=== PATIENT | female | born 1995 | race Caucasian/White ===

== ENCOUNTER 2020-06-09 15:33 | Inpatient (IN) | payer MEDICAID ==
[2020-06-09] MEDS ORDERED: Sodium Chloride 0.9% 1,000 ML IV ONE (17:13)
[2020-06-09] MEDS: Sodium Chloride 0.9% 10 ML Syringe FLUSH PRN ×2 (17:59→19:32)
--- NOTE | 2020-06-09 18:25 | EDM.PDOC ---
<Santy Floyd - Last Filed: 06/09/20 19:12> ED HPI GENERAL MEDICAL PROBLEM - General Chief Complaint: Respiratory Problem Stated Complaint: MEDICAL Time Seen by Provider: 06/09/20 17:11 Source of Information: Reports: Patient - History of Present Illness INITIAL COMMENTS - FREE TEXT/NARRATIVE: Joey is a 25-year-old male presenting to the ED for evaluation of a multitude of complaints including headache, runny nose, sore throat, cough, chest pain, pallor, and widely swinging blood glucose since Saturday (4 days ago. Patient was seen in the clinic on Saturday and tested for strep which was negative. She was started on doxycycline at that time for a probable sinus infection. She does have a history of type 1 diabetes. She reports has been a number of years since she has had an episode of DKA. She does wear a Dex com and showed me her last 24 hours on the monitor with wide swings of her glucose despite taking adequate insulin. Despite her symptoms, she denies any nausea, vomiting, or diarrhea. She has been using throat lozenges for her cough. She denies any significant shortness of breath. Generalized Pain Score (Numeric/FACES): 8 - Related Data Allergies Allergy/AdvReac Type Severity Reaction Status Date / Time ciprofloxacin Allergy Hives Verified 06/09/20 17:41 Latex, Natural Rubber Allergy Itching Verified 06/09/20 17:48 morphine Allergy Hives Verified 06/09/20 17:41 Home Meds: Home Meds Albuterol Sulfate [Proair Hfa] 2 puff INH ASDIRECTED 06/09/20 [History] Doxycycline [Vibramycin] 100 mg PO BID 06/09/20 [History] Ergocalciferol (Vitamin D2) [Vitamin D2] 1 tab PO DAILY 06/09/20 [History] Fluconazole 150 mg PO ASDIRECTED 06/09/20 [History] Gabapentin [Neurontin] 300 mg PO TID 06/09/20 [History] Insulin Aspart [NovoLOG] 0 unit SUBCUT ASDIRECTED 06/09/20 [History] Insulin Glargine,Hum.Rec.Anlog [Lantus Solostar] 24 units SUBCUT DAILY 06/09/20 [History] Multivitamin [Multivitamins] 1 cap PO DAILY 06/09/20 [History] SUMAtriptan [Imitrex] 25 mg PO ASDIRECTED 06/09/20 [History] Sertraline [Zoloft] 100 mg PO DAILY 06/09/20 [History] ondansetron HCL [Zofran] 4 mg PO Q8H PRN 06/09/20 [History] traZODone HCl [Trazodone HCl] 50 - 100 mg PO BEDTIME PRN 06/09/20 [History] Past Medical History HEENT History: Reports: Other (See Below) Other HEENT History: retinopathy Cardiovascular History: Reports: Heart Murmur Respiratory History: Reports: Asthma Gastrointestinal History: Reports: Other (See Below) Other Gastrointestinal History: 2 benign masses on the liver. 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 Musculoskeletal History: Reports: Fracture Neurological History: Reports: Neuropathy, Diabetic Psychiatric History: Reports: Anxiety, Depression, Panic Attack Endocrine/Metabolic History: Reports: Diabetes, Type I Oncologic (Cancer) History: Reports: Other (See Below) Other Oncologic History: carcinomic tumor of appendix at 8 years old. - Past Surgical History HEENT Surgical History: Reports: Adenoidectomy, Tonsillectomy GI Surgical History: Reports: Appendectomy, Colonoscopy Social & Family History - Tobacco Use Tobacco Use Status *Q: Never Tobacco User - Caffeine Use Caffeine Use: Reports: None - Recreational Drug Use Recreational Drug Use: No ED ROS GENERAL - Review of Systems Review Of Systems: See Below Constitutional: Reports: Malaise, Fatigue HEENT: Reports: Rhinitis, Sinus Problem, Throat Pain Respiratory: Reports: Cough. Denies: Sputum Cardiovascular: Reports: Chest Pain Endocrine: Reports: No Symptoms GI/Abdominal: Reports: No Symptoms : Reports: No Symptoms Musculoskeletal: Reports: No Symptoms Skin: Reports: Pallor Neurological: Reports: Headache Psychiatric: Reports: No Symptoms Hematologic/Lymphatic: Reports: No Symptoms Immunologic: Reports: No Symptoms ED EXAM, GENERAL - Physical Exam Exam: See Below Exam Limited By: No Limitations General Appearance: Alert, Anxious, Mild Distress Eye Exam: Bilateral Eye: EOMI, PERRL Nose: Nasal Swelling, Clear Rhinorrhea Throat/Mouth: Normal Inspection, Normal Lips, Normal Oropharynx, Normal Voice, No Airway Compromise Head: Atraumatic, Normocephalic Neck: Normal Inspection, Supple, Non-Tender, Full Range of Motion. No: Lymphadenopathy (R), Lymphadenopathy (L) Respiratory/Chest: No Respiratory Distress, Lungs Clear, Normal Breath Sounds, No Accessory Muscle Use, Chest Non-Tender Cardiovascular: Normal Peripheral Pulses, Regular Rate, Rhythm, No Edema, No Gallop, No JVD, No Murmur, No Rub Peripheral Pulses: 2+: Radial (L), Radial (R), Posterior Tibial (L), Posterior Tibial (R) GI/Abdominal: Normal Bowel Sounds, Soft, Non-Tender, No Organomegaly, No Distention, No Abnormal Bruit, No Mass, Pelvis Stable Back Exam: Normal Inspection, Full Range of Motion, NT Extremities: Normal Inspection, Normal Range of Motion, Non-Tender, Normal Capillary Refill, No Pedal Edema Neurological: Alert, Oriented, CN II-XII Intact, Normal Cognition, Normal Gait, No Motor/Sensory Deficits Psychiatric: Normal Affect, Normal Mood Skin Exam: Warm, Dry, Intact, Normal Color, No Rash Lymphatic: No Adenopathy Course - Re-Assessments/Exams Free Text/Narrative Re-Assessment/Exam: 06/09/20 18:23 labs are completed and reviewed. Patient is Covid 19 -. Her electrolytes are within normal range. Her venous blood gas shows a pH of 7.41 with normal venous PCO2, PO2, and bicarb. Her CBC is unremarkable. Her serum ketones are negative. Her blood glucose is only 167. Anion gap is normal. She does have mild elevation of her creatinine 1.4 which is likely due to some dehydration. She was given a liter of IV normal saline. 06/09/20 18:26 Departure - Departure Time of Disposition: 18:48 Disposition: Admitted As Inpatient 64 Clinical Impression: Pneumonia Qualifiers: Pneumonia type: due to unspecified organism Laterality: left Lung location: lower lobe of lung Qualified Code(s): J18.9 - Pneumonia, unspecified organism - Discharge Information Referrals: PCP,None [Primary Care Provider] - Forms: ED Department Discharge <CliftonrAdryan - Last Filed: 06/09/20 21:34> Course - Vital Signs Last Recorded V/S: Last Vital Signs Temp 97.6 F 06/09/20 18:13 Pulse 103 H 06/09/20 20:00 Resp 16 06/09/20 21:06 BP 143/99 H 06/09/20 21:06 Pulse Ox 92 L 06/09/20 21:06 - Orders/Labs/Meds Orders: Active Orders 24 hr Category Date Time Status RT Post Treatment Assessment [RC] Click to Edit Care 06/09/20 21:28 Active CULTURE BLOOD [BC] Urgent Lab 06/09/20 20:15 Received CULTURE BLOOD [BC] Urgent Lab 06/09/20 20:20 Received Iopamidol [Isovue-370 (76%)] Med 06/09/20 19:15 Active 100 ml IV . DIRECTED Lactated Ringers [Ringers, Lactated] 1,000 ml Med 06/09/20 20:17 Active IV BOLUS Sodium Chloride 0.9% [Normal Saline] 100 ml Med 06/09/20 19:15 Active IV ASDIRECTED Sodium Chloride 0.9% [Saline Flush] Med 06/09/20 17:13 Active 10 ml FLUSH ASDIRECTED PRN Blood Culture x2 Reflex Set [OM.PC] Urgent Oth 06/09/20 20:09 Ordered Saline Lock Insert [OM.PC] Routine Oth 06/09/20 17:13 Ordered Medication Orders Sodium Chloride (Normal Saline) 100 mls @ 3 mls/sec IV ASDIRECTED BRIDGER Last Admin: 06/09/20 19:32 Dose: 3 mls/sec Documented by: URBANO Lactated Ringer's (Ringers, Lactated) 1,000 mls @ 250 mls/hr IV BOLUS ONE Stop: 06/10/20 00:16 Last Admin: 06/09/20 20:24 Dose: 250 mls/hr Documented by: SOFIE Iopamidol (Isovue-370 (76%)) 100 ml IV . DIRECTED BRIDGER Last Admin: 06/09/20 19:32 Dose: 100 ml Documented by: URBANO Sodium Chloride (Saline Flush) 10 ml FLUSH ASDIRECTED PRN PRN Reason: Keep Vein Open Last Admin: 06/09/20 19:32 Dose: 10 ml Documented by: Admin: 06/09/20 17:59 Dose: 10 ml Documented by: JUDY Labs: Laboratory Tests 06/09/20 06/09/20 06/09/20 Range/Units 17:36 17:36 17:36 WBC 9.5 (4.5-11.0) K/uL RBC 3.86 (3.30-5.50) M/uL Hgb 11.1 L (12.0-15.0) g/dL Hct 34.5 L (36.0-48.0) % MCV 89 (80-98) fL MCH 29 (27-31) pg MCHC 32 (32-36) % Plt Count 458 H (150-400) K/uL Neut % (Auto) 65 (36-66) % Lymph % (Auto) 24 (24-44) % Sebastian % (Auto) 8 H (2-6) % Eos % (Auto) 2 (2-4) % Baso % (Auto) 1 (0-1) % ABG Hemoglobin 11.8 L (12.0-16.0) g/dL ABG Oxyhemoglobin 73.7 % ABG Carboxyhemoglobin 2.1 H (0.0-1.6) % ABG Methemoglobin 1.0 % VBG pH 7.410 (7.350-7.450) VBG pCO2 38.1 mm/Hg VBG pO2 38.7 mm/Hg VBG HCO3 23.7 mmol/L VBG Total CO2 21.6 mmol/L VBG O2 Saturation 76.1 VBG O2 Content 12.2 %vol VBG Base Excess -0.2 mm/L O2 Delivery Device Room air Sodium 140 (140-148) mmol/L Potassium 4.5 (3.6-5.2) mmol/L Chloride 105 (100-108) mmol/L Carbon Dioxide 25 (21-32) mmol/L Anion Gap 10.2 (5.0-14.0) mmol/L BUN 27 H (7-18) mg/dL Creatinine 1.4 H (0.6-1.0) mg/dL Est Cr Clr Drug Dosing TNP Estimated GFR (MDRD) 45 L (>60) Glucose 167 H (74-106) mg/dL Lactic Acid (0.4-2.0) mmol/L Calcium 9.1 (8.5-10.1) mg/dL Total Bilirubin 0.2 (0.2-1.0) mg/dL AST 21 (15-37) U/L ALT 27 (12-78) U/L Alkaline Phosphatase 90 (46-116) U/L C-Reactive Protein 0.72 H (0.0-0.3) mg/dL Total Protein 6.4 (6.4-8.2) g/dL Albumin 2.8 L (3.4-5.0) g/dL Globulin 3.6 H (2.3-3.5) g/dL Albumin/Globulin Ratio 0.8 L (1.2-2.2) Urine Color (YELLOW) Urine Appearance (CLEAR) Urine pH (5.0-8.0) Ur Specific Kiln (1.008-1.030) Urine Protein (NEGATIVE) mg/dL Urine Glucose (UA) (NEGATIVE) mg/dL Urine Ketones (NEGATIVE) mg/dL Urine Occult Blood (NEGATIVE) Urine Nitrite (NEGATIVE) Urine Bilirubin (NEGATIVE) Urine Urobilinogen (0.2-1.0) EU/dL Ur Leukocyte Esterase (NEGATIVE) Urine RBC (0-5) Urine WBC (0-5) Ur Epithelial Cells Urine Bacteria Ketones (NEGATIVE) SARS-CoV-2 RNA (DOMINIQUE) (NEGATIVE) 06/09/20 06/09/20 06/09/20 Range/Units 17:36 17:36 17:36 WBC (4.5-11.0) K/uL RBC (3.30-5.50) M/uL Hgb (12.0-15.0) g/dL Hct (36.0-48.0) % MCV (80-98) fL MCH (27-31) pg MCHC (32-36) % Plt Count (150-400) K/uL Neut % (Auto) (36-66) % Lymph % (Auto) (24-44) % Sebastian % (Auto) (2-6) % Eos % (Auto) (2-4) % Baso % (Auto) (0-1) % ABG Hemoglobin (12.0-16.0) g/dL ABG Oxyhemoglobin % ABG Carboxyhemoglobin (0.0-1.6) % ABG Methemoglobin % VBG pH (7.350-7.450) VBG pCO2 mm/Hg VBG pO2 mm/Hg VBG HCO3 mmol/L VBG Total CO2 mmol/L VBG O2 Saturation VBG O2 Content %vol VBG Base Excess mm/L O2 Delivery Device Sodium (140-148) mmol/L Potassium (3.6-5.2) mmol/L Chloride (100-108) mmol/L Carbon Dioxide (21-32) mmol/L Anion Gap (5.0-14.0) mmol/L BUN (7-18) mg/dL Creatinine (0.6-1.0) mg/dL Est Cr Clr Drug Dosing Estimated GFR (MDRD) (>60) Glucose (74-106) mg/dL Lactic Acid 1.5 (0.4-2.0) mmol/L Calcium (8.5-10.1) mg/dL Total Bilirubin (0.2-1.0) mg/dL AST (15-37) U/L ALT (12-78) U/L Alkaline Phosphatase (46-116) U/L C-Reactive Protein (0.0-0.3) mg/dL Total Protein (6.4-8.2) g/dL Albumin (3.4-5.0) g/dL Globulin (2.3-3.5) g/dL Albumin/Globulin Ratio (1.2-2.2) Urine Color (YELLOW) Urine Appearance (CLEAR) Urine pH (5.0-8.0) Ur Specific Kiln (1.008-1.030) Urine Protein (NEGATIVE) mg/dL Urine Glucose (UA) (NEGATIVE) mg/dL Urine Ketones (NEGATIVE) mg/dL Urine Occult Blood (NEGATIVE) Urine Nitrite (NEGATIVE) Urine Bilirubin (NEGATIVE) Urine Urobilinogen (0.2-1.0) EU/dL Ur Leukocyte Esterase (NEGATIVE) Urine RBC (0-5) Urine WBC (0-5) Ur Epithelial Cells Urine Bacteria Ketones Negative (NEGATIVE) SARS-CoV-2 RNA (DOMINIQUE) Negative (NEGATIVE) 06/09/20 Range/Units 18:10 WBC (4.5-11.0) K/uL RBC (3.30-5.50) M/uL Hgb (12.0-15.0) g/dL Hct (36.0-48.0) % MCV (80-98) fL MCH (27-31) pg MCHC (32-36) % Plt Count (150-400) K/uL Neut % (Auto) (36-66) % Lymph % (Auto) (24-44) % Sebastian % (Auto) (2-6) % Eos % (Auto) (2-4) % Baso % (Auto) (0-1) % ABG Hemoglobin (12.0-16.0) g/dL ABG Oxyhemoglobin % ABG Carboxyhemoglobin (0.0-1.6) % ABG Methemoglobin % VBG pH (7.350-7.450) VBG pCO2 mm/Hg VBG pO2 mm/Hg VBG HCO3 mmol/L VBG Total CO2 mmol/L VBG O2 Saturation VBG O2 Content %vol VBG Base Excess mm/L O2 Delivery Device Sodium (140-148) mmol/L Potassium (3.6-5.2) mmol/L Chloride (100-108) mmol/L Carbon Dioxide (21-32) mmol/L Anion Gap (5.0-14.0) mmol/L BUN (7-18) mg/dL Creatinine (0.6-1.0) mg/dL Est Cr Clr Drug Dosing Estimated GFR (MDRD) (>60) Glucose (74-106) mg/dL Lactic Acid (0.4-2.0) mmol/L Calcium (8.5-10.1) mg/dL Total Bilirubin (0.2-1.0) mg/dL AST (15-37) U/L ALT (12-78) U/L Alkaline Phosphatase (46-116) U/L C-Reactive Protein (0.0-0.3) mg/dL Total Protein (6.4-8.2) g/dL Albumin (3.4-5.0) g/dL Globulin (2.3-3.5) g/dL Albumin/Globulin Ratio (1.2-2.2) Urine Color Yellow (YELLOW) Urine Appearance Clear (CLEAR) Urine pH 5.5 (5.0-8.0) Ur Specific Kiln 1.025 (1.008-1.030) Urine Protein >=300 H (NEGATIVE) mg/dL Urine Glucose (UA) >=1000 H (NEGATIVE) mg/dL Urine Ketones Negative (NEGATIVE) mg/dL Urine Occult Blood Small H (NEGATIVE) Urine Nitrite Negative (NEGATIVE) Urine Bilirubin Negative (NEGATIVE) Urine Urobilinogen 0.2 (0.2-1.0) EU/dL Ur Leukocyte Esterase Negative (NEGATIVE) Urine RBC 20-30 H (0-5) Urine WBC Not seen (0-5) Ur Epithelial Cells Not seen Urine Bacteria Not seen Ketones (NEGATIVE) SARS-CoV-2 RNA (DOMINIQUE) (NEGATIVE) Meds: Medications Generic Name Dose Route Start Last Admin Trade Name Freq PRN Reason Stop Dose Admin Sodium Chloride 100 mls @ 3 mls/sec 06/09/20 19:15 06/09/20 19:32 Normal Saline IV 3 mls/sec ASDIRECTED BRIDGER Administration Lactated Ringer's 1,000 mls @ 250 mls/hr 06/09/20 20:17 06/09/20 20:24 Ringers, Lactated IV 06/10/20 00:16 250 mls/hr BOLUS ONE Administration Iopamidol 100 ml 06/09/20 19:15 06/09/20 19:32 Isovue-370 (76%) IV 100 ml . DIRECTED BRIDGER Administration Sodium Chloride 10 ml 06/09/20 17:13 06/09/20 19:32 Saline Flush FLUSH 10 ml ASDIRECTED PRN Administration Keep Vein Open Discontinued Medications Generic Name Dose Route Start Last Admin Trade Name Elisabet PRN Reason Stop Dose Admin Albuterol/Ipratropium 1 gm 06/09/20 21:28 Combivent Respimat INH 06/09/20 21:29 NOW STA Fentanyl 50 mcg 06/09/20 20:02 06/09/20 20:22 Sublimaze IVPUSH 06/09/20 20:03 50 mcg ONETIME ONE Administration Sodium Chloride 1,000 mls @ 999 mls/hr 06/09/20 17:13 06/09/20 17:59 Normal Saline IV 06/09/20 18:13 999 mls/hr .BOLUS ONE Administration Ceftriaxone Sodium 1 gm/ 50 mls @ 100 mls/hr 06/09/20 20:09 06/09/20 20:24 Sodium Chloride IV 06/09/20 20:38 100 mls/hr ONETIME ONE Administration Ketorolac Tromethamine 30 mg 06/09/20 18:47 06/09/20 18:56 Toradol IVPUSH 06/09/20 18:48 30 mg ONETIME ONE Administration Ondansetron HCl 4 mg 06/09/20 18:49 06/09/20 18:56 Zofran IVPUSH 06/09/20 18:50 4 mg ONETIME ONE Administration Departure - Departure Time of Disposition: 21:34 Sepsis Event Note (ED) - Focused Exam Vital Signs: Vital Signs Temp Pulse Resp BP Pulse Ox 06/09/20 21:06 16 143/99 H 92 L 06/09/20 20:00 103 H 151/89 H 94 L 06/09/20 19:16 88 L 06/09/20 19:01 111 H 171/105 H 93 L 06/09/20 18:57 110 H 172/110 H 87 L 06/09/20 18:31 112 H 160/102 H 93 L 06/09/20 18:13 97.6 F 105 H 16 165/95 H 97 06/09/20 18:01 108 H 167/86 H 95 06/09/20 17:00 97.6 F 105 H 16 165/95 H 97 - My Orders Last 24 Hours: My Active Orders 06/09/20 20:09 Blood Culture x2 Reflex Set [OM.PC] Urgent 06/09/20 20:15 CULTURE BLOOD [BC] Urgent 06/09/20 20:17 Lactated Ringers [Ringers, Lactated] 1,000 ml IV BOLUS 06/09/20 20:20 CULTURE BLOOD [BC] Urgent 06/09/20 21:28 RT Post Treatment Assessment [RC] Click to Edit - Assessment/Plan Last 24 Hours: My Active Orders 06/09/20 20:09 Blood Culture x2 Reflex Set [OM.PC] Urgent 06/09/20 20:15 CULTURE BLOOD [BC] Urgent 06/09/20 20:17 Lactated Ringers [Ringers, Lactated] 1,000 ml IV BOLUS 06/09/20 20:20 CULTURE BLOOD [BC] Urgent 06/09/20 21:28 RT Post Treatment Assessment [RC] Click to Edit Plan: Assessment Acuity = acute Site and laterality = left lower lobe pneumonia complicated patient with known history of asthma Etiology = probable bacterial cause Manifestations = hypoxia Location of injury = Home Lab values = CBC unremarkable venous pH 7.4 creatinine 1.4 consistent with acute renal failure stage G3 B lactic acid normal 1.5 CRP 0.72 albumin low 2.8 consistent hypoalbuminemia urinalysis reveals greater than 1000 glucose consistent with glucosuria 20-30 RBCs consistent with a hematuria ketones are negative Covid is negative CT scan describes the pneumonia listed above, she has been started on antibiotics of Rocephin blood cultures pending she is received 1 L of fluids Plan Call discussed case with hospitalist on-call at [phone] kindly agreed to come and evaluate the patient emergency department for admission This note was dictated using [employer] voice recognition software please call with any questions on syntax or grammar.
[2020-06-09] MEDS ORDERED: Ketorolac 30 MG/ML SDV IVPUSH ONE (18:47)
[2020-06-09] MEDS ORDERED: Ondansetron 4 MG/2 ML SDV IVPUSH ONE ×2 (18:49→23:40)
[2020-06-09] MEDS ORDERED: Sodium Chloride 0.9% 100 ML IV SCH (19:15)
[2020-06-09] MEDS ORDERED: Iopamidol 755 Mg/ML 100 ML Bottle IV SCH (19:15)
--- NOTE | 2020-06-09 19:59 | CRLCT ---
INDICATION: Shortness of breath, hypoxia, chest pain TECHNIQUE: CT chest pulmonary PE protocol acquired with IV contrast. COMPARISON: None FINDINGS: Cardiovascular structures: Normal vascular enhancement of the pulmonary arteries, no sign of pulmonary embolism. Heart size is normal. No sign of aneurysm in the thoracic aorta. Mediastinum and cassidy: No mass or adenopathy. Lungs: Patchy consolidation in the left lower lobe. Diffuse bronchial wall thickening. Pleura and pericardium: Trace bilateral pleural effusions. Chest wall and axilla: No mass or adenopathy. Upper abdomen: Unremarkable. Bones: No significant findings. IMPRESSION: No pulmonary embolism. Left lower lobe pneumonia. Bronchitis. Please note that all CT scans at this facility use dose modulation, iterative reconstruction, and/or weight-based dosing when appropriate to reduce radiation dose to as low as reasonably achievable. Dictated by Sherrill Lopez MD @ Jun 09 2020 7:52PM Signed by Dr. Sherrill Lopez @ Jun 09 2020 7:58PM
[2020-06-09] MEDS ORDERED: fentaNYL 100 MCG/2 ML SDV IVPUSH ONE (20:02)
[2020-06-09] MEDS ORDERED: cefTRIAXone 1 GM in Sodium Chloride 0.9% 50 ML IV ONE (20:09)
[2020-06-09] MEDS ORDERED: Lactated Ringers 1,000 ML IV ONE (20:17)
[2020-06-09] MEDS ORDERED: Albuterol/Ipratropium 4 GM Inhalation Spray INH STA (21:28)
[2020-06-09] MEDS ORDERED: Iopamidol 612 MG/ML 100 ML Bottle IV SCH (21:45)
[2020-06-09] MEDS ORDERED: Sodium Chloride 0.9% 80 ML IV SCH (21:45)
--- NOTE | 2020-06-09 22:35 | CRLCT ---
INDICATION: Left lower quadrant abdominal pain TECHNIQUE: Axial images were obtained from the diaphragm to the pubic symphysis. Reformats were obtained in the coronal and sagittal plane. IV Contrast: 100 cc Isovue-300 Oral Contrast: None COMPARISON: None. FINDINGS: Lower chest: Interlobular septal thickening with some consolidation in the bilateral lower lobes. Trace bilateral pleural effusions. Liver: Normal in contour with hypodense nodule in the right lobe measuring 10 millimeters with some enhancement as well as segmental ductal dilatation within the lateral segment of left lobe liver. Gallbladder and bile ducts: Common duct unremarkable. Gallbladder unremarkable with a Phrygian cap. Spleen: Unremarkable. Normal in size without mass. Pancreas: Unremarkable. No mass or inflammation. Adrenal glands: Unremarkable. No nodules. Kidneys: No hydronephrosis with heterogeneous enhancement of the kidneys bilaterally. Vasculature: Unremarkable. GI tract: The stomach is unremarkable. No dilated loops of large or small intestine. Pelvis: Contrast within the bladder. Uterus anteverted. Dominant follicle right ovary. Bones: Unremarkable for age. IMPRESSION: 1. Trace bilateral pleural effusions with consolidation of bilateral lower lobes, greater on the left, question pneumonia. 2. Heterogeneous enhancement of the kidneys bilaterally. Differential diagnosis would include a process such as pyelonephritis or persistent enhancement from an intrinsic renal process such as renal tubular acidosis. 3. Indeterminate hepatic lesion and segmental ductal dilatation, suggest follow-up outpatient liver MRI for further characterization. Please note that all CT scans at this facility use dose modulation, iterative reconstruction, and/or weight-based dosing when appropriate to reduce radiation dose to as low as reasonably achievable. Dictated by Nacho Wheeler MD @ Jun 09 2020 10:20PM Signed by Dr. Nacho Wheeler @ Jun 09 2020 10:33PM
[2020-06-09] MEDS: Albuterol 0.083% 2.5 MG/3 ML Neb Soln NEB PRN (22:48)
--- NOTE | 2020-06-09 23:29 | PCM.HP.2 ---
H&P History of Present Illness - General Date of Service: 06/09/20 Admit Problem/Dx: Admission Diagnosis/Problem Admission Diagnosis/Problem Pneumonia Source of Information: Patient, Provider, RN Notes Reviewed History Limitations: Reports: No Limitations - History of Present Illness Initial Comments - Free Text/Narative: Ms. Goss is a 25-year-old woman who was admitted through the emergency department with cough and shortness of breath secondary to left lung pneumonia and asthma exacerbation. She has not felt well over the past 4 days. She has not been aware of obvious fever but has had some chills with progressive weakness and increase in her blood sugars. On evaluation in the emergency department CT scan of the chest shows evidence of a left lung infiltrate. White blood cell count is within normal range and COVID-19 testing is negative. She is also experienced left lower quadrant abdominal pain over the past several hours, CT scan of the abdomen shows evidence of constipation but no other significant abnormalities to explain current symptoms. She is found to be hypoxic and is requiring supplemental oxygen, she has a known history of underlying asthma. Generalized Pain Score (Numeric/FACES): 8 - Related Data Allergies/Adverse Reactions: Allergies Allergy/AdvReac Type Severity Reaction Status Date / Time ciprofloxacin Allergy Hives Verified 06/09/20 17:41 Latex, Natural Rubber Allergy Itching Verified 06/09/20 17:48 morphine Allergy Hives Verified 06/09/20 17:41 Home Medications: Home Meds Albuterol Sulfate [Proair Hfa] 2 puff INH ASDIRECTED 06/09/20 [History] Doxycycline [Vibramycin] 100 mg PO BID 06/09/20 [History] Ergocalciferol (Vitamin D2) [Vitamin D2] 1 tab PO DAILY 06/09/20 [History] Fluconazole 150 mg PO ASDIRECTED 06/09/20 [History] Gabapentin [Neurontin] 300 mg PO TID 06/09/20 [History] Insulin Aspart [NovoLOG] 0 unit SUBCUT ASDIRECTED 06/09/20 [History] Insulin Glargine,Hum.Rec.Anlog [Lantus Solostar] 24 units SUBCUT DAILY 06/09/20 [History] Multivitamin [Multivitamins] 1 cap PO DAILY 06/09/20 [History] SUMAtriptan [Imitrex] 25 mg PO ASDIRECTED 10/29/20 [History] Sertraline [Zoloft] 100 mg PO DAILY 06/09/20 [History] ondansetron HCL [Zofran] 4 mg PO Q8H PRN 06/09/20 [History] traZODone HCl [Trazodone HCl] 50 - 100 mg PO BEDTIME PRN 06/09/20 [History] Past Medical History HEENT History: Reports: Other (See Below) Other HEENT History: retinopathy Cardiovascular History: Reports: Heart Murmur Respiratory History: Reports: Asthma Gastrointestinal History: Reports: Other (See Below) Other Gastrointestinal History: 2 benign masses on the liver. 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 Musculoskeletal History: Reports: Fracture Neurological History: Reports: Neuropathy, Diabetic Psychiatric History: Reports: Anxiety, Depression, Panic Attack Endocrine/Metabolic History: Reports: Diabetes, Type I Oncologic (Cancer) History: Reports: Other (See Below) Other Oncologic History: carcinomic tumor of appendix at 8 years old. - Past Surgical History HEENT Surgical History: Reports: Adenoidectomy, Tonsillectomy GI Surgical History: Reports: Appendectomy, Colonoscopy Social & Family History - Tobacco Use Tobacco Use Status *Q: Never Tobacco User - Caffeine Use Caffeine Use: Reports: None - Recreational Drug Use Recreational Drug Use: No H&P Review of Systems - Review of Systems: Review Of Systems: See Below General: Reports: Chills, Malaise, Weakness, Fatigue, Decreased Appetite. Denies: Fever HEENT: Reports: No Symptoms Pulmonary: Reports: Shortness of Breath, Wheezing, Cough. Denies: Pleuritic Chest Pain, Sputum, Hemoptysis Cardiovascular: Reports: Dyspnea on Exertion. Denies: Chest Pain, Palpitations, Orthopnea, PND, Edema, Lightheadedness Gastrointestinal: Reports: Abdominal Pain, Constipation, Decreased Appetite. Denies: Difficulty Swallowing, Distension, Nausea, Vomiting Genitourinary: Reports: No Symptoms Musculoskeletal: Reports: No Symptoms Skin: Reports: No Symptoms Psychiatric: Reports: No Symptoms Neurological: Reports: No Symptoms Hematologic/Lymphatic: Reports: No Symptoms Immunologic: Reports: No Symptoms Exam - Exam Exam: See Below - Vital Signs Vital Signs: Last Vital Signs Temp 96.6 F L 06/09/20 22:00 Pulse 102 H 06/09/20 22:00 Resp 22 H 06/09/20 22:00 BP 162/101 H 06/09/20 22:00 Pulse Ox 88 L 06/09/20 22:00 Weight: 160 lb - Exam Quality Assessment: Supplemental Oxygen, DVT Prophylaxis General: Alert, Oriented, Cooperative, Moderate Distress HEENT: Conjunctiva Clear, Hearing Intact, Mucosa Moist & [place], Normal Nasal Septum, Posterior Pharynx Clear, Pupils Equal Neck: Supple, Trachea Midline, +2 Carotid Pulse wo Bruit Lungs: Normal Respiratory Effort, Wheezing. No: Rales, Rhonchi Cardiovascular: Regular Rate, Regular Rhythm, Normal S1, Normal S2. No: Systolic Murmur, Diastolic Murmur GI/Abdominal Exam: Soft, No Organomegaly, Tender. No: Distended, Guarding, Rigid, Rebound Back Exam: Normal Inspection, Full Range of Motion Extremities: Non-Tender, No Pedal Edema Skin: Warm, Dry, Intact Neurological: Cranial Nerves Intact, Strength Equal Bilateral, Normal Speech, Normal Tone, Sensation Intact. No: Focal Deficit Neuro Extensive - Mental Status: Alert, Oriented x3, Normal Mood/Affect, Normal Cognition, Memory Intact - Patient Data Lab Results Last 24 hrs: Laboratory Results - last 24 hr 06/09/20 06/09/20 06/09/20 Range/Units 17:36 17:36 17:36 WBC 9.5 (4.5-11.0) K/uL RBC 3.86 (3.30-5.50) M/uL Hgb 11.1 L (12.0-15.0) g/dL Hct 34.5 L (36.0-48.0) % MCV 89 (80-98) fL MCH 29 (27-31) pg MCHC 32 (32-36) % Plt Count 458 H (150-400) K/uL Neut % (Auto) 65 (36-66) % Lymph % (Auto) 24 (24-44) % [place] % (Auto) 8 H (2-6) % Eos % (Auto) 2 (2-4) % Baso % (Auto) 1 (0-1) % ABG Hemoglobin 11.8 L (12.0-16.0) g/dL ABG Oxyhemoglobin 73.7 % ABG Carboxyhemoglobin 2.1 H (0.0-1.6) % ABG Methemoglobin 1.0 % VBG pH 7.410 (7.350-7.450) VBG pCO2 38.1 mm/Hg VBG pO2 38.7 mm/Hg VBG HCO3 23.7 mmol/L VBG Total CO2 21.6 mmol/L VBG O2 Saturation 76.1 VBG O2 Content 12.2 %vol VBG Base Excess -0.2 mm/L O2 Delivery Device Room air Sodium 140 (140-148) mmol/L Potassium 4.5 (3.6-5.2) mmol/L Chloride 105 (100-108) mmol/L Carbon Dioxide 25 (21-32) mmol/L Anion Gap 10.2 (5.0-14.0) mmol/L BUN 27 H (7-18) mg/dL Creatinine 1.4 H (0.6-1.0) mg/dL Est Cr Clr Drug Dosing TNP Estimated GFR (MDRD) 45 L (>60) Glucose 167 H (74-106) mg/dL Lactic Acid (0.4-2.0) mmol/L Calcium 9.1 (8.5-10.1) mg/dL Total Bilirubin 0.2 (0.2-1.0) mg/dL AST 21 (15-37) U/L ALT 27 (12-78) U/L Alkaline Phosphatase 90 (46-116) U/L C-Reactive Protein 0.72 H (0.0-0.3) mg/dL Total Protein 6.4 (6.4-8.2) g/dL Albumin 2.8 L (3.4-5.0) g/dL Globulin 3.6 H (2.3-3.5) g/dL Albumin/Globulin Ratio 0.8 L (1.2-2.2) Urine Color (YELLOW) Urine Appearance (CLEAR) Urine pH (5.0-8.0) Ur Specific [place] (1.008-1.030) Urine Protein (NEGATIVE) mg/dL Urine Glucose (UA) (NEGATIVE) mg/dL Urine Ketones (NEGATIVE) mg/dL Urine Occult Blood (NEGATIVE) Urine Nitrite (NEGATIVE) Urine Bilirubin (NEGATIVE) Urine Urobilinogen (0.2-1.0) EU/dL Ur Leukocyte Esterase (NEGATIVE) Urine RBC (0-5) Urine WBC (0-5) Ur Epithelial Cells Urine Bacteria Ketones (NEGATIVE) SARS-CoV-2 RNA (DOMINIQUE) (NEGATIVE) 06/09/20 06/09/20 06/09/20 Range/Units 17:36 17:36 17:36 WBC (4.5-11.0) K/uL RBC (3.30-5.50) M/uL Hgb (12.0-15.0) g/dL Hct (36.0-48.0) % MCV (80-98) fL MCH (27-31) pg MCHC (32-36) % Plt Count (150-400) K/uL Neut % (Auto) (36-66) % Lymph % (Auto) (24-44) % [place] % (Auto) (2-6) % Eos % (Auto) (2-4) % Baso % (Auto) (0-1) % ABG Hemoglobin (12.0-16.0) g/dL ABG Oxyhemoglobin % ABG Carboxyhemoglobin (0.0-1.6) % ABG Methemoglobin % VBG pH (7.350-7.450) VBG pCO2 mm/Hg VBG pO2 mm/Hg VBG HCO3 mmol/L VBG Total CO2 mmol/L VBG O2 Saturation VBG O2 Content %vol VBG Base Excess mm/L O2 Delivery Device Sodium (140-148) mmol/L Potassium (3.6-5.2) mmol/L Chloride (100-108) mmol/L Carbon Dioxide (21-32) mmol/L Anion Gap (5.0-14.0) mmol/L BUN (7-18) mg/dL Creatinine (0.6-1.0) mg/dL Est Cr Clr Drug Dosing Estimated GFR (MDRD) (>60) Glucose (74-106) mg/dL Lactic Acid 1.5 (0.4-2.0) mmol/L Calcium (8.5-10.1) mg/dL Total Bilirubin (0.2-1.0) mg/dL AST (15-37) U/L ALT (12-78) U/L Alkaline Phosphatase (46-116) U/L C-Reactive Protein (0.0-0.3) mg/dL Total Protein (6.4-8.2) g/dL Albumin (3.4-5.0) g/dL Globulin (2.3-3.5) g/dL Albumin/Globulin Ratio (1.2-2.2) Urine Color (YELLOW) Urine Appearance (CLEAR) Urine pH (5.0-8.0) Ur Specific [place] (1.008-1.030) Urine Protein (NEGATIVE) mg/dL Urine Glucose (UA) (NEGATIVE) mg/dL Urine Ketones (NEGATIVE) mg/dL Urine Occult Blood (NEGATIVE) Urine Nitrite (NEGATIVE) Urine Bilirubin (NEGATIVE) Urine Urobilinogen (0.2-1.0) EU/dL Ur Leukocyte Esterase (NEGATIVE) Urine RBC (0-5) Urine WBC (0-5) Ur Epithelial Cells Urine Bacteria Ketones Negative (NEGATIVE) SARS-CoV-2 RNA (DOMINIQUE) Negative (NEGATIVE) 06/09/20 Range/Units 18:10 WBC (4.5-11.0) K/uL RBC (3.30-5.50) M/uL Hgb (12.0-15.0) g/dL Hct (36.0-48.0) % MCV (80-98) fL MCH (27-31) pg MCHC (32-36) % Plt Count (150-400) K/uL Neut % (Auto) (36-66) % Lymph % (Auto) (24-44) % [place] % (Auto) (2-6) % Eos % (Auto) (2-4) % Baso % (Auto) (0-1) % ABG Hemoglobin (12.0-16.0) g/dL ABG Oxyhemoglobin % ABG Carboxyhemoglobin (0.0-1.6) % ABG Methemoglobin % VBG pH (7.350-7.450) VBG pCO2 mm/Hg VBG pO2 mm/Hg VBG HCO3 mmol/L VBG Total CO2 mmol/L VBG O2 Saturation VBG O2 Content %vol VBG Base Excess mm/L O2 Delivery Device Sodium (140-148) mmol/L Potassium (3.6-5.2) mmol/L Chloride (100-108) mmol/L Carbon Dioxide (21-32) mmol/L Anion Gap (5.0-14.0) mmol/L BUN (7-18) mg/dL Creatinine (0.6-1.0) mg/dL Est Cr Clr Drug Dosing Estimated GFR (MDRD) (>60) Glucose (74-106) mg/dL Lactic Acid (0.4-2.0) mmol/L Calcium (8.5-10.1) mg/dL Total Bilirubin (0.2-1.0) mg/dL AST (15-37) U/L ALT (12-78) U/L Alkaline Phosphatase (46-116) U/L C-Reactive Protein (0.0-0.3) mg/dL Total Protein (6.4-8.2) g/dL Albumin (3.4-5.0) g/dL Globulin (2.3-3.5) g/dL Albumin/Globulin Ratio (1.2-2.2) Urine Color Yellow (YELLOW) Urine Appearance Clear (CLEAR) Urine pH 5.5 (5.0-8.0) Ur Specific [place] 1.025 (1.008-1.030) Urine Protein >=300 H (NEGATIVE) mg/dL Urine Glucose (UA) >=1000 H (NEGATIVE) mg/dL Urine Ketones Negative (NEGATIVE) mg/dL Urine Occult Blood Small H (NEGATIVE) Urine Nitrite Negative (NEGATIVE) Urine Bilirubin Negative (NEGATIVE) Urine Urobilinogen 0.2 (0.2-1.0) EU/dL Ur Leukocyte Esterase Negative (NEGATIVE) Urine RBC 20-30 H (0-5) Urine WBC Not seen (0-5) Ur Epithelial Cells Not seen Urine Bacteria Not seen Ketones (NEGATIVE) SARS-CoV-2 RNA (DOMINIQUE) (NEGATIVE) Result Diagrams: 06/09/20 17:36 06/09/20 17:36 Sepsis Event Note - Evaluation Sepsis Screening Result: No Definite Risk - Focused Exam Vital Signs: Vital Signs Temp Pulse Resp BP Pulse Ox 06/09/20 22:00 96.6 F L 102 H 22 H 162/101 H 88 L 06/09/20 21:30 102 H 23 H 189/116 H 89 L 06/09/20 21:06 16 143/99 H 92 L 06/09/20 20:00 103 H 151/89 H 94 L 06/09/20 19:16 88 L 06/09/20 19:01 111 H 171/105 H 93 L 06/09/20 18:57 110 H 172/110 H 87 L 06/09/20 18:31 112 H 160/102 H 93 L 06/09/20 18:13 97.6 F 105 H 16 165/95 H 97 06/09/20 18:01 108 H 167/86 H 95 06/09/20 17:00 97.6 F 105 H 16 165/95 H 97 *Q Meaningful Use (ADM) - VTE Risk Assess *Q Each Risk Factor Represents 1 Point: Obesity ( BMI > 25 kg/m2), Serious lung disease including pneumonia, Abnormal Pulmonary Function (COPD) Total Score 1 Point Risk Factors: 3 Each Risk Factor Represents 2 Points: None Total Score 2 Point Risk Factors: 0 Each Risk Factor Represents 3 Points: None Total Score 3 Point Risk Factors: 0 Each Risk Factor Represents 5 Points: None Total Score 5 Point Risk Factors: 0 Venous Thromboembolism Risk Factor Score *Q: 3 Problem List Initiated/Reviewed/Updated: Yes Orders Last 24hrs: Active Orders 24 hr Category Date Time Status Patient Status Manage Transfer [TRANSFER] Routine ADT 06/09/20 23:06 Active RT Aerosol Therapy [RC] ASDIRECTED Care 06/09/20 21:38 Active RT Post Treatment Assessment [RC] Click to Edit Care 06/09/20 21:28 Active CULTURE BLOOD [BC] Urgent Lab 06/09/20 20:15 Received CULTURE BLOOD [BC] Urgent Lab 06/09/20 20:20 Received INFLUENZA A+B AG SCREEN [RM] Stat Lab 06/09/20 22:45 Ordered PROCALCITONIN [CHEM] Stat Lab 06/09/20 22:25 Ordered Albuterol [Proventil Neb Soln] Med 06/09/20 21:38 Active 2.5 mg NEB Q2H PRN Iopamidol [Isovue-300 (61%)] Med 06/09/20 21:45 Active 100 ml IV . DIRECTED Iopamidol [Isovue-370 (76%)] Med 06/09/20 19:15 Active 100 ml IV . DIRECTED Lactated Ringers [Ringers, Lactated] 1,000 ml Med 06/09/20 20:17 Active IV BOLUS Sodium Chloride 0.9% [Normal Saline] 100 ml Med 06/09/20 19:15 Active IV ASDIRECTED Sodium Chloride 0.9% [Normal Saline] 80 ml Med 06/09/20 21:45 Active IV ASDIRECTED Sodium Chloride 0.9% [Saline Flush] Med 06/09/20 17:13 Active 10 ml FLUSH ASDIRECTED PRN Blood Culture x2 Reflex Set [OM.PC] Urgent Oth 06/09/20 20:09 Ordered Isolation [COMM] Routine Oth 06/09/20 22:24 Ordered Saline Lock Insert [OM.PC] Routine Oth 06/09/20 17:13 Ordered Resuscitation Status Routine Resus Stat 06/09/20 23:10 Ordered Medication Orders Albuterol (Proventil Neb Soln) 2.5 mg NEB Q2H PRN PRN Reason: Dyspnea Last Admin: 06/09/20 22:48 Dose: 2.5 mg Documented by: SMITA Sodium Chloride (Normal Saline) 100 mls @ 3 mls/sec IV ASDIRECTED [facility], [facility] Last Admin: 06/09/20 19:32 Dose: 3 mls/sec Documented by: URBANO Lactated Ringer's (Ringers, Lactated) 1,000 mls @ 250 mls/hr IV BOLUS ONE Stop: 06/10/20 00:16 Last Admin: 06/09/20 20:24 Dose: 250 mls/hr Documented by: SOFIE Sodium Chloride (Normal Saline) 80 mls @ 3 mls/sec IV ASDIRECTED [facility], [facility] Last Admin: 06/09/20 21:57 Dose: 3 mls/sec Documented by: DAVIDAALY Iopamidol (Isovue-370 (76%)) 100 ml IV . DIRECTED [facility] Last Admin: 06/09/20 19:32 Dose: 100 ml Documented by: MYKLALY Iopamidol (Isovue-300 (61%)) 100 ml IV . DIRECTED [facility], [facility] Last Admin: 06/09/20 21:57 Dose: 100 ml Documented by: DAVIDAALY Sodium Chloride (Saline Flush) 10 ml FLUSH ASDIRECTED PRN PRN Reason: Keep Vein Open Last Admin: 06/09/20 19:32 Dose: 10 ml Documented by: Admin: 06/09/20 17:59 Dose: 10 ml Documented by: JUDY Assessment/Plan Comment:: ASSESSMENT AND PLAN LEFT LUNG PNEUMONIA-symptoms of chills, weakness, shortness of breath. Cough developing over the last 24 hours. Left lung infiltrate identified on CT scan, normal white blood cell count. -Procalcitonin and influenza AMB pending -Ceftriaxone and azithromycin pending culture results -Blood cultures pending ASTHMA EXACERBATION-likely secondary to current pneumonia -Nebulized albuterol and DuoNebs -Solu-Medrol 40 mg IV every 8 hours -Pulmicort nebs twice daily HYPOXIA-secondary to asthma exacerbation -Supplemental oxygen as needed -Continuous pulse oximetry -Consider noninvasive positive pressure ventilation if hypoxia worsens TYPE 1 DIABETES MELLITUS -Continue usual dose of long-acting insulin -4 times daily glucometers -Moderate dose sliding scale Humalog MAINTENANCE ISSUES -DVT prophylaxis; scuds -GI prophylaxis; not indicated -Austin catheter; not indicated -Nutrition; consistent carb diet -Nicotine dependence; not required CODE STATUS-FULL CODE ADMISSION STATUS-patient will be admitted to inpatient status, expect at least a 2 night hospital stay for evaluation and management of problems as outlined above. At the time of this admission I do not reasonably expected evaluation and management of this problem will require more than a 96 hour hospital stay. DISPOSITION-anticipate discharge to home after the hospital stay. PRIMARY CARE PROVIDER- - Mortality Measure Prognosis:: Good
[2020-06-09] MEDS ORDERED: Polyethylene Glycol 3350 Powder 17 GM Packet PO ONE (23:45)
[2020-06-09] MEDS ORDERED: Ondansetron 4 MG/2 ML SDV IV PRN (23:45)
[2020-06-09] MEDS ORDERED: Glucagon,Human Recombinant 1 MG Vial IM PRN (23:45)
[2020-06-09] MEDS ORDERED: 50% Dextrose in Water 50 ML Syringe IV PRN (23:45)
[2020-06-09] MEDS ORDERED: Sodium Chloride 0.9% 10 ML Syringe FLUSH PRN (23:45)
[2020-06-09] MEDS ORDERED: Azithromycin 500 MG in Sodium Chloride 0.9% 250 ML IV SCH (23:45)
[2020-06-09] MEDS ORDERED: Glucose Gel 15 GM in 37.5 GM Tube PO PRN (23:45)
[2020-06-09] MEDS ORDERED: 50% Dextrose in Water 50 ML Syringe IVPUSH PRN (23:45)
[2020-06-09] MEDS ORDERED: methylPREDNISolone Sodium Succinate 40 MG/1 ML SDV IVPUSH SCH (23:45)
[2020-06-09] MEDS ORDERED: cefTRIAXone 1 GM in Sodium Chloride 0.9% 50 ML IV SCH (23:45)
[2020-06-09] MEDS ORDERED: traZODone 50 MG Tab PO PRN (23:45)
[2020-06-10] MEDS: Sodium Chloride 0.9% 1,000 ML IV SCH ×2 (00:12→08:03)
[2020-06-10] MEDS: Budesonide 0.5 MG/2 ML Neb Susp NEB SCH ×3 (00:20→20:43)
[2020-06-10] MEDS ORDERED: SUMAtriptan 50 MG Tab PO ONE ×2 (00:37→01:54)
[2020-06-10] MEDS: LORazepam 2 MG/ML SDV IVPUSH PRN ×9 (00:50→22:45)
[2020-06-10] MEDS: Docusate Sodium 100 MG Cap PO SCH ×3 (01:01→20:38)
[2020-06-10] MEDS: Insulin Lispro 100 Unit/ML 3 ML KwikPen SUBCUT SCH ×5 (01:25→20:57)
[2020-06-10] MEDS ORDERED: Albuterol/Ipratropium 3.0-0.5 MG/3 ML Neb Soln NEB SCH (06:00)
[2020-06-10] MEDS ORDERED: Insulin Lispro 100 Unit/ML 3 ML KwikPen SUBCUT SCH (07:00)
[2020-06-10] MEDS ORDERED: methylPREDNISolone Sodium Succinate 40 MG/1 ML SDV IVPUSH SCH (08:00)
[2020-06-10] MEDS ORDERED: Sertraline 50 MG Tab PO SCH (09:00)
[2020-06-10] MEDS ORDERED: Non-Formulary Medication 1 Each (Sertraline [Zoloft] 100 MG) PO SCH (09:00)
[2020-06-10] MEDS ORDERED: Insulin Glargine,Human Rec. Analog 100 Units/ML 3 ML Pen SUBCUT SCH (09:00)
[2020-06-10] MEDS ORDERED: FLU VACC QS2020-21(6MOS UP)/PF 60 MCG/0.5 ML SYRINGE IM ONE (10:00)
[2020-06-10] MEDS: Albuterol/Ipratropium 3.0-0.5 MG/3 ML Neb Soln NEB SCH ×3 (10:45→20:43)
[2020-06-10] MEDS: Gabapentin 300 MG Cap PO SCH ×3 (11:32→20:38)
[2020-06-10] MEDS ORDERED: Benzocaine/Cetylpyridinium/Menthol Lozenge MUCMEM PRN (13:06)
--- NOTE | 2020-06-10 14:04 | PCM.PN ---
- General Info Date of Service: 06/10/20 Subjective Update: Ms. Goss has felt improved since admission with less shortness of breath. Also noted has been improvement in oxygenation. She remains fairly weak with poor appetite, denies nausea or vomiting. Cough seems to be somewhat more productive. Functional Status: Reports: Urinating - Review of Systems General: Reports: Weakness, Fatigue. Denies: Fever, Chills Pulmonary: Reports: Shortness of Breath, Cough, Sputum, Wheezing. Denies: Pleuritic Chest Pain, Hemoptysis Cardiovascular: Reports: Dyspnea on Exertion. Denies: Chest Pain, Palpitations, Orthopnea, PND, Edema, Lightheadedness Gastrointestinal: Reports: No Symptoms - Patient Data Vitals - Most Recent: Last Vital Signs Temp 97 F 06/10/20 12:00 Pulse 123 H 06/10/20 10:47 Resp 16 06/10/20 12:00 BP 131/59 L 06/10/20 12:00 Pulse Ox 95 06/10/20 12:00 Weight - Most Recent: 166 lb 14.239 oz I&O - Last 24 Hours: Intake & Output 06/09/20 06/10/20 06/10/20 22:59 06:59 14:59 Output Total 700 700 Balance -700 -700 Lab Results Last 24 Hours: Laboratory Results - last 24 hr 06/09/20 06/09/20 06/09/20 Range/Units 17:36 17:36 17:36 WBC 9.5 (4.5-11.0) K/uL RBC 3.86 (3.30-5.50) M/uL Hgb 11.1 L (12.0-15.0) g/dL Hct 34.5 L (36.0-48.0) % MCV 89 (80-98) fL MCH 29 (27-31) pg MCHC 32 (32-36) % Plt Count 458 H (150-400) K/uL Neut % (Auto) 65 (36-66) % Lymph % (Auto) 24 (24-44) % [place] % (Auto) 8 H (2-6) % Eos % (Auto) 2 (2-4) % Baso % (Auto) 1 (0-1) % ABG Hemoglobin 11.8 L (12.0-16.0) g/dL ABG Oxyhemoglobin 73.7 % ABG Carboxyhemoglobin 2.1 H (0.0-1.6) % ABG Methemoglobin 1.0 % VBG pH 7.410 (7.350-7.450) VBG pCO2 38.1 mm/Hg VBG pO2 38.7 mm/Hg VBG HCO3 23.7 mmol/L VBG Total CO2 21.6 mmol/L VBG O2 Saturation 76.1 VBG O2 Content 12.2 %vol VBG Base Excess -0.2 mm/L O2 Delivery Device Room air Sodium 140 (140-148) mmol/L Potassium 4.5 (3.6-5.2) mmol/L Chloride 105 (100-108) mmol/L Carbon Dioxide 25 (21-32) mmol/L Anion Gap 10.2 (5.0-14.0) mmol/L BUN 27 H (7-18) mg/dL Creatinine 1.4 H (0.6-1.0) mg/dL Est Cr Clr Drug Dosing TNP Estimated GFR (MDRD) 45 L (>60) Glucose 167 H (74-106) mg/dL Lactic Acid (0.4-2.0) mmol/L Calcium 9.1 (8.5-10.1) mg/dL Magnesium (1.8-2.4) mg/dL Total Bilirubin 0.2 (0.2-1.0) mg/dL AST 21 (15-37) U/L ALT 27 (12-78) U/L Alkaline Phosphatase 90 (46-116) U/L C-Reactive Protein 0.72 H (0.0-0.3) mg/dL Total Protein 6.4 (6.4-8.2) g/dL Albumin 2.8 L (3.4-5.0) g/dL Globulin 3.6 H (2.3-3.5) g/dL Albumin/Globulin Ratio 0.8 L (1.2-2.2) Procalcitonin ng/mL Urine Color (YELLOW) Urine Appearance (CLEAR) Urine pH (5.0-8.0) Ur Specific [place] (1.008-1.030) Urine Protein (NEGATIVE) mg/dL Urine Glucose (UA) (NEGATIVE) mg/dL Urine Ketones (NEGATIVE) mg/dL Urine Occult Blood (NEGATIVE) Urine Nitrite (NEGATIVE) Urine Bilirubin (NEGATIVE) Urine Urobilinogen (0.2-1.0) EU/dL Ur Leukocyte Esterase (NEGATIVE) Urine RBC (0-5) Urine WBC (0-5) Ur Epithelial Cells Urine Bacteria Ketones (NEGATIVE) SARS-CoV-2 RNA (DOMINIQUE) (NEGATIVE) 06/09/20 06/09/20 06/09/20 Range/Units 17:36 17:36 17:36 WBC (4.5-11.0) K/uL RBC (3.30-5.50) M/uL Hgb (12.0-15.0) g/dL Hct (36.0-48.0) % MCV (80-98) fL MCH (27-31) pg MCHC (32-36) % Plt Count (150-400) K/uL Neut % (Auto) (36-66) % Lymph % (Auto) (24-44) % [place] % (Auto) (2-6) % Eos % (Auto) (2-4) % Baso % (Auto) (0-1) % ABG Hemoglobin (12.0-16.0) g/dL ABG Oxyhemoglobin % ABG Carboxyhemoglobin (0.0-1.6) % ABG Methemoglobin % VBG pH (7.350-7.450) VBG pCO2 mm/Hg VBG pO2 mm/Hg VBG HCO3 mmol/L VBG Total CO2 mmol/L VBG O2 Saturation VBG O2 Content %vol VBG Base Excess mm/L O2 Delivery Device Sodium (140-148) mmol/L Potassium (3.6-5.2) mmol/L Chloride (100-108) mmol/L Carbon Dioxide (21-32) mmol/L Anion Gap (5.0-14.0) mmol/L BUN (7-18) mg/dL Creatinine (0.6-1.0) mg/dL Est Cr Clr Drug Dosing Estimated GFR (MDRD) (>60) Glucose (74-106) mg/dL Lactic Acid 1.5 (0.4-2.0) mmol/L Calcium (8.5-10.1) mg/dL Magnesium (1.8-2.4) mg/dL Total Bilirubin (0.2-1.0) mg/dL AST (15-37) U/L ALT (12-78) U/L Alkaline Phosphatase (46-116) U/L C-Reactive Protein (0.0-0.3) mg/dL Total Protein (6.4-8.2) g/dL Albumin (3.4-5.0) g/dL Globulin (2.3-3.5) g/dL Albumin/Globulin Ratio (1.2-2.2) Procalcitonin ng/mL Urine Color (YELLOW) Urine Appearance (CLEAR) Urine pH (5.0-8.0) Ur Specific [place] (1.008-1.030) Urine Protein (NEGATIVE) mg/dL Urine Glucose (UA) (NEGATIVE) mg/dL Urine Ketones (NEGATIVE) mg/dL Urine Occult Blood (NEGATIVE) Urine Nitrite (NEGATIVE) Urine Bilirubin (NEGATIVE) Urine Urobilinogen (0.2-1.0) EU/dL Ur Leukocyte Esterase (NEGATIVE) Urine RBC (0-5) Urine WBC (0-5) Ur Epithelial Cells Urine Bacteria Ketones Negative (NEGATIVE) SARS-CoV-2 RNA (DOMINIQUE) Negative (NEGATIVE) 06/09/20 06/09/20 06/10/20 Range/Units 18:10 22:25 04:25 WBC 10.6 (4.5-11.0) K/uL RBC 3.68 (3.30-5.50) M/uL Hgb 10.9 L (12.0-15.0) g/dL Hct 33.0 L (36.0-48.0) % MCV 90 (80-98) fL MCH 30 (27-31) pg MCHC 33 (32-36) % Plt Count 404 H (150-400) K/uL Neut % (Auto) 92 H (36-66) % Lymph % (Auto) 7 L (24-44) % [place] % (Auto) 1 L (2-6) % Eos % (Auto) 0 L (2-4) % Baso % (Auto) 0 (0-1) % ABG Hemoglobin (12.0-16.0) g/dL ABG Oxyhemoglobin % ABG Carboxyhemoglobin (0.0-1.6) % ABG Methemoglobin % VBG pH (7.350-7.450) VBG pCO2 mm/Hg VBG pO2 mm/Hg VBG HCO3 mmol/L VBG Total CO2 mmol/L VBG O2 Saturation VBG O2 Content %vol VBG Base Excess mm/L O2 Delivery Device Sodium (140-148) mmol/L Potassium (3.6-5.2) mmol/L Chloride (100-108) mmol/L Carbon Dioxide (21-32) mmol/L Anion Gap (5.0-14.0) mmol/L BUN (7-18) mg/dL Creatinine (0.6-1.0) mg/dL Est Cr Clr Drug Dosing Estimated GFR (MDRD) (>60) Glucose (74-106) mg/dL Lactic Acid (0.4-2.0) mmol/L Calcium (8.5-10.1) mg/dL Magnesium (1.8-2.4) mg/dL Total Bilirubin (0.2-1.0) mg/dL AST (15-37) U/L ALT (12-78) U/L Alkaline Phosphatase (46-116) U/L C-Reactive Protein (0.0-0.3) mg/dL Total Protein (6.4-8.2) g/dL Albumin (3.4-5.0) g/dL Globulin (2.3-3.5) g/dL Albumin/Globulin Ratio (1.2-2.2) Procalcitonin < 0.05 ng/mL Urine Color Yellow (YELLOW) Urine Appearance Clear (CLEAR) Urine pH 5.5 (5.0-8.0) Ur Specific [place] 1.025 (1.008-1.030) Urine Protein >=300 H (NEGATIVE) mg/dL Urine Glucose (UA) >=1000 H (NEGATIVE) mg/dL Urine Ketones Negative (NEGATIVE) mg/dL Urine Occult Blood Small H (NEGATIVE) Urine Nitrite Negative (NEGATIVE) Urine Bilirubin Negative (NEGATIVE) Urine Urobilinogen 0.2 (0.2-1.0) EU/dL Ur Leukocyte Esterase Negative (NEGATIVE) Urine RBC 20-30 H (0-5) Urine WBC Not seen (0-5) Ur Epithelial Cells Not seen Urine Bacteria Not seen Ketones (NEGATIVE) SARS-CoV-2 RNA (DOMINIQUE) (NEGATIVE) 06/10/20 06/10/20 Range/Units 04:25 10:45 WBC (4.5-11.0) K/uL RBC (3.30-5.50) M/uL Hgb (12.0-15.0) g/dL Hct (36.0-48.0) % MCV (80-98) fL MCH (27-31) pg MCHC (32-36) % Plt Count (150-400) K/uL Neut % (Auto) (36-66) % Lymph % (Auto) (24-44) % [place] % (Auto) (2-6) % Eos % (Auto) (2-4) % Baso % (Auto) (0-1) % ABG Hemoglobin (12.0-16.0) g/dL ABG Oxyhemoglobin % ABG Carboxyhemoglobin (0.0-1.6) % ABG Methemoglobin % VBG pH (7.350-7.450) VBG pCO2 mm/Hg VBG pO2 mm/Hg VBG HCO3 mmol/L VBG Total CO2 mmol/L VBG O2 Saturation VBG O2 Content %vol VBG Base Excess mm/L O2 Delivery Device Sodium 139 L (140-148) mmol/L Potassium 4.6 (3.6-5.2) mmol/L Chloride 106 (100-108) mmol/L Carbon Dioxide 22 (21-32) mmol/L Anion Gap 15.6 H (5.0-14.0) mmol/L BUN 26 H (7-18) mg/dL Creatinine 1.3 H (0.6-1.0) mg/dL Est Cr Clr Drug Dosing 46.69 Estimated GFR (MDRD) 49 L (>60) Glucose 170 H (74-106) mg/dL Lactic Acid (0.4-2.0) mmol/L Calcium 8.6 (8.5-10.1) mg/dL Magnesium 1.8 (1.8-2.4) mg/dL Total Bilirubin (0.2-1.0) mg/dL AST (15-37) U/L ALT (12-78) U/L Alkaline Phosphatase (46-116) U/L C-Reactive Protein (0.0-0.3) mg/dL Total Protein (6.4-8.2) g/dL Albumin (3.4-5.0) g/dL Globulin (2.3-3.5) g/dL Albumin/Globulin Ratio (1.2-2.2) Procalcitonin ng/mL Urine Color (YELLOW) Urine Appearance (CLEAR) Urine pH (5.0-8.0) Ur Specific [place] (1.008-1.030) Urine Protein (NEGATIVE) mg/dL Urine Glucose (UA) (NEGATIVE) mg/dL Urine Ketones (NEGATIVE) mg/dL Urine Occult Blood (NEGATIVE) Urine Nitrite (NEGATIVE) Urine Bilirubin (NEGATIVE) Urine Urobilinogen (0.2-1.0) EU/dL Ur Leukocyte Esterase (NEGATIVE) Urine RBC (0-5) Urine WBC (0-5) Ur Epithelial Cells Urine Bacteria Ketones (NEGATIVE) SARS-CoV-2 RNA (DOMINIQUE) Negative (NEGATIVE) Levi Results Last 24 Hours: Microbiology 06/09/20 22:45 Influenza Type A Antigen Screen - Final Nasopharyngeal Swab NEGATIVE INFLUENZA A VIRUS AG REFERENCE RANGE: NEGATIVE Influenza Type B Antigen Screen - Final NEGATIVE INFLUENZA B VIRUS AG REFERENCE RANGE: NEGATIVE Med Orders - Current: Current Medications Acetaminophen (Tylenol) 650 mg PO Q4H PRN PRN Reason: Pain (Mild 1-3)/fever Albuterol (Proventil Neb Soln) 2.5 mg NEB Q2H PRN PRN Reason: Dyspnea Last Admin: 06/09/20 22:48 Dose: 2.5 mg Documented by: Albuterol/Ipratropium (Duoneb 3.0-0.5 Mg/3 Ml) 3 ml NEB QIDRT [facility] Last Admin: 06/10/20 10:45 Dose: 3 ml Documented by: Benzocaine/Menthol (Cepacol Sore Throat) 1 lozenge MUCMEM ASDIRECTED PRN PRN Reason: Sore Throat Budesonide (Pulmicort) 0.5 mg NEB BIDRT [facility] Last Admin: 06/10/20 07:47 Dose: 0.5 mg Documented by: Dextrose (Glutose 15) 15 gm PO ONETIME PRN PRN Reason: Hypoglycemia Dextrose/Water (Dextrose 50% In Water) 50 ml IVPUSH ASDIRECTED PRN PRN Reason: Hypoglycemia Docusate Sodium (Colace) 100 mg PO BID [facility] Last Admin: 06/10/20 11:40 Dose: 100 mg Documented by: Gabapentin (Neurontin) 300 mg PO TID [facility] Last Admin: 06/10/20 13:39 Dose: 300 mg Documented by: Glucagon (Glucagen) 1 mg IM ASDIRECTED PRN PRN Reason: Hypoglycemia Ceftriaxone Sodium 1 gm/ (Sodium Chloride) 50 mls @ 100 mls/hr IV Q24H [facility] Azithromycin 500 mg/ Sodium (Chloride) 250 mls @ 250 mls/hr IV Q24H [facility] Insulin Glargine (Lantus Solostar) 24 units SUBCUT DAILY [facility] Last Admin: 06/10/20 08:05 Dose: 24 units Documented by: Insulin Human Lispro (Humalog) 0 unit SUBCUT QIDACANDBED [facility]; Protocol Last Admin: 06/10/20 11:38 Dose: 8 units Documented by: Lorazepam (Ativan) 0.5 mg IVPUSH Q2H PRN PRN Reason: Nausea Last Admin: 06/10/20 12:28 Dose: 0.5 mg Documented by: Ondansetron HCl (Zofran) 4 mg IV Q4H PRN PRN Reason: Nausea/Vomiting Last Admin: 06/10/20 08:09 Dose: 4 mg Documented by: Prednisone (Prednisone) 40 mg PO WITHBREAKFAST [facility] Sertraline HCl (Zoloft) 100 mg PO DAILY [facility] Last Admin: 06/10/20 13:39 Dose: 100 mg Documented by: Sodium Chloride (Saline Flush) 10 ml FLUSH ASDIRECTED PRN PRN Reason: Keep Vein Open Trazodone HCl (Trazodone) 50 mg PO BEDTIME PRN PRN Reason: Sleep Discontinued Medications Albuterol/Ipratropium (Combivent Respimat) 1 gm INH NOW STA Stop: 06/09/20 21:29 Last Admin: 06/09/20 22:15 Dose: 1 gm Documented by: Albuterol/Ipratropium (Duoneb 3.0-0.5 Mg/3 Ml) 3 ml NEB QID [facility] Last Admin: 06/10/20 05:03 Dose: 3 ml Documented by: Fentanyl (Sublimaze) 50 mcg IVPUSH ONETIME ONE Stop: 06/09/20 20:03 Last Admin: 06/09/20 20:22 Dose: 50 mcg Documented by: Sodium Chloride (Normal Saline) 1,000 mls @ 999 mls/hr IV .BOLUS ONE Stop: 06/09/20 18:13 Last Admin: 06/09/20 17:59 Dose: 999 mls/hr Documented by: Sodium Chloride (Normal Saline) 100 mls @ 3 mls/sec IV ASDIRECTED [facility] Last Admin: 06/09/20 19:32 Dose: 3 mls/sec Documented by: Ceftriaxone Sodium 1 gm/ (Sodium Chloride) 50 mls @ 100 mls/hr IV ONETIME ONE Stop: 06/09/20 20:38 Last Admin: 06/09/20 20:24 Dose: 100 mls/hr Documented by: Lactated Ringer's (Ringers, Lactated) 1,000 mls @ 250 mls/hr IV BOLUS ONE Stop: 06/10/20 00:16 Last Admin: 06/09/20 20:24 Dose: 250 mls/hr Documented by: Sodium Chloride (Normal Saline) 80 mls @ 3 mls/sec IV ASDIRECTED [facility] Last Admin: 06/09/20 21:57 Dose: 3 mls/sec Documented by: Ceftriaxone Sodium 1 gm/ (Sodium Chloride) 50 mls @ 100 mls/hr IV Q24H [facility] Last Admin: 06/10/20 00:11 Dose: Not Given Documented by: Azithromycin 500 mg/ Sodium (Chloride) 250 mls @ 250 mls/hr IV Q24H [facility] Last Admin: 06/10/20 00:24 Dose: 250 mls/hr Documented by: Sodium Chloride (Normal Saline) 1,000 mls @ 125 mls/hr IV ASDIRECTED [facility] Last Admin: 06/10/20 08:03 Dose: 125 mls/hr Documented by: Influenza Virus Vaccine (Pharmacy To Dose - Influenza Vaccine) 1 each IM ONETIME ONE Stop: 06/10/20 01:23 Influenza Virus Vaccine (Fluzone Quad [id number] Syringe) 60 mcg IM .ONCE ONE Stop: 06/10/20 10:01 Last Admin: 06/10/20 09:21 Dose: Not Given Documented by: Insulin Human Lispro (Humalog) 0 unit SUBCUT QIDACANDBED [facility]; Protocol Iopamidol (Isovue-370 (76%)) 100 ml IV . DIRECTED [facility] Last Admin: 06/09/20 19:32 Dose: 100 ml Documented by: Iopamidol (Isovue-300 (61%)) 100 ml IV . DIRECTED [facility] Last Admin: 06/09/20 21:57 Dose: 100 ml Documented by: Ketorolac Tromethamine (Toradol) 30 mg IVPUSH ONETIME ONE Stop: 06/09/20 18:48 Last Admin: 06/09/20 18:56 Dose: 30 mg Documented by: Methylprednisolone Sodium Succinate (Solu-Medrol) 40 mg IVPUSH Q8H [facility] Last Admin: 06/10/20 00:20 Dose: 40 mg Documented by: Methylprednisolone Sodium Succinate (Solu-Medrol) 40 mg IVPUSH Q8H [facility] Last Admin: 06/10/20 08:01 Dose: 40 mg Documented by: Ondansetron HCl (Zofran) 4 mg IVPUSH ONETIME ONE Stop: 06/09/20 18:50 Last Admin: 06/09/20 18:56 Dose: 4 mg Documented by: Ondansetron HCl (Zofran) 4 mg IVPUSH ONETIME ONE Stop: 06/09/20 23:41 Last Admin: 06/09/20 23:53 Dose: 4 mg Documented by: Polyethylene Glycol (Miralax) 17 gm PO ONETIME ONE Stop: 06/09/20 23:46 Last Admin: 06/10/20 01:01 Dose: 17 gm Documented by: Sodium Chloride (Saline Flush) 10 ml FLUSH ASDIRECTED PRN PRN Reason: Keep Vein Open Last Admin: 06/09/20 19:32 Dose: 10 ml Documented by: Sumatriptan Succinate (Imitrex) 25 mg PO ONETIME ONE Stop: 06/10/20 00:38 Last Admin: 06/10/20 01:01 Dose: 25 mg Documented by: Sumatriptan Succinate (Imitrex) 25 mg PO ONETIME ONE Stop: 06/10/20 01:55 Last Admin: 06/10/20 02:18 Dose: 25 mg Documented by: - Exam General: Alert, Oriented, Cooperative, Moderate Distress Lungs: Decreased Breath Sounds, Rhonchi, Wheezing. No: Crackles, Rales Cardiovascular: Regular Rate, Regular Rhythm, No Murmurs GI/Abdominal Exam: Soft, Non-Tender, No Organomegaly, No Distention Extremities: Non-Tender, No Pedal Edema Sepsis Event Note - Evaluation Sepsis Screening Result: No Definite Risk - Focused Exam Vital Signs: Vital Signs Temp Pulse Resp BP Pulse Ox Pulse Ox 06/10/20 12:00 97 F 16 131/59 L 95 06/10/20 10:47 123 H 91 L 06/10/20 10:00 18 160/101 H 93 L 06/10/20 08:00 96.6 F L 20 147/81 H 97 06/10/20 07:48 113 H 94 L 06/10/20 06:00 115 H 17 142/91 H 94 L 06/10/20 05:08 95.9 F L 06/10/20 04:29 108 H 21 H 147/98 H 96 06/10/20 03:00 109 H 16 154/91 H 94 L - Problem List Review Problem List Initiated/Reviewed/Updated: Yes - My Orders Last 24 Hours: My Active Orders 06/09/20 21:38 Albuterol [Proventil Neb Soln] 2.5 mg NEB Q2H PRN 06/09/20 23:10 Resuscitation Status Routine 06/09/20 23:45 Acetaminophen [TylenoL] 650 mg PO Q4H PRN Budesonide [Pulmicort] 0.5 mg NEB BIDRT Dextrose 50% in Water 50 ml IVPUSH ASDIRECTED PRN Dextrose [Glutose 15] 15 gm PO ONETIME PRN Docusate Sodium [Colace] 100 mg PO BID Glucagon,Human Recombinant [GlucaGen] 1 mg IM ASDIRECTED PRN Ondansetron [Zofran] 4 mg IV Q4H PRN Sodium Chloride 0.9% [Saline Flush] 10 ml FLUSH ASDIRECTED PRN traZODone 50 mg PO BEDTIME PRN 06/09/20 23:45 Patient Status [ADT] Routine Ambulate [RC] QID Blood Glucose Check, Bedside [RC] WITHMEALSANDBED Cardiac Monitoring [RC] Q6H Communication Order [RC] STAT Diabetes Education [RC] Click to Edit Height and Weight [RC] DAILY Intake and Output [RC] QSHIFT Notify Provider Vital Signs [RC] ASDIRECTED Notify Provider [RC] PRN Oxygen Therapy [RC] PRN RT Aerosol Therapy [RC] ASDIRECTED Up to Chair [RC] QID Vital Signs [RC] Q2H Peripheral IV Insertion Adult [OM.PC] Routine Sequential Compression Device [OM.PC] Per Unit Routine 06/10/20 00:36 LORazepam [Ativan] 0.5 mg IVPUSH Q2H PRN 06/10/20 01:16 Insulin Lispro [HumaLOG] See Protocol SUBCUT QIDACANDBED 06/10/20 01:23 Influenza Vaccine Charge [RC] .DISCHARGE 06/10/20 09:00 Gabapentin [Neurontin] 300 mg PO TID Insulin Glarg,Human.Rec.Analog [LantUS Solostar] 24 units SUBCUT DAILY Sertraline [Zoloft] 100 mg PO DAILY 06/10/20 10:45 CORONAVIRUS COVID-19, DOMINIQUE Routine INPATIENT Routine 06/10/20 11:00 Albuterol/Ipratropium [DuoNeb 3.0-0.5 MG/3 ML] 3 ml NEB QIDRT 06/10/20 13:06 Benzocaine/Cetylpyrd/Menthol [Cepacol Sore Throat] 1 lozenge MUCMEM ASDIRECTED PRN 06/10/20 14:00 Convert IV to Saline Lock [OM.PC] Routine 06/10/20 20:30 cefTRIAXone [Rocephin] 1 gm Sodium Chloride 0.9% [Normal Saline] 50 ml IV Q24H 06/10/20 21:00 Azithromycin [Zithromax] 500 mg Sodium Chloride 0.9% [Normal Saline] 250 ml IV Q24H 06/11/20 05:00 BASIC METABOLIC PANEL,BMP [CHEM] Timed 06/11/20 08:00 predniSONE 40 mg PO WITHBREAKFAST - Plan Plan:: ASSESSMENT AND PLAN LEFT LUNG PNEUMONIA-symptoms of chills, weakness, shortness of breath. Cough developing over the last 24 hours. Left lung infiltrate identified on CT scan, normal white blood cell count. -Ceftriaxone and azithromycin pending culture results -Blood cultures pending ASTHMA EXACERBATION-likely secondary to current pneumonia -Nebulized albuterol and DuoNebs -Prednisone 40 mg daily -Pulmicort nebs twice daily HYPOXIA-secondary to asthma exacerbation. This of breath has improved mildly to moderately since admission -Supplemental oxygen as needed -Continuous pulse oximetry -Consider noninvasive positive pressure ventilation if hypoxia worsens TYPE 1 DIABETES MELLITUS-levels have remained under fairly good control with current management -Continue usual dose of long-acting insulin -4 times daily glucometers -Moderate dose sliding scale Humalog MAINTENANCE ISSUES -DVT prophylaxis; scuds -GI prophylaxis; not indicated -Austin catheter; not indicated -Nutrition; consistent carb diet -Nicotine dependence; not required CODE STATUS-FULL CODE ADMISSION STATUS-patient will be admitted to inpatient status, expect at least a 2 night hospital stay for evaluation and management of problems as outlined above. At the time of this admission I do not reasonably expected evaluation and management of this problem will require more than a 96 hour hospital stay. DISPOSITION-anticipate discharge to home after the hospital stay. PRIMARY CARE PROVIDER-
[2020-06-10] MEDS ORDERED: Polyethylene Glycol 3350 Powder 17 GM Packet PO ONE (17:53)
[2020-06-10] MEDS: Acetaminophen 325 MG Tab PO PRN ×2 (18:13→21:50)
[2020-06-10] MEDS: Albuterol 0.083% 2.5 MG/3 ML Neb Soln NEB PRN ×2 (19:18→22:10)
[2020-06-10] MEDS ORDERED: cefTRIAXone 1 GM in Sodium Chloride 0.9% 50 ML IV SCH (20:30)
[2020-06-10] MEDS: Codeine/guaiFENesin 100mg-10 MG/5 ML Syrup 10 ML Cup PO PRN (20:43)
[2020-06-10] MEDS ORDERED: Insulin Lispro 100 Unit/ML 3 ML KwikPen SUBCUT ONE (20:52)
[2020-06-10] MEDS ORDERED: Azithromycin 500 MG in Sodium Chloride 0.9% 250 ML IV SCH (21:00)
[2020-06-10] MEDS ORDERED: Morphine 2 MG/ML SYRINGE IVPUSH PRN (21:10)
[2020-06-10] MEDS: fentaNYL 100 MCG/2 ML SDV IVPUSH PRN ×2 (21:47→23:29)
[2020-06-11] MEDS: Albuterol 0.083% 2.5 MG/3 ML Neb Soln NEB PRN ×3 (00:22→04:30)
[2020-06-11] MEDS: LORazepam 2 MG/ML SDV IVPUSH PRN ×3 (00:33→04:36)
[2020-06-11] MEDS: Codeine/guaiFENesin 100mg-10 MG/5 ML Syrup 10 ML Cup PO PRN ×2 (00:33→04:36)
[2020-06-11] MEDS: Acetaminophen 325 MG Tab PO PRN (01:37)
[2020-06-11] MEDS: fentaNYL 100 MCG/2 ML SDV IVPUSH PRN ×3 (01:38→06:03)
[2020-06-11] MEDS ORDERED: methylPREDNISolone Sodium Succinate 40 MG/1 ML SDV IVPUSH ONE (05:24)
[2020-06-11] MEDS ORDERED: methylPREDNISolone Sodium Succinate 40 MG/1 ML SDV ONE (05:29)
--- NOTE | 2020-06-11 05:53 | CRLCR ---
INDICATION: Hypoxia TECHNIQUE: Chest radiograph 1 view COMPARISON: None FINDINGS: Mediastinum: The mediastinum is normal in appearance. The heart silhouette is normal in size and morphology. Lung: Severe patchy bilateral airspace infiltrates are present. No sign of pleural effusion seen. No pneumothorax is identified. Bone and Soft tissue: Unremarkable for age. IMPRESSION: 1. Severe patchy bilateral airspace infiltrates are present. This may be due to pneumonia, pulmonary edema, or severe COVID-19 infection. Dictated by Xiang Cardoza MD @ 06/11/2020 5:51:45 AM Dictated by: Xiang Cardoza MD @ 06/11/2020 05:51:47 (Electronically Signed)
[2020-06-11] MEDS ORDERED: propofoL 100 ML ONE (06:04)
[2020-06-11] MEDS ORDERED: Piperacillin/Tazobactam 3.375 GM in Sodium Chloride 0.9% 50 ML IV SCH (06:15)
[2020-06-11] MEDS ORDERED: Sodium Chloride 0.9% 1,000 ML IV SCH (06:15)
[2020-06-11] MEDS ORDERED: Heparin Sodium 5,000 Units/ML Vial ONE (06:25)
[2020-06-11] MEDS ORDERED: propofoL 100 ML IV SCH (06:28)
[2020-06-11] MEDS ORDERED: methylPREDNISolone Sodium Succinate 40 MG/1 ML SDV IVPUSH SCH ×2 (06:30→11:00)
[2020-06-11] MEDS ORDERED: Piperacillin/Tazobactam/Dext 2.25 GM in Premix Bag 1 BAG IV SCH (06:45)
[2020-06-11] MEDS ORDERED: Vancomycin 2 GM in Sodium Chloride 0.9% 500 ML IV ONE ×2 (07:00→09:00)
[2020-06-11] MEDS ORDERED: Vancomycin 1 GM SDV IV SCH (07:00)
[2020-06-11] MEDS: Albuterol/Ipratropium 3.0-0.5 MG/3 ML Neb Soln NEB SCH (07:10)
[2020-06-11] MEDS: Budesonide 0.5 MG/2 ML Neb Susp NEB SCH (07:10)
[2020-06-11] MEDS ORDERED: Succinylcholine 200 MG/10 ML MDV ONE (07:22)
[2020-06-11] MEDS ORDERED: Propofol 200 MG/20 ML SDV ONE (07:22)
[2020-06-11] MEDS ORDERED: Heparin Sodium 5,000 UNITS in Sodium Chloride 0.9% 500 ML IV SCH (07:45)
[2020-06-11] MEDS: Insulin Lispro 100 Unit/ML 3 ML KwikPen SUBCUT SCH (07:50)
--- NOTE | 2020-06-11 07:55 | PCM.DCSUM1 ---
Discharge Summary - Hospital Course Brief History: Ms. Goss is a 25-year-old woman who was admitted through the emergency department with shortness of breath and hypoxia secondary to left lung infiltrate and underlying asthma exacerbation. - Discharge Data Discharge Date: 06/11/20 Discharge Disposition: DC/Tfer to Acute Hospital 02 Condition: Serious - Referral to [facility] Primary Care Physician: PCP None - Discharge Diagnosis/Problem(s) (1) Asthma SNOMED Code(s): 526212955 ICD Code: J45.909 - UNSPECIFIED ASTHMA, UNCOMPLICATED Status: Acute Current Visit: Yes (2) Acute respiratory failure with hypoxia SNOMED Code(s): 01348543, 348586880 ICD Code: J96.01 - ACUTE RESPIRATORY FAILURE WITH HYPOXIA Status: Acute Current Visit: Yes (3) Pneumonia SNOMED Code(s): 771136577 ICD Code: J18.9 - PNEUMONIA, UNSPECIFIED ORGANISM Status: Acute Current Visit: Yes Qualifiers: Pneumonia type: due to unspecified organism Laterality: left Lung location: lower lobe of lung Qualified Code(s): J18.9 - Pneumonia, unspecified organism (4) Type 1 diabetes mellitus SNOMED Code(s): 30097034 ICD Code: E10.9 - TYPE 1 DIABETES MELLITUS WITHOUT COMPLICATIONS Status: Chronic Current Visit: No - Patient Summary/Data Hospital Course: Ms. Goss is a 25-year-old woman who was admitted through the emergency department with cough and shortness of breath secondary to left lung pneumonia and asthma exacerbation. She has not felt well over the past 4 days. She has not been aware of obvious fever but has had some chills with progressive weakness and increase in her blood sugars. On evaluation in the emergency department CT scan of the chest shows evidence of a left lung infiltrate, scan was negative for pulmonary embolism. White blood cell count is within normal range and COVID-19 testing is negative. She is also experienced left lower quadrant abdominal pain over the past several hours, CT scan of the abdomen shows evidence of constipation but no other significant abnormalities to explain current symptoms. She is found to be hypoxic and is requiring supplemental oxygen, she has a known history of underlying asthma. Blood cultures were obtained in the emergency department, there was no evidence of hemodynamic instability or sepsis. On admission she was treated with IV antibiotic therapy for presumed pneumonia with ceftriaxone and azithromycin, she had been treated with doxycycline from an outpatient visit earlier in the week. She was given IV Solu-Medrol and nebulizer therapy. By the following morning she was feeling significantly improved and had normal oxygen saturations on room air. Plan was to monitor for an additional day with potential discharged home the following day. Last night she began to experience some symptoms of shortness of breath again and was treated with nebulizer therapy. Early this morning began to have more severe respiratory compromise with hypoxia and tachypnea. Blood gases were obtained that showed significant hypoxia. Chest x-ray was repeated and showed diffuse patchy bilateral infiltrates. Decision was made to proceed with intubation and mechanical ventilation. She was intubated by anesthesia service and an arterial line has been placed. Antibiotics were changed to vancomycin and Zosyn. Another set of blood cultures were obtained and respiratory culture as well. White blood cell count remains within normal range. CRP was mildly to moderately elevated with a normal ferritin. Troponin level was within normal range, but BNP was elevated at 4400. Because of her severe respiratory compromise she will be transferred via air ambulance to in [facility], [place] for further subspecialty evaluation and management. - Patient Instructions Diet: NPO Other/Special Instructions: Patient will be transferred to [facility] in [facility], [place] for further subspecialty evaluation and management - Discharge Plan *PRESCRIPTION DRUG MONITORING PROGRAM REVIEWED*: Not Applicable *COPY OF PRESCRIPTION DRUG MONITORING REPORT IN PATIENT HANY: Not Applicable Home Medications: Home Meds Albuterol Sulfate [Proair Hfa] 2 puff INH ASDIRECTED 06/09/20 [History] Ergocalciferol (Vitamin D2) [Vitamin D2] 1 tab PO DAILY 06/09/20 [History] Gabapentin [Neurontin] 300 mg PO TID 06/09/20 [History] Insulin Aspart [NovoLOG] 0 unit SUBCUT ASDIRECTED 06/09/20 [History] Insulin Glargine,Hum.Rec.Anlog [Lantus Solostar] 24 units SUBCUT DAILY 06/09/20 [History] Multivitamin [Multivitamins] 1 cap PO DAILY 06/09/20 [History] SUMAtriptan [Imitrex] 25 mg PO ASDIRECTED 06/09/20 [History] Sertraline [Zoloft] 100 mg PO DAILY 06/09/20 [History] ondansetron HCL [Zofran] 4 mg PO Q8H PRN 06/09/20 [History] traZODone HCl [Trazodone HCl] 50 - 100 mg PO BEDTIME PRN 06/09/20 [History] Piperacillin/Tazobactam/Dext [Zosyn in Dextrose Iso-Osmotic 3.375 GM] 3.375 gm IV Q6H bag 06/11/20 [Rx] Vancomycin 1.25 gm IV Q24H sdv 06/11/20 [Rx] methylPREDNISolone Sod Succ [Solu-MEDROL] 40 mg IVPUSH Q6H sdv 06/11/20 [Rx] - Discharge Summary/Plan Comment DC Time >30 min.: No - Patient Data Vitals - Most Recent: Last Vital Signs Temp 99.1 F 06/11/20 07:44 Pulse 120 H 06/11/20 07:44 Resp 28 H 06/11/20 07:44 BP 146/80 H 06/11/20 07:44 Pulse Ox 89 L 06/11/20 07:44 Weight - Most Recent: 166 lb 14.239 oz I&O - Last 24 hours: Intake & Output 06/10/20 06/11/20 06/11/20 22:59 06:59 14:59 Intake Total 3300 Output Total 700 Balance 2600 Lab Results - Last 24 hrs: Laboratory Results - last 24 hr 06/10/20 06/11/20 06/11/20 Range/Units 10:45 04:20 04:20 WBC 9.9 (4.5-11.0) K/uL RBC 3.20 L (3.30-5.50) M/uL Hgb 9.2 L (12.0-15.0) g/dL Hct 29.1 L (36.0-48.0) % MCV 91 (80-98) fL MCH 29 (27-31) pg MCHC 32 (32-36) % Plt Count 350 (150-400) K/uL Neut % (Auto) 83 H (36-66) % Lymph % (Auto) 11 L (24-44) % Pepin % (Auto) 6 (2-6) % Eos % (Auto) 0 L (2-4) % Baso % (Auto) 0 (0-1) % Puncture Site ABG pH (7.350-7.450) ABG pCO2 (35.0-42.0) mmHg ABG pO2 (75.0-100.0) mmHg ABG HCO3 (22.0-26.0) mmol/L ABG Total CO2 (21.0-25.0) mmol/L ABG O2 Saturation (95.0-98.0) % ABG O2 Content (15.0-23.0) %vol ABG Base Excess mm/L ABG Hemoglobin (12.0-16.0) g/dL ABG Oxyhemoglobin % ABG Carboxyhemoglobin (0.0-1.6) % ABG Methemoglobin % Rodrigo Test O2 Delivery Device Oxygen Flow Rate L Sodium (140-148) mmol/L Potassium (3.6-5.2) mmol/L Chloride (100-108) mmol/L Carbon Dioxide (21-32) mmol/L Anion Gap (5.0-14.0) mmol/L BUN (7-18) mg/dL Creatinine (0.6-1.0) mg/dL Est Cr Clr Drug Dosing mL/min Estimated GFR (MDRD) (>60) Glucose (74-106) mg/dL Lactic Acid (0.4-2.0) mmol/L Calcium (8.5-10.1) mg/dL Magnesium (1.8-2.4) mg/dL Ferritin 89 (8-388) ng/ml Troponin I (0.000-0.056) ng/mL C-Reactive Protein (0.0-0.3) mg/dL NT-Pro-B Natriuret Pep 4485 H (5-125) pg/mL SARS-CoV-2 RNA (DOMINIQUE) Negative (NEGATIVE) 06/11/20 06/11/20 06/11/20 Range/Units 04:20 04:20 04:20 WBC (4.5-11.0) K/uL RBC (3.30-5.50) M/uL Hgb (12.0-15.0) g/dL Hct (36.0-48.0) % MCV (80-98) fL MCH (27-31) pg MCHC (32-36) % Plt Count (150-400) K/uL Neut % (Auto) (36-66) % Lymph % (Auto) (24-44) % Pepin % (Auto) (2-6) % Eos % (Auto) (2-4) % Baso % (Auto) (0-1) % Puncture Site ABG pH (7.350-7.450) ABG pCO2 (35.0-42.0) mmHg ABG pO2 (75.0-100.0) mmHg ABG HCO3 (22.0-26.0) mmol/L ABG Total CO2 (21.0-25.0) mmol/L ABG O2 Saturation (95.0-98.0) % ABG O2 Content (15.0-23.0) %vol ABG Base Excess mm/L ABG Hemoglobin (12.0-16.0) g/dL ABG Oxyhemoglobin % ABG Carboxyhemoglobin (0.0-1.6) % ABG Methemoglobin % Rodrigo Test O2 Delivery Device Oxygen Flow Rate L Sodium (140-148) mmol/L Potassium (3.6-5.2) mmol/L Chloride (100-108) mmol/L Carbon Dioxide (21-32) mmol/L Anion Gap (5.0-14.0) mmol/L BUN (7-18) mg/dL Creatinine (0.6-1.0) mg/dL Est Cr Clr Drug Dosing mL/min Estimated GFR (MDRD) (>60) Glucose (74-106) mg/dL Lactic Acid 1.4 (0.4-2.0) mmol/L Calcium (8.5-10.1) mg/dL Magnesium 1.6 L (1.8-2.4) mg/dL Ferritin (8-388) ng/ml Troponin I 0.050 (0.000-0.056) ng/mL C-Reactive Protein 3.46 H (0.0-0.3) mg/dL NT-Pro-B Natriuret Pep (5-125) pg/mL SARS-CoV-2 RNA (DOMINIQUE) (NEGATIVE) 06/11/20 06/11/20 06/11/20 Range/Units 04:30 05:12 06:58 WBC (4.5-11.0) K/uL RBC (3.30-5.50) M/uL Hgb (12.0-15.0) g/dL Hct (36.0-48.0) % MCV (80-98) fL MCH (27-31) pg MCHC (32-36) % Plt Count (150-400) K/uL Neut % (Auto) (36-66) % Lymph % (Auto) (24-44) % Pepin % (Auto) (2-6) % Eos % (Auto) (2-4) % Baso % (Auto) (0-1) % Puncture Site R brachial A-line ABG pH 7.354 7.393 (7.350-7.450) ABG pCO2 33.2 L 29.6 L (35.0-42.0) mmHg ABG pO2 51.5 L 68.5 L (75.0-100.0) mmHg ABG HCO3 18.0 L 17.6 L (22.0-26.0) mmol/L ABG Total CO2 17.1 L 16.6 L (21.0-25.0) mmol/L ABG O2 Saturation 85.5 L 94.4 L (95.0-98.0) % ABG O2 Content 10.8 L 11.9 L (15.0-23.0) %vol ABG Base Excess -6.3 -6.0 mm/L ABG Hemoglobin 9.2 L 9.2 L (12.0-16.0) g/dL ABG Oxyhemoglobin 83.2 91.1 % ABG Carboxyhemoglobin 1.4 2.3 H (0.0-1.6) % ABG Methemoglobin 1.3 1.2 % Rodrigo Test A-line O2 Delivery Device Simple mask Nasal cannula Oxygen Flow Rate 10.0 L Sodium 135 L (140-148) mmol/L Potassium 4.2 (3.6-5.2) mmol/L Chloride 102 (100-108) mmol/L Carbon Dioxide 20 L (21-32) mmol/L Anion Gap 17.2 H (5.0-14.0) mmol/L BUN 40 H D (7-18) mg/dL Creatinine 2.3 H D (0.6-1.0) mg/dL Est Cr Clr Drug Dosing 31.96 mL/min Estimated GFR (MDRD) 25 L (>60) Glucose 324 H (74-106) mg/dL Lactic Acid (0.4-2.0) mmol/L Calcium 7.8 L (8.5-10.1) mg/dL Magnesium (1.8-2.4) mg/dL Ferritin (8-388) ng/ml Troponin I (0.000-0.056) ng/mL C-Reactive Protein (0.0-0.3) mg/dL NT-Pro-B Natriuret Pep (5-125) pg/mL SARS-CoV-2 RNA (DOMINIQUE) (NEGATIVE) JENNIFER Results - Last 24 hrs: Microbiology 06/11/20 07:20 Gram Stain - Final Endotrachial Tube 06/09/20 20:20 Aerobic Blood Culture - Preliminary Blood - Arm, Left NO GROWTH AFTER 1 DAY Anaerobic Blood Culture - Preliminary NO GROWTH AFTER 1 DAY 06/09/20 20:15 Aerobic Blood Culture - Preliminary Blood - Arm, Right NO GROWTH AFTER 1 DAY Anaerobic Blood Culture - Preliminary NO GROWTH AFTER 1 DAY Med Orders - Current: Current Medications Acetaminophen (Tylenol) 650 mg PO Q4H PRN PRN Reason: Pain (Mild 1-3)/fever Last Admin: 06/11/20 01:37 Dose: 650 mg Documented by: Albuterol (Proventil Neb Soln) 2.5 mg NEB Q2H PRN PRN Reason: Dyspnea Last Admin: 06/11/20 04:30 Dose: 2.5 mg Documented by: Albuterol/Ipratropium (Duoneb 3.0-0.5 Mg/3 Ml) 3 ml NEB QIDRT [facility] Last Admin: 06/11/20 07:10 Dose: 3 ml Documented by: Benzocaine/Menthol (Cepacol Sore Throat) 1 lozenge MUCMEM ASDIRECTED PRN PRN Reason: Sore Throat Last Admin: 06/10/20 14:54 Dose: 1 ramone Documented by: Budesonide (Pulmicort) 0.5 mg NEB BIDRT [facility] Last Admin: 06/11/20 07:10 Dose: 0.5 mg Documented by: Dextrose (Glutose 15) 15 gm PO ONETIME PRN PRN Reason: Hypoglycemia Dextrose/Water (Dextrose 50% In Water) 50 ml IVPUSH ASDIRECTED PRN PRN Reason: Hypoglycemia Docusate Sodium (Colace) 100 mg PO BID [facility] Last Admin: 06/10/20 20:38 Dose: 100 mg Documented by: Fentanyl (Sublimaze) 25 mcg IVPUSH Q2H PRN PRN Reason: Pain Last Admin: 06/11/20 06:03 Dose: 25 mcg Documented by: Gabapentin (Neurontin) 300 mg PO TID [facility] Last Admin: 06/10/20 20:38 Dose: 300 mg Documented by: Glucagon (Glucagen) 1 mg IM ASDIRECTED PRN PRN Reason: Hypoglycemia Guaifenesin/Codeine Phosphate (Robitussin Ac) 10 ml PO Q4H PRN PRN Reason: Cough Last Admin: 06/11/20 04:36 Dose: 10 ml Documented by: Sodium Chloride (Normal Saline) 1,000 mls @ 125 mls/hr IV ASDIRECTED [facility] Piperacillin/Tazobactam/ (Dextrose 3.375 gm/ Premix) 50 mls @ 100 mls/hr IV Q6H [facility] Last Admin: 06/11/20 07:41 Dose: 100 mls/hr Documented by: Vancomycin HCl 2 gm/ Sodium (Chloride) 500 mls @ 250 mls/hr IV ONETIME ONE Stop: 06/11/20 10:59 Vancomycin HCl 1.25 gm/ Sodium (Chloride) 250 mls @ 167 mls/hr IV Q24H [facility] Propofol (Diprivan 100 Ml) 100 mls @ 22.71 mls/hr IV TITRATE [facility]; Protocol Heparin Sodium (Porcine) 5,000 (units/ Sodium Chloride) 501 mls @ 1 mls/hr IV ASDIRECTED [facility] Insulin Glargine (Lantus Solostar) 24 units SUBCUT DAILY [facility] Last Admin: 06/10/20 08:05 Dose: 24 units Documented by: Insulin Human Lispro (Humalog) 0 unit SUBCUT QIDACANDBED [facility]; Protocol Last Admin: 06/10/20 20:57 Dose: Not Given Documented by: Lorazepam (Ativan) 0.5 mg IVPUSH Q2H PRN PRN Reason: Nausea Last Admin: 06/11/20 04:36 Dose: 0.5 mg Documented by: Methylprednisolone Sodium Succinate (Solu-Medrol) 40 mg IVPUSH Q6H [facility] Ondansetron HCl (Zofran) 4 mg IV Q4H PRN PRN Reason: Nausea/Vomiting Last Admin: 06/10/20 08:09 Dose: 4 mg Documented by: Prednisone (Prednisone) 40 mg PO WITHBREAKFAST [facility] Sertraline HCl (Zoloft) 100 mg PO DAILY [facility] Last Admin: 06/10/20 13:39 Dose: 100 mg Documented by: Sodium Chloride (Saline Flush) 10 ml FLUSH ASDIRECTED PRN PRN Reason: Keep Vein Open Trazodone HCl (Trazodone) 50 mg PO BEDTIME PRN PRN Reason: Sleep Last Admin: 06/10/20 21:50 Dose: 50 mg Documented by: Discontinued Medications Albuterol/Ipratropium (Combivent Respimat) 1 gm INH NOW STA Stop: 06/09/20 21:29 Last Admin: 06/09/20 22:15 Dose: 1 gm Documented by: Albuterol/Ipratropium (Duoneb 3.0-0.5 Mg/3 Ml) 3 ml NEB QID [facility] Last Admin: 06/10/20 05:03 Dose: 3 ml Documented by: Fentanyl (Sublimaze) 50 mcg IVPUSH ONETIME ONE Stop: 06/09/20 20:03 Last Admin: 06/09/20 20:22 Dose: 50 mcg Documented by: Sodium Chloride (Normal Saline) 1,000 mls @ 999 mls/hr IV .BOLUS ONE Stop: 06/09/20 18:13 Last Admin: 06/09/20 17:59 Dose: 999 mls/hr Documented by: Sodium Chloride (Normal Saline) 100 mls @ 3 mls/sec IV ASDIRECTED [facility] Last Admin: 06/09/20 19:32 Dose: 3 mls/sec Documented by: Ceftriaxone Sodium 1 gm/ (Sodium Chloride) 50 mls @ 100 mls/hr IV ONETIME ONE Stop: 06/09/20 20:38 Last Admin: 06/09/20 20:24 Dose: 100 mls/hr Documented by: Lactated Ringer's (Ringers, Lactated) 1,000 mls @ 250 mls/hr IV BOLUS ONE Stop: 06/10/20 00:16 Last Admin: 06/09/20 20:24 Dose: 250 mls/hr Documented by: Sodium Chloride (Normal Saline) 80 mls @ 3 mls/sec IV ASDIRECTED [facility] Last Admin: 06/09/20 21:57 Dose: 3 mls/sec Documented by: Ceftriaxone Sodium 1 gm/ (Sodium Chloride) 50 mls @ 100 mls/hr IV Q24H [facility] Last Admin: 06/10/20 00:11 Dose: Not Given Documented by: Azithromycin 500 mg/ Sodium (Chloride) 250 mls @ 250 mls/hr IV Q24H [facility] Last Admin: 06/10/20 00:24 Dose: 250 mls/hr Documented by: Sodium Chloride (Normal Saline) 1,000 mls @ 125 mls/hr IV ASDIRECTED [facility] Last Admin: 06/10/20 08:03 Dose: 125 mls/hr Documented by: Ceftriaxone Sodium 1 gm/ (Sodium Chloride) 50 mls @ 100 mls/hr IV Q24H [facility] Last Admin: 06/10/20 20:35 Dose: 100 mls/hr Documented by: Azithromycin 500 mg/ Sodium (Chloride) 250 mls @ 250 mls/hr IV Q24H [facility] Last Admin: 06/10/20 21:51 Dose: 250 mls/hr Documented by: Propofol (Diprivan 100 Ml) Confirm Administered Dose 100 mls @ as directed .ROUTE .STK-MED ONE Stop: 06/11/20 06:05 Last Admin: 06/11/20 07:29 Dose: 20 mls/hr Documented by: Influenza Virus Vaccine (Pharmacy To Dose - Influenza Vaccine) 1 each IM ONETIME ONE Stop: 06/10/20 01:23 Influenza Virus Vaccine (Fluzone Quad 5721-0008 Syringe) 60 mcg IM .ONCE ONE Stop: 06/10/20 10:01 Last Admin: 06/10/20 09:21 Dose: Not Given Documented by: Insulin Human Lispro (Humalog) 0 unit SUBCUT QIDACANDBED [facility]; Protocol Insulin Human Lispro (Humalog) 12 unit SUBCUT ONETIME ONE Stop: 06/10/20 20:53 Last Admin: 06/10/20 20:58 Dose: 12 unit Documented by: Iopamidol (Isovue-370 (76%)) 100 ml IV . DIRECTED [facility] Last Admin: 06/09/20 19:32 Dose: 100 ml Documented by: Iopamidol (Isovue-300 (61%)) 100 ml IV . DIRECTED [facility] Last Admin: 06/09/20 21:57 Dose: 100 ml Documented by: Ketorolac Tromethamine (Toradol) 30 mg IVPUSH ONETIME ONE Stop: 06/09/20 18:48 Last Admin: 06/09/20 18:56 Dose: 30 mg Documented by: Methylprednisolone Sodium Succinate (Solu-Medrol) 40 mg IVPUSH Q8H [facility] Last Admin: 06/10/20 00:20 Dose: 40 mg Documented by: Methylprednisolone Sodium Succinate (Solu-Medrol) 40 mg IVPUSH Q8H [facility] Last Admin: 06/10/20 08:01 Dose: 40 mg Documented by: Methylprednisolone Sodium Succinate (Solu-Medrol) 40 mg IVPUSH ONETIME ONE Stop: 06/11/20 05:25 Last Admin: 06/11/20 05:38 Dose: 40 mg Documented by: Methylprednisolone Sodium Succinate (Solu-Medrol) Confirm Administered Dose 40 mg .ROUTE .STK-MED ONE Stop: 06/11/20 05:30 Last Admin: 06/11/20 05:38 Dose: Not Given Documented by: Morphine Sulfate (Morphine) 2 mg IVPUSH Q2H PRN PRN Reason: Pain Ondansetron HCl (Zofran) 4 mg IVPUSH ONETIME ONE Stop: 06/09/20 18:50 Last Admin: 06/09/20 18:56 Dose: 4 mg Documented by: Ondansetron HCl (Zofran) 4 mg IVPUSH ONETIME ONE Stop: 06/09/20 23:41 Last Admin: 06/09/20 23:53 Dose: 4 mg Documented by: Polyethylene Glycol (Miralax) 17 gm PO ONETIME ONE Stop: 06/09/20 23:46 Last Admin: 06/10/20 01:01 Dose: 17 gm Documented by: Polyethylene Glycol (Miralax) 17 gm PO ONETIME ONE Stop: 06/10/20 17:54 Last Admin: 06/10/20 18:10 Dose: 17 gm Documented by: Propofol (Diprivan 20 Ml) Confirm Administered Dose 200 mg .ROUTE .STK-MED ONE Stop: 06/11/20 07:23 Sodium Chloride (Saline Flush) 10 ml FLUSH ASDIRECTED PRN PRN Reason: Keep Vein Open Last Admin: 06/09/20 19:32 Dose: 10 ml Documented by: Succinylcholine Chloride (Quelicin) Confirm Administered Dose 200 mg .ROUTE .STK-MED ONE Stop: 06/11/20 07:23 Sumatriptan Succinate (Imitrex) 25 mg PO ONETIME ONE Stop: 06/10/20 00:38 Last Admin: 06/10/20 01:01 Dose: 25 mg Documented by: Sumatriptan Succinate (Imitrex) 25 mg PO ONETIME ONE Stop: 06/10/20 01:55 Last Admin: 06/10/20 02:18 Dose: 25 mg Documented by: - Exam Quality Assessment: Reports: Supplemental Oxygen (Ventilator), DVT Prophylaxis General: Reports: Sedated, Lethargic Lungs: Reports: Rales, Rhonchi. Denies: Crackles, Rub, Wheezing Cardiovascular: Reports: Regular Rhythm, No Murmurs, Tachycardia GI/Abdominal Exam: Soft, Non-Tender, No Organomegaly, No Distention Extremities: Non-Tender, No Pedal Edema
[2020-06-11] MEDS ORDERED: predniSONE 20 MG Tab PO SCH (08:00)
[2020-06-11] MEDS ORDERED: Piperacillin/Tazobactam/Dext 3.375 GM in Premix Bag 1 BAG IV SCH (08:00)
--- NOTE | 2020-06-11 08:24 | ANES ---
DATE OF SERVICE: 06/11/2020 PROCEDURE: Intubation and arterial line placement I was called by the ICU for a young lady, who was in respiratory distress, respiratory failure, needing intubation. I was at the bedside at approximately 6:20 this morning. Oxygenation level was mid upper 80s on 15 L non-rebreather mask. The patient did definitely have some signs of respiratory distress and discomfort. Potassium level was noted to be 4.2 because she does have some kidney failure, but was alert and orientated prior to the intubation. Supplies were gathered. Ambu bag was at the bedside. Respiratory therapy was at the bedside. Suction was at the ready. I did lay the patient semi-flat, in the supine position, head of bed slightly elevated. Did bag-valve mask the patient on 15 L to try to drive her sat up. The best that we could get was then to the low 90s. I then proceeded to give the patient 100 mg of propofol and 100 mg of succinylcholine. I then used a MAC 3 blade for intubation. Grade 1 view of the vocal cords was noted. A 7.5 endotracheal tube was then placed and secured at approximately 24 cm at the lip. Bilateral breath sounds were noted, end-tidal CO2 changes were noted, and the oxygenation level did drop down into the 50s because she was fairly difficult mask. But after intubation, her sats immediately simran up and to approximately 93% to 94% on 15 L. Respiratory Therapy put her on the ventilator at that time. A chest x-ray was done. Dr. Jordan read it. Everything appeared to be good. I then turned my attention to art line. Her left radial pulse was very palpable. Chlorhexidine was used to clean her left wrist. A 22-gauge arrow catheter was then inserted, and after a couple of minutes was able to get positive blood back. Catheter was easily slid into the artery and was hooked up to the monitoring system. Appropriate waveform was noted on the monitor and was able to easily draw back on the catheter. I then secured the catheter with a 2-0 Prolene and finished securing the arterial line at that time. I did start a 2nd IV per the RNs request in her right AC. A 20-gauge peripheral IV was started there. We will be available as needed for Dr. Jordan. Robb Shirley CRNA /[id number]
--- NOTE | 2020-06-13 09:41 | CR ---
CHEST: Portable 06/11/2020 at 6:43 AM CLINICAL HISTORY:Intubation, hypoxia COMPARISON:06/11/2020 at 5:39 AM FINDINGS: There is been placement of endotracheal tube. The tip is approximately 4 cm from the jaleel. There are very dense bilateral pulmonary infiltrates with large areas of consolidation. Impression: Endotracheal intubation described above Dense diffuse bilateral pulmonary infiltrates and consolidation
== END 2020-06-11 08:45 | DRG 208 ==
LOC: JP.ED 15:33 → JP.ICU 23:45
PROVIDERS: ADMIT Hospitalist; ATTEND Hospitalist
PROC: 0BH17EZ Insertion of Endotracheal Airway into Trachea, Via Natural or Artificial Opening (ICD-10-PCS; principal; 2020-06-11)
PROC: 5A1935Z Respiratory Ventilation, Less than 24 Consecutive Hours (ICD-10-PCS; 2020-06-11)
PROC: 03HY32Z Insertion of Monitoring Device into Upper Artery, Percutaneous Approach (ICD-10-PCS; 2020-06-11)
DX: J18.9 Pneumonia, unspecified organism (principal); J96.01 Acute respiratory failure with hypoxia; J45.901 Unspecified asthma with (acute) exacerbation; Z20.828 Contact with and (suspected) exposure to other viral communicable diseases; K59.00 Constipation, unspecified; F41.0 Panic disorder [episodic paroxysmal anxiety]; F32.9 Major depressive disorder, single episode, unspecified; E10.42 Type 1 diabetes mellitus with diabetic polyneuropathy; Z88.1 Allergy status to other antibiotic agents; Z91.040 Latex allergy status; Z88.5 Allergy status to narcotic agent; Z79.4 Long term (current) use of insulin; Z79.899 Other long term (current) drug therapy; Z98.890 Other specified postprocedural states; Z90.49 Acquired absence of other specified parts of digestive tract
CPT/HCPCS: 36415; 36600; 51702; 71045; 71045-26; 71275; 74177; 80048; 80053; 81001; 82009; 82728; 82803; 82962; 83605; 83735; 83880; 84145; 84484; 85025; 86140; 87040; 87070; 87205; 87804; 87804-59; 94002; 94640; 96365; 96375; 99285-25; A9270-GY; J0330; J0456; J0696; J1815; J1815-GY; J1885; J2060; J2405; J2543; J2704; J2920; J3010; J3370; J7030; J7040; J7050; J7120; J7620-GY; Q9967; U0002

== ENCOUNTER 2020-06-20 21:58 | Emergency (ER) | payer MEDICAID ==
[2020-06-20] MEDS ORDERED: Phenazopyridine 95 MG Tab PO ONE (22:56)
[2020-06-20] MEDS ORDERED: cefTRIAXone 1 GM Vial IM ONE (23:00)
--- NOTE | 2020-06-20 23:02 | EDM.PDOC ---
ED HPI GENERAL MEDICAL PROBLEM - General Chief Complaint: Genitourinary Problem Stated Complaint: POSSIBLE KIDNEY INFECTION Time Seen by Provider: 06/20/20 22:59 Source of Information: Reports: Patient, Family History Limitations: Reports: No Limitations - History of Present Illness INITIAL COMMENTS - FREE TEXT/NARRATIVE: pt has had pain with urination. She gets to the br and he can,t go. This started on Saturday for her. Onset: Today Duration: Hour(s): Location: Reports: Abdomen, Back, Other (pt is having pain accross the pain) Associated Symptoms: Reports: Other (pt has had slight chilling. ) Left Flank Pain Score (Numeric/FACES): 8 - Related Data Allergies Allergy/AdvReac Type Severity Reaction Status Date / Time ciprofloxacin Allergy Hives Verified 06/20/20 22:42 Latex, Natural Rubber Allergy Itching Verified 06/20/20 22:42 morphine Allergy Hives Verified 06/20/20 22:42 Home Meds: Home Meds Albuterol Sulfate [Proair Hfa] 2 puff INH ASDIRECTED 06/09/20 [History] Gabapentin [Neurontin] 300 mg PO TID 06/09/20 [History] Insulin Aspart [NovoLOG] 0 unit SUBCUT ASDIRECTED 06/09/20 [History] Insulin Glargine,Hum.Rec.Anlog [Lantus Solostar] 24 units SUBCUT DAILY 06/09/20 [History] Multivitamin [Multivitamins] 1 cap PO DAILY 06/09/20 [History] SUMAtriptan [Imitrex] 25 mg PO ASDIRECTED 06/09/20 [History] Sertraline [Zoloft] 100 mg PO DAILY 06/09/20 [History] ondansetron HCL [Zofran] 4 mg PO Q8H PRN 06/09/20 [History] traZODone HCl [Trazodone HCl] 50 - 100 mg PO BEDTIME PRN 06/09/20 [History] Past Medical History HEENT History: Reports: Other (See Below) Other HEENT History: retinopathy Cardiovascular History: Reports: Heart Murmur Respiratory History: Reports: Asthma Gastrointestinal History: Reports: Other (See Below) Other Gastrointestinal History: 2 benign masses on the liver. 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 Musculoskeletal History: Reports: Fracture Neurological History: Reports: Neuropathy, Diabetic Psychiatric History: Reports: Anxiety, Depression, Panic Attack Endocrine/Metabolic History: Reports: Diabetes, Type I Oncologic (Cancer) History: Reports: Other (See Below) Other Oncologic History: carcinomic tumor of appendix at 8 years old. - Past Surgical History HEENT Surgical History: Reports: Adenoidectomy, Tonsillectomy GI Surgical History: Reports: Appendectomy, Colonoscopy Social & Family History - Family History Family Medical History: Noncontributory - Tobacco Use Tobacco Use Status *Q: Never Tobacco User - Caffeine Use Caffeine Use: Reports: Coffee, Energy Drinks, Soda, Tea Caffeine Use Comment: occasional - Recreational Drug Use Recreational Drug Use: No ED ROS GENERAL - Review of Systems Review Of Systems: See Below Constitutional: Reports: Chills, Malaise HEENT: Reports: No Symptoms Respiratory: Reports: No Symptoms Cardiovascular: Reports: No Symptoms Endocrine: Reports: No Symptoms GI/Abdominal: Reports: No Symptoms : Reports: Dysuria, Frequency, Urgency Musculoskeletal: Reports: No Symptoms Skin: Reports: No Symptoms Neurological: Reports: No Symptoms Psychiatric: Reports: Anxiety ED EXAM, GI/ABD - Physical Exam Exam: See Below Text/Narrative:: pt arrived with urinary burning. She has not had a fever. She has had pain accross the back. Exam Limited By: No Limitations General Appearance: Mild Distress, Moderate Distress Ears: Normal TMs Nose: Normal Inspection Throat/Mouth: Normal Inspection Head: Atraumatic Neck: Normal Inspection Respiratory/Chest: No Respiratory Distress Cardiovascular: Regular Rate, Rhythm GI/Abdominal Exam: Other (lower abdomanal pain) (Female) Exam: Deferred Rectal (Female) Exam: Deferred Back Exam: Normal Inspection Extremities: Normal Inspection Neurological: Alert, Normal Cognition Psychiatric: Normal Affect Course - Vital Signs Last Recorded V/S: Last Vital Signs Temp 35.8 C L 06/20/20 22:35 Pulse 96 06/20/20 22:35 Resp 16 06/20/20 22:35 BP 166/106 H 06/20/20 22:35 Pulse Ox 98 06/20/20 22:35 - Orders/Labs/Meds Orders: Active Orders 24 hr Category Date Time Status CULTURE URINE [RM] Stat Lab 06/20/20 23:01 Received Labs: Laboratory Tests 06/20/20 Range/Units 22:27 Urine Color Yellow (YELLOW) Urine Appearance Cloudy A (CLEAR) Urine pH 5.5 (5.0-8.0) Ur Specific [place] >= 1.030 (1.008-1.030) Urine Protein >=300 H (NEGATIVE) mg/dL Urine Glucose (UA) Negative (NEGATIVE) mg/dL Urine Ketones Negative (NEGATIVE) mg/dL Urine Occult Blood Small H (NEGATIVE) Urine Nitrite Negative (NEGATIVE) Urine Bilirubin Negative (NEGATIVE) Urine Urobilinogen 0.2 (0.2-1.0) EU/dL Ur Leukocyte Esterase Negative (NEGATIVE) Urine RBC 0-5 (0-5) Urine WBC 0-5 (0-5) Ur Epithelial Cells Moderate Amorphous Sediment Moderate Urine Bacteria Few Urine Mucus Not seen Urine Other Meds: Medications Discontinued Medications Generic Name Dose Route Start Last Admin Trade Name Freq PRN Reason Stop Dose Admin Ceftriaxone Sodium 1 gm 06/20/20 23:00 Rocephin IM 06/20/20 23:01 ONETIME ONE Phenazopyridine HCl 190 mg 06/20/20 22:56 Urinary Pain Relief PO 06/20/20 22:57 ONETIME ONE - Re-Assessments/Exams Free Text/Narrative Re-Assessment/Exam: 06/20/20 23:06 pt had a luba concentrated urine that was not real diagnostic, Will culture the urine and cover with antibiotics. Departure - Departure Time of Disposition: 23:00 Disposition: Home, Self-Care 01 Condition: Fair Clinical Impression: UTI (urinary tract infection) - Discharge Information Referrals: PCP,None [Primary Care Provider] - Forms: ED Department Discharge Care Plan Goals: push fluids, pyridium 200 mg tid for burning, bactim ds 1tab bid. Sepsis Event Note (ED) - Evaluation Sepsis Screening Result: No Definite Risk - Focused Exam Vital Signs: Vital Signs Temp Pulse Resp BP Pulse Ox 06/20/20 22:35 35.8 C L 96 16 166/106 H 98 - My Orders Last 24 Hours: My Active Orders 06/20/20 23:01 CULTURE URINE [RM] Stat - Assessment/Plan Last 24 Hours: My Active Orders 06/20/20 23:01 CULTURE URINE [RM] Stat
[2020-06-20] MEDS ORDERED: Lidocaine 1% 50 ML MDV INJECT STA (23:04)
== END 2020-06-20 23:33 | disposition home or self-care (01) ==
LOC: JP.ED 21:58
DX: N39.0 Urinary tract infection, site not specified (principal); J45.909 Unspecified asthma, uncomplicated; F41.9 Anxiety disorder, unspecified; F32.9 Major depressive disorder, single episode, unspecified; E10.40 Type 1 diabetes mellitus with diabetic neuropathy, unspecified; Z79.899 Other long term (current) drug therapy; Z88.1 Allergy status to other antibiotic agents; Z91.040 Latex allergy status; Z88.5 Allergy status to narcotic agent
CPT/HCPCS: 81001; 87086; 96372; 99283; A9270; J0696; J2001

== ENCOUNTER 2020-07-22 10:13 | Inpatient (IN) | payer MEDICAID ==
--- NOTE | 2020-07-22 11:34 | EDM.PDOC ---
ED HPI GENERAL MEDICAL PROBLEM - General Chief Complaint: Respiratory Problem Stated Complaint: COVID SYMPTOMS, HAD PNEUMONIA Time Seen by Provider: 07/22/20 11:24 Source of Information: Reports: Patient History Limitations: Reports: Physical Impairment - History of Present Illness INITIAL COMMENTS - FREE TEXT/NARRATIVE: Patient presents from home describing progressive fatigue, shortness of breath, generalized discomfort over the last couple of weeks. She was hospitalized here on 11 June and states she was in the hospital for 7 or 8 days before going home. She does not recall much about that visit. She has a history of asthma and does take albuterol as well as some type of steroid inhaler which she does not remember the name of. She has had some low-grade hot and cold fever feelings along with the fatigue and shortness of breath. She is not been on any other new medications recently. Because of feeling progressively worse over the last several days that is why she came here today. No one else ill around her that she is aware of. Onset: Gradual Duration: Week(s): (2) Location: Reports: Generalized Quality: Reports: Ache Severity: Moderate Improves with: Reports: None Worsens with: Reports: Movement Associated Symptoms: Reports: Malaise, Shortness of Breath, Weakness Right Lower Chest Pain Score (Numeric/FACES): 8 - Related Data Allergies Allergy/AdvReac Type Severity Reaction Status Date / Time ciprofloxacin Allergy Hives Verified 07/22/20 10:26 Latex, Natural Rubber Allergy Itching Verified 07/22/20 10:26 morphine Allergy Hives Verified 07/22/20 10:26 Home Meds: Home Meds Albuterol Sulfate [Proair Hfa] 2 puff INH ASDIRECTED 06/09/20 [History] Gabapentin [Neurontin] 300 mg PO TID 06/09/20 [History] Insulin Aspart [NovoLOG] 0 unit SUBCUT ASDIRECTED 06/09/20 [History] Insulin Glargine,Hum.Rec.Anlog [Lantus Solostar] 30 units SUBCUT DAILY 06/09/20 [History] Multivitamin [Multivitamins] 1 cap PO DAILY 06/09/20 [History] SUMAtriptan [Imitrex] 25 mg PO ASDIRECTED 06/09/20 [History] Sertraline [Zoloft] 100 mg PO DAILY 06/09/20 [History] ondansetron HCL [Zofran] 4 mg PO Q8H PRN 06/09/20 [History] traZODone HCl [Trazodone HCl] 50 - 100 mg PO BEDTIME PRN 06/09/20 [History] lisinopriL [Lisinopril] 10 mg PO DAILY 07/22/20 [History] Past Medical History HEENT History: Reports: Impaired Vision, Other (See Below) Other HEENT History: retinopathy Cardiovascular History: Reports: Heart Murmur Respiratory History: Reports: Asthma Gastrointestinal History: Reports: Other (See Below) Other Gastrointestinal History: 2 benign masses on the liver. 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 Musculoskeletal History: Reports: Fracture Neurological History: Reports: Neuropathy, Diabetic Psychiatric History: Reports: Anxiety, Depression, Panic Attack Endocrine/Metabolic History: Reports: Diabetes, Type I Oncologic (Cancer) History: Reports: Other (See Below) Other Oncologic History: carcinomic tumor of appendix at 8 years old. - Infectious Disease History Infectious Disease History: Reports: Chicken Pox - Past Surgical History Head Surgeries/Procedures: Reports: None HEENT Surgical History: Reports: Adenoidectomy, Tonsillectomy Cardiovascular Surgical History: Reports: None Respiratory Surgical History: Reports: None GI Surgical History: Reports: Appendectomy, Colonoscopy Female Surgical History: Reports: None Endocrine Surgical History: Reports: None Neurological Surgical History: Reports: None Musculoskeletal Surgical History: Reports: None Oncologic Surgical History: Reports: None Dermatological Surgical History: Reports: None Social & Family History - Family History Family Medical History: No Pertinent Family History - Tobacco Use Tobacco Use Status *Q: Never Tobacco User Second Hand Smoke Exposure: No - Caffeine Use Caffeine Use: Reports: Coffee Caffeine Use Comment: occasional - Recreational Drug Use Recreational Drug Use: No ED ROS GENERAL - Review of Systems Review Of Systems: See Below Constitutional: Reports: Malaise, Weakness. Denies: Night Sweats, Diaphoresis HEENT: Reports: No Symptoms Respiratory: Reports: Shortness of Breath, Wheezing, Cough Cardiovascular: Reports: No Symptoms Endocrine: Reports: Fatigue GI/Abdominal: Reports: Abdominal Pain (Right upper quadrant.) Skin: Reports: No Symptoms ED EXAM, GENERAL - Physical Exam Exam: See Below Free Text/Narrative:: This is a fatigued appearing and sounding adult female interviewed in room 6. Exam Limited By: Physical Impairment General Appearance: Lethargic, Mild Distress Nose: Normal Inspection Throat/Mouth: Normal Inspection Neck: Supple Respiratory/Chest: Respiratory Distress, Crackles, Wheezing Cardiovascular: Tachycardia GI/Abdominal: Soft, Tender (Right upper quadrant abdomen/right low anterior rib discomfort with palpation.) Extremities: Normal Inspection Neurological: Slow to Respond Course - Vital Signs Last Recorded V/S: Last Vital Signs Temp 36.6 C 07/22/20 10:31 Pulse 107 H 07/22/20 14:48 Resp 24 H 07/22/20 14:48 BP 154/97 H 07/22/20 14:48 Pulse Ox 90 L 07/22/20 14:48 - Orders/Labs/Meds Orders: Active Orders 24 hr Category Date Time Status Patient Status Manage Transfer [TRANSFER] Routine ADT 07/22/20 14:45 Active RT Post Treatment Assessment [RC] Click to Edit Care 07/22/20 11:44 Active CULTURE BLOOD [BC] Stat Lab 07/22/20 14:20 Received CULTURE RESPIRATORY + SMEAR [RM] Stat Lab 07/22/20 15:00 Received CULTURE URINE [RM] Stat Lab 07/22/20 14:21 Received Sodium Chloride 0.9% [Normal Saline] 1,000 ml Med 07/22/20 13:53 Active IV .BOLUS Sodium Chloride 0.9% [Normal Saline] 1,000 ml Med 07/22/20 14:50 Active IV .BOLUS Sodium Chloride 0.9% [Saline Flush] Med 07/22/20 11:40 Active 10 ml FLUSH ASDIRECTED PRN Isolation [COMM] Routine Oth 07/22/20 11:38 Ordered Saline Lock Insert [OM.PC] Routine Oth 07/22/20 11:40 Ordered Resuscitation Status Routine Resus Stat 07/22/20 14:47 Ordered Medication Orders Sodium Chloride (Normal Saline) 1,000 mls @ 500 mls/hr IV .BOLUS ONE Stop: 07/22/20 15:52 Last Admin: 07/22/20 14:46 Dose: 500 mls/hr Documented by: JUDY Sodium Chloride (Normal Saline) 1,000 mls @ 250 mls/hr IV .BOLUS ONE Stop: 07/22/20 18:49 Last Admin: 07/22/20 14:55 Dose: Not Given Documented by: Sodium Chloride (Saline Flush) 10 ml FLUSH ASDIRECTED PRN PRN Reason: Keep Vein Open Last Admin: 07/22/20 12:06 Dose: 10 ml Documented by: ENA Labs: Laboratory Tests 07/22/20 07/22/20 07/22/20 Range/Units 12:11 12:11 12:12 WBC 8.4 (4.5-11.0) K/uL RBC 3.10 L (3.30-5.50) M/uL Hgb 8.6 L (12.0-15.0) g/dL Hct 27.3 L (36.0-48.0) % MCV 88 (80-98) fL MCH 28 (27-31) pg MCHC 32 (32-36) % Plt Count 365 (150-400) K/uL Neut % (Auto) 73 H (36-66) % Lymph % (Auto) 18 L (24-44) % [place] % (Auto) 7 H (2-6) % Eos % (Auto) 2 (2-4) % Baso % (Auto) 0 (0-1) % D-Dimer, Quantitative 1306.59 H (0.0-500.0) ng/mL Sodium (140-148) mmol/L Potassium (3.6-5.2) mmol/L Chloride (100-108) mmol/L Carbon Dioxide (21-32) mmol/L Anion Gap (5.0-14.0) mmol/L BUN (7-18) mg/dL Creatinine (0.6-1.0) mg/dL Est Cr Clr Drug Dosing mL/min Estimated GFR (MDRD) (>60) Glucose (74-106) mg/dL Lactic Acid (0.4-2.0) mmol/L Calcium (8.5-10.1) mg/dL Total Bilirubin (0.2-1.0) mg/dL AST (15-37) U/L ALT (12-78) U/L Alkaline Phosphatase (46-116) U/L C-Reactive Protein (0.0-0.3) mg/dL Total Protein (6.4-8.2) g/dL Albumin (3.4-5.0) g/dL Globulin (2.3-3.5) g/dL Albumin/Globulin Ratio (1.2-2.2) HCG, Qual Negative Urine Color (YELLOW) Urine Appearance (CLEAR) Urine pH (5.0-8.0) Ur Specific [place] (1.008-1.030) Urine Protein (NEGATIVE) mg/dL Urine Glucose (UA) (NEGATIVE) mg/dL Urine Ketones (NEGATIVE) mg/dL Urine Occult Blood (NEGATIVE) Urine Nitrite (NEGATIVE) Urine Bilirubin (NEGATIVE) Urine Urobilinogen (0.2-1.0) EU/dL Ur Leukocyte Esterase (NEGATIVE) Urine RBC (0-5) Urine WBC (0-5) Ur Epithelial Cells Amorphous Sediment Urine Bacteria Urine Mucus SARS-CoV-2 RNA (DOMINIQUE) (NEGATIVE) SARS CoV-2 RNA Rapid DOMINIQUE 07/22/20 07/22/20 07/22/20 Range/Units 12:12 12:18 12:25 WBC (4.5-11.0) K/uL RBC (3.30-5.50) M/uL Hgb (12.0-15.0) g/dL Hct (36.0-48.0) % MCV (80-98) fL MCH (27-31) pg MCHC (32-36) % Plt Count (150-400) K/uL Neut % (Auto) (36-66) % Lymph % (Auto) (24-44) % [place] % (Auto) (2-6) % Eos % (Auto) (2-4) % Baso % (Auto) (0-1) % D-Dimer, Quantitative (0.0-500.0) ng/mL Sodium 141 (140-148) mmol/L Potassium 4.0 (3.6-5.2) mmol/L Chloride 108 (100-108) mmol/L Carbon Dioxide 20 L (21-32) mmol/L Anion Gap 17.0 H (5.0-14.0) mmol/L BUN 40 H (7-18) mg/dL Creatinine 2.6 H (0.6-1.0) mg/dL Est Cr Clr Drug Dosing 28.07 mL/min Estimated GFR (MDRD) 22 L (>60) Glucose 54 L (74-106) mg/dL Lactic Acid (0.4-2.0) mmol/L Calcium 7.9 L (8.5-10.1) mg/dL Total Bilirubin 0.2 (0.2-1.0) mg/dL AST 13 L (15-37) U/L ALT 18 (12-78) U/L Alkaline Phosphatase 65 (46-116) U/L C-Reactive Protein 2.99 H (0.0-0.3) mg/dL Total Protein 5.7 L (6.4-8.2) g/dL Albumin 2.7 L (3.4-5.0) g/dL Globulin 3.0 (2.3-3.5) g/dL Albumin/Globulin Ratio 0.9 L (1.2-2.2) HCG, Qual Urine Color Yellow (YELLOW) Urine Appearance Cloudy A (CLEAR) Urine pH 6.0 (5.0-8.0) Ur Specific [place] 1.020 (1.008-1.030) Urine Protein 100 H (NEGATIVE) mg/dL Urine Glucose (UA) 250 H (NEGATIVE) mg/dL Urine Ketones Negative (NEGATIVE) mg/dL Urine Occult Blood Trace-lysed H (NEGATIVE) Urine Nitrite Negative (NEGATIVE) Urine Bilirubin Negative (NEGATIVE) Urine Urobilinogen 0.2 (0.2-1.0) EU/dL Ur Leukocyte Esterase Negative (NEGATIVE) Urine RBC 0-5 (0-5) Urine WBC 0-5 (0-5) Ur Epithelial Cells Many Amorphous Sediment Not seen Urine Bacteria Moderate Urine Mucus Not seen SARS-CoV-2 RNA (DOMINIQUE) (NEGATIVE) SARS CoV-2 RNA Rapid DOMINIQUE Negative 07/22/20 07/22/20 Range/Units 12:59 13:54 WBC (4.5-11.0) K/uL RBC (3.30-5.50) M/uL Hgb (12.0-15.0) g/dL Hct (36.0-48.0) % MCV (80-98) fL MCH (27-31) pg MCHC (32-36) % Plt Count (150-400) K/uL Neut % (Auto) (36-66) % Lymph % (Auto) (24-44) % [place] % (Auto) (2-6) % Eos % (Auto) (2-4) % Baso % (Auto) (0-1) % D-Dimer, Quantitative (0.0-500.0) ng/mL Sodium (140-148) mmol/L Potassium (3.6-5.2) mmol/L Chloride (100-108) mmol/L Carbon Dioxide (21-32) mmol/L Anion Gap (5.0-14.0) mmol/L BUN (7-18) mg/dL Creatinine (0.6-1.0) mg/dL Est Cr Clr Drug Dosing mL/min Estimated GFR (MDRD) (>60) Glucose (74-106) mg/dL Lactic Acid 0.6 (0.4-2.0) mmol/L Calcium (8.5-10.1) mg/dL Total Bilirubin (0.2-1.0) mg/dL AST (15-37) U/L ALT (12-78) U/L Alkaline Phosphatase (46-116) U/L C-Reactive Protein (0.0-0.3) mg/dL Total Protein (6.4-8.2) g/dL Albumin (3.4-5.0) g/dL Globulin (2.3-3.5) g/dL Albumin/Globulin Ratio (1.2-2.2) HCG, Qual Urine Color (YELLOW) Urine Appearance (CLEAR) Urine pH (5.0-8.0) Ur Specific [place] (1.008-1.030) Urine Protein (NEGATIVE) mg/dL Urine Glucose (UA) (NEGATIVE) mg/dL Urine Ketones (NEGATIVE) mg/dL Urine Occult Blood (NEGATIVE) Urine Nitrite (NEGATIVE) Urine Bilirubin (NEGATIVE) Urine Urobilinogen (0.2-1.0) EU/dL Ur Leukocyte Esterase (NEGATIVE) Urine RBC (0-5) Urine WBC (0-5) Ur Epithelial Cells Amorphous Sediment Urine Bacteria Urine Mucus SARS-CoV-2 RNA (DOMINIQUE) Negative (NEGATIVE) SARS CoV-2 RNA Rapid DOMINIQUE Meds: Medications Generic Name Dose Route Start Last Admin Trade Name Freq PRN Reason Stop Dose Admin Sodium Chloride 1,000 mls @ 500 mls/hr 07/22/20 13:53 07/22/20 14:51 Normal Saline IV 07/22/20 15:52 250 mls/hr .BOLUS ONE Infusion Sodium Chloride 1,000 mls @ 250 mls/hr 07/22/20 14:50 07/22/20 14:55 Normal Saline IV 07/22/20 18:49 Not Given .BOLUS ONE Sodium Chloride 10 ml 07/22/20 11:40 07/22/20 12:06 Saline Flush FLUSH 10 ml ASDIRECTED PRN Administration Keep Vein Open Discontinued Medications Generic Name Dose Route Start Last Admin Trade Name Elisabet PRN Reason Stop Dose Admin Albuterol 1 gm 07/22/20 11:43 07/22/20 12:09 Ventolin Hfa INH 07/22/20 11:44 2 puff ONETIME ONE Administration Fentanyl 50 mcg 07/22/20 15:09 Sublimaze IVPUSH 07/22/20 15:10 ONETIME ONE Sodium Chloride 1,000 mls @ 500 mls/hr 07/22/20 11:45 07/22/20 12:05 Normal Saline IV 07/22/20 13:44 500 mls/hr .BOLUS ONE Administration Meropenem 1 gm/ Sodium 100 mls @ 200 mls/hr 07/22/20 14:17 07/22/20 14:47 Chloride IV 07/22/20 14:46 200 mls/hr ONETIME ONE Administration Ketorolac Tromethamine 30 mg 07/22/20 11:40 07/22/20 12:04 Toradol IVPUSH 07/22/20 11:41 30 mg ONETIME ONE Administration Methylprednisolone Sodium Succinate 125 mg 07/22/20 14:14 07/22/20 14:45 Solu-Medrol IVPUSH 07/22/20 14:15 125 mg ONETIME ONE Administration - Re-Assessments/Exams Free Text/Narrative Re-Assessment/Exam: 07/22/20 13:32 portable chest x-ray was obtained which shows a right-sided diffuse infiltrate. There is some infiltrate on the left side but significantly more noticeable on the right. She will be given normal saline at 500 mL/h. COVID-19 testing has been performed. The initial, 15-minute, test is negative. The subsequent 1 hour test is pending. By clinical appearance and history, she will need admission. She will be given albuterol inhaler treatments. I reviewed her case with Dr. Jordan, the hospitalist today. We both then reviewed her stay documents from May. She was actually here for 24 hours or so, became worse and was intubated and placed on a ventilator with subsequent transfer to [facility] in [place]. We will obtain the discharge summary from that hospitalization in [place]. Dr. Jordan feels she would be better served with transfer to [place] given the similarity of her presentation today to that from 11 June. 07/22/20 13:35 07/22/20 14:56 I reviewed findings with the patient and the recommendation that she be transferred to [place]. She is hoping she could remain here for care. She is mildly hypoxic and is now on 2 L of nasal oxygen which gives acceptable saturation. I discussed again with Dr. Jordan and he will cautiously admit her here. An initial dose of meropenem 1 g IV will be given along with culture accession. Fluid replacement will continue at 250 mL/h. Departure - Departure Time of Disposition: 14:17 Disposition: Admitted As Inpatient 64 Clinical Impression: Acute kidney injury Pneumonia Qualifiers: Pneumonia type: due to unspecified organism Laterality: left Lung location: lower lobe of lung Qualified Code(s): J18.9 - Pneumonia, unspecified organism Fatigue Qualifiers: Fatigue type: other Qualified Code(s): R53.83 - Other fatigue Anemia Qualifiers: Anemia type: unspecified type Qualified Code(s): D64.9 - Anemia, unspecified - Discharge Information Referrals: PCP,None [Primary Care Provider] - Forms: ED Department Discharge Sepsis Event Note (ED) - Evaluation Sepsis Screening Result: Possible Sepsis Risk - Focused Exam Vital Signs: Vital Signs Temp Pulse Resp BP Pulse Ox 07/22/20 14:48 107 H 24 H 154/97 H 90 L 07/22/20 14:22 109 H 24 H 154/97 H 87 L 07/22/20 14:01 107 H 19 146/95 H 94 L 07/22/20 13:15 106 H 17 149/92 H 94 L 07/22/20 11:37 108 H 26 H 131/79 94 L 07/22/20 10:31 36.6 C 109 H 22 H 129/82 96 07/22/20 10:30 36.6 C 109 H 22 H 129/82 96 - My Orders Last 24 Hours: My Active Orders 07/22/20 11:38 Isolation [COMM] Routine 07/22/20 11:40 Sodium Chloride 0.9% [Saline Flush] 10 ml FLUSH ASDIRECTED PRN Saline Lock Insert [OM.PC] Routine 07/22/20 11:44 RT Post Treatment Assessment [RC] Click to Edit 07/22/20 13:53 Sodium Chloride 0.9% [Normal Saline] 1,000 ml IV .BOLUS 07/22/20 14:20 CULTURE BLOOD [BC] Stat 07/22/20 14:21 CULTURE URINE [RM] Stat 07/22/20 14:50 Sodium Chloride 0.9% [Normal Saline] 1,000 ml IV .BOLUS 07/22/20 15:00 CULTURE RESPIRATORY + SMEAR [RM] Stat - Assessment/Plan Last 24 Hours: My Active Orders 07/22/20 11:38 Isolation [COMM] Routine 07/22/20 11:40 Sodium Chloride 0.9% [Saline Flush] 10 ml FLUSH ASDIRECTED PRN Saline Lock Insert [OM.PC] Routine 07/22/20 11:44 RT Post Treatment Assessment [RC] Click to Edit 07/22/20 13:53 Sodium Chloride 0.9% [Normal Saline] 1,000 ml IV .BOLUS 07/22/20 14:20 CULTURE BLOOD [BC] Stat 07/22/20 14:21 CULTURE URINE [RM] Stat 07/22/20 14:50 Sodium Chloride 0.9% [Normal Saline] 1,000 ml IV .BOLUS 07/22/20 15:00 CULTURE RESPIRATORY + SMEAR [RM] Stat
[2020-07-22] MEDS ORDERED: Sodium Chloride 0.9% 10 ML Syringe FLUSH PRN ×2 (11:40→15:34)
[2020-07-22] MEDS ORDERED: Ketorolac 30 MG/ML SDV IVPUSH ONE (11:40)
[2020-07-22] MEDS ORDERED: Albuterol 8 GM Inhaler INH ONE (11:43)
[2020-07-22] MEDS ORDERED: Sodium Chloride 0.9% 1,000 ML IV ONE ×3 (11:45→14:50)
--- NOTE | 2020-07-22 13:36 | CR ---
CHEST: Portable 07/22/2020 at 1224 CLINICAL HISTORY:Cough, fever COMPARISON:May 2020 FINDINGS: There are diffuse bilateral ill-defined pulmonary infiltrates, right greater than left.. No effusions are seen. Heart and pulmonary vascularity are normal. IMPRESSION: Diffuse pneumonic infiltrates, right greater than left. This may represent a pneumonitis
[2020-07-22] MEDS ORDERED: methylPREDNISolone Sodium Succinate 125 MG/2 ML SDV IVPUSH ONE (14:14)
[2020-07-22] MEDS ORDERED: Meropenem 1 GM in Sodium Chloride 0.9% 100 ML IV ONE (14:17)
--- NOTE | 2020-07-22 14:54 | PCM.HP.2 ---
H&P History of Present Illness - General Date of Service: 07/22/20 Admit Problem/Dx: Admission Diagnosis/Problem Admission Diagnosis/Problem Pneumonia Source of Information: Patient, Old Records, Provider, RN Notes Reviewed History Limitations: Reports: No Limitations - History of Present Illness Initial Comments - Free Text/Narative: Ms. Goss is a 25-year-old woman who was admitted through the emergency department with progressive shortness of breath and hypoxia secondary to underlying right lung pneumonia and asthma exacerbation. She was hospitalized at this facility approximately 6 weeks ago with similar symptoms and findings. Respiratory compromise progressed to the point that she required intubation and mechanical ventilation. She was transferred to [place] and was hospitalized there an additional 5 days. She had recovered from that and was feeling improved. Now over the past few days is developed increased shortness of breath with cough and progressive weakness. She does have underlying type 1 diabetes mellitus and reports recent control of this has been good. She has a history of chronic kidney disease and creatinine is elevated on her usual baseline. On evaluation she is noted to have evidence of right lung infiltrate as well as hypoxia. W brad blood cell count is within normal range and she has not had significant temperature elevation. She currently is requiring supplemental oxygen at 2 L/min via nasal cannula. She is mildly tachycardic, but otherwise hemodynamically stable. Right Lower Chest Pain Score (Numeric/FACES): 8 - Related Data Allergies/Adverse Reactions: Allergies Allergy/AdvReac Type Severity Reaction Status Date / Time ciprofloxacin Allergy Hives Verified 07/22/20 10:26 Latex, Natural Rubber Allergy Itching Verified 07/22/20 10:26 morphine Allergy Hives Verified 07/22/20 10:26 Home Medications: Home Meds Albuterol Sulfate [Proair Hfa] 2 puff INH ASDIRECTED 06/09/20 [History] Gabapentin [Neurontin] 300 mg PO TID 06/09/20 [History] Insulin Aspart [NovoLOG] 0 unit SUBCUT ASDIRECTED 06/09/20 [History] Insulin Glargine,Hum.Rec.Anlog [Lantus Solostar] 30 units SUBCUT DAILY 06/09/20 [History] Multivitamin [Multivitamins] 1 cap PO DAILY 06/09/20 [History] SUMAtriptan [Imitrex] 25 mg PO ASDIRECTED 06/09/20 [History] Sertraline [Zoloft] 100 mg PO DAILY 06/09/20 [History] ondansetron HCL [Zofran] 4 mg PO Q8H PRN 06/09/20 [History] traZODone HCl [Trazodone HCl] 50 - 100 mg PO BEDTIME PRN 06/09/20 [History] lisinopriL [Lisinopril] 10 mg PO DAILY 07/22/20 [History] Past Medical History HEENT History: Reports: Impaired Vision, Other (See Below) Other HEENT History: retinopathy Cardiovascular History: Reports: Heart Murmur Respiratory History: Reports: Asthma Gastrointestinal History: Reports: Other (See Below) Other Gastrointestinal History: 2 benign masses on the liver. 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 Musculoskeletal History: Reports: Fracture Neurological History: Reports: Neuropathy, Diabetic Psychiatric History: Reports: Anxiety, Depression, Panic Attack Endocrine/Metabolic History: Reports: Diabetes, Type I Oncologic (Cancer) History: Reports: Other (See Below) Other Oncologic History: carcinomic tumor of appendix at 8 years old. - Infectious Disease History Infectious Disease History: Reports: Chicken Pox - Past Surgical History Head Surgeries/Procedures: Reports: None HEENT Surgical History: Reports: Adenoidectomy, Tonsillectomy Cardiovascular Surgical History: Reports: None Respiratory Surgical History: Reports: None GI Surgical History: Reports: Appendectomy, Colonoscopy Female Surgical History: Reports: None Endocrine Surgical History: Reports: None Neurological Surgical History: Reports: None Musculoskeletal Surgical History: Reports: None Oncologic Surgical History: Reports: None Dermatological Surgical History: Reports: None Social & Family History - Family History Family Medical History: No Pertinent Family History - Tobacco Use Tobacco Use Status *Q: Never Tobacco User Second Hand Smoke Exposure: No - Caffeine Use Caffeine Use: Reports: Coffee Caffeine Use Comment: occasional - Recreational Drug Use Recreational Drug Use: No H&P Review of Systems - Review of Systems: Review Of Systems: See Below General: Reports: Malaise, Weakness, Decreased Appetite. Denies: Fever, Chills HEENT: Reports: No Symptoms Pulmonary: Reports: Shortness of Breath, Wheezing, Cough, Sputum. Denies: Pleuritic Chest Pain, Hemoptysis Cardiovascular: Reports: Dyspnea on Exertion. Denies: Chest Pain, Palpitations, Orthopnea, PND, Edema, Lightheadedness, Syncope Gastrointestinal: Reports: No Symptoms Genitourinary: Reports: No Symptoms Musculoskeletal: Reports: No Symptoms Skin: Reports: No Symptoms Psychiatric: Reports: No Symptoms Neurological: Reports: No Symptoms Hematologic/Lymphatic: Reports: No Symptoms Immunologic: Reports: No Symptoms Exam - Exam Exam: See Below - Vital Signs Vital Signs: Last Vital Signs Temp 98 F 07/22/20 10:31 Pulse 107 H 07/22/20 14:48 Resp 24 H 07/22/20 14:48 BP 154/97 H 07/22/20 14:48 Pulse Ox 90 L 07/22/20 14:48 Weight: 160 lb - Exam Quality Assessment: Supplemental Oxygen, DVT Prophylaxis General: Alert, Oriented, Cooperative, Moderate Distress HEENT: Conjunctiva Clear, Hearing Intact, Normal Nasal Septum, Posterior Pharynx Clear, Pupils Equal. No: Mucosa Moist & [place] Neck: Supple, Trachea Midline, +2 Carotid Pulse wo Bruit Lungs: Clear to Auscultation, Normal Respiratory Effort Cardiovascular: Regular Rate, Regular Rhythm, Normal S1, Normal S2. No: Systolic Murmur, Diastolic Murmur GI/Abdominal Exam: Soft, Non-Tender, No Organomegaly, No Distention Back Exam: Normal Inspection, Full Range of Motion Extremities: Non-Tender, No Pedal Edema Skin: Warm, Dry, Intact Neurological: Cranial Nerves Intact, Strength Equal Bilateral, Normal Speech, Normal Tone. No: Sensation Intact (Peripheral neuropathy secondary to diabetes), Focal Deficit Neuro Extensive - Mental Status: Alert, Oriented x3, Normal Mood/Affect, Normal Cognition, Memory Intact - Patient Data Lab Results Last 24 hrs: Laboratory Results - last 24 hr 07/22/20 07/22/20 07/22/20 Range/Units 12:11 12:11 12:12 WBC 8.4 (4.5-11.0) K/uL RBC 3.10 L (3.30-5.50) M/uL Hgb 8.6 L (12.0-15.0) g/dL Hct 27.3 L (36.0-48.0) % MCV 88 (80-98) fL MCH 28 (27-31) pg MCHC 32 (32-36) % Plt Count 365 (150-400) K/uL Neut % (Auto) 73 H (36-66) % Lymph % (Auto) 18 L (24-44) % [place] % (Auto) 7 H (2-6) % Eos % (Auto) 2 (2-4) % Baso % (Auto) 0 (0-1) % D-Dimer, Quantitative 1306.59 H (0.0-500.0) ng/mL Sodium (140-148) mmol/L Potassium (3.6-5.2) mmol/L Chloride (100-108) mmol/L Carbon Dioxide (21-32) mmol/L Anion Gap (5.0-14.0) mmol/L BUN (7-18) mg/dL Creatinine (0.6-1.0) mg/dL Est Cr Clr Drug Dosing mL/min Estimated GFR (MDRD) (>60) Glucose (74-106) mg/dL Lactic Acid (0.4-2.0) mmol/L Calcium (8.5-10.1) mg/dL Total Bilirubin (0.2-1.0) mg/dL AST (15-37) U/L ALT (12-78) U/L Alkaline Phosphatase (46-116) U/L C-Reactive Protein (0.0-0.3) mg/dL Total Protein (6.4-8.2) g/dL Albumin (3.4-5.0) g/dL Globulin (2.3-3.5) g/dL Albumin/Globulin Ratio (1.2-2.2) HCG, Qual Negative Urine Color (YELLOW) Urine Appearance (CLEAR) Urine pH (5.0-8.0) Ur Specific [place] (1.008-1.030) Urine Protein (NEGATIVE) mg/dL Urine Glucose (UA) (NEGATIVE) mg/dL Urine Ketones (NEGATIVE) mg/dL Urine Occult Blood (NEGATIVE) Urine Nitrite (NEGATIVE) Urine Bilirubin (NEGATIVE) Urine Urobilinogen (0.2-1.0) EU/dL Ur Leukocyte Esterase (NEGATIVE) Urine RBC (0-5) Urine WBC (0-5) Ur Epithelial Cells Amorphous Sediment Urine Bacteria Urine Mucus SARS-CoV-2 RNA (DOMINIQUE) (NEGATIVE) SARS CoV-2 RNA Rapid DOMINIQUE 07/22/20 07/22/20 07/22/20 Range/Units 12:12 12:18 12:25 WBC (4.5-11.0) K/uL RBC (3.30-5.50) M/uL Hgb (12.0-15.0) g/dL Hct (36.0-48.0) % MCV (80-98) fL MCH (27-31) pg MCHC (32-36) % Plt Count (150-400) K/uL Neut % (Auto) (36-66) % Lymph % (Auto) (24-44) % [place] % (Auto) (2-6) % Eos % (Auto) (2-4) % Baso % (Auto) (0-1) % D-Dimer, Quantitative (0.0-500.0) ng/mL Sodium 141 (140-148) mmol/L Potassium 4.0 (3.6-5.2) mmol/L Chloride 108 (100-108) mmol/L Carbon Dioxide 20 L (21-32) mmol/L Anion Gap 17.0 H (5.0-14.0) mmol/L BUN 40 H (7-18) mg/dL Creatinine 2.6 H (0.6-1.0) mg/dL Est Cr Clr Drug Dosing 28.07 mL/min Estimated GFR (MDRD) 22 L (>60) Glucose 54 L (74-106) mg/dL Lactic Acid (0.4-2.0) mmol/L Calcium 7.9 L (8.5-10.1) mg/dL Total Bilirubin 0.2 (0.2-1.0) mg/dL AST 13 L (15-37) U/L ALT 18 (12-78) U/L Alkaline Phosphatase 65 (46-116) U/L C-Reactive Protein 2.99 H (0.0-0.3) mg/dL Total Protein 5.7 L (6.4-8.2) g/dL Albumin 2.7 L (3.4-5.0) g/dL Globulin 3.0 (2.3-3.5) g/dL Albumin/Globulin Ratio 0.9 L (1.2-2.2) HCG, Qual Urine Color Yellow (YELLOW) Urine Appearance Cloudy A (CLEAR) Urine pH 6.0 (5.0-8.0) Ur Specific [place] 1.020 (1.008-1.030) Urine Protein 100 H (NEGATIVE) mg/dL Urine Glucose (UA) 250 H (NEGATIVE) mg/dL Urine Ketones Negative (NEGATIVE) mg/dL Urine Occult Blood Trace-lysed H (NEGATIVE) Urine Nitrite Negative (NEGATIVE) Urine Bilirubin Negative (NEGATIVE) Urine Urobilinogen 0.2 (0.2-1.0) EU/dL Ur Leukocyte Esterase Negative (NEGATIVE) Urine RBC 0-5 (0-5) Urine WBC 0-5 (0-5) Ur Epithelial Cells Many Amorphous Sediment Not seen Urine Bacteria Moderate Urine Mucus Not seen SARS-CoV-2 RNA (DOMINIQUE) (NEGATIVE) SARS CoV-2 RNA Rapid DOMINIQUE Negative 07/22/20 07/22/20 Range/Units 12:59 13:54 WBC (4.5-11.0) K/uL RBC (3.30-5.50) M/uL Hgb (12.0-15.0) g/dL Hct (36.0-48.0) % MCV (80-98) fL MCH (27-31) pg MCHC (32-36) % Plt Count (150-400) K/uL Neut % (Auto) (36-66) % Lymph % (Auto) (24-44) % [place] % (Auto) (2-6) % Eos % (Auto) (2-4) % Baso % (Auto) (0-1) % D-Dimer, Quantitative (0.0-500.0) ng/mL Sodium (140-148) mmol/L Potassium (3.6-5.2) mmol/L Chloride (100-108) mmol/L Carbon Dioxide (21-32) mmol/L Anion Gap (5.0-14.0) mmol/L BUN (7-18) mg/dL Creatinine (0.6-1.0) mg/dL Est Cr Clr Drug Dosing mL/min Estimated GFR (MDRD) (>60) Glucose (74-106) mg/dL Lactic Acid 0.6 (0.4-2.0) mmol/L Calcium (8.5-10.1) mg/dL Total Bilirubin (0.2-1.0) mg/dL AST (15-37) U/L ALT (12-78) U/L Alkaline Phosphatase (46-116) U/L C-Reactive Protein (0.0-0.3) mg/dL Total Protein (6.4-8.2) g/dL Albumin (3.4-5.0) g/dL Globulin (2.3-3.5) g/dL Albumin/Globulin Ratio (1.2-2.2) HCG, Qual Urine Color (YELLOW) Urine Appearance (CLEAR) Urine pH (5.0-8.0) Ur Specific [place] (1.008-1.030) Urine Protein (NEGATIVE) mg/dL Urine Glucose (UA) (NEGATIVE) mg/dL Urine Ketones (NEGATIVE) mg/dL Urine Occult Blood (NEGATIVE) Urine Nitrite (NEGATIVE) Urine Bilirubin (NEGATIVE) Urine Urobilinogen (0.2-1.0) EU/dL Ur Leukocyte Esterase (NEGATIVE) Urine RBC (0-5) Urine WBC (0-5) Ur Epithelial Cells Amorphous Sediment Urine Bacteria Urine Mucus SARS-CoV-2 RNA (DOMINIQUE) Negative (NEGATIVE) SARS CoV-2 RNA Rapid DOMINIQUE Result Diagrams: 07/22/20 12:12 07/22/20 12:12 Levi Results Last 24 hrs: Microbiology 07/22/20 12:11 Influenza Type A Antigen Screen - Final Nasal Aspirate, Unspecified NEGATIVE INFLUENZA A VIRUS AG REFERENCE RANGE: NEGATIVE Influenza Type B Antigen Screen - Final NEGATIVE INFLUENZA B VIRUS AG REFERENCE RANGE: NEGATIVE Sepsis Event Note - Evaluation Sepsis Screening Result: Possible Sepsis Risk - Focused Exam Vital Signs: Vital Signs Temp Pulse Resp BP Pulse Ox 07/22/20 14:48 107 H 24 H 154/97 H 90 L 07/22/20 14:22 109 H 24 H 154/97 H 87 L 07/22/20 14:01 107 H 19 146/95 H 94 L 07/22/20 13:15 106 H 17 149/92 H 94 L 07/22/20 11:37 108 H 26 H 131/79 94 L 07/22/20 10:31 98 F 109 H 22 H 129/82 96 07/22/20 10:30 98 F 109 H 22 H 129/82 96 *Q Meaningful Use (ADM) - VTE Risk Assess *Q Each Risk Factor Represents 1 Point: Obesity ( BMI > 25 kg/m2), Serious lung disease including pneumonia Total Score 1 Point Risk Factors: 2 Each Risk Factor Represents 2 Points: None Total Score 2 Point Risk Factors: 0 Each Risk Factor Represents 3 Points: None Total Score 3 Point Risk Factors: 0 Each Risk Factor Represents 5 Points: None Total Score 5 Point Risk Factors: 0 Venous Thromboembolism Risk Factor Score *Q: 2 Problem List Initiated/Reviewed/Updated: Yes Orders Last 24hrs: Active Orders 24 hr Category Date Time Status Patient Status Manage Transfer [TRANSFER] Routine ADT 07/22/20 14:45 Ordered RT Post Treatment Assessment [RC] Click to Edit Care 07/22/20 11:44 Active CULTURE BLOOD [BC] Stat Lab 07/22/20 14:20 Received CULTURE RESPIRATORY + SMEAR [RM] Stat Lab 07/22/20 14:15 Ordered CULTURE URINE [RM] Stat Lab 07/22/20 14:21 Received Sodium Chloride 0.9% [Normal Saline] 1,000 ml Med 07/22/20 13:53 Active IV .BOLUS Sodium Chloride 0.9% [Normal Saline] 1,000 ml Med 07/22/20 14:50 Active IV .BOLUS Sodium Chloride 0.9% [Saline Flush] Med 07/22/20 11:40 Active 10 ml FLUSH ASDIRECTED PRN Isolation [COMM] Routine Oth 07/22/20 11:38 Ordered Saline Lock Insert [OM.PC] Routine Oth 07/22/20 11:40 Ordered Resuscitation Status Routine Resus Stat 07/22/20 14:47 Ordered Medication Orders Sodium Chloride (Normal Saline) 1,000 mls @ 500 mls/hr IV .BOLUS ONE Stop: 07/22/20 15:52 Last Infusion: 07/22/20 14:51 Dose: 250 mls/hr Documented by: Admin: 07/22/20 14:46 Dose: 500 mls/hr Documented by: JUDY Sodium Chloride (Normal Saline) 1,000 mls @ 250 mls/hr IV .BOLUS ONE Stop: 07/22/20 18:49 Sodium Chloride (Saline Flush) 10 ml FLUSH ASDIRECTED PRN PRN Reason: Keep Vein Open Last Admin: 07/22/20 12:06 Dose: 10 ml Documented by: ENA Assessment/Plan Comment:: ASSESSMENT AND PLAN PNEUMONIA-viral versus bacterial. Similar presentation to 6 weeks ago when she developed progressive respiratory failure and required transfer to a tertiary care center. Covid testing as well as influenza negative. -Blood and sputum cultures pending -Broad-spectrum IV antibiotic therapy with vancomycin, meropenem, and azithromycin. She has history of allergic reaction to fluoroquinolones. HYPOXIC RESPIRATORY COMPROMISE-secondary to pneumonia and underlying asthma. -Continuous pulse oximetry -Supplemental oxygen as needed ASTHMA EXACERBATION-secondary to pneumonia -Scheduled DuoNebs -As needed albuterol nebs -Solu-Medrol 40 mg IV every 6 hours ACUTE KIDNEY INJURY-at baseline has chronic kidney disease -IV fluids for hydration -Closely monitor urine output and renal function TYPE 1 DIABETES MELLITUS -IV fluids as above -Serum ketones pending -Continue usual dose of long-acting insulin -4 times daily glucometers -Moderate dose sliding scale Humalog MAINTENANCE ISSUES -DVT prophylaxis; SCUDs -GI prophylaxis; not indicated -Austin catheter; not indicated -Nutrition; consistent carbohydrate diet -Nicotine dependence; not required CODE STATUS-FULL CODE ADMISSION STATUS-patient will be admitted to inpatient status, expect at least a 2 night hospital stay for evaluation and management of problems as outlined above. At the time of this admission I do not reasonably expected evaluation and management of this problem will require more than a 96 hour hospital stay. DISPOSITION-anticipate discharge to home after the hospital stay. PRIMARY CARE PROVIDER- - Mortality Measure Prognosis:: Good
[2020-07-22] MEDS ORDERED: fentaNYL 100 MCG/2 ML SDV IVPUSH ONE (15:09)
[2020-07-22] MEDS ORDERED: Albuterol 0.083% 2.5 MG/3 ML Neb Soln NEB PRN (15:34)
[2020-07-22] MEDS ORDERED: Levofloxacin/Dextrose 5%-Water 750 MG in Premix Bag 1 BAG IV SCH (15:34)
[2020-07-22] MEDS ORDERED: Vancomycin 1 GM SDV IV SCH (15:34)
[2020-07-22] MEDS ORDERED: Acetaminophen 325 MG Tab PO PRN (15:34)
[2020-07-22] MEDS ORDERED: traZODone 50 MG Tab PO PRN (15:34)
[2020-07-22] MEDS ORDERED: Sodium Chloride 0.9% 1,000 ML IV SCH ×3 (15:34→22:00)
[2020-07-22] MEDS ORDERED: Polyethylene Glycol 3350 Powder 17 GM Packet PO PRN (15:34)
[2020-07-22] MEDS ORDERED: 50% Dextrose in Water 50 ML Syringe IV PRN (15:49)
[2020-07-22] MEDS ORDERED: Glucose Gel 15 GM in 37.5 GM Tube PO PRN (15:49)
[2020-07-22] MEDS ORDERED: Azithromycin 500 MG in Sodium Chloride 0.9% 250 ML IV SCH (16:00)
[2020-07-22] MEDS: Lactobacillus Rhamnosus GG (Probiotic) Cap PO SCH ×2 (16:25→20:39)
[2020-07-22] MEDS: Ondansetron 4 MG/2 ML SDV IV PRN ×2 (16:48→20:44)
[2020-07-22] MEDS: Insulin Lispro 100 Unit/ML 3 ML KwikPen SUBCUT SCH ×3 (16:56→21:28)
[2020-07-22] MEDS: Albuterol/Ipratropium 3.0-0.5 MG/3 ML Neb Soln NEB SCH ×2 (17:06→20:39)
[2020-07-22] MEDS: LORazepam 2 MG/ML SDV IVPUSH PRN ×2 (17:22→21:28)
[2020-07-22] MEDS ORDERED: Gabapentin 300 MG Cap PO SCH (21:00)
[2020-07-22] MEDS ORDERED: methylPREDNISolone Sodium Succinate 40 MG/1 ML SDV IVPUSH SCH (21:00)
--- NOTE | 2020-07-22 22:20 | PCM.DCSUM1 ---
Discharge Summary - Hospital Course Free Text/Narrative:: chief complaint: Pneumonia with respiratory failure Ms. Goss was admitted to medical-surgical unit at 3 pm today. At time of admission vital signs were stable at 36.5-107-30 B/P 149/90 O2 sat 95 % to 93% on 2 liters. She was noted to be comfortable. At 6 pm call to Hospitalist for increase oxygen demand. She was now at 4 liter via NC. respiratory rate 30's. She was given Duoneb treatments. At 2100 call to evaluate. now with oxygen saturation 85 to 88% oxygen increased to 8 liters. labored breathing noted. complaints of chest pain and breathlessness. O: vital signs 36.6-107-30 B/P 149/90, very pale, labored breathing noted. lungs; crackles and wheezing bilateral. heart S1S2 rates 121 abdomen: soft non tender ext: no edema, cyanosis or clubbing in noted A: pneumonia with respiratory failure. P: consulted with Hospitalist- agree with transfer to higher level of care. No ICU beds are available at this time -call for Bi-pap to start -order labs consulted with Irene Pozo, will accept Ms. Goss for further care and treatment. -labs ordered Troponin, urine drug screen, ABG and EKG to be sent to [place] to determine placement of patient discussed plan of care with Ms. Joey Goss, she agree with plan of care. 2147 call for [facility]- not available due to weather conditions [facility] will transport 0 Bi-pap placed, oxygen saturation improved with 95% with 50% FiO2 2226 -restless/anxiety. order Ativan 1 mg IVP -oxygen sat at 96% labs results -ABG ph 7.332, Pco2 27.8, Po2 87.7, bicarb 14.3 -drug screen positive tricyle -Troponin negative x two -EKG sinus tach 2231 contact Irene Pozo ND Direct Connect Dr. Murphy, Hospitalist -accepted to ICU 4th floor HPI Initial Comments: Pneumonia with respiratory failure Diagnosis: Stroke: No Modified Toan Scale: No Symptoms at All Modified Toan Scale Score: 0 - Discharge Data Discharge Date: 07/22/20 (Irene Pozo ND) Discharge Disposition: DC/Tfer to Acute Hospital 02 Condition: Critical - Referral to Home Health Primary Care Physician: PCP None - Discharge Diagnosis/Problem(s) (1) Respiratory failure, acute SNOMED Code(s): 73074951 ICD Code: J96.00 - ACUTE RESPIRATORY FAILURE, UNSP W HYPOXIA OR HYPERCAPNIA Status: Acute Current Visit: Yes Qualifiers: Respiratory failure complication: hypoxia Qualified Code(s): J96.01 - Acute respiratory failure with hypoxia - Patient Instructions Diet: Diabetic Diet - Discharge Plan Home Medications: Home Meds Albuterol Sulfate [Proair Hfa] 2 puff INH ASDIRECTED 06/09/20 [History] Gabapentin [Neurontin] 300 mg PO TID 06/09/20 [History] Insulin Aspart [NovoLOG] 0 unit SUBCUT ASDIRECTED 06/09/20 [History] Insulin Glargine,Hum.Rec.Anlog [Lantus Solostar] 30 units SUBCUT DAILY 06/09/20 [History] Multivitamin [Multivitamins] 1 cap PO DAILY 06/09/20 [History] SUMAtriptan [Imitrex] 25 mg PO ASDIRECTED 06/09/20 [History] Sertraline [Zoloft] 100 mg PO DAILY 06/09/20 [History] ondansetron HCL [Zofran] 4 mg PO Q8H PRN 06/09/20 [History] traZODone HCl [Trazodone HCl] 50 - 100 mg PO BEDTIME PRN 06/09/20 [History] lisinopriL [Lisinopril] 10 mg PO DAILY 07/22/20 [History] FiO2: 50 Forms: ED Department Discharge Referrals: PCP,None [Primary Care Provider] - - Discharge Summary/Plan Comment DC Time >30 min.: Yes (transfer ) - Patient Data Vitals - Most Recent: Last Vital Signs Temp 36.5 C 07/22/20 20:50 Pulse 121 H 07/22/20 21:45 Resp 30 H 07/22/20 21:45 BP 149/90 H 07/22/20 20:50 Pulse Ox 97 07/22/20 21:45 Weight - Most Recent: 74.48 kg I&O - Last 24 hours: Intake & Output 07/22/20 07/22/20 07/22/20 06:59 14:59 22:59 Intake Total 1600 Output Total 500 Balance 1100 Lab Results - Last 24 hrs: Laboratory Results - last 24 hr 07/22/20 07/22/20 07/22/20 Range/Units 12:11 12:11 12:12 WBC 8.4 (4.5-11.0) K/uL RBC 3.10 L (3.30-5.50) M/uL Hgb 8.6 L (12.0-15.0) g/dL Hct 27.3 L (36.0-48.0) % MCV 88 (80-98) fL MCH 28 (27-31) pg MCHC 32 (32-36) % Plt Count 365 (150-400) K/uL Neut % (Auto) 73 H (36-66) % Lymph % (Auto) 18 L (24-44) % Loving % (Auto) 7 H (2-6) % Eos % (Auto) 2 (2-4) % Baso % (Auto) 0 (0-1) % D-Dimer, Quantitative 1306.59 H (0.0-500.0) ng/mL Sodium (140-148) mmol/L Potassium (3.6-5.2) mmol/L Chloride (100-108) mmol/L Carbon Dioxide (21-32) mmol/L Anion Gap (5.0-14.0) mmol/L BUN (7-18) mg/dL Creatinine (0.6-1.0) mg/dL Est Cr Clr Drug Dosing mL/min Estimated GFR (MDRD) (>60) Glucose (74-106) mg/dL POC Glucose (74-106) MG/DL Lactic Acid (0.4-2.0) mmol/L Calcium (8.5-10.1) mg/dL Total Bilirubin (0.2-1.0) mg/dL AST (15-37) U/L ALT (12-78) U/L Alkaline Phosphatase (46-116) U/L C-Reactive Protein (0.0-0.3) mg/dL Total Protein (6.4-8.2) g/dL Albumin (3.4-5.0) g/dL Globulin (2.3-3.5) g/dL Albumin/Globulin Ratio (1.2-2.2) HCG, Qual Negative Urine Color (YELLOW) Urine Appearance (CLEAR) Urine pH (5.0-8.0) Ur Specific [place] (1.008-1.030) Urine Protein (NEGATIVE) mg/dL Urine Glucose (UA) (NEGATIVE) mg/dL Urine Ketones (NEGATIVE) mg/dL Urine Occult Blood (NEGATIVE) Urine Nitrite (NEGATIVE) Urine Bilirubin (NEGATIVE) Urine Urobilinogen (0.2-1.0) EU/dL Ur Leukocyte Esterase (NEGATIVE) Urine RBC (0-5) Urine WBC (0-5) Ur Epithelial Cells Amorphous Sediment Urine Bacteria Urine Mucus Ketones (NEGATIVE) SARS-CoV-2 RNA (DOMINIQUE) (NEGATIVE) SARS CoV-2 RNA Rapid DOMINIQUE 07/22/20 07/22/20 07/22/20 Range/Units 12:12 12:12 12:18 WBC (4.5-11.0) K/uL RBC (3.30-5.50) M/uL Hgb (12.0-15.0) g/dL Hct (36.0-48.0) % MCV (80-98) fL MCH (27-31) pg MCHC (32-36) % Plt Count (150-400) K/uL Neut % (Auto) (36-66) % Lymph % (Auto) (24-44) % Loving % (Auto) (2-6) % Eos % (Auto) (2-4) % Baso % (Auto) (0-1) % D-Dimer, Quantitative (0.0-500.0) ng/mL Sodium 141 (140-148) mmol/L Potassium 4.0 (3.6-5.2) mmol/L Chloride 108 (100-108) mmol/L Carbon Dioxide 20 L (21-32) mmol/L Anion Gap 17.0 H (5.0-14.0) mmol/L BUN 40 H (7-18) mg/dL Creatinine 2.6 H (0.6-1.0) mg/dL Est Cr Clr Drug Dosing 28.07 mL/min Estimated GFR (MDRD) 22 L (>60) Glucose 54 L (74-106) mg/dL POC Glucose (74-106) MG/DL Lactic Acid (0.4-2.0) mmol/L Calcium 7.9 L (8.5-10.1) mg/dL Total Bilirubin 0.2 (0.2-1.0) mg/dL AST 13 L (15-37) U/L ALT 18 (12-78) U/L Alkaline Phosphatase 65 (46-116) U/L C-Reactive Protein 2.99 H (0.0-0.3) mg/dL Total Protein 5.7 L (6.4-8.2) g/dL Albumin 2.7 L (3.4-5.0) g/dL Globulin 3.0 (2.3-3.5) g/dL Albumin/Globulin Ratio 0.9 L (1.2-2.2) HCG, Qual Urine Color Yellow (YELLOW) Urine Appearance Cloudy A (CLEAR) Urine pH 6.0 (5.0-8.0) Ur Specific [place] 1.020 (1.008-1.030) Urine Protein 100 H (NEGATIVE) mg/dL Urine Glucose (UA) 250 H (NEGATIVE) mg/dL Urine Ketones Negative (NEGATIVE) mg/dL Urine Occult Blood Trace-lysed H (NEGATIVE) Urine Nitrite Negative (NEGATIVE) Urine Bilirubin Negative (NEGATIVE) Urine Urobilinogen 0.2 (0.2-1.0) EU/dL Ur Leukocyte Esterase Negative (NEGATIVE) Urine RBC 0-5 (0-5) Urine WBC 0-5 (0-5) Ur Epithelial Cells Many Amorphous Sediment Not seen Urine Bacteria Moderate Urine Mucus Not seen Ketones Negative (NEGATIVE) SARS-CoV-2 RNA (DOMINIQUE) (NEGATIVE) SARS CoV-2 RNA Rapid DOMINIQUE 07/22/20 07/22/20 07/22/20 Range/Units 12:25 12:59 13:54 WBC (4.5-11.0) K/uL RBC (3.30-5.50) M/uL Hgb (12.0-15.0) g/dL Hct (36.0-48.0) % MCV (80-98) fL MCH (27-31) pg MCHC (32-36) % Plt Count (150-400) K/uL Neut % (Auto) (36-66) % Lymph % (Auto) (24-44) % Loving % (Auto) (2-6) % Eos % (Auto) (2-4) % Baso % (Auto) (0-1) % D-Dimer, Quantitative (0.0-500.0) ng/mL Sodium (140-148) mmol/L Potassium (3.6-5.2) mmol/L Chloride (100-108) mmol/L Carbon Dioxide (21-32) mmol/L Anion Gap (5.0-14.0) mmol/L BUN (7-18) mg/dL Creatinine (0.6-1.0) mg/dL Est Cr Clr Drug Dosing mL/min Estimated GFR (MDRD) (>60) Glucose (74-106) mg/dL POC Glucose (74-106) MG/DL Lactic Acid 0.6 (0.4-2.0) mmol/L Calcium (8.5-10.1) mg/dL Total Bilirubin (0.2-1.0) mg/dL AST (15-37) U/L ALT (12-78) U/L Alkaline Phosphatase (46-116) U/L C-Reactive Protein (0.0-0.3) mg/dL Total Protein (6.4-8.2) g/dL Albumin (3.4-5.0) g/dL Globulin (2.3-3.5) g/dL Albumin/Globulin Ratio (1.2-2.2) HCG, Qual Urine Color (YELLOW) Urine Appearance (CLEAR) Urine pH (5.0-8.0) Ur Specific [place] (1.008-1.030) Urine Protein (NEGATIVE) mg/dL Urine Glucose (UA) (NEGATIVE) mg/dL Urine Ketones (NEGATIVE) mg/dL Urine Occult Blood (NEGATIVE) Urine Nitrite (NEGATIVE) Urine Bilirubin (NEGATIVE) Urine Urobilinogen (0.2-1.0) EU/dL Ur Leukocyte Esterase (NEGATIVE) Urine RBC (0-5) Urine WBC (0-5) Ur Epithelial Cells Amorphous Sediment Urine Bacteria Urine Mucus Ketones (NEGATIVE) SARS-CoV-2 RNA (DOMINIQUE) Negative (NEGATIVE) SARS CoV-2 RNA Rapid DOMINIQUE Negative 07/22/20 07/22/20 07/22/20 Range/Units 16:30 18:33 21:19 WBC (4.5-11.0) K/uL RBC (3.30-5.50) M/uL Hgb (12.0-15.0) g/dL Hct (36.0-48.0) % MCV (80-98) fL MCH (27-31) pg MCHC (32-36) % Plt Count (150-400) K/uL Neut % (Auto) (36-66) % Lymph % (Auto) (24-44) % Loving % (Auto) (2-6) % Eos % (Auto) (2-4) % Baso % (Auto) (0-1) % D-Dimer, Quantitative (0.0-500.0) ng/mL Sodium (140-148) mmol/L Potassium (3.6-5.2) mmol/L Chloride (100-108) mmol/L Carbon Dioxide (21-32) mmol/L Anion Gap (5.0-14.0) mmol/L BUN (7-18) mg/dL Creatinine (0.6-1.0) mg/dL Est Cr Clr Drug Dosing mL/min Estimated GFR (MDRD) (>60) Glucose (74-106) mg/dL POC Glucose 140 H 255 H 287 H (74-106) MG/DL Lactic Acid (0.4-2.0) mmol/L Calcium (8.5-10.1) mg/dL Total Bilirubin (0.2-1.0) mg/dL AST (15-37) U/L ALT (12-78) U/L Alkaline Phosphatase (46-116) U/L C-Reactive Protein (0.0-0.3) mg/dL Total Protein (6.4-8.2) g/dL Albumin (3.4-5.0) g/dL Globulin (2.3-3.5) g/dL Albumin/Globulin Ratio (1.2-2.2) HCG, Qual Urine Color (YELLOW) Urine Appearance (CLEAR) Urine pH (5.0-8.0) Ur Specific [place] (1.008-1.030) Urine Protein (NEGATIVE) mg/dL Urine Glucose (UA) (NEGATIVE) mg/dL Urine Ketones (NEGATIVE) mg/dL Urine Occult Blood (NEGATIVE) Urine Nitrite (NEGATIVE) Urine Bilirubin (NEGATIVE) Urine Urobilinogen (0.2-1.0) EU/dL Ur Leukocyte Esterase (NEGATIVE) Urine RBC (0-5) Urine WBC (0-5) Ur Epithelial Cells Amorphous Sediment Urine Bacteria Urine Mucus Ketones (NEGATIVE) SARS-CoV-2 RNA (DOMINIQUE) (NEGATIVE) SARS CoV-2 RNA Rapid DOMINIQUE JENNIFER Results - Last 24 hrs: Microbiology 07/22/20 15:00 Gram Stain - Final Sputum - Expectorated 07/22/20 12:11 Influenza Type A Antigen Screen - Final Nasal Aspirate, Unspecified NEGATIVE INFLUENZA A VIRUS AG REFERENCE RANGE: NEGATIVE Influenza Type B Antigen Screen - Final NEGATIVE INFLUENZA B VIRUS AG REFERENCE RANGE: NEGATIVE Med Orders - Current: Current Medications Acetaminophen (Tylenol) 650 mg PO Q4H PRN PRN Reason: Pain (Mild 1-3)/fever Last Admin: 07/22/20 16:25 Dose: 650 mg Documented by: Albuterol (Proventil Neb Soln) 2.5 mg NEB Q4H PRN PRN Reason: Shortness Of Breath/wheezing Albuterol/Ipratropium (Duoneb 3.0-0.5 Mg/3 Ml) 3 ml NEB QIDRT [facility] Last Admin: 07/22/20 20:39 Dose: 3 ml Documented by: Dextrose (Glutose 15) 15 gm PO ONETIME PRN PRN Reason: Hypoglycemia Dextrose/Water (Dextrose 50% In Water) 50 ml IV ONETIME PRN PRN Reason: Hypoglycemia Gabapentin (Neurontin) 300 mg PO TID [facility] Last Admin: 07/22/20 20:39 Dose: 300 mg Documented by: Meropenem 1 gm/ Sodium (Chloride) 100 mls @ 200 mls/hr IV Q12H [facility] Azithromycin 500 mg/ Sodium (Chloride) 250 mls @ 250 mls/hr IV Q24H [facility] Last Admin: 07/22/20 16:31 Dose: 250 mls/hr Documented by: Vancomycin HCl 1 gm/ Sodium (Chloride) 250 mls @ 167 mls/hr IV Q24H [facility] Sodium Chloride (Normal Saline) 1,000 mls @ 125 mls/hr IV ASDIRECTED [facility] Influenza Virus Vaccine (Fluzone Quad 7220-3879 Syringe) 60 mcg IM .ONCE ONE Stop: 07/24/20 10:01 Insulin Glargine (Lantus Solostar) 30 units SUBCUT DAILY [facility] Insulin Human Lispro (Humalog) 0 unit SUBCUT QIDACANDBED [facility]; Protocol Last Admin: 07/22/20 21:28 Dose: 6 unit Documented by: Lactobacillus Rhamnosus (Culturelle) 1 cap PO BID [facility] Last Admin: 07/22/20 20:39 Dose: 1 cap Documented by: Lisinopril (Prinivil) 10 mg PO DAILY [facility] Lorazepam (Ativan) 0.5 mg IVPUSH Q2H PRN PRN Reason: Anxiety Last Admin: 07/22/20 21:28 Dose: 0.5 mg Documented by: Methylprednisolone Sodium Succinate (Solu-Medrol) 40 mg IVPUSH Q6H [facility] Last Admin: 07/22/20 20:39 Dose: 40 mg Documented by: Ondansetron HCl (Zofran) 4 mg IV Q4H PRN PRN Reason: Nausea/Vomiting Last Admin: 07/22/20 20:44 Dose: 4 mg Documented by: Polyethylene Glycol (Miralax) 17 gm PO DAILY PRN PRN Reason: Constipation Sertraline HCl (Zoloft) 100 mg PO DAILY [facility] Sodium Chloride (Saline Flush) 10 ml FLUSH ASDIRECTED PRN PRN Reason: Keep Vein Open Trazodone HCl (Trazodone) 100 mg PO BEDTIME PRN PRN Reason: Sleep Discontinued Medications Albuterol (Ventolin Hfa) 1 gm INH ONETIME ONE Stop: 07/22/20 11:44 Last Admin: 07/22/20 12:09 Dose: 2 puff Documented by: Fentanyl (Sublimaze) 50 mcg IVPUSH ONETIME ONE Stop: 07/22/20 15:10 Last Admin: 07/22/20 15:22 Dose: 50 mcg Documented by: Sodium Chloride (Normal Saline) 1,000 mls @ 500 mls/hr IV .BOLUS ONE Stop: 07/22/20 13:44 Last Admin: 07/22/20 12:05 Dose: 500 mls/hr Documented by: Sodium Chloride (Normal Saline) 1,000 mls @ 500 mls/hr IV .BOLUS ONE Stop: 07/22/20 15:52 Last Infusion: 07/22/20 14:51 Dose: 250 mls/hr Documented by: Meropenem 1 gm/ Sodium (Chloride) 100 mls @ 200 mls/hr IV ONETIME ONE Stop: 07/22/20 14:46 Last Admin: 07/22/20 14:47 Dose: 200 mls/hr Documented by: Sodium Chloride (Normal Saline) 1,000 mls @ 250 mls/hr IV .BOLUS ONE Stop: 07/22/20 18:49 Last Admin: 07/22/20 14:55 Dose: Not Given Documented by: Sodium Chloride (Normal Saline) 1,000 mls @ 125 mls/hr IV ASDIRECTED [facility] Levofloxacin/Dextrose 750 mg/ (Premix) 150 mls @ 100 mls/hr IV Q48H [facility] Last Admin: 07/22/20 15:54 Dose: Not Given Documented by: Vancomycin HCl 1.5 gm/ Sodium (Chloride) 250 mls @ 167 mls/hr IV ONETIME ONE Stop: 07/22/20 18:29 Last Admin: 07/22/20 18:48 Dose: 167 mls/hr Documented by: Sodium Chloride (Normal Saline) 1,000 mls @ 250 mls/hr IV ASDIRECTED [facility] Stop: 07/22/20 22:01 Ketorolac Tromethamine (Toradol) 30 mg IVPUSH ONETIME ONE Stop: 07/22/20 11:41 Last Admin: 07/22/20 12:04 Dose: 30 mg Documented by: Methylprednisolone Sodium Succinate (Solu-Medrol) 125 mg IVPUSH ONETIME ONE Stop: 07/22/20 14:15 Last Admin: 07/22/20 14:45 Dose: 125 mg Documented by: Sodium Chloride (Saline Flush) 10 ml FLUSH ASDIRECTED PRN PRN Reason: Keep Vein Open Last Admin: 07/22/20 12:06 Dose: 10 ml Documented by: Vancomycin HCl (Vancomycin) 1 gm IV .PHARMACY TO DOSE [facility] Stop: 07/22/20 15:35
[2020-07-22] MEDS ORDERED: LORazepam 2 MG/ML SDV IVPUSH ONE (22:25)
[2020-07-23] MEDS ORDERED: Meropenem 1 GM in Sodium Chloride 0.9% 100 ML IV SCH (02:00)
[2020-07-23] MEDS ORDERED: Insulin Glargine,Human Rec. Analog 100 Units/ML 3 ML Pen SUBCUT SCH (09:00)
[2020-07-23] MEDS ORDERED: Lisinopril 10 MG Tab PO SCH (09:00)
[2020-07-23] MEDS ORDERED: Sertraline 50 MG Tab PO SCH (09:00)
[2020-07-24] MEDS ORDERED: FLU VACC QS2020-21(6MOS UP)/PF 60 MCG/0.5 ML SYRINGE IM ONE (10:00)
== END 2020-07-22 22:45 | DRG 193 ==
LOC: JP.ED 10:13 → JP.MS 14:45
PROVIDERS: ADMIT Hospitalist; ATTEND Hospitalist
PROC: XW033N5 Introduction of Meropenem-vaborbactam Anti-infective into Peripheral Vein, Percutaneous Approach, New Technology Group 5 (ICD-10-PCS; principal; 2020-07-22)
PROC: 5A09357 Assistance with Respiratory Ventilation, Less than 24 Consecutive Hours, Continuous Positive Airway Pressure (ICD-10-PCS; 2020-07-22)
DX: J18.9 Pneumonia, unspecified organism (principal); J96.01 Acute respiratory failure with hypoxia; J45.901 Unspecified asthma with (acute) exacerbation; N17.9 Acute kidney failure, unspecified; R45.1 Restlessness and agitation; H54.7 Unspecified visual loss; F41.0 Panic disorder [episodic paroxysmal anxiety]; Z20.828 Contact with and (suspected) exposure to other viral communicable diseases; F32.9 Major depressive disorder, single episode, unspecified; E10.42 Type 1 diabetes mellitus with diabetic polyneuropathy; E10.22 Type 1 diabetes mellitus with diabetic chronic kidney disease; N18.9 Chronic kidney disease, unspecified; D64.9 Anemia, unspecified; Z79.899 Other long term (current) drug therapy; Z91.040 Latex allergy status; Z88.5 Allergy status to narcotic agent; Z88.1 Allergy status to other antibiotic agents; Z90.49 Acquired absence of other specified parts of digestive tract; Z99.81 Dependence on supplemental oxygen
CPT/HCPCS: 36415; 71045; 71045-26; 80053; 80305-QW; 81001; 82009; 82803; 82962; 83605; 84484; 84703; 85025; 85379; 86140; 87040; 87070; 87086; 87205; 87804; 87804-59; 93005; 94640; 94660; 94762; 96374; 99285-25; A9270-GY; J0456; J1815; J1885; J2060; J2185; J2405; J2920; J2930; J3010; J3370; J7030; J7050; J7620-GY; U0002

== ENCOUNTER 2020-08-04 23:43 | Inpatient (IN) | payer MEDICAID ==
[2020-08-05] MEDS ORDERED: Sodium Chloride 0.9% 10 ML Syringe FLUSH PRN (00:39)
--- NOTE | 2020-08-05 01:00 | EDM.PDOC ---
ED HPI GENERAL MEDICAL PROBLEM - General Chief Complaint: Respiratory Problem Stated Complaint: ILL Time Seen by Provider: 08/05/20 00:45 Source of Information: Reports: Patient, Old Records, RN History Limitations: Reports: No Limitations - History of Present Illness INITIAL COMMENTS - FREE TEXT/NARRATIVE: 25 yo female presents with SOB for the past 7 hrs. Was recently discharged from [facility] after an admission for asthma/pneumonia that was complicated by intubation and cardiac arrest. Joey is not aware of recent fever or wheezing. She has not yet had Covid or the vaccines. Does not yet feel as sick as when she presented last time. She used her asthma meds before coming in with minimal benefit. Onset: Gradual Onset Date: 08/04/20 Onset Time: 18:00 Duration: Hour(s): (7), Getting Worse Location: Reports: Chest Quality: Reports: Other (pain not reported) Severity: Moderate Improves with: Reports: Other (oxygen) Worsens with: Reports: Other (time) Context: Reports: Other (See HPI) Associated Symptoms: Reports: Shortness of Breath. Denies: Chest Pain, Fever/Chills Treatments MANAGER RELOCATION: Reports: Other (see below) (home asthma meds) Chest Pain Score (Numeric/FACES): 7 - Related Data Allergies Allergy/AdvReac Type Severity Reaction Status Date / Time ciprofloxacin Allergy Hives Verified 08/05/20 00:07 Latex, Natural Rubber Allergy Itching Verified 08/05/20 00:07 morphine Allergy Hives Verified 08/05/20 00:07 Home Meds: Home Meds Albuterol Sulfate [Proair Hfa] 2 puff INH ASDIRECTED 06/09/20 [History] Gabapentin [Neurontin] 600 mg PO TID 06/09/20 [History] Insulin Aspart [NovoLOG] 0 unit SUBCUT ASDIRECTED 06/09/20 [History] Insulin Glargine,Hum.Rec.Anlog [Lantus Solostar] 30 units SUBCUT DAILY 06/09/20 [History] Multivitamin [Multivitamins] 1 cap PO DAILY 06/09/20 [History] SUMAtriptan [Imitrex] 25 mg PO ASDIRECTED 06/09/20 [History] Sertraline [Zoloft] 100 mg PO DAILY 06/09/20 [History] ondansetron HCL [Zofran] 4 mg PO Q8H PRN 06/09/20 [History] traZODone HCl [Trazodone HCl] 50 - 100 mg PO BEDTIME PRN 06/09/20 [History] Diclofenac Sodium 1 applic TOP QID 08/05/20 [History] Fluticasone Propion/Salmeterol [Wixela 250-50 Inhub] 1 puff IH BID 08/05/20 [History] Iron Polysaccharide Complex [Poly-Iron] 150 mg PO DAILY 08/05/20 [History] Montelukast Sodium [Singulair] 10 mg PO BEDTIME 08/05/20 [History] Plecanatide [Trulance] 3 mg PO DAILY 08/05/20 [History] Sennosides/Docusate Sodium [Stimulant Laxative Plus Tablet] 1 each PO BID 08/05/20 [History] amLODIPine Besylate [Amlodipine Besylate] 10 mg PO DAILY 08/05/20 [History] carvediloL [Carvedilol] 25 mg PO BID 08/05/20 [History] Past Medical History HEENT History: Reports: Impaired Vision, Other (See Below) Other HEENT History: retinopathy Cardiovascular History: Reports: Heart Murmur, Hypertension, Other (See Below) Other Cardiovascular History: CPR Respiratory History: Reports: Asthma, Intubation, Previous, Pneumonia, Recurrent Gastrointestinal History: Reports: Other (See Below) Other Gastrointestinal History: 2 benign masses on the liver. 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 Musculoskeletal History: Reports: Fracture Neurological History: Reports: Neuropathy, Diabetic, Seizure Psychiatric History: Reports: Anxiety, Depression, Panic Attack Endocrine/Metabolic History: Reports: Diabetes, Type I Hematologic History: Reports: Anemia Oncologic (Cancer) History: Reports: Other (See Below) Other Oncologic History: carcinomic tumor of appendix at 8 years old. - Infectious Disease History Infectious Disease History: Reports: Chicken Pox - Past Surgical History Head Surgeries/Procedures: Reports: None HEENT Surgical History: Reports: Adenoidectomy, Tonsillectomy Cardiovascular Surgical History: Reports: None Respiratory Surgical History: Reports: None GI Surgical History: Reports: Appendectomy, Colonoscopy Female Surgical History: Reports: None Endocrine Surgical History: Reports: None Neurological Surgical History: Reports: None Musculoskeletal Surgical History: Reports: None Oncologic Surgical History: Reports: None Dermatological Surgical History: Reports: None Social & Family History - Family History Family Medical History: No Pertinent Family History - Tobacco Use Tobacco Use Status *Q: Never Tobacco User - Caffeine Use Caffeine Use: Reports: Coffee, Energy Drinks, Soda, Tea Caffeine Use Comment: occasionaly - Recreational Drug Use Recreational Drug Use: No ED ROS GENERAL - Review of Systems Review Of Systems: See Below Constitutional: Reports: No Symptoms HEENT: Reports: No Symptoms Respiratory: Reports: Shortness of Breath. Denies: Wheezing, Pleuritic Chest Pain, Cough, Sputum, Hemoptysis Cardiovascular: Reports: No Symptoms Endocrine: Reports: No Symptoms GI/Abdominal: Reports: No Symptoms : Reports: No Symptoms Musculoskeletal: Reports: No Symptoms Skin: Reports: No Symptoms Neurological: Reports: No Symptoms Psychiatric: Reports: No Symptoms ED EXAM, GENERAL - Physical Exam Exam: See Below Exam Limited By: No Limitations General Appearance: Alert, WD/WN, Mild Distress Eye Exam: Bilateral Eye: Normal Inspection Ears: Normal External Exam, Normal Canal, Hearing Grossly Normal, Normal TMs Ear Exam: Bilateral Ear: Auricle Normal, Canal Normal, TM normal Nose: Normal Inspection, No Blood Throat/Mouth: Normal Inspection, Normal Lips, Normal Oropharynx, Normal Voice, No Airway Compromise Head: Atraumatic, Normocephalic Neck: Normal Inspection Respiratory/Chest: No Accessory Muscle Use, Rales. No: No Respiratory Distress, Lungs Clear, Normal Breath Sounds, Wheezing Cardiovascular: Regular Rate, Rhythm, No Edema GI/Abdominal: Normal Bowel Sounds, Soft, Non-Tender, No Distention Back Exam: Normal Inspection. No: CVA Tenderness (R), CVA Tenderness (L) Extremities: Normal Inspection, Normal Range of Motion, Non-Tender, No Pedal Edema Neurological: Alert, Oriented, CN II-XII Intact, Normal Cognition, No Motor/Sensory Deficits Psychiatric: Normal Affect, Normal Mood Skin Exam: Warm, Dry, Intact, Normal Color, No Rash Course - Vital Signs Last Recorded V/S: Last Vital Signs Temp 36.8 C 08/05/20 00:04 Pulse 92 08/05/20 03:20 Resp 22 H 08/05/20 03:20 BP 159/93 H 08/05/20 03:20 Pulse Ox 97 08/05/20 03:20 - Orders/Labs/Meds Orders: Active Orders 24 hr Category Date Time Status Oxygen Therapy Adult [Oxygen Therapy] [RC] ASDIRECTED Care 08/05/20 01:05 Active Chest 2V [CR] Stat Exams 08/05/20 00:39 Taken COVID-19/FLU A+B/RSV [MOLEC] Stat Lab 08/05/20 00:55 Results TROPONIN I [CHEM] Stat Lab 08/05/20 03:19 Ordered UA W/MICROSCOPIC [URIN] Stat Lab 08/05/20 03:21 Ordered Iopamidol [Isovue-370 (76%)] Med 08/05/20 02:15 Active 100 ml IV . DIRECTED Lactated Ringers [Ringers, Lactated] 1,000 ml Med 08/05/20 02:00 Active IV ASDIRECTED Sodium Chloride 0.9% [Normal Saline] 100 ml Med 08/05/20 02:15 Active IV ASDIRECTED Sodium Chloride 0.9% [Saline Flush] Med 08/05/20 00:39 Active 10 ml FLUSH ASDIRECTED PRN Saline Lock Insert [OM.PC] Routine Oth 08/05/20 00:39 Ordered Medication Orders Lactated Ringer's (Ringers, Lactated) 1,000 mls @ 500 mls/hr IV ASDIRECTED [facility] Last Admin: 08/05/20 03:13 Dose: 500 mls/hr Documented by: PREILOR Sodium Chloride (Normal Saline) 100 mls @ 3 mls/sec IV ASDIRECTED [facility] Last Admin: 08/05/20 02:36 Dose: 3 mls/sec Documented by: YAEL Iopamidol (Isovue-370 (76%)) 100 ml IV . DIRECTED [facility] Last Admin: 08/05/20 02:36 Dose: 100 ml Documented by: YAEL Sodium Chloride (Saline Flush) 10 ml FLUSH ASDIRECTED PRN PRN Reason: Keep Vein Open Last Admin: 08/05/20 02:08 Dose: 10 ml Documented by: PREILOR Labs: Laboratory Tests 08/05/20 08/05/20 08/05/20 Range/Units 00:55 00:57 00:57 WBC 6.6 (4.5-11.0) K/uL RBC 3.10 L (3.30-5.50) M/uL Hgb 8.4 L (12.0-15.0) g/dL Hct 27.4 L (36.0-48.0) % MCV 88 (80-98) fL MCH 27 (27-31) pg MCHC 31 L (32-36) % Plt Count 504 H (150-400) K/uL D-Dimer, Quantitative (0.0-500.0) ng/mL Sodium 141 (140-148) mmol/L Potassium 3.7 (3.6-5.2) mmol/L Chloride 105 (100-108) mmol/L Carbon Dioxide 26 (21-32) mmol/L Anion Gap 10.0 (5.0-14.0) mmol/L BUN 33 H (7-18) mg/dL Creatinine 2.3 H (0.6-1.0) mg/dL Est Cr Clr Drug Dosing 31.73 mL/min Estimated GFR (MDRD) 25 L (>60) Glucose 147 H (74-106) mg/dL Calcium 8.8 (8.5-10.1) mg/dL SARS-CoV-2 RNA (DOMINIQUE) Negative (NEGATIVE) 08/05/20 Range/Units 00:58 WBC (4.5-11.0) K/uL RBC (3.30-5.50) M/uL Hgb (12.0-15.0) g/dL Hct (36.0-48.0) % MCV (80-98) fL MCH (27-31) pg MCHC (32-36) % Plt Count (150-400) K/uL D-Dimer, Quantitative 1524.71 H (0.0-500.0) ng/mL Sodium (140-148) mmol/L Potassium (3.6-5.2) mmol/L Chloride (100-108) mmol/L Carbon Dioxide (21-32) mmol/L Anion Gap (5.0-14.0) mmol/L BUN (7-18) mg/dL Creatinine (0.6-1.0) mg/dL Est Cr Clr Drug Dosing mL/min Estimated GFR (MDRD) (>60) Glucose (74-106) mg/dL Calcium (8.5-10.1) mg/dL SARS-CoV-2 RNA (DOMINIQUE) (NEGATIVE) Meds: Medications Generic Name Dose Route Start Last Admin Trade Name Freq PRN Reason Stop Dose Admin Lactated Ringer's 1,000 mls @ 500 mls/hr 08/05/20 02:00 08/05/20 03:13 Ringers, Lactated IV 500 mls/hr ASDIRECTED BRIDGER Administration Sodium Chloride 100 mls @ 3 mls/sec 08/05/20 02:15 08/05/20 02:36 Normal Saline IV 3 mls/sec ASDIRECTED BRIDGER Administration Iopamidol 100 ml 08/05/20 02:15 08/05/20 02:36 Isovue-370 (76%) IV 100 ml . DIRECTED BRIDGER Administration Sodium Chloride 10 ml 08/05/20 00:39 08/05/20 02:08 Saline Flush FLUSH 10 ml ASDIRECTED PRN Administration Keep Vein Open Discontinued Medications Generic Name Dose Route Start Last Admin Trade Name Elisabet PRN Reason Stop Dose Admin Acetaminophen 1,000 mg 08/05/20 03:07 08/05/20 03:13 Tylenol Extra Strength PO 08/05/20 03:08 1,000 mg ONETIME ONE Administration Sodium Chloride 10 ml 08/05/20 02:09 08/05/20 02:36 Saline Flush FLUSH 08/05/20 02:10 10 ml ONETIME ONE Administration - Radiology Interpretation Free Text/Narrative:: CXR-improvement since last CXR 07/22/2020 Angio Chest- IMPRESSION: 1. Cardiomegaly, pulmonary edema, and pleural effusions. Correlate for congestive heart failure. 2. No evidence of pulmonary thromboembolism. 3. Partially visualized liver mass. Further evaluation is recommended with contrast-enhanced abdominal MRI. Please note that all CT scans at this facility use dose modulation, iterative reconstruction, and/or weight-based dosing when appropriate to reduce radiation dose to as low as reasonably achievable. Dictated by Saturnino Wang MD @ Aug 05 2020 2:54AM CT Results Date: 08/05/20 Departure - Departure Time of Disposition: 03:21 Disposition: Admitted As Inpatient 64 Condition: Poor Clinical Impression: Hypoxia, Elevated d-dimer, Pleural effusion, Liver mass Pulmonary edema Qualifiers: Chronicity: acute Qualified Code(s): J81.0 - Acute pulmonary edema Anemia Qualifiers: Anemia type: unspecified type Qualified Code(s): D64.9 - Anemia, unspecified - Discharge Information *PRESCRIPTION DRUG MONITORING PROGRAM REVIEWED*: Not Applicable *COPY OF PRESCRIPTION DRUG MONITORING REPORT IN PATIENT HANY: Not Applicable Referrals: PCP,None [Primary Care Provider] - Forms: ED Department Discharge Sepsis Event Note (ED) - Evaluation Sepsis Screening Result: No Definite Risk - Focused Exam Vital Signs: Vital Signs Temp Pulse Resp BP Pulse Ox Pulse Ox 08/05/20 03:20 92 22 H 159/93 H 97 08/05/20 02:40 92 22 H 158/90 H 96 08/05/20 01:20 91 18 153/100 H 97 08/05/20 00:58 94 20 142/84 H 94 L 08/05/20 00:27 84 L 08/05/20 00:04 36.8 C 96 48 H 143/82 H 91 L - My Orders Last 24 Hours: My Active Orders 08/05/20 00:39 Chest 2V [CR] Stat Sodium Chloride 0.9% [Saline Flush] 10 ml FLUSH ASDIRECTED PRN Saline Lock Insert [OM.PC] Routine 08/05/20 00:55 COVID-19/FLU A+B/RSV [MOLEC] Stat 08/05/20 01:05 Oxygen Therapy Adult [Oxygen Therapy] [RC] ASDIRECTED 08/05/20 02:00 Lactated Ringers [Ringers, Lactated] 1,000 ml IV ASDIRECTED 08/05/20 02:15 Iopamidol [Isovue-370 (76%)] 100 ml IV . DIRECTED Sodium Chloride 0.9% [Normal Saline] 100 ml IV ASDIRECTED 08/05/20 03:19 TROPONIN I [CHEM] Stat 08/05/20 03:21 UA W/MICROSCOPIC [URIN] Stat - Assessment/Plan Last 24 Hours: My Active Orders 08/05/20 00:39 Chest 2V [CR] Stat Sodium Chloride 0.9% [Saline Flush] 10 ml FLUSH ASDIRECTED PRN Saline Lock Insert [OM.PC] Routine 08/05/20 00:55 COVID-19/FLU A+B/RSV [MOLEC] Stat 08/05/20 01:05 Oxygen Therapy Adult [Oxygen Therapy] [RC] ASDIRECTED 08/05/20 02:00 Lactated Ringers [Ringers, Lactated] 1,000 ml IV ASDIRECTED 08/05/20 02:15 Iopamidol [Isovue-370 (76%)] 100 ml IV . DIRECTED Sodium Chloride 0.9% [Normal Saline] 100 ml IV ASDIRECTED 08/05/20 03:19 TROPONIN I [CHEM] Stat 08/05/20 03:21 UA W/MICROSCOPIC [URIN] Stat
[2020-08-05] MEDS ORDERED: Lactated Ringers 1,000 ML IV SCH (02:00)
[2020-08-05] MEDS ORDERED: Sodium Chloride 0.9% 10 ML Syringe FLUSH ONE (02:09)
[2020-08-05] MEDS ORDERED: Iopamidol 755 Mg/ML 100 ML Bottle IV SCH (02:15)
[2020-08-05] MEDS ORDERED: Sodium Chloride 0.9% 100 ML IV SCH (02:15)
[2020-08-05] MEDS ORDERED: Acetaminophen 500 MG Tab PO ONE (03:07)
--- NOTE | 2020-08-05 03:19 | CRLCT ---
INDICATION: Hypoxia, elevated D-dimer TECHNIQUE: Contrast enhanced axial CT imaging through the chest, optimized for assessment of the pulmonary arterial tree. 100 mL Isovue 370 contrast agent was administered intravenously. Sagittal and coronal reconstructions are provided. COMPARISON: CTA chest 06/09/2020 FINDINGS: There is adequate opacification of the pulmonary arterial tree without evidence of thromboembolism. The main pulmonary artery is mildly enlarged. There is mild cardiomegaly. There is no pericardial effusion. The thoracic aorta is normal in caliber. No lymphadenopathy is appreciated. There are bilateral pleural effusions, moderate sized on the right and small on the left. Perihilar ground-glass opacities and subpleural interstitial thickening, more pronounced in the lung bases, are consistent with pulmonary edema. There is mild bibasilar atelectasis, likely compressive secondary to pleural effusions. A hyperenhancing mass is partially visualized in the left lobe of the liver, measuring approximately 5.5 cm in diameter. The thoracic osseous structures are unremarkable. IMPRESSION: 1. Cardiomegaly, pulmonary edema, and pleural effusions. Correlate for congestive heart failure. 2. No evidence of pulmonary thromboembolism. 3. Partially visualized liver mass. Further evaluation is recommended with contrast-enhanced abdominal MRI. Please note that all CT scans at this facility use dose modulation, iterative reconstruction, and/or weight-based dosing when appropriate to reduce radiation dose to as low as reasonably achievable. Dictated by Saturnino Wang MD @ Aug 05 2020 2:54AM Signed by Dr. Saturnino Wang @ Aug 05 2020 3:17AM
[2020-08-05] MEDS ORDERED: Furosemide 40 MG/4 ML VIAL IVPUSH ONE (04:14)
--- NOTE | 2020-08-05 04:27 | PCM.HP.2 ---
H&P History of Present Illness - General Date of Service: 08/05/20 Admit Problem/Dx: Admission Diagnosis/Problem Admission Diagnosis/Problem CHF, Congestive heart failure Source of Information: Patient, Provider History Limitations: Reports: No Limitations - History of Present Illness Initial Comments - Free Text/Narative: CC: I was worried I had pneumonia HPI: Joey presents to the emergency room with progressive shortness of breath. She was recently admitted to [facility] for management of bilateral pneumonia complicated by respiratory failure. She had a PEA arrest while she was in the hospital. She was discharged 4 days ago and initially thought she was starting to improve but then has since gone downhill. She has noticed progressive dyspnea especially with any activity. She is short of breath after climbing only 5 stairs and has to stop to rest. She has had orthopnea for the past 2 nights. She has noticed increasing swelling in her hands and her lower legs. She does continue to have some chest discomfort that has been present since she had CPR but this is steadily getting better. This is a moderate achy pain that is worse with breathing. Better when she is able to slow down her breathing. She has not had any fevers. No significant change in bowel or bladder habits. Appetite has not been very good. She does have intermittent nausea which hampers her appetite. Work-up in the emergency room revealed bilateral pleural effusions and pulmonary edema on CT scan of the chest. She has hypoxic and require supplemental oxygen. Creatinine is 2.3 which is close to her recent baseline. She will be admitted for management of heart failure with preserved ejection fraction. Chest Pain Score (Numeric/FACES): 7 - Related Data Allergies/Adverse Reactions: Allergies Allergy/AdvReac Type Severity Reaction Status Date / Time ciprofloxacin Allergy Hives Verified 08/05/20 00:07 Latex, Natural Rubber Allergy Itching Verified 08/05/20 00:07 morphine Allergy Hives Verified 08/05/20 00:07 Home Medications: Home Meds Albuterol Sulfate [Proair Hfa] 2 puff INH ASDIRECTED 06/09/20 [History] Gabapentin [Neurontin] 600 mg PO TID 06/09/20 [History] Insulin Aspart [NovoLOG] 0 unit SUBCUT ASDIRECTED 06/09/20 [History] Insulin Glargine,Hum.Rec.Anlog [Lantus Solostar] 30 units SUBCUT DAILY 06/09/20 [History] Multivitamin [Multivitamins] 1 cap PO DAILY 06/09/20 [History] SUMAtriptan [Imitrex] 25 mg PO ASDIRECTED 06/09/20 [History] Sertraline [Zoloft] 100 mg PO DAILY 06/09/20 [History] ondansetron HCL [Zofran] 4 mg PO Q8H PRN 06/09/20 [History] traZODone HCl [Trazodone HCl] 50 - 100 mg PO BEDTIME PRN 06/09/20 [History] Diclofenac Sodium 1 applic TOP QID 08/05/20 [History] Fluticasone Propion/Salmeterol [Wixela 250-50 Inhub] 1 puff IH BID 08/05/20 [History] Iron Polysaccharide Complex [Poly-Iron] 150 mg PO DAILY 08/05/20 [History] Montelukast Sodium [Singulair] 10 mg PO BEDTIME 08/05/20 [History] Plecanatide [Trulance] 3 mg PO DAILY 08/05/20 [History] Sennosides/Docusate Sodium [Stimulant Laxative Plus Tablet] 1 each PO BID 08/05/20 [History] amLODIPine Besylate [Amlodipine Besylate] 10 mg PO DAILY 08/05/20 [History] carvediloL [Carvedilol] 25 mg PO BID 08/05/20 [History] Past Medical History HEENT History: Reports: Impaired Vision, Other (See Below) Other HEENT History: retinopathy Cardiovascular History: Reports: Heart Murmur, Hypertension, Other (See Below) Other Cardiovascular History: CPR Respiratory History: Reports: Asthma, Intubation, Previous, Pneumonia, Recurrent Gastrointestinal History: Reports: Other (See Below) Other Gastrointestinal History: 2 benign masses on the liver. 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 Musculoskeletal History: Reports: Fracture Neurological History: Reports: Neuropathy, Diabetic, Seizure Psychiatric History: Reports: Anxiety, Depression, Panic Attack Endocrine/Metabolic History: Reports: Diabetes, Type I Hematologic History: Reports: Anemia Oncologic (Cancer) History: Reports: Other (See Below) Other Oncologic History: carcinomic tumor of appendix at 8 years old. - Infectious Disease History Infectious Disease History: Reports: Chicken Pox - Past Surgical History Head Surgeries/Procedures: Reports: None HEENT Surgical History: Reports: Adenoidectomy, Tonsillectomy Cardiovascular Surgical History: Reports: None Respiratory Surgical History: Reports: None GI Surgical History: Reports: Appendectomy, Colonoscopy Female Surgical History: Reports: None Endocrine Surgical History: Reports: None Neurological Surgical History: Reports: None Musculoskeletal Surgical History: Reports: None Oncologic Surgical History: Reports: None Dermatological Surgical History: Reports: None Social & Family History - Family History Family Medical History: No Pertinent Family History - Tobacco Use Tobacco Use Status *Q: Never Tobacco User - Caffeine Use Caffeine Use: Reports: Coffee, Energy Drinks, Soda, Tea Caffeine Use Comment: occasionaly - Recreational Drug Use Recreational Drug Use: No H&P Review of Systems - Review of Systems: Review Of Systems: See Below Free Text/Narrative: A complete 12 point review of systems was obtained. Pertinent positives and negatives are noted in the history of present illness. All other systems were reviewed and were negative except as noted. Exam - Exam Exam: See Below - Vital Signs Vital Signs: Last Vital Signs Temp 36.8 C 08/05/20 00:04 Pulse 92 08/05/20 03:20 Resp 22 H 08/05/20 03:20 BP 159/93 H 08/05/20 03:20 Pulse Ox 97 08/05/20 03:20 Weight: 74.2 kg - Exam Quality Assessment: Supplemental Oxygen General: Alert, Oriented, Cooperative. No: Mild Distress HEENT: Conjunctiva Clear. No: Mucosa Moist & [place] (dry), Scleral Icterus Neck: Supple, Trachea Midline, JVD Lungs: Normal Respiratory Effort, Decreased Breath Sounds (mild both bases), Crackles (diffuse monik anteriorly) Cardiovascular: Regular Rate, Regular Rhythm, Systolic Murmur (mild LUSB) GI/Abdominal Exam: Normal Bowel Sounds, Soft, No Distention, Tender (mild generalized) Back Exam: Normal Inspection, Full Range of Motion Extremities: Pedal Edema. No: Increased Warmth Peripheral Pulses: 2+: Dorsalis Pedis (L), Dorsalis Pedis (R) Skin: Warm, Dry Neuro Extensive - Mental Status: Alert, Oriented x3, Nl Response to Commands Neuro Extensive - Motor, Sensory, Reflexes: No: Dysarthria, Abnormal Motor, Tremor Psychiatric: Alert, Normal Affect - Patient Data Lab Results Last 24 hrs: Laboratory Results - last 24 hr 08/05/20 08/05/20 08/05/20 Range/Units 00:55 00:57 00:57 WBC 6.6 (4.5-11.0) K/uL RBC 3.10 L (3.30-5.50) M/uL Hgb 8.4 L (12.0-15.0) g/dL Hct 27.4 L (36.0-48.0) % MCV 88 (80-98) fL MCH 27 (27-31) pg MCHC 31 L (32-36) % Plt Count 504 H (150-400) K/uL D-Dimer, Quantitative (0.0-500.0) ng/mL Sodium 141 (140-148) mmol/L Potassium 3.7 (3.6-5.2) mmol/L Chloride 105 (100-108) mmol/L Carbon Dioxide 26 (21-32) mmol/L Anion Gap 10.0 (5.0-14.0) mmol/L BUN 33 H (7-18) mg/dL Creatinine 2.3 H (0.6-1.0) mg/dL Est Cr Clr Drug Dosing 31.73 mL/min Estimated GFR (MDRD) 25 L (>60) Glucose 147 H (74-106) mg/dL Calcium 8.8 (8.5-10.1) mg/dL Troponin I (0.000-0.056) ng/mL Urine Color (YELLOW) Urine Appearance (CLEAR) Urine pH (5.0-8.0) Ur Specific [place] (1.008-1.030) Urine Protein (NEGATIVE) mg/dL Urine Glucose (UA) (NEGATIVE) mg/dL Urine Ketones (NEGATIVE) mg/dL Urine Occult Blood (NEGATIVE) Urine Nitrite (NEGATIVE) Urine Bilirubin (NEGATIVE) Urine Urobilinogen (0.2-1.0) EU/dL Ur Leukocyte Esterase (NEGATIVE) Urine RBC (0-5) Urine WBC (0-5) Ur Epithelial Cells Amorphous Sediment Urine Bacteria Urine Mucus SARS-CoV-2 RNA (DOMINIQUE) Negative (NEGATIVE) 08/05/20 08/05/20 08/05/20 Range/Units 00:58 03:21 03:28 WBC (4.5-11.0) K/uL RBC (3.30-5.50) M/uL Hgb (12.0-15.0) g/dL Hct (36.0-48.0) % MCV (80-98) fL MCH (27-31) pg MCHC (32-36) % Plt Count (150-400) K/uL D-Dimer, Quantitative 1524.71 H (0.0-500.0) ng/mL Sodium (140-148) mmol/L Potassium (3.6-5.2) mmol/L Chloride (100-108) mmol/L Carbon Dioxide (21-32) mmol/L Anion Gap (5.0-14.0) mmol/L BUN (7-18) mg/dL Creatinine (0.6-1.0) mg/dL Est Cr Clr Drug Dosing mL/min Estimated GFR (MDRD) (>60) Glucose (74-106) mg/dL Calcium (8.5-10.1) mg/dL Troponin I < 0.017 (0.000-0.056) ng/mL Urine Color Yellow (YELLOW) Urine Appearance Slightly cloudy A (CLEAR) Urine pH 5.5 (5.0-8.0) Ur Specific [place] 1.020 (1.008-1.030) Urine Protein >=300 H (NEGATIVE) mg/dL Urine Glucose (UA) Negative (NEGATIVE) mg/dL Urine Ketones Negative (NEGATIVE) mg/dL Urine Occult Blood Small H (NEGATIVE) Urine Nitrite Negative (NEGATIVE) Urine Bilirubin Negative (NEGATIVE) Urine Urobilinogen 0.2 (0.2-1.0) EU/dL Ur Leukocyte Esterase Negative (NEGATIVE) Urine RBC 0-5 (0-5) Urine WBC 0-5 (0-5) Ur Epithelial Cells Many Amorphous Sediment Few Urine Bacteria Not seen Urine Mucus Rare SARS-CoV-2 RNA (DOMINIQUE) (NEGATIVE) Result Diagrams: 08/05/20 00:57 08/05/20 00:57 Imaging Impressions Last 24 hrs: All images below were personally reviewed CXR -chest x-ray is clear with no obvious mass, infiltrate or effusion. CT PE protocol -no evidence for pulmonary embolism. There are small to moderate bilateral effusions as well as some pulmonary edema. No obvious infiltrate or mass. The CT scan did also note a partially visualized lesion in the left lobe of the liver. An MRI with contrast was recommended for further evaluation. Sepsis Event Note - Evaluation Sepsis Screening Result: No Definite Risk - Focused Exam Vital Signs: Vital Signs Temp Pulse Resp BP Pulse Ox Pulse Ox 08/05/20 03:20 92 22 H 159/93 H 97 08/05/20 02:40 92 22 H 158/90 H 96 08/05/20 01:20 91 18 153/100 H 97 08/05/20 00:58 94 20 142/84 H 94 L 08/05/20 00:27 84 L 08/05/20 00:04 36.8 C 96 48 H 143/82 H 91 L *Q Meaningful Use (ADM) - VTE Risk Assess *Q Each Risk Factor Represents 1 Point: None, Obesity ( BMI > 25 kg/m2), Congestive heart failure (CHF) Total Score 1 Point Risk Factors: 2 Each Risk Factor Represents 2 Points: None Total Score 2 Point Risk Factors: 0 Each Risk Factor Represents 3 Points: None Total Score 3 Point Risk Factors: 0 Each Risk Factor Represents 5 Points: None Total Score 5 Point Risk Factors: 0 Venous Thromboembolism Risk Factor Score *Q: 2 - Problem List (1) (HFpEF) heart failure with preserved ejection fraction SNOMED Code(s): 398547179 ICD Code: I50.30 - UNSPECIFIED DIASTOLIC (CONGESTIVE) HEART FAILURE Status: Acute Current Visit: Yes Qualifiers: Heart failure chronicity: acute Qualified Code(s): I50.31 - Acute diastolic (congestive) heart failure (2) Acute respiratory failure with hypoxia SNOMED Code(s): 88040749, 668513975 ICD Code: J96.01 - ACUTE RESPIRATORY FAILURE WITH HYPOXIA Status: Acute Current Visit: No (3) Acute kidney injury superimposed on chronic kidney disease SNOMED Code(s): 55595986 ICD Code: N17.9 - ACUTE KIDNEY FAILURE, UNSPECIFIED; N18.9 - CHRONIC KIDNEY DISEASE, UNSPECIFIED Status: Acute Current Visit: Yes (4) Liver mass SNOMED Code(s): 054222202 ICD Code: R16.0 - HEPATOMEGALY, NOT ELSEWHERE CLASSIFIED Status: Acute Current Visit: Yes (5) Type 1 diabetes mellitus SNOMED Code(s): 53488844 ICD Code: E10.9 - TYPE 1 DIABETES MELLITUS WITHOUT COMPLICATIONS Status: Chronic Current Visit: No Qualifiers: Diabetes mellitus complication status: with neurologic complications Diabetes mellitus complication detail: with polyneuropathy Qualified Code(s): E10.42 - Type 1 diabetes mellitus with diabetic polyneuropathy Problem List Initiated/Reviewed/Updated: Yes Orders Last 24hrs: Active Orders 24 hr Category Date Time Status Patient Status Manage Transfer [TRANSFER] Routine ADT 08/05/20 04:15 Ordered Oxygen Therapy Adult [Oxygen Therapy] [RC] ASDIRECTED Care 08/05/20 01:05 Active Chest 2V [CR] Stat Exams 08/05/20 00:39 Taken COVID-19/FLU A+B/RSV [MOLEC] Stat Lab 08/05/20 00:55 Results Iopamidol [Isovue-370 (76%)] Med 08/05/20 02:15 Active 100 ml IV . DIRECTED Sodium Chloride 0.9% [Saline Flush] Med 08/05/20 00:39 Active 10 ml FLUSH ASDIRECTED PRN Saline Lock Insert [OM.PC] Routine Oth 08/05/20 00:39 Ordered Resuscitation Status Routine Resus Stat 08/05/20 04:17 Ordered Medication Orders Iopamidol (Isovue-370 (76%)) 100 ml IV . DIRECTED BRIDGER Last Admin: 08/05/20 02:36 Dose: 100 ml Documented by: YAEL Sodium Chloride (Saline Flush) 10 ml FLUSH ASDIRECTED PRN PRN Reason: Keep Vein Open Last Admin: 08/05/20 02:08 Dose: 10 ml Documented by: PREILOR Assessment/Plan Comment:: ASSESSMENT AND PLAN - Heart failure with preserved ejection fraction-complicated by acute respiratory failure with hypoxia. I suspect this is related to her recent hospital stay with volume resuscitation in the setting of severe pneumonia and further complicated by her stage IIIb chronic kidney disease. She is hypoxic. She is short of breath with even minimal activity. -40 mg of furosemide now -Supplement potassium to avoid hypokalemia -Continue beta-tyrone -Supplement oxygen as needed -Reassess volume status later in the day Liver mass, left lobe-noted on several recent imaging studies. Outpatient MRI was recommended. Ultrasound done in [place] thought maybe this was a hemangioma. Insulin-dependent diabetes mellitus-sugars have been fairly well controlled. -Lantus 30 units in the morning -Mealtime insulin -Low-dose sliding scale insulin Stage IIIb chronic kidney disease-creatinine is 2.3 which is close to her recent baseline though higher than her previous normal of 1.3-1.4. She will need close monitoring during diuresis. Maintenance issues - - DVT prophylaxis -mechanical - GI prophylaxis -not indicated - Nutrition -consistent carbohydrate - Austin catheter -not indicated CODE STATUS -full code Admission justification -this patient will be admitted for inpatient services and is medically appropriate meeting medical necessity for inpatient admission as outlined in my documentation. I reasonably expect the patient will require inpatient services that span a period time over 2 midnights. I reasonably expect this patient to be discharged or transferred within 96 hours after admission to the [facility]. Disposition -I would anticipate discharge home after the hospital stay Primary care physician -[facility] Oscar Calderon M.D. - Mortality Measure Prognosis:: Good
[2020-08-05] MEDS ORDERED: traZODone 50 MG Tab PO PRN (04:52)
[2020-08-05] MEDS ORDERED: Potassium Chloride 20 MEQ Tab.ER PO ONE (04:52)
[2020-08-05] MEDS ORDERED: Polyethylene Glycol 3350 Powder 17 GM Packet PO PRN (04:52)
[2020-08-05] MEDS: oxyCODONE 5 MG Tab PO PRN ×5 (05:13→23:19)
[2020-08-05] MEDS: Diclofenac Sodium 1% Gel 100 GM Tube TOP SCH ×2 (05:59→09:42)
[2020-08-05] MEDS: Ondansetron 4 MG/2 ML SDV IV PRN ×2 (08:11→17:39)
[2020-08-05] MEDS: Formoterol/Mometasone 200-5 MCG 8.8 GM Inhaler IH SCH ×2 (08:14→21:15)
[2020-08-05] MEDS: Insulin Lispro 100 Unit/ML 3 ML KwikPen SUBCUT SCH ×7 (08:18→21:14)
[2020-08-05] MEDS: Gabapentin 300 MG Cap PO SCH ×3 (08:22→21:15)
[2020-08-05] MEDS: Carvedilol 12.5 MG Tab PO SCH ×2 (08:22→17:47)
[2020-08-05] MEDS: Sertraline 50 MG Tab PO SCH (08:22)
[2020-08-05] MEDS: amLODIPine 5 MG Tab PO SCH (08:22)
[2020-08-05] MEDS: Insulin Glargine,Human Rec. Analog 100 Units/ML 3 ML Pen SUBCUT SCH (08:27)
[2020-08-05] MEDS ORDERED: Formoterol/Mometasone 200-5 MCG 8.8 GM Inhaler IH SCH (09:00)
[2020-08-05] MEDS: FLU VACC QS2020-21(6MOS UP)/PF 60 MCG/0.5 ML SYRINGE IM ONE ×2 (09:40→16:24)
[2020-08-05] MEDS ORDERED: Diclofenac Sodium 1% Gel 100 GM Tube TOP PRN (09:46)
[2020-08-05 12:17] LABS: CORONAVIRUS COVID-19 NAA NEGATIVE (NEGATIVE)
[2020-08-05] MEDS ORDERED: Bumetanide 1 MG/4 ML MDV IVPUSH ONE (16:00)
[2020-08-05] MEDS: Ondansetron 4 MG Tab.DIS PO PRN (19:57)
[2020-08-05] MEDS: Montelukast 10 MG Tab PO SCH (21:16)
[2020-08-05] MEDS ORDERED: 50% Dextrose in Water 50 ML Syringe IVPUSH ONE (22:30)
[2020-08-05] MEDS: LORazepam 2 MG/ML SDV IVPUSH PRN (23:20)
[2020-08-06] MEDS: oxyCODONE 5 MG Tab PO PRN ×3 (05:28→14:27)
[2020-08-06] MEDS: Formoterol/Mometasone 200-5 MCG 8.8 GM Inhaler IH SCH ×2 (07:35→21:20)
[2020-08-06] MEDS: Insulin Lispro 100 Unit/ML 3 ML KwikPen SUBCUT SCH ×7 (07:43→21:19)
[2020-08-06] MEDS: Sertraline 50 MG Tab PO SCH (08:57)
[2020-08-06] MEDS: Gabapentin 300 MG Cap PO SCH ×3 (08:57→21:20)
[2020-08-06] MEDS: amLODIPine 5 MG Tab PO SCH (08:58)
[2020-08-06] MEDS: Carvedilol 12.5 MG Tab PO SCH ×2 (08:58→17:28)
[2020-08-06] MEDS: Insulin Glargine,Human Rec. Analog 100 Units/ML 3 ML Pen SUBCUT SCH (09:00)
--- NOTE | 2020-08-06 14:36 | PCM.PN ---
- General Info Date of Service: 08/06/20 Subjective Update: Ms. Goss has remained fairly stable since admission yesterday. Attempts at diuresis have overall been unsuccessful and resulted in an increase in her creatinine. Level of dyspnea remains stable, she continues to require 1 to 2 L of oxygen via nasal cannula. Does report shortness of breath with activity. Functional Status: Reports: Tolerating Diet, Ambulating, Urinating - Review of Systems General: Reports: Weakness, Fatigue. Denies: Fever, Chills Pulmonary: Reports: Shortness of Breath. Denies: Pleuritic Chest Pain, Cough, Sputum, Hemoptysis, Wheezing Cardiovascular: Reports: Dyspnea on Exertion. Denies: Chest Pain, Palpitations, Orthopnea, PND, Edema, Lightheadedness Gastrointestinal: Reports: No Symptoms - Patient Data Vitals - Most Recent: Last Vital Signs Temp 95.9 F L 08/06/20 11:00 Pulse 89 08/06/20 11:00 Resp 15 08/06/20 11:00 BP 119/84 08/06/20 11:00 Pulse Ox 96 08/06/20 12:54 Weight - Most Recent: 166 lb 3.2 oz I&O - Last 24 Hours: Intake & Output 08/05/20 08/06/20 08/06/20 22:59 06:59 14:59 Intake Total 318 118 Output Total 400 400 250 Balance -82 -400 -132 Lab Results Last 24 Hours: Laboratory Results - last 24 hr 08/05/20 08/05/20 08/05/20 Range/Units 16:30 21:25 21:25 WBC (4.5-11.0) K/uL RBC (3.30-5.50) M/uL Hgb (12.0-15.0) g/dL Hct (36.0-48.0) % MCV (80-98) fL MCH (27-31) pg MCHC (32-36) % Plt Count (150-400) K/uL Neut % (Auto) (36-66) % Lymph % (Auto) (24-44) % [place] % (Auto) (2-6) % Eos % (Auto) (2-4) % Baso % (Auto) (0-1) % Sodium (140-148) mmol/L Potassium (3.6-5.2) mmol/L Chloride (100-108) mmol/L Carbon Dioxide (21-32) mmol/L Anion Gap (5.0-14.0) mmol/L BUN (7-18) mg/dL Creatinine (0.6-1.0) mg/dL Est Cr Clr Drug Dosing mL/min Estimated GFR (MDRD) (>60) Glucose (74-106) mg/dL POC Glucose 77 39 L* 68 L (74-106) MG/DL Calcium (8.5-10.1) mg/dL Magnesium (1.8-2.4) mg/dL Total Bilirubin (0.2-1.0) mg/dL AST (15-37) U/L ALT (12-78) U/L Alkaline Phosphatase (46-116) U/L Total Protein (6.4-8.2) g/dL Albumin (3.4-5.0) g/dL Globulin (2.3-3.5) g/dL Albumin/Globulin Ratio (1.2-2.2) 08/05/20 08/05/20 08/06/20 Range/Units 21:55 23:30 05:03 WBC 6.2 (4.5-11.0) K/uL RBC 2.88 L (3.30-5.50) M/uL Hgb 7.8 L (12.0-15.0) g/dL Hct 26.2 L (36.0-48.0) % MCV 91 (80-98) fL MCH 27 (27-31) pg MCHC 30 L (32-36) % Plt Count 415 H (150-400) K/uL Neut % (Auto) 58 (36-66) % Lymph % (Auto) 29 (24-44) % [place] % (Auto) 8 H (2-6) % Eos % (Auto) 4 (2-4) % Baso % (Auto) 1 (0-1) % Sodium (140-148) mmol/L Potassium (3.6-5.2) mmol/L Chloride (100-108) mmol/L Carbon Dioxide (21-32) mmol/L Anion Gap (5.0-14.0) mmol/L BUN (7-18) mg/dL Creatinine (0.6-1.0) mg/dL Est Cr Clr Drug Dosing mL/min Estimated GFR (MDRD) (>60) Glucose (74-106) mg/dL POC Glucose 80 153 H (74-106) MG/DL Calcium (8.5-10.1) mg/dL Magnesium (1.8-2.4) mg/dL Total Bilirubin (0.2-1.0) mg/dL AST (15-37) U/L ALT (12-78) U/L Alkaline Phosphatase (46-116) U/L Total Protein (6.4-8.2) g/dL Albumin (3.4-5.0) g/dL Globulin (2.3-3.5) g/dL Albumin/Globulin Ratio (1.2-2.2) 08/06/20 08/06/20 08/06/20 Range/Units 05:03 07:30 11:55 WBC (4.5-11.0) K/uL RBC (3.30-5.50) M/uL Hgb (12.0-15.0) g/dL Hct (36.0-48.0) % MCV (80-98) fL MCH (27-31) pg MCHC (32-36) % Plt Count (150-400) K/uL Neut % (Auto) (36-66) % Lymph % (Auto) (24-44) % [place] % (Auto) (2-6) % Eos % (Auto) (2-4) % Baso % (Auto) (0-1) % Sodium 141 (140-148) mmol/L Potassium 4.3 (3.6-5.2) mmol/L Chloride 107 (100-108) mmol/L Carbon Dioxide 24 (21-32) mmol/L Anion Gap 9.9 (5.0-14.0) mmol/L BUN 30 H (7-18) mg/dL Creatinine 2.8 H (0.6-1.0) mg/dL Est Cr Clr Drug Dosing 26.06 mL/min Estimated GFR (MDRD) 20 L (>60) Glucose 147 H (74-106) mg/dL POC Glucose 133 H 112 H (74-106) MG/DL Calcium 8.1 L (8.5-10.1) mg/dL Magnesium 2.2 D (1.8-2.4) mg/dL Total Bilirubin 0.2 (0.2-1.0) mg/dL AST 14 L (15-37) U/L ALT 25 (12-78) U/L Alkaline Phosphatase 120 H D (46-116) U/L Total Protein 5.6 L (6.4-8.2) g/dL Albumin 2.7 L (3.4-5.0) g/dL Globulin 2.9 (2.3-3.5) g/dL Albumin/Globulin Ratio 0.9 L (1.2-2.2) Med Orders - Current: Current Medications Acetaminophen (Tylenol) 650 mg PO Q4H PRN PRN Reason: Pain (Mild 1-3)/fever Albuterol (Proventil Neb Soln) 2.5 mg NEB Q4H PRN PRN Reason: Shortness Of Breath/wheezing Amlodipine Besylate (Norvasc) 10 mg PO DAILY [facility] Last Admin: 08/06/20 08:58 Dose: 10 mg Documented by: Carvedilol (Coreg) 25 mg PO BIDMEALS [facility] Last Admin: 08/06/20 08:58 Dose: 25 mg Documented by: Diclofenac Sodium (Voltaren 1% Gel) 0 gm TOP QID PRN PRN Reason: Pain Gabapentin (Neurontin) 600 mg PO TID [facility] Last Admin: 08/06/20 13:53 Dose: 600 mg Documented by: Insulin Glargine (Lantus Solostar) 30 units SUBCUT DAILY [facility] Last Admin: 08/06/20 09:00 Dose: 30 units Documented by: Insulin Human Lispro (Humalog) 0 unit SUBCUT TIDMEALS [facility] Last Admin: 08/06/20 13:51 Dose: Not Given Documented by: Insulin Human Lispro (Humalog) 0 unit SUBCUT QIDACANDBED [facility]; Protocol Last Admin: 08/06/20 12:16 Dose: Not Given Documented by: Lorazepam (Ativan) 0.5 mg IVPUSH Q4H PRN PRN Reason: Nausea/Vomiting Last Admin: 08/05/20 23:20 Dose: 0.5 mg Documented by: Magnesium Hydroxide (Milk Of Magnesia) 30 ml PO Q12H PRN PRN Reason: Constipation Mometasone Furoate/Formoterol Fumar (Dulera 200-5 Mcg) 2 puff IH BIDRT [facility] Last Admin: 08/06/20 07:35 Dose: 2 puff Documented by: Montelukast Sodium (Singulair) 10 mg PO BEDTIME [facility] Last Admin: 08/05/20 21:16 Dose: 10 mg Documented by: Ondansetron HCl (Zofran) 4 mg IV Q6H PRN PRN Reason: Nausea/Vomiting Last Admin: 08/05/20 17:39 Dose: 4 mg Documented by: Ondansetron HCl (Zofran Odt) 4 mg PO Q6H PRN PRN Reason: Nausea able to take PO Last Admin: 08/05/20 19:57 Dose: 4 mg Documented by: Oxycodone HCl (Oxycodone) 5 - 10 mg PO Q4H PRN PRN Reason: Pain Last Admin: 08/06/20 14:27 Dose: 10 mg Documented by: Polyethylene Glycol (Miralax) 17 gm PO DAILY PRN PRN Reason: Constipation Senna/Docusate Sodium (Senna Plus) 1 tab PO BID [facility] Last Admin: 08/06/20 08:57 Dose: 1 tab Documented by: Senna/Docusate Sodium (Senna Plus) 1 tab PO BID PRN PRN Reason: Constipation Sertraline HCl (Zoloft) 100 mg PO DAILY [facility] Last Admin: 08/06/20 08:57 Dose: 100 mg Documented by: Sodium Chloride (Saline Flush) 10 ml FLUSH ASDIRECTED PRN PRN Reason: Keep Vein Open Last Admin: 08/05/20 02:08 Dose: 10 ml Documented by: Trazodone HCl (Trazodone) 50 mg PO BEDTIME PRN PRN Reason: Sleep Discontinued Medications Acetaminophen (Tylenol Extra Strength) 1,000 mg PO ONETIME ONE Stop: 08/05/20 03:08 Last Admin: 08/05/20 03:13 Dose: 1,000 mg Documented by: Bumetanide (Bumex) 2 mg IVPUSH ONETIME ONE Stop: 08/05/20 16:01 Last Admin: 08/05/20 15:06 Dose: 2 mg Documented by: Dextrose/Water (Dextrose 50% In Water) 25 ml IVPUSH ONETIME ONE Stop: 08/05/20 22:31 Last Admin: 08/05/20 22:23 Dose: 25 ml Documented by: Diclofenac Sodium (Voltaren 1% Gel) 0 gm TOP QID [facility] Last Admin: 08/05/20 09:42 Dose: Not Given Documented by: Furosemide (Lasix) 40 mg IVPUSH NOW ONE Stop: 08/05/20 04:15 Last Admin: 08/05/20 04:48 Dose: 40 mg Documented by: Lactated Ringer's (Ringers, Lactated) 1,000 mls @ 500 mls/hr IV ASDIRECTED [facility] Last Admin: 08/05/20 03:13 Dose: 500 mls/hr Documented by: Sodium Chloride (Normal Saline) 100 mls @ 3 mls/sec IV ASDIRECTED [facility] Last Admin: 08/05/20 02:36 Dose: 3 mls/sec Documented by: Influenza Virus Vaccine (Fluzone Quad Syringe) 60 mcg IM .ONCE ONE Stop: 08/05/20 09:01 Last Admin: 08/05/20 16:24 Dose: 60 mcg Documented by: Iopamidol (Isovue-370 (76%)) 100 ml IV . DIRECTED [facility] Last Admin: 08/05/20 02:36 Dose: 100 ml Documented by: Potassium Chloride (Klor-Con M20) 40 meq PO ONETIME ONE Stop: 08/05/20 04:53 Last Admin: 08/05/20 05:14 Dose: 40 meq Documented by: Sodium Chloride (Saline Flush) 10 ml FLUSH ONETIME ONE Stop: 08/05/20 02:10 Last Admin: 08/05/20 02:36 Dose: 10 ml Documented by: - Exam Quality Assessment: Supplemental Oxygen, DVT Prophylaxis General: Alert, Oriented, Cooperative, No Acute Distress Lungs: Clear to Auscultation, Normal Respiratory Effort Cardiovascular: Regular Rate, Regular Rhythm, No Murmurs GI/Abdominal Exam: Soft, Non-Tender, No Organomegaly, No Distention Extremities: Non-Tender, Pedal Edema Sepsis Event Note - Evaluation Sepsis Screening Result: No Definite Risk - Focused Exam Vital Signs: Vital Signs Temp Pulse Pulse Resp BP BP Pulse Ox 08/06/20 12:54 96 08/06/20 11:00 95.9 F L 89 15 119/84 97 08/06/20 08:58 92 135/92 H 08/06/20 07:54 96.8 F L 92 16 135/92 H 97 08/06/20 07:18 98 08/06/20 04:30 78 L 08/06/20 03:27 97.4 F 86 18 118/77 97 - Problem List Review Problem List Initiated/Reviewed/Updated: Yes - My Orders Last 24 Hours: My Active Orders 08/07/20 05:00 CBC WITH AUTO DIFF [HEME] Timed COMPREHENSIVE METABOLIC PN,CMP [CHEM] Timed - Plan Plan:: ASSESSMENT AND PLAN - Heart failure with preserved ejection fraction-complicated by acute respiratory failure with hypoxia. I suspect this is related to her recent hospital stay with volume resuscitation in the setting of severe pneumonia and further complicated by her stage IIIb chronic kidney disease. She is hypoxic. She is short of breath with even minimal activity. Unfortunately she is not responded to diuretic therapy over the last 24 hours and has developed an increase in creatinine -Hold diuretic therapy today -Supplement potassium to avoid hypokalemia -Continue beta-tyrone -Supplement oxygen as needed Liver mass, left lobe-noted on several recent imaging studies. Outpatient MRI was recommended. Ultrasound done in [place] thought maybe this was a hemangioma. Insulin-dependent diabetes mellitus-sugars have been fairly well controlled. -Lantus 30 units in the morning -Mealtime insulin -Low-dose sliding scale insulin Stage IIIb chronic kidney disease-creatinine is 2.8 up from admission of 2.3 -Closely monitor urine output and renal function -Hold diuretic therapy today -Reassess renal function in a.m. Maintenance issues - - DVT prophylaxis -mechanical - GI prophylaxis -not indicated - Nutrition -consistent carbohydrate - Ausitn catheter -not indicated CODE STATUS -full code Admission justification -this patient will be admitted for inpatient services and is medically appropriate meeting medical necessity for inpatient admission as outlined in my documentation. I reasonably expect the patient will require inpatient services that span a period time over 2 midnights. I reasonably expect this patient to be discharged or transferred within 96 hours [facility]. Disposition -I would anticipate discharge home after the hospital stay Primary care physician -[facility] in [place]
[2020-08-06] MEDS: Ondansetron 4 MG/2 ML SDV IV PRN (17:24)
[2020-08-06] MEDS: Montelukast 10 MG Tab PO SCH (21:20)
[2020-08-06] MEDS: LORazepam 2 MG/ML SDV IVPUSH PRN (21:21)
[2020-08-07] MEDS: oxyCODONE 5 MG Tab PO PRN ×5 (04:04→20:45)
[2020-08-07] MEDS: Formoterol/Mometasone 200-5 MCG 8.8 GM Inhaler IH SCH ×2 (07:26→21:14)
[2020-08-07] MEDS: LORazepam 0.5 MG Tab PO PRN ×2 (08:12→12:12)
[2020-08-07] MEDS: Carvedilol 12.5 MG Tab PO SCH ×2 (08:12→17:58)
[2020-08-07] MEDS: Insulin Lispro 100 Unit/ML 3 ML KwikPen SUBCUT SCH ×7 (08:15→21:12)
[2020-08-07] MEDS: Insulin Glargine,Human Rec. Analog 100 Units/ML 3 ML Pen SUBCUT SCH (08:46)
[2020-08-07] MEDS: amLODIPine 5 MG Tab PO SCH (08:47)
[2020-08-07] MEDS: Sertraline 50 MG Tab PO SCH (08:47)
[2020-08-07] MEDS: Gabapentin 300 MG Cap PO SCH ×3 (08:47→21:15)
--- NOTE | 2020-08-07 12:21 | PCM.PN ---
- General Info Date of Service: 08/07/20 Subjective Update: Ms. Schmitt has experienced increased difficulty with anxiety over the last 24 hours and required intermittent use of lorazepam. Respiratory status remains essentially unchanged, she continues to require low level of supplemental oxygen to maintain adequate saturations. Renal function unfortunately has worsened over the last 24 hours with further increase in creatinine level to 3.2. Functional Status: Reports: Tolerating Diet, Ambulating, Urinating - Review of Systems General: Reports: Weakness. Denies: Fever, Chills Pulmonary: Reports: Shortness of Breath. Denies: Pleuritic Chest Pain, Cough, Sputum, Hemoptysis, Wheezing Cardiovascular: Reports: Dyspnea on Exertion, Edema. Denies: Chest Pain, Palpitations, Orthopnea, PND, Lightheadedness Gastrointestinal: Reports: No Symptoms - Patient Data Vitals - Most Recent: Last Vital Signs Temp 96.6 F L 08/07/20 11:16 Pulse 85 08/07/20 11:16 Resp 16 08/07/20 11:16 BP 109/64 08/07/20 11:16 Pulse Ox 92 L 08/07/20 11:16 Weight - Most Recent: 168 lb 3.2 oz I&O - Last 24 Hours: Intake & Output 08/06/20 08/07/20 08/07/20 22:59 06:59 14:59 Intake Total 200 538 Output Total 375 250 Balance -375 -50 538 Lab Results Last 24 Hours: Laboratory Results - last 24 hr 08/06/20 08/06/20 08/07/20 Range/Units 16:58 21:00 04:00 WBC 6.4 (4.5-11.0) K/uL RBC 2.86 L (3.30-5.50) M/uL Hgb 7.9 L (12.0-15.0) g/dL Hct 26.1 L (36.0-48.0) % MCV 91 (80-98) fL MCH 28 (27-31) pg MCHC 30 L (32-36) % Plt Count 435 H (150-400) K/uL Neut % (Auto) 54 (36-66) % Lymph % (Auto) 32 (24-44) % [place] % (Auto) 10 H (2-6) % Eos % (Auto) 4 (2-4) % Baso % (Auto) 1 (0-1) % Sodium (140-148) mmol/L Potassium (3.6-5.2) mmol/L Chloride (100-108) mmol/L Carbon Dioxide (21-32) mmol/L Anion Gap (5.0-14.0) mmol/L BUN (7-18) mg/dL Creatinine (0.6-1.0) mg/dL Est Cr Clr Drug Dosing mL/min Estimated GFR (MDRD) (>60) Glucose (74-106) mg/dL POC Glucose 135 H 138 H (74-106) MG/DL Calcium (8.5-10.1) mg/dL Total Bilirubin (0.2-1.0) mg/dL AST (15-37) U/L ALT (12-78) U/L Alkaline Phosphatase (46-116) U/L Total Protein (6.4-8.2) g/dL Albumin (3.4-5.0) g/dL Globulin (2.3-3.5) g/dL Albumin/Globulin Ratio (1.2-2.2) 08/07/20 08/07/20 08/07/20 Range/Units 04:00 07:42 11:30 WBC (4.5-11.0) K/uL RBC (3.30-5.50) M/uL Hgb (12.0-15.0) g/dL Hct (36.0-48.0) % MCV (80-98) fL MCH (27-31) pg MCHC (32-36) % Plt Count (150-400) K/uL Neut % (Auto) (36-66) % Lymph % (Auto) (24-44) % [place] % (Auto) (2-6) % Eos % (Auto) (2-4) % Baso % (Auto) (0-1) % Sodium 140 (140-148) mmol/L Potassium 4.3 (3.6-5.2) mmol/L Chloride 106 (100-108) mmol/L Carbon Dioxide 25 (21-32) mmol/L Anion Gap 9.3 (5.0-14.0) mmol/L BUN 35 H (7-18) mg/dL Creatinine 3.2 H (0.6-1.0) mg/dL Est Cr Clr Drug Dosing 22.80 mL/min Estimated GFR (MDRD) 17 L (>60) Glucose 159 H (74-106) mg/dL POC Glucose 169 H 191 H (74-106) MG/DL Calcium 8.3 L (8.5-10.1) mg/dL Total Bilirubin 0.2 (0.2-1.0) mg/dL AST 18 (15-37) U/L ALT 22 (12-78) U/L Alkaline Phosphatase 113 (46-116) U/L Total Protein 5.8 L (6.4-8.2) g/dL Albumin 2.7 L (3.4-5.0) g/dL Globulin 3.1 (2.3-3.5) g/dL Albumin/Globulin Ratio 0.9 L (1.2-2.2) Med Orders - Current: Current Medications Acetaminophen (Tylenol) 650 mg PO Q4H PRN PRN Reason: Pain (Mild 1-3)/fever Albuterol (Proventil Neb Soln) 2.5 mg NEB Q4H PRN PRN Reason: Shortness Of Breath/wheezing Amlodipine Besylate (Norvasc) 10 mg PO DAILY [facility] Last Admin: 08/07/20 08:47 Dose: 10 mg Documented by: Carvedilol (Coreg) 25 mg PO BIDMEALS [facility] Last Admin: 08/07/20 08:12 Dose: 25 mg Documented by: Diclofenac Sodium (Voltaren 1% Gel) 0 gm TOP QID PRN PRN Reason: Pain Gabapentin (Neurontin) 600 mg PO TID [facility] Last Admin: 08/07/20 08:47 Dose: 600 mg Documented by: Insulin Glargine (Lantus Solostar) 30 units SUBCUT DAILY [facility] Last Admin: 08/07/20 08:46 Dose: 30 units Documented by: Insulin Human Lispro (Humalog) 0 unit SUBCUT TIDMEALS [facility] Last Admin: 08/07/20 08:49 Dose: Not Given Documented by: Insulin Human Lispro (Humalog) 0 unit SUBCUT QIDACANDBED [facility]; Protocol Last Admin: 08/07/20 12:14 Dose: 1 units Documented by: Lorazepam (Ativan) 0.5 mg IVPUSH Q4H PRN PRN Reason: Nausea/Vomiting Last Admin: 08/06/20 21:21 Dose: 0.5 mg Documented by: Lorazepam (Ativan) 0.5 mg PO Q4H PRN PRN Reason: Anxiety Last Admin: 08/07/20 12:12 Dose: 0.5 mg Documented by: Magnesium Hydroxide (Milk Of Magnesia) 30 ml PO Q12H PRN PRN Reason: Constipation Mometasone Furoate/Formoterol Fumar (Dulera 200-5 Mcg) 2 puff IH BIDRT [facility] Last Admin: 08/07/20 07:26 Dose: 2 puff Documented by: Montelukast Sodium (Singulair) 10 mg PO BEDTIME [facility] Last Admin: 08/06/20 21:20 Dose: 10 mg Documented by: Ondansetron HCl (Zofran) 4 mg IV Q6H PRN PRN Reason: Nausea/Vomiting Last Admin: 08/06/20 17:24 Dose: 4 mg Documented by: Ondansetron HCl (Zofran Odt) 4 mg PO Q6H PRN PRN Reason: Nausea able to take PO Last Admin: 08/05/20 19:57 Dose: 4 mg Documented by: Oxycodone HCl (Oxycodone) 5 - 10 mg PO Q4H PRN PRN Reason: Pain Last Admin: 08/07/20 12:12 Dose: 10 mg Documented by: Polyethylene Glycol (Miralax) 17 gm PO DAILY PRN PRN Reason: Constipation Senna/Docusate Sodium (Senna Plus) 1 tab PO BID [facility] Last Admin: 08/07/20 08:47 Dose: 1 tab Documented by: Senna/Docusate Sodium (Senna Plus) 1 tab PO BID PRN PRN Reason: Constipation Sertraline HCl (Zoloft) 100 mg PO DAILY [facility] Last Admin: 08/07/20 08:47 Dose: 100 mg Documented by: Sodium Chloride (Saline Flush) 10 ml FLUSH ASDIRECTED PRN PRN Reason: Keep Vein Open Last Admin: 08/05/20 02:08 Dose: 10 ml Documented by: Trazodone HCl (Trazodone) 50 mg PO BEDTIME PRN PRN Reason: Sleep Discontinued Medications Acetaminophen (Tylenol Extra Strength) 1,000 mg PO ONETIME ONE Stop: 08/05/20 03:08 Last Admin: 08/05/20 03:13 Dose: 1,000 mg Documented by: Bumetanide (Bumex) 2 mg IVPUSH ONETIME ONE Stop: 08/05/20 16:01 Last Admin: 08/05/20 15:06 Dose: 2 mg Documented by: Dextrose/Water (Dextrose 50% In Water) 25 ml IVPUSH ONETIME ONE Stop: 08/05/20 22:31 Last Admin: 08/05/20 22:23 Dose: 25 ml Documented by: Diclofenac Sodium (Voltaren 1% Gel) 0 gm TOP QID [facility] Last Admin: 08/05/20 09:42 Dose: Not Given Documented by: Furosemide (Lasix) 40 mg IVPUSH NOW ONE Stop: 08/05/20 04:15 Last Admin: 08/05/20 04:48 Dose: 40 mg Documented by: Lactated Ringer's (Ringers, Lactated) 1,000 mls @ 500 mls/hr IV ASDIRECTED [facility] Last Admin: 08/05/20 03:13 Dose: 500 mls/hr Documented by: Sodium Chloride (Normal Saline) 100 mls @ 3 mls/sec IV ASDIRECTED [facility] Last Admin: 08/05/20 02:36 Dose: 3 mls/sec Documented by: Influenza Virus Vaccine (Fluzone Quad [id number] Syringe) 60 mcg IM .ONCE ONE Stop: 08/05/20 09:01 Last Admin: 08/05/20 16:24 Dose: 60 mcg Documented by: Iopamidol (Isovue-370 (76%)) 100 ml IV . DIRECTED [facility] Last Admin: 08/05/20 02:36 Dose: 100 ml Documented by: Potassium Chloride (Klor-Con M20) 40 meq PO ONETIME ONE Stop: 08/05/20 04:53 Last Admin: 08/05/20 05:14 Dose: 40 meq Documented by: Sodium Chloride (Saline Flush) 10 ml FLUSH ONETIME ONE Stop: 08/05/20 02:10 Last Admin: 08/05/20 02:36 Dose: 10 ml Documented by: - Exam Quality Assessment: Supplemental Oxygen, DVT Prophylaxis General: Alert, Oriented, Cooperative, Mild Distress Lungs: Normal Respiratory Effort, Decreased Breath Sounds, Rales. No: Crackles, Rhonchi, Wheezing Cardiovascular: Regular Rate, Regular Rhythm, No Murmurs GI/Abdominal Exam: Soft, Non-Tender, No Organomegaly, No Distention Extremities: Non-Tender, Pedal Edema Sepsis Event Note - Evaluation Sepsis Screening Result: No Definite Risk - Focused Exam Vital Signs: Vital Signs Temp Pulse Pulse Resp BP BP Pulse Ox 08/07/20 11:16 96.6 F L 85 16 109/64 92 L 08/07/20 08:47 108/72 08/07/20 08:12 88 108/72 08/07/20 07:49 96.9 F 88 18 108/72 93 L 08/07/20 07:29 94 L 08/07/20 04:05 97.3 F 89 20 119/76 99 08/07/20 01:12 96 - Problem List Review Problem List Initiated/Reviewed/Updated: Yes - My Orders Last 24 Hours: My Active Orders 08/06/20 15:49 TARIQ Hose [Antiembolic Hose] [OM.PC] Routine 08/07/20 08:04 LORazepam [Ativan] 0.5 mg PO Q4H PRN 08/08/20 05:00 BASIC METABOLIC PANEL,BMP [CHEM] Timed CBC WITH AUTO DIFF [HEME] Timed - Plan Plan:: ASSESSMENT AND PLAN - Heart failure with preserved ejection fraction-complicated by acute respiratory failure with hypoxia. I suspect this is related to her recent hospital stay with volume resuscitation in the setting of severe pneumonia and further complicated by her stage IIIb chronic kidney disease. Continues to require low level of supplemental oxygen, denies shortness of breath at rest. Diuretic therapy on hold because of worsening renal function -Hold diuretic therapy today -Supplement potassium to avoid hypokalemia -Continue beta-tyrone -Supplement oxygen as needed Liver mass, left lobe-noted on several recent imaging studies. Outpatient MRI was recommended. Ultrasound done in [place] thought maybe this was a hemangioma. Insulin-dependent diabetes mellitus-sugars have been fairly well controlled. -Lantus 30 units in the morning -Mealtime insulin -Low-dose sliding scale insulin Stage IIIb chronic kidney disease-creatinine is 3.2 up from admission of 2.3 -Closely monitor urine output and renal function -Hold diuretic therapy today -Reassess renal function in a.m. Anxiety-longstanding history currently on Zoloft 100 mg daily -Lorazepam 0.5 mg p.o. every 4 hours as needed Maintenance issues - - DVT prophylaxis -mechanical - GI prophylaxis -not indicated - Nutrition -consistent carbohydrate - [place] catheter -not indicated CODE STATUS -full code Admission justification -this patient will be admitted for inpatient services and is medically appropriate meeting medical necessity for inpatient admission as outlined in my documentation. I reasonably expect the patient will require inpatient services that span a period time over 2 midnights. I reasonably expect this patient to be discharged or transferred within 96 hours [facility]. Disposition -I would anticipate discharge home after the hospital stay Primary care physician -[facility] in [place]
[2020-08-07] MEDS: Ondansetron 4 MG/2 ML SDV IV PRN (14:04)
[2020-08-07] MEDS: Acetaminophen 325 MG Tab PO PRN (16:08)
[2020-08-07] MEDS: Montelukast 10 MG Tab PO SCH (21:15)
[2020-08-07] MEDS: LORazepam 2 MG/ML SDV IVPUSH PRN (21:16)
[2020-08-08] MEDS: oxyCODONE 5 MG Tab PO PRN ×4 (03:43→19:39)
[2020-08-08] MEDS: LORazepam 0.5 MG Tab PO PRN ×3 (04:22→21:27)
[2020-08-08] MEDS: Formoterol/Mometasone 200-5 MCG 8.8 GM Inhaler IH SCH ×2 (07:18→20:03)
[2020-08-08] MEDS: Acetaminophen 325 MG Tab PO PRN ×2 (09:28→19:38)
[2020-08-08] MEDS: Carvedilol 12.5 MG Tab PO SCH ×2 (09:30→18:06)
[2020-08-08] MEDS: amLODIPine 5 MG Tab PO SCH (09:30)
[2020-08-08] MEDS: Gabapentin 300 MG Cap PO SCH ×2 (09:30→15:04)
[2020-08-08] MEDS: Sertraline 50 MG Tab PO SCH (09:31)
[2020-08-08] MEDS: Insulin Lispro 100 Unit/ML 3 ML KwikPen SUBCUT SCH ×7 (09:32→21:45)
[2020-08-08] MEDS: Insulin Glargine,Human Rec. Analog 100 Units/ML 3 ML Pen SUBCUT SCH (09:35)
--- NOTE | 2020-08-08 10:14 | CR ---
CHEST: 2 view CLINICAL HISTORY:SOB COMPARISON:07/22/2020 FINDINGS: Patient has diffuse bilateral pulmonary infiltrates. They have improved slightly when compared to 1211. The some of this difference is technical. Heart is mildly enlarged. Pulmonary vasculature is normal. There are no effusions IMPRESSION: Persistent bilateral pneumonic infiltrates with slight improvement since 07/22/2020
--- NOTE | 2020-08-08 12:34 | US ---
Renal Comp CLINICAL HISTORY: Progressive renal insufficiency. COMPARISON: CT May 2020. TECHNIQUE: Multiple sonographic images were obtained through the kidneys in the sagittal and transverse projections. Right kidney measures 13.0 x 7.0 x 5.9 cm. Cortical thickness is 2 cm. There is a generalized increase in renal parenchymal echogenicity. Left kidney measures 12.6 x 5.8 x 6.7 cm. Cortical thickness is 2.3 cm. There is increased parenchymal echogenicity. No focal mass or hydronephrosis is identified. Bladder was nondilated IMPRESSION: Increased renal parenchymal echogenicity bilaterally. This can be seen with medical renal disease. There is a heterogeneous enhancement pattern on prior CT abdomen May No mass, stones or hydronephrosis
--- NOTE | 2020-08-08 19:06 | PCM.PN ---
- General Info Date of Service: 08/08/20 Subjective Update: Ms. Goss has continued to experience progressive renal insufficiency with further increase in creatinine this morning. Respiratory status has remained stable, she continues to require 1 to 2 L of oxygen via nasal cannula. Does note shortness of breath with fairly minimal activity. Urine output has remained low but adequate to this point. Functional Status: Reports: Tolerating Diet, Urinating - Review of Systems General: Reports: Weakness, Fatigue. Denies: Fever, Chills Pulmonary: Reports: Shortness of Breath. Denies: Pleuritic Chest Pain, Cough, Sputum, Hemoptysis, Wheezing Cardiovascular: Reports: Dyspnea on Exertion, Edema. Denies: Chest Pain, Palpitations, Orthopnea, PND, Lightheadedness Gastrointestinal: Reports: No Symptoms Genitourinary: Reports: No Symptoms - Patient Data Vitals - Most Recent: Last Vital Signs Temp 96.7 F L 08/08/20 18:23 Pulse 85 08/08/20 18:23 Resp 20 08/08/20 18:23 BP 112/79 08/08/20 18:23 Pulse Ox 98 08/08/20 18:23 Weight - Most Recent: 169 lb 3.206 oz I&O - Last 24 Hours: Intake & Output 08/08/20 08/08/20 08/08/20 06:59 14:59 22:59 Intake Total 200 550 Output Total 100 500 600 Balance -100 -300 -50 Lab Results Last 24 Hours: Laboratory Results - last 24 hr 08/07/20 08/08/20 08/08/20 Range/Units 21:16 05:50 05:50 WBC 6.5 (4.5-11.0) K/uL RBC 2.81 L (3.30-5.50) M/uL Hgb 7.8 L (12.0-15.0) g/dL Hct 25.5 L (36.0-48.0) % MCV 91 (80-98) fL MCH 28 (27-31) pg MCHC 31 L (32-36) % Plt Count 420 H (150-400) K/uL Neut % (Auto) 61 (36-66) % Lymph % (Auto) 28 (24-44) % [place] % (Auto) 7 H (2-6) % Eos % (Auto) 4 (2-4) % Baso % (Auto) 1 (0-1) % Sodium 139 L (140-148) mmol/L Potassium 5.1 (3.6-5.2) mmol/L Chloride 108 (100-108) mmol/L Carbon Dioxide 24 (21-32) mmol/L Anion Gap 12.1 (5.0-14.0) mmol/L BUN 42 H (7-18) mg/dL Creatinine 3.6 H* (0.6-1.0) mg/dL Est Cr Clr Drug Dosing 20.27 mL/min Estimated GFR (MDRD) 15 L (>60) Glucose 134 H (74-106) mg/dL POC Glucose 137 H (74-106) MG/DL Calcium 8.4 L (8.5-10.1) mg/dL Urine Color (YELLOW) Urine Appearance (CLEAR) Urine pH (5.0-8.0) Ur Specific [place] (1.008-1.030) Urine Protein (NEGATIVE) mg/dL Urine Glucose (UA) (NEGATIVE) mg/dL Urine Ketones (NEGATIVE) mg/dL Urine Occult Blood (NEGATIVE) Urine Nitrite (NEGATIVE) Urine Bilirubin (NEGATIVE) Urine Urobilinogen (0.2-1.0) EU/dL Ur Leukocyte Esterase (NEGATIVE) Urine RBC (0-5) Urine WBC (0-5) Ur Epithelial Cells Amorphous Sediment Urine Bacteria Urine Mucus Ur Random Creatinine (20.0-370.0) mg/dL U Random Total Protein (6.0-11.9) mg/dL Protein/Creatinin Ratio (21.0-161.0) mg/g 08/08/20 08/08/20 08/08/20 Range/Units 07:30 09:15 12:12 WBC (4.5-11.0) K/uL RBC (3.30-5.50) M/uL Hgb (12.0-15.0) g/dL Hct (36.0-48.0) % MCV (80-98) fL MCH (27-31) pg MCHC (32-36) % Plt Count (150-400) K/uL Neut % (Auto) (36-66) % Lymph % (Auto) (24-44) % [place] % (Auto) (2-6) % Eos % (Auto) (2-4) % Baso % (Auto) (0-1) % Sodium (140-148) mmol/L Potassium (3.6-5.2) mmol/L Chloride (100-108) mmol/L Carbon Dioxide (21-32) mmol/L Anion Gap (5.0-14.0) mmol/L BUN (7-18) mg/dL Creatinine (0.6-1.0) mg/dL Est Cr Clr Drug Dosing mL/min Estimated GFR (MDRD) (>60) Glucose (74-106) mg/dL POC Glucose 147 H 98 (74-106) MG/DL Calcium (8.5-10.1) mg/dL Urine Color Yellow (YELLOW) Urine Appearance Slightly cloudy A (CLEAR) Urine pH 5.5 (5.0-8.0) Ur Specific [place] 1.020 (1.008-1.030) Urine Protein >=300 H (NEGATIVE) mg/dL Urine Glucose (UA) Negative (NEGATIVE) mg/dL Urine Ketones Negative (NEGATIVE) mg/dL Urine Occult Blood Small H (NEGATIVE) Urine Nitrite Negative (NEGATIVE) Urine Bilirubin Negative (NEGATIVE) Urine Urobilinogen 0.2 (0.2-1.0) EU/dL Ur Leukocyte Esterase Negative (NEGATIVE) Urine RBC 0-5 (0-5) Urine WBC 0-5 (0-5) Ur Epithelial Cells Many Amorphous Sediment Not seen Urine Bacteria Few Urine Mucus Not seen Ur Random Creatinine (20.0-370.0) mg/dL U Random Total Protein (6.0-11.9) mg/dL Protein/Creatinin Ratio (21.0-161.0) mg/g 08/08/20 08/08/20 Range/Units 15:49 16:29 WBC (4.5-11.0) K/uL RBC (3.30-5.50) M/uL Hgb (12.0-15.0) g/dL Hct (36.0-48.0) % MCV (80-98) fL MCH (27-31) pg MCHC (32-36) % Plt Count (150-400) K/uL Neut % (Auto) (36-66) % Lymph % (Auto) (24-44) % [place] % (Auto) (2-6) % Eos % (Auto) (2-4) % Baso % (Auto) (0-1) % Sodium (140-148) mmol/L Potassium (3.6-5.2) mmol/L Chloride (100-108) mmol/L Carbon Dioxide (21-32) mmol/L Anion Gap (5.0-14.0) mmol/L BUN (7-18) mg/dL Creatinine (0.6-1.0) mg/dL Est Cr Clr Drug Dosing mL/min Estimated GFR (MDRD) (>60) Glucose (74-106) mg/dL POC Glucose 100 (74-106) MG/DL Calcium (8.5-10.1) mg/dL Urine Color (YELLOW) Urine Appearance (CLEAR) Urine pH (5.0-8.0) Ur Specific [place] (1.008-1.030) Urine Protein (NEGATIVE) mg/dL Urine Glucose (UA) (NEGATIVE) mg/dL Urine Ketones (NEGATIVE) mg/dL Urine Occult Blood (NEGATIVE) Urine Nitrite (NEGATIVE) Urine Bilirubin (NEGATIVE) Urine Urobilinogen (0.2-1.0) EU/dL Ur Leukocyte Esterase (NEGATIVE) Urine RBC (0-5) Urine WBC (0-5) Ur Epithelial Cells Amorphous Sediment Urine Bacteria Urine Mucus Ur Random Creatinine 89.1 (20.0-370.0) mg/dL U Random Total Protein 179.6 H (6.0-11.9) mg/dL Protein/Creatinin Ratio 2015.7 H (21.0-161.0) mg/g Med Orders - Current: Current Medications Acetaminophen (Tylenol) 650 mg PO Q4H PRN PRN Reason: Pain (Mild 1-3)/fever Last Admin: 08/08/20 09:28 Dose: 650 mg Documented by: Albuterol (Proventil Neb Soln) 2.5 mg NEB Q4H PRN PRN Reason: Shortness Of Breath/wheezing Amlodipine Besylate (Norvasc) 10 mg PO DAILY [facility] Last Admin: 08/08/20 09:30 Dose: 10 mg Documented by: Gabapentin (Neurontin) 200 mg PO TID [facility] Insulin Glargine (Lantus Solostar) 30 units SUBCUT DAILY [facility] Last Admin: 08/08/20 09:35 Dose: 30 units Documented by: Insulin Human Lispro (Humalog) 0 unit SUBCUT TIDMEALS [facility] Last Admin: 08/08/20 18:07 Dose: 2 units Documented by: Insulin Human Lispro (Humalog) 0 unit SUBCUT QIDACANDBED [facility]; Protocol Last Admin: 08/08/20 17:18 Dose: Not Given Documented by: Lorazepam (Ativan) 0.5 mg IVPUSH Q4H PRN PRN Reason: Nausea/Vomiting Last Admin: 08/07/20 21:16 Dose: 0.5 mg Documented by: Lorazepam (Ativan) 0.5 mg PO Q4H PRN PRN Reason: Anxiety Last Admin: 08/08/20 15:03 Dose: 0.5 mg Documented by: Magnesium Hydroxide (Milk Of Magnesia) 30 ml PO Q12H PRN PRN Reason: Constipation Mometasone Furoate/Formoterol Fumar (Dulera 200-5 Mcg) 2 puff IH BIDRT [facility] Last Admin: 08/08/20 07:18 Dose: 2 puff Documented by: Montelukast Sodium (Singulair) 10 mg PO BEDTIME [facility] Last Admin: 08/07/20 21:15 Dose: 10 mg Documented by: Ondansetron HCl (Zofran) 4 mg IV Q6H PRN PRN Reason: Nausea/Vomiting Last Admin: 08/07/20 14:04 Dose: 4 mg Documented by: Ondansetron HCl (Zofran Odt) 4 mg PO Q6H PRN PRN Reason: Nausea able to take PO Last Admin: 08/05/20 19:57 Dose: 4 mg Documented by: Oxycodone HCl (Oxycodone) 5 - 10 mg PO Q4H PRN PRN Reason: Pain Last Admin: 08/08/20 15:03 Dose: 5 mg Documented by: Polyethylene Glycol (Miralax) 17 gm PO DAILY PRN PRN Reason: Constipation Senna/Docusate Sodium (Senna Plus) 1 tab PO BID [facility] Last Admin: 08/08/20 09:31 Dose: 1 tab Documented by: Senna/Docusate Sodium (Senna Plus) 1 tab PO BID PRN PRN Reason: Constipation Sertraline HCl (Zoloft) 100 mg PO DAILY [facility] Last Admin: 08/08/20 09:31 Dose: 100 mg Documented by: Sodium Chloride (Saline Flush) 10 ml FLUSH ASDIRECTED PRN PRN Reason: Keep Vein Open Last Admin: 08/05/20 02:08 Dose: 10 ml Documented by: Trazodone HCl (Trazodone) 50 mg PO BEDTIME PRN PRN Reason: Sleep Discontinued Medications Acetaminophen (Tylenol Extra Strength) 1,000 mg PO ONETIME ONE Stop: 08/05/20 03:08 Last Admin: 08/05/20 03:13 Dose: 1,000 mg Documented by: Bumetanide (Bumex) 2 mg IVPUSH ONETIME ONE Stop: 08/05/20 16:01 Last Admin: 08/05/20 15:06 Dose: 2 mg Documented by: Carvedilol (Coreg) 25 mg PO BIDMEALS [facility] Last Admin: 08/08/20 18:06 Dose: 25 mg Documented by: Dextrose/Water (Dextrose 50% In Water) 25 ml IVPUSH ONETIME ONE Stop: 08/05/20 22:31 Last Admin: 08/05/20 22:23 Dose: 25 ml Documented by: Diclofenac Sodium (Voltaren 1% Gel) 0 gm TOP QID [facility] Last Admin: 08/05/20 09:42 Dose: Not Given Documented by: Diclofenac Sodium (Voltaren 1% Gel) 0 gm TOP QID PRN PRN Reason: Pain Furosemide (Lasix) 40 mg IVPUSH NOW ONE Stop: 08/05/20 04:15 Last Admin: 08/05/20 04:48 Dose: 40 mg Documented by: Gabapentin (Neurontin) 600 mg PO TID [facility] Last Admin: 08/08/20 15:04 Dose: 600 mg Documented by: Lactated Ringer's (Ringers, Lactated) 1,000 mls @ 500 mls/hr IV ASDIRECTED [facility] Last Admin: 08/05/20 03:13 Dose: 500 mls/hr Documented by: Sodium Chloride (Normal Saline) 100 mls @ 3 mls/sec IV ASDIRECTED [facility] Last Admin: 08/05/20 02:36 Dose: 3 mls/sec Documented by: Influenza Virus Vaccine (Fluzone Quad [id number] Syringe) 60 mcg IM .ONCE ONE Stop: 08/05/20 09:01 Last Admin: 08/05/20 16:24 Dose: 60 mcg Documented by: Iopamidol (Isovue-370 (76%)) 100 ml IV . DIRECTED [facility] Last Admin: 08/05/20 02:36 Dose: 100 ml Documented by: Potassium Chloride (Klor-Con M20) 40 meq PO ONETIME ONE Stop: 08/05/20 04:53 Last Admin: 08/05/20 05:14 Dose: 40 meq Documented by: Sodium Chloride (Saline Flush) 10 ml FLUSH ONETIME ONE Stop: 08/05/20 02:10 Last Admin: 08/05/20 02:36 Dose: 10 ml Documented by: - Exam Quality Assessment: Supplemental Oxygen, DVT Prophylaxis General: Alert, Oriented, Cooperative, Mild Distress Lungs: Normal Respiratory Effort, Rales. No: Crackles, Rhonchi, Wheezing Cardiovascular: Regular Rate, Regular Rhythm, No Murmurs GI/Abdominal Exam: Soft, Non-Tender, No Organomegaly, No Distention Extremities: Non-Tender, No Pedal Edema Sepsis Event Note - Evaluation Sepsis Screening Result: No Definite Risk - Focused Exam Vital Signs: Vital Signs Temp Pulse Pulse Resp BP BP Pulse Ox 08/08/20 18:23 96.7 F L 85 20 112/79 98 08/08/20 18:06 85 112/79 08/08/20 14:49 95.3 F L 82 18 97/59 L 99 08/08/20 12:48 96 08/08/20 09:30 89 125/85 08/08/20 09:00 95.4 F L 88 18 120/79 94 L 08/08/20 07:00 96.3 F L 89 18 125/85 97 - Problem List Review Problem List Initiated/Reviewed/Updated: Yes - My Orders Last 24 Hours: My Active Orders 08/09/20 05:00 BASIC METABOLIC PANEL,BMP [CHEM] Timed CBC WITH AUTO DIFF [HEME] Timed 08/09/20 09:00 Gabapentin [Neurontin] 200 mg PO TID - Plan Plan:: ASSESSMENT AND PLAN - Heart failure with preserved ejection fraction-complicated by acute respiratory failure with hypoxia. I suspect this is related to her recent hospital stay with volume resuscitation in the setting of severe pneumonia and further complicated by her stage IIIb chronic kidney disease. Continues to require low level of supplemental oxygen, denies shortness of breath at rest. Diuretic therapy on hold because of worsening renal function -Hold diuretic therapy today -Supplement potassium to avoid hypokalemia -Hold Coreg because of progressive renal insufficiency -Supplement oxygen as needed Liver mass, left lobe-noted on several recent imaging studies. Outpatient MRI was recommended. Ultrasound done in [place] thought maybe this was a hemangioma. Insulin-dependent diabetes mellitus-sugars have been fairly well controlled. -Lantus 30 units in the morning -Mealtime insulin -Low-dose sliding scale insulin Stage IIIb chronic kidney disease-creatinine has continued to rise and is now up to 3.6 with a GFR of 15. This is likely secondary to contrast-induced nephropathy, from contrast given for CT scan. Reviewed with nephrology today, expect improvement over the next few days. -Hold Coreg -Closely monitor urine output and renal function -Hold diuretic therapy today -Reassess renal function in a.m. Anxiety-longstanding history currently on Zoloft 100 mg daily -Lorazepam 0.5 mg p.o. every 4 hours as needed Maintenance issues - - DVT prophylaxis -mechanical - GI prophylaxis -not indicated - Nutrition -consistent carbohydrate - Austin catheter -not indicated CODE STATUS -full code Admission justification -this patient will be admitted for inpatient services and is medically appropriate meeting medical necessity for inpatient admission as outlined in my documentation. I reasonably expect the patient will require inpatient services that span a period time over 2 midnights. I reasonably expect this patient to be discharged or transferred within 96 hours [facility]. Disposition -I would anticipate discharge home after the hospital stay Primary care physician -[facility] [place]
[2020-08-08] MEDS: Montelukast 10 MG Tab PO SCH (20:04)
[2020-08-09] MEDS: Acetaminophen 325 MG Tab PO PRN ×3 (03:31→17:02)
[2020-08-09] MEDS: oxyCODONE 5 MG Tab PO PRN ×4 (03:32→21:24)
[2020-08-09] MEDS: Formoterol/Mometasone 200-5 MCG 8.8 GM Inhaler IH SCH ×2 (07:27→21:25)
[2020-08-09] MEDS: Insulin Lispro 100 Unit/ML 3 ML KwikPen SUBCUT SCH ×7 (08:32→21:27)
[2020-08-09] MEDS: amLODIPine 5 MG Tab PO SCH (09:22)
[2020-08-09] MEDS: Gabapentin 100 MG Cap PO SCH ×3 (09:22→21:25)
[2020-08-09] MEDS: Sertraline 50 MG Tab PO SCH (09:23)
[2020-08-09] MEDS: Insulin Glargine,Human Rec. Analog 100 Units/ML 3 ML Pen SUBCUT SCH (09:23)
[2020-08-09] MEDS: Ondansetron 4 MG Tab.DIS PO PRN ×2 (10:45→19:56)
--- NOTE | 2020-08-09 12:28 | PCM.PN ---
- General Info Date of Service: 08/09/20 Subjective Update: No acute events overnight. She feels like her edema is worse today. Her face, her abdomen her lower back and her legs all feel swollen. She has a fair amount of discomfort because of the swelling. She still feels short of breath but this is stable. No chest pain. Creatinine is slightly better today at 3.4. Urine output has improved in the past 24 hours. Functional Status: Reports: Pain Controlled, Tolerating Diet - Review of Systems General: Denies: Fever Cardiovascular: Reports: Edema - Patient Data Vitals - Most Recent: Last Vital Signs Temp 36.2 C 08/09/20 10:36 Pulse 88 08/09/20 10:36 Resp 18 08/09/20 10:36 BP 121/76 08/09/20 10:36 Pulse Ox 99 08/09/20 12:26 Weight - Most Recent: 77.111 kg I&O - Last 24 Hours: Intake & Output 08/08/20 08/09/20 08/09/20 22:59 06:59 14:59 Intake Total 550 870 Output Total 725 350 400 Balance -175 -350 470 Lab Results Last 24 Hours: Laboratory Results - last 24 hr 08/08/20 08/08/20 08/08/20 Range/Units 09:15 12:12 15:49 WBC (4.5-11.0) K/uL RBC (3.30-5.50) M/uL Hgb (12.0-15.0) g/dL Hct (36.0-48.0) % MCV (80-98) fL MCH (27-31) pg MCHC (32-36) % Plt Count (150-400) K/uL Neut % (Auto) (36-66) % Lymph % (Auto) (24-44) % [place] % (Auto) (2-6) % Eos % (Auto) (2-4) % Baso % (Auto) (0-1) % Sodium (140-148) mmol/L Potassium (3.6-5.2) mmol/L Chloride (100-108) mmol/L Carbon Dioxide (21-32) mmol/L Anion Gap (5.0-14.0) mmol/L BUN (7-18) mg/dL Creatinine (0.6-1.0) mg/dL Est Cr Clr Drug Dosing mL/min Estimated GFR (MDRD) (>60) Glucose (74-106) mg/dL POC Glucose 98 (74-106) MG/DL Calcium (8.5-10.1) mg/dL Urine Color Yellow (YELLOW) Urine Appearance Slightly cloudy A (CLEAR) Urine pH 5.5 (5.0-8.0) Ur Specific [employer] 1.020 (1.008-1.030) Urine Protein >=300 H (NEGATIVE) mg/dL Urine Glucose (UA) Negative (NEGATIVE) mg/dL Urine Ketones Negative (NEGATIVE) mg/dL Urine Occult Blood Small H (NEGATIVE) Urine Nitrite Negative (NEGATIVE) Urine Bilirubin Negative (NEGATIVE) Urine Urobilinogen 0.2 (0.2-1.0) EU/dL Ur Leukocyte Esterase Negative (NEGATIVE) Urine RBC 0-5 (0-5) Urine WBC 0-5 (0-5) Ur Epithelial Cells Many Amorphous Sediment Not seen Urine Bacteria Few Urine Mucus Not seen Ur Random Creatinine 89.1 (20.0-370.0) mg/dL U Random Total Protein 179.6 H (6.0-11.9) mg/dL Protein/Creatinin Ratio 2015.7 H (21.0-161.0) mg/g 08/08/20 08/08/20 08/09/20 Range/Units 16:29 21:44 05:40 WBC 5.3 (4.5-11.0) K/uL RBC 2.71 L (3.30-5.50) M/uL Hgb 7.4 L (12.0-15.0) g/dL Hct 24.5 L (36.0-48.0) % MCV 90 (80-98) fL MCH 27 (27-31) pg MCHC 30 L (32-36) % Plt Count 389 (150-400) K/uL Neut % (Auto) 54 (36-66) % Lymph % (Auto) 34 (24-44) % [place] % (Auto) 8 H (2-6) % Eos % (Auto) 4 (2-4) % Baso % (Auto) 1 (0-1) % Sodium (140-148) mmol/L Potassium (3.6-5.2) mmol/L Chloride (100-108) mmol/L Carbon Dioxide (21-32) mmol/L Anion Gap (5.0-14.0) mmol/L BUN (7-18) mg/dL Creatinine (0.6-1.0) mg/dL Est Cr Clr Drug Dosing mL/min Estimated GFR (MDRD) (>60) Glucose (74-106) mg/dL POC Glucose 100 87 (74-106) MG/DL Calcium (8.5-10.1) mg/dL Urine Color (YELLOW) Urine Appearance (CLEAR) Urine pH (5.0-8.0) Ur Specific [employer] (1.008-1.030) Urine Protein (NEGATIVE) mg/dL Urine Glucose (UA) (NEGATIVE) mg/dL Urine Ketones (NEGATIVE) mg/dL Urine Occult Blood (NEGATIVE) Urine Nitrite (NEGATIVE) Urine Bilirubin (NEGATIVE) Urine Urobilinogen (0.2-1.0) EU/dL Ur Leukocyte Esterase (NEGATIVE) Urine RBC (0-5) Urine WBC (0-5) Ur Epithelial Cells Amorphous Sediment Urine Bacteria Urine Mucus Ur Random Creatinine (20.0-370.0) mg/dL U Random Total Protein (6.0-11.9) mg/dL Protein/Creatinin Ratio (21.0-161.0) mg/g 08/09/20 08/09/20 08/09/20 Range/Units 05:40 07:30 11:30 WBC (4.5-11.0) K/uL RBC (3.30-5.50) M/uL Hgb (12.0-15.0) g/dL Hct (36.0-48.0) % MCV (80-98) fL MCH (27-31) pg MCHC (32-36) % Plt Count (150-400) K/uL Neut % (Auto) (36-66) % Lymph % (Auto) (24-44) % [place] % (Auto) (2-6) % Eos % (Auto) (2-4) % Baso % (Auto) (0-1) % Sodium 138 L (140-148) mmol/L Potassium 5.1 (3.6-5.2) mmol/L Chloride 107 (100-108) mmol/L Carbon Dioxide 23 (21-32) mmol/L Anion Gap 13.1 (5.0-14.0) mmol/L BUN 47 H (7-18) mg/dL Creatinine 3.4 H (0.6-1.0) mg/dL Est Cr Clr Drug Dosing 21.62 mL/min Estimated GFR (MDRD) 16 L (>60) Glucose 94 (74-106) mg/dL POC Glucose 91 149 H (74-106) MG/DL Calcium 8.3 L (8.5-10.1) mg/dL Urine Color (YELLOW) Urine Appearance (CLEAR) Urine pH (5.0-8.0) Ur Specific [employer] (1.008-1.030) Urine Protein (NEGATIVE) mg/dL Urine Glucose (UA) (NEGATIVE) mg/dL Urine Ketones (NEGATIVE) mg/dL Urine Occult Blood (NEGATIVE) Urine Nitrite (NEGATIVE) Urine Bilirubin (NEGATIVE) Urine Urobilinogen (0.2-1.0) EU/dL Ur Leukocyte Esterase (NEGATIVE) Urine RBC (0-5) Urine WBC (0-5) Ur Epithelial Cells Amorphous Sediment Urine Bacteria Urine Mucus Ur Random Creatinine (20.0-370.0) mg/dL U Random Total Protein (6.0-11.9) mg/dL Protein/Creatinin Ratio (21.0-161.0) mg/g Med Orders - Current: Current Medications Acetaminophen (Tylenol) 650 mg PO Q4H PRN PRN Reason: Pain (Mild 1-3)/fever Last Admin: 08/09/20 09:31 Dose: 650 mg Documented by: Albuterol (Proventil Neb Soln) 2.5 mg NEB Q4H PRN PRN Reason: Shortness Of Breath/wheezing Amlodipine Besylate (Norvasc) 10 mg PO DAILY [facility] Last Admin: 08/09/20 09:22 Dose: 10 mg Documented by: Gabapentin (Neurontin) 200 mg PO TID [facility] Last Admin: 08/09/20 09:22 Dose: 200 mg Documented by: Insulin Glargine (Lantus Solostar) 30 units SUBCUT DAILY [facility] Last Admin: 08/09/20 09:23 Dose: 30 units Documented by: Insulin Human Lispro (Humalog) 0 unit SUBCUT TIDMEALS [facility] Last Admin: 08/09/20 09:18 Dose: Not Given Documented by: Insulin Human Lispro (Humalog) 0 unit SUBCUT QIDACANDBED [facility]; Protocol Last Admin: 12/29/20 12:17 Dose: Not Given Documented by: Lorazepam (Ativan) 0.5 mg PO Q4H PRN PRN Reason: Anxiety Last Admin: 08/08/20 21:27 Dose: 0.5 mg Documented by: Magnesium Hydroxide (Milk Of Magnesia) 30 ml PO Q12H PRN PRN Reason: Constipation Mometasone Furoate/Formoterol Fumar (Dulera 200-5 Mcg) 2 puff IH BIDRT [facility] Last Admin: 08/09/20 07:27 Dose: 2 puff Documented by: Montelukast Sodium (Singulair) 10 mg PO BEDTIME [facility] Last Admin: 08/08/20 20:04 Dose: 10 mg Documented by: Ondansetron HCl (Zofran) 4 mg IV Q6H PRN PRN Reason: Nausea/Vomiting Last Admin: 08/07/20 14:04 Dose: 4 mg Documented by: Ondansetron HCl (Zofran Odt) 4 mg PO Q6H PRN PRN Reason: Nausea able to take PO Last Admin: 08/09/20 10:45 Dose: 4 mg Documented by: Oxycodone HCl (Oxycodone) 5 - 10 mg PO Q4H PRN PRN Reason: Pain Last Admin: 08/09/20 09:31 Dose: 5 mg Documented by: Polyethylene Glycol (Miralax) 17 gm PO DAILY PRN PRN Reason: Constipation Senna/Docusate Sodium (Senna Plus) 1 tab PO BID [facility] Last Admin: 08/09/20 09:23 Dose: 1 tab Documented by: Senna/Docusate Sodium (Senna Plus) 1 tab PO BID PRN PRN Reason: Constipation Sertraline HCl (Zoloft) 100 mg PO DAILY [facility] Last Admin: 08/09/20 09:23 Dose: 100 mg Documented by: Sodium Chloride (Saline Flush) 10 ml FLUSH ASDIRECTED PRN PRN Reason: Keep Vein Open Last Admin: 08/05/20 02:08 Dose: 10 ml Documented by: Trazodone HCl (Trazodone) 50 mg PO BEDTIME PRN PRN Reason: Sleep Discontinued Medications Acetaminophen (Tylenol Extra Strength) 1,000 mg PO ONETIME ONE Stop: 08/05/20 03:08 Last Admin: 08/05/20 03:13 Dose: 1,000 mg Documented by: Bumetanide (Bumex) 2 mg IVPUSH ONETIME ONE Stop: 08/05/20 16:01 Last Admin: 08/05/20 15:06 Dose: 2 mg Documented by: Carvedilol (Coreg) 25 mg PO BIDMEALS [facility] Last Admin: 08/08/20 18:06 Dose: 25 mg Documented by: Dextrose/Water (Dextrose 50% In Water) 25 ml IVPUSH ONETIME ONE Stop: 08/05/20 22:31 Last Admin: 08/05/20 22:23 Dose: 25 ml Documented by: Diclofenac Sodium (Voltaren 1% Gel) 0 gm TOP QID [facility] Last Admin: 08/05/20 09:42 Dose: Not Given Documented by: Diclofenac Sodium (Voltaren 1% Gel) 0 gm TOP QID PRN PRN Reason: Pain Furosemide (Lasix) 40 mg IVPUSH NOW ONE Stop: 08/05/20 04:15 Last Admin: 08/05/20 04:48 Dose: 40 mg Documented by: Gabapentin (Neurontin) 600 mg PO TID [facility] Last Admin: 08/08/20 15:04 Dose: 600 mg Documented by: Lactated Ringer's (Ringers, Lactated) 1,000 mls @ 500 mls/hr IV ASDIRECTED [facility] Last Admin: 08/05/20 03:13 Dose: 500 mls/hr Documented by: Sodium Chloride (Normal Saline) 100 mls @ 3 mls/sec IV ASDIRECTED [facility] Last Admin: 08/05/20 02:36 Dose: 3 mls/sec Documented by: Influenza Virus Vaccine (Fluzone Quad Syringe) 60 mcg IM .ONCE ONE Stop: 08/05/20 09:01 Last Admin: 08/05/20 16:24 Dose: 60 mcg Documented by: Iopamidol (Isovue-370 (76%)) 100 ml IV . DIRECTED [facility] Last Admin: 08/05/20 02:36 Dose: 100 ml Documented by: Lorazepam (Ativan) 0.5 mg IVPUSH Q4H PRN PRN Reason: Nausea/Vomiting Last Admin: 08/07/20 21:16 Dose: 0.5 mg Documented by: Potassium Chloride (Klor-Con M20) 40 meq PO ONETIME ONE Stop: 08/05/20 04:53 Last Admin: 08/05/20 05:14 Dose: 40 meq Documented by: Sodium Chloride (Saline Flush) 10 ml FLUSH ONETIME ONE Stop: 08/05/20 02:10 Last Admin: 08/05/20 02:36 Dose: 10 ml Documented by: - Exam Quality Assessment: Supplemental Oxygen General: Alert, Oriented, Cooperative, No Acute Distress Lungs: Normal Respiratory Effort. No: Wheezing Cardiovascular: Regular Rate, Regular Rhythm GI/Abdominal Exam: Soft, No Distention Extremities: Pedal Edema. No: Increased Warmth Skin: Warm, Dry Psy/Mental Status: Alert, Normal Affect Sepsis Event Note - Evaluation Sepsis Screening Result: No Definite Risk - Focused Exam Vital Signs: Vital Signs Temp Pulse Resp BP BP BP Pulse Ox 08/09/20 12:26 99 08/09/20 10:36 36.2 C 88 18 121/76 97 08/09/20 09:22 118/77 08/09/20 07:35 99 08/09/20 07:31 35.5 C L 83 18 118/77 100 08/09/20 03:33 35.7 C L 83 17 118/77 97 08/09/20 01:22 95 - Problem List & Annotations (1) (HFpEF) heart failure with preserved ejection fraction SNOMED Code(s): 190294003 Code(s): I50.30 - UNSPECIFIED DIASTOLIC (CONGESTIVE) HEART FAILURE Status: Acute Current Visit: Yes Qualifiers: Heart failure chronicity: acute Qualified Code(s): I50.31 - Acute diastolic (congestive) heart failure (2) Acute respiratory failure with hypoxia SNOMED Code(s): 46248714, 719990785 Code(s): J96.01 - ACUTE RESPIRATORY FAILURE WITH HYPOXIA Status: Acute Current Visit: No (3) Acute kidney injury superimposed on chronic kidney disease SNOMED Code(s): 79986395 Code(s): N17.9 - ACUTE KIDNEY FAILURE, UNSPECIFIED; N18.9 - CHRONIC KIDNEY DISEASE, UNSPECIFIED Status: Acute Current Visit: Yes (4) Liver mass SNOMED Code(s): 528719898 Code(s): R16.0 - HEPATOMEGALY, NOT ELSEWHERE CLASSIFIED Status: Acute Current Visit: Yes (5) Type 1 diabetes mellitus SNOMED Code(s): 31502960 Code(s): E10.9 - TYPE 1 DIABETES MELLITUS WITHOUT COMPLICATIONS Status: Chronic Current Visit: No Qualifiers: Diabetes mellitus complication status: with neurologic complications Diabetes mellitus complication detail: with polyneuropathy Qualified Code(s): E10.42 - Type 1 diabetes mellitus with diabetic polyneuropathy - Problem List Review Problem List Initiated/Reviewed/Updated: Yes - My Orders Last 24 Hours: My Active Orders 08/09/20 12:27 Discontinue Telemetry Monitoring [Cardiac Monitoring Discontinue] [RC] Click to Edit Bumetanide [Bumex] 1 mg IVPUSH ONETIME ONE 08/09/20 16:30 GLUCOSE POC LAB TO COLLECT JPM [POC] QIDACANDBED 08/09/20 21:00 GLUCOSE POC LAB TO COLLECT JPM [POC] QIDACANDBED 08/10/20 05:00 BASIC METABOLIC PANEL,BMP [CHEM] Timed HGB [HEMOGLOBIN] [HEME] Timed VITAMIN D,25-HYDROXY [CHEM] Timed 08/10/20 07:30 GLUCOSE POC LAB TO COLLECT JPM [POC] QIDACANDBED 08/10/20 11:30 GLUCOSE POC LAB TO COLLECT JPM [POC] QIDACANDBED 08/10/20 16:30 GLUCOSE POC LAB TO COLLECT JPM [POC] QIDACANDBED 08/10/20 21:00 GLUCOSE POC LAB TO COLLECT JPM [POC] QIDACANDBED 08/11/20 07:30 GLUCOSE POC LAB TO COLLECT JPM [POC] QIDACANDBED 08/11/20 11:30 GLUCOSE POC LAB TO COLLECT JPM [POC] QIDACANDBED 08/11/20 16:30 GLUCOSE POC LAB TO COLLECT JPM [POC] QIDACANDBED - Plan Plan:: ASSESSMENT AND PLAN - Heart failure with preserved ejection fraction-complicated by acute respiratory failure with hypoxia. Diuretics on hold because of worsening renal function. Still has a fair amount of edema and may be even a little bit more. -Trial of bumetanide today -Supplement potassium to avoid hypokalemia -Hold Coreg because of progressive renal insufficiency -Supplement oxygen as needed Liver mass, left lobe-noted on several recent imaging studies. Outpatient MRI was recommended. Ultrasound done in [place] thought maybe this was a hemangioma. Insulin-dependent diabetes mellitus-sugars have been well controlled. -Lantus 30 units in the morning -Mealtime insulin -Low-dose sliding scale insulin Acute kidney injury superimposed on stage IIIb chronic kidney disease-creatinine is slightly better today and is down to 3.4. Suspect contrast-induced nephropathy. -Hold Coreg -Closely monitor urine output and renal function -Reassess renal function in a.m. Anxiety-longstanding history currently on Zoloft 100 mg daily -Lorazepam 0.5 mg p.o. every 4 hours as needed Maintenance issues - - DVT prophylaxis -mechanical - GI prophylaxis -not indicated - Nutrition -consistent carbohydrate Disposition -I would anticipate discharge home after the hospital stay Oscar Calderon MD
[2020-08-09] MEDS ORDERED: Bumetanide 1 MG/4 ML MDV IVPUSH ONE (12:35)
[2020-08-09] MEDS: LORazepam 0.5 MG Tab PO PRN ×2 (17:48→22:02)
[2020-08-09] MEDS: Montelukast 10 MG Tab PO SCH (21:24)
[2020-08-10] MEDS: Albuterol 0.083% 2.5 MG/3 ML Neb Soln NEB PRN ×2 (00:22→08:30)
[2020-08-10] MEDS: Acetaminophen 325 MG Tab PO PRN ×2 (04:24→08:25)
[2020-08-10] MEDS: LORazepam 0.5 MG Tab PO PRN ×5 (04:24→21:29)
[2020-08-10] MEDS: oxyCODONE 5 MG Tab PO PRN ×5 (04:25→21:27)
[2020-08-10] MEDS: Formoterol/Mometasone 200-5 MCG 8.8 GM Inhaler IH SCH ×2 (07:05→21:33)
[2020-08-10] MEDS: Insulin Lispro 100 Unit/ML 3 ML KwikPen SUBCUT SCH ×7 (08:26→21:31)
[2020-08-10] MEDS: Gabapentin 100 MG Cap PO SCH ×3 (08:51→21:33)
[2020-08-10] MEDS: Sertraline 50 MG Tab PO SCH (08:53)
[2020-08-10] MEDS: amLODIPine 5 MG Tab PO SCH (08:53)
[2020-08-10] MEDS: Insulin Glargine,Human Rec. Analog 100 Units/ML 3 ML Pen SUBCUT SCH (08:55)
[2020-08-10] MEDS ORDERED: Sodium Polystyrene Sulfonate 15 GM/60 ML Susp 60 ML Bot PO ONE (09:00)
[2020-08-10] MEDS ORDERED: Bumetanide 1 MG/4 ML MDV IVPUSH ONE (09:00)
--- NOTE | 2020-08-10 10:26 | PCM.PN ---
- General Info Date of Service: 08/10/20 Subjective Update: There were no acute events overnight. Vital signs have been relatively stable. She feels more short of breath today and has some chest tightness. Edema is a little better. Decent response to diuretics yesterday. No fevers. Still requiring supplemental oxygen. Kidney function is slightly better today. Potassium level is higher today. Functional Status: Reports: Pain Controlled, Tolerating Diet - Review of Systems General: Denies: Fever Pulmonary: Reports: Shortness of Breath - Patient Data Vitals - Most Recent: Last Vital Signs Temp 36.2 C 08/10/20 07:49 Pulse 82 08/10/20 07:49 Resp 18 08/10/20 07:49 BP 118/83 08/10/20 08:53 Pulse Ox 97 08/10/20 08:00 Weight - Most Recent: 76.657 kg I&O - Last 24 Hours: Intake & Output 08/09/20 08/10/20 08/10/20 22:59 06:59 14:59 Intake Total 1300 240 200 Output Total 1200 750 Balance 100 240 -550 Lab Results Last 24 Hours: Laboratory Results - last 24 hr 08/09/20 08/09/20 08/09/20 Range/Units 11:30 16:30 21:00 Hgb (12.0-15.0) g/dL Sodium (140-148) mmol/L Potassium (3.6-5.2) mmol/L Chloride (100-108) mmol/L Carbon Dioxide (21-32) mmol/L Anion Gap (5.0-14.0) mmol/L BUN (7-18) mg/dL Creatinine (0.6-1.0) mg/dL Est Cr Clr Drug Dosing mL/min Estimated GFR (MDRD) (>60) Glucose (74-106) mg/dL POC Glucose 149 H 199 H 104 (74-106) MG/DL Calcium (8.5-10.1) mg/dL Vitamin D 25-Hydroxy (30-100) ng/mL 08/10/20 08/10/20 08/10/20 Range/Units 00:14 01:10 05:30 Hgb 7.6 L (12.0-15.0) g/dL Sodium (140-148) mmol/L Potassium (3.6-5.2) mmol/L Chloride (100-108) mmol/L Carbon Dioxide (21-32) mmol/L Anion Gap (5.0-14.0) mmol/L BUN (7-18) mg/dL Creatinine (0.6-1.0) mg/dL Est Cr Clr Drug Dosing mL/min Estimated GFR (MDRD) (>60) Glucose (74-106) mg/dL POC Glucose 50 L 104 (74-106) MG/DL Calcium (8.5-10.1) mg/dL Vitamin D 25-Hydroxy (30-100) ng/mL 08/10/20 08/10/20 08/10/20 Range/Units 05:30 05:30 07:47 Hgb (12.0-15.0) g/dL Sodium 139 L (140-148) mmol/L Potassium 6.3 H* (3.6-5.2) mmol/L Chloride 107 (100-108) mmol/L Carbon Dioxide 24 (21-32) mmol/L Anion Gap 14.3 H (5.0-14.0) mmol/L BUN 43 H (7-18) mg/dL Creatinine 3.1 H (0.6-1.0) mg/dL Est Cr Clr Drug Dosing 23.71 mL/min Estimated GFR (MDRD) 18 L (>60) Glucose 170 H (74-106) mg/dL POC Glucose 175 H (74-106) MG/DL Calcium 8.4 L (8.5-10.1) mg/dL Vitamin D 25-Hydroxy 10.5 L (30-100) ng/mL Med Orders - Current: Current Medications Acetaminophen (Tylenol) 650 mg PO Q4H PRN PRN Reason: Pain (Mild 1-3)/fever Last Admin: 08/10/20 08:25 Dose: 650 mg Documented by: Albuterol (Proventil Neb Soln) 2.5 mg NEB Q4H PRN PRN Reason: Shortness Of Breath/wheezing Last Admin: 08/10/20 08:30 Dose: 2.5 mg Documented by: Amlodipine Besylate (Norvasc) 10 mg PO DAILY [facility] Last Admin: 08/10/20 08:53 Dose: 10 mg Documented by: Gabapentin (Neurontin) 200 mg PO TID [facility] Last Admin: 08/10/20 08:51 Dose: 200 mg Documented by: Insulin Human Lispro (Humalog) 0 unit SUBCUT TIDMEALS [facility] Last Admin: 08/10/20 08:56 Dose: Not Given Documented by: Insulin Human Lispro (Humalog) 0 unit SUBCUT QIDACANDBED [facility]; Protocol Last Admin: 08/10/20 08:26 Dose: 1 units Documented by: Lorazepam (Ativan) 0.5 mg PO Q4H PRN PRN Reason: Anxiety Last Admin: 08/10/20 08:48 Dose: 0.5 mg Documented by: Magnesium Hydroxide (Milk Of Magnesia) 30 ml PO Q12H PRN PRN Reason: Constipation Mometasone Furoate/Formoterol Fumar (Dulera 200-5 Mcg) 2 puff IH BIDRT [facility] Last Admin: 08/10/20 07:05 Dose: 2 puff Documented by: Montelukast Sodium (Singulair) 10 mg PO BEDTIME [facility] Last Admin: 08/09/20 21:24 Dose: 10 mg Documented by: Ondansetron HCl (Zofran) 4 mg IV Q6H PRN PRN Reason: Nausea/Vomiting Last Admin: 08/07/20 14:04 Dose: 4 mg Documented by: Ondansetron HCl (Zofran Odt) 4 mg PO Q6H PRN PRN Reason: Nausea able to take PO Last Admin: 08/09/20 19:56 Dose: 4 mg Documented by: Oxycodone HCl (Oxycodone) 5 - 10 mg PO Q4H PRN PRN Reason: Pain Last Admin: 08/10/20 08:25 Dose: 10 mg Documented by: Polyethylene Glycol (Miralax) 17 gm PO DAILY PRN PRN Reason: Constipation Senna/Docusate Sodium (Senna Plus) 1 tab PO BID [facility] Last Admin: 08/10/20 08:53 Dose: 1 tab Documented by: Senna/Docusate Sodium (Senna Plus) 1 tab PO BID PRN PRN Reason: Constipation Sertraline HCl (Zoloft) 100 mg PO DAILY [facility] Last Admin: 08/10/20 08:53 Dose: 100 mg Documented by: Sodium Chloride (Saline Flush) 10 ml FLUSH ASDIRECTED PRN PRN Reason: Keep Vein Open Last Admin: 08/05/20 02:08 Dose: 10 ml Documented by: Trazodone HCl (Trazodone) 50 mg PO BEDTIME PRN PRN Reason: Sleep Discontinued Medications Acetaminophen (Tylenol Extra Strength) 1,000 mg PO ONETIME ONE Stop: 08/05/20 03:08 Last Admin: 08/05/20 03:13 Dose: 1,000 mg Documented by: Bumetanide (Bumex) 2 mg IVPUSH ONETIME ONE Stop: 08/05/20 16:01 Last Admin: 08/05/20 15:06 Dose: 2 mg Documented by: Bumetanide (Bumex) 1 mg IVPUSH ONETIME ONE Stop: 08/09/20 12:36 Last Admin: 08/09/20 13:28 Dose: 1 mg Documented by: Bumetanide (Bumex) 2 mg IVPUSH ONETIME ONE Stop: 08/10/20 09:01 Last Admin: 08/10/20 08:36 Dose: 2 mg Documented by: Carvedilol (Coreg) 25 mg PO BIDMEALS [facility] Last Admin: 08/08/20 18:06 Dose: 25 mg Documented by: Dextrose/Water (Dextrose 50% In Water) 25 ml IVPUSH ONETIME ONE Stop: 08/05/20 22:31 Last Admin: 08/05/20 22:23 Dose: 25 ml Documented by: Diclofenac Sodium (Voltaren 1% Gel) 0 gm TOP QID [facility] Last Admin: 08/05/20 09:42 Dose: Not Given Documented by: Diclofenac Sodium (Voltaren 1% Gel) 0 gm TOP QID PRN PRN Reason: Pain Furosemide (Lasix) 40 mg IVPUSH NOW ONE Stop: 08/05/20 04:15 Last Admin: 08/05/20 04:48 Dose: 40 mg Documented by: Gabapentin (Neurontin) 600 mg PO TID [facility] Last Admin: 08/08/20 15:04 Dose: 600 mg Documented by: Lactated Ringer's (Ringers, Lactated) 1,000 mls @ 500 mls/hr IV ASDIRECTED [facility] Last Admin: 08/05/20 03:13 Dose: 500 mls/hr Documented by: Sodium Chloride (Normal Saline) 100 mls @ 3 mls/sec IV ASDIRECTED [facility] Last Admin: 08/05/20 02:36 Dose: 3 mls/sec Documented by: Influenza Virus Vaccine (Fluzone Quad Syringe) 60 mcg IM .ONCE ONE Stop: 08/05/20 09:01 Last Admin: 08/05/20 16:24 Dose: 60 mcg Documented by: Insulin Glargine (Lantus Solostar) 30 units SUBCUT DAILY [facility] Last Admin: 08/10/20 08:55 Dose: 30 units Documented by: Iopamidol (Isovue-370 (76%)) 100 ml IV . DIRECTED [facility] Last Admin: 08/05/20 02:36 Dose: 100 ml Documented by: Lorazepam (Ativan) 0.5 mg IVPUSH Q4H PRN PRN Reason: Nausea/Vomiting Last Admin: 08/07/20 21:16 Dose: 0.5 mg Documented by: Potassium Chloride (Klor-Con M20) 40 meq PO ONETIME ONE Stop: 08/05/20 04:53 Last Admin: 08/05/20 05:14 Dose: 40 meq Documented by: Sodium Chloride (Saline Flush) 10 ml FLUSH ONETIME ONE Stop: 08/05/20 02:10 Last Admin: 08/05/20 02:36 Dose: 10 ml Documented by: Sodium Polystyrene Sulfonate (Kayexalate) 30 gm PO ONETIME ONE Stop: 08/10/20 09:01 Last Admin: 08/10/20 08:45 Dose: 30 gm Documented by: - Exam Quality Assessment: Supplemental Oxygen General: Alert, Oriented, Cooperative, No Acute Distress Lungs: Normal Respiratory Effort, Decreased Breath Sounds (mild both bases), Crackles (few both bases) Cardiovascular: Regular Rate, Regular Rhythm GI/Abdominal Exam: Soft, No Distention Extremities: Pedal Edema. No: Increased Warmth Skin: Warm, Dry Psy/Mental Status: Alert, Normal Affect Sepsis Event Note - Evaluation Sepsis Screening Result: No Definite Risk - Focused Exam Vital Signs: Vital Signs Temp Pulse Resp BP BP BP Pulse Ox 08/10/20 08:53 118/83 08/10/20 08:00 08/10/20 07:49 36.2 C 82 18 118/83 97 08/10/20 03:00 35.5 C L 86 18 110/77 98 08/09/20 23:00 35.9 C L 85 15 100/68 97 Pulse Ox 08/10/20 08:53 12/30/20 08:00 97 08/10/20 07:49 08/10/20 03:00 08/09/20 23:00 - Problem List & Annotations (1) (HFpEF) heart failure with preserved ejection fraction SNOMED Code(s): 044970921 Code(s): I50.30 - UNSPECIFIED DIASTOLIC (CONGESTIVE) HEART FAILURE Status: Acute Current Visit: Yes Qualifiers: Heart failure chronicity: acute Qualified Code(s): I50.31 - Acute diastolic (congestive) heart failure (2) Acute respiratory failure with hypoxia SNOMED Code(s): 54372588, 696242822 Code(s): J96.01 - ACUTE RESPIRATORY FAILURE WITH HYPOXIA Status: Acute Current Visit: No (3) Acute kidney injury superimposed on chronic kidney disease SNOMED Code(s): 48227855 Code(s): N17.9 - ACUTE KIDNEY FAILURE, UNSPECIFIED; N18.9 - CHRONIC KIDNEY DISEASE, UNSPECIFIED Status: Acute Current Visit: Yes (4) Liver mass SNOMED Code(s): 881861764 Code(s): R16.0 - HEPATOMEGALY, NOT ELSEWHERE CLASSIFIED Status: Acute Current Visit: Yes (5) Type 1 diabetes mellitus SNOMED Code(s): 55368366 Code(s): E10.9 - TYPE 1 DIABETES MELLITUS WITHOUT COMPLICATIONS Status: Chronic Current Visit: No Qualifiers: Diabetes mellitus complication status: with neurologic complications Diabetes mellitus complication detail: with polyneuropathy Qualified Code(s): E10.42 - Type 1 diabetes mellitus with diabetic polyneuropathy - Problem List Review Problem List Initiated/Reviewed/Updated: Yes - My Orders Last 24 Hours: My Active Orders 08/09/20 12:27 Discontinue Telemetry Monitoring [Cardiac Monitoring Discontinue] [RC] Click to Edit 08/10/20 10:30 Cholecalciferol (Vitamin D3) [Vitamin D3] 50,000 unit PO MOWEFR 08/10/20 11:30 GLUCOSE POC LAB TO COLLECT JPM [POC] QIDACANDBED 08/10/20 14:00 POTASSIUM,K [CHEM] Timed 08/10/20 16:30 GLUCOSE POC LAB TO COLLECT JPM [POC] QIDACANDBED 08/10/20 21:00 GLUCOSE POC LAB TO COLLECT JPM [POC] QIDACANDBED 08/11/20 05:00 BASIC METABOLIC PANEL,BMP [CHEM] Timed CBC W/O DIFF,HEMOGRAM [HEME] Timed (1) 08/11/20 07:30 GLUCOSE POC LAB TO COLLECT JPM [POC] QIDACANDBED 08/11/20 09:00 Insulin Glarg,Human.Rec.Analog [LantUS Solostar] 25 units SUBCUT DAILY 08/11/20 11:30 GLUCOSE POC LAB TO COLLECT JPM [POC] QIDACANDBED 08/11/20 16:30 GLUCOSE POC LAB TO COLLECT JPM [POC] QIDACANDBED - Plan Plan:: ASSESSMENT AND PLAN - Heart failure with preserved ejection fraction-complicated by acute respiratory failure with hypoxia. Diuretics restarted yesterday. Decent response and kidney function is slightly better again today. -Bumetanide 2 mg this morning and reassess this afternoon -Hold Coreg because of progressive renal insufficiency -Supplement oxygen as needed Hyperkalemia-probably related to poor renal function. -Kayexalate 30 g x 1 this morning -Repeat potassium this afternoon Liver mass, left lobe-noted on several recent imaging studies. Outpatient MRI was recommended. Ultrasound done in [place] thought maybe this was a hemangioma. Insulin-dependent diabetes mellitus-sugars have been slightly low. -Lantus 25 units in the morning -Mealtime insulin -Low-dose sliding scale insulin Acute kidney injury superimposed on stage IIIb chronic kidney disease-creatinine is slightly better again today. Suspect contrast-induced nephropathy. -Hold Coreg -Closely monitor urine output and renal function -Reassess renal function in a.m. Anxiety-longstanding history currently on Zoloft 100 mg daily -Lorazepam 0.5 mg p.o. every 4 hours as needed Maintenance issues - - DVT prophylaxis -mechanical - GI prophylaxis -not indicated - Nutrition -consistent carbohydrate Disposition -I would anticipate discharge home after the hospital stay Oscar Calderon MD
[2020-08-10] MEDS: Cholecalciferol (Vitamin D3) 50,000 Unit Cap PO SCH (11:34)
[2020-08-10] MEDS: Montelukast 10 MG Tab PO SCH (21:33)
[2020-08-11] MEDS: LORazepam 0.5 MG Tab PO PRN ×4 (01:32→21:45)
[2020-08-11] MEDS: oxyCODONE 5 MG Tab PO PRN ×6 (01:32→22:53)
[2020-08-11] MEDS: Formoterol/Mometasone 200-5 MCG 8.8 GM Inhaler IH SCH ×2 (07:06→20:17)
[2020-08-11] MEDS: Albuterol 0.083% 2.5 MG/3 ML Neb Soln NEB PRN (07:54)
[2020-08-11] MEDS: Acetaminophen 325 MG Tab PO PRN ×2 (08:09→17:22)
[2020-08-11] MEDS: Insulin Lispro 100 Unit/ML 3 ML KwikPen SUBCUT SCH ×8 (09:48→21:39)
[2020-08-11] MEDS: Sertraline 50 MG Tab PO SCH (09:50)
[2020-08-11] MEDS: amLODIPine 5 MG Tab PO SCH (09:51)
[2020-08-11] MEDS: Gabapentin 100 MG Cap PO SCH ×3 (09:51→20:17)
[2020-08-11] MEDS: Bumetanide 2.5 MG/10 ML MDV IVPUSH SCH (09:53)
[2020-08-11] MEDS: Insulin Glargine,Human Rec. Analog 100 Units/ML 3 ML Pen SUBCUT SCH (09:59)
--- NOTE | 2020-08-11 16:54 | PCM.PN ---
- General Info Date of Service: 08/11/20 Subjective Update: No acute events overnight. Good response to diuresis yesterday with improvements in her edema and shortness of breath. She does continue to require supplemental oxygen but saturations have been improving. She feels better today than she had a couple of days ago. She did have a low blood sugar overnight but this responded well to juice. No nausea or abdominal pain. Kidney function slightly better again today. Functional Status: Reports: Pain Controlled, Tolerating Diet - Patient Data Vitals - Most Recent: Last Vital Signs Temp 35.7 C L 08/11/20 14:12 Pulse 102 H 08/11/20 14:12 Resp 18 08/11/20 14:12 BP 126/83 08/11/20 14:12 Pulse Ox 98 08/11/20 14:12 Weight - Most Recent: 76.929 kg I&O - Last 24 Hours: Intake & Output 08/11/20 08/11/20 08/11/20 06:59 14:59 22:59 Intake Total 700 960 Output Total 400 400 Balance 300 560 Lab Results Last 24 Hours: Laboratory Results - last 24 hr 08/10/20 08/11/20 08/11/20 Range/Units 21:00 01:41 02:20 WBC (4.5-11.0) K/uL RBC (3.30-5.50) M/uL Hgb (12.0-15.0) g/dL Hct (36.0-48.0) % MCV (80-98) fL MCH (27-31) pg MCHC (32-36) % Plt Count (150-400) K/uL Sodium (140-148) mmol/L Potassium (3.6-5.2) mmol/L Chloride (100-108) mmol/L Carbon Dioxide (21-32) mmol/L Anion Gap (5.0-14.0) mmol/L BUN (7-18) mg/dL Creatinine (0.6-1.0) mg/dL Est Cr Clr Drug Dosing mL/min Estimated GFR (MDRD) (>60) Glucose (74-106) mg/dL POC Glucose 81 46 L* 75 (74-106) MG/DL Calcium (8.5-10.1) mg/dL 08/11/20 08/11/20 08/11/20 Range/Units 05:00 05:00 07:30 WBC 7.6 (4.5-11.0) K/uL RBC 2.87 L (3.30-5.50) M/uL Hgb 7.8 L (12.0-15.0) g/dL Hct 25.9 L (36.0-48.0) % MCV 90 (80-98) fL MCH 27 (27-31) pg MCHC 30 L (32-36) % Plt Count 386 (150-400) K/uL Sodium 141 (140-148) mmol/L Potassium 4.8 (3.6-5.2) mmol/L Chloride 105 (100-108) mmol/L Carbon Dioxide 28 (21-32) mmol/L Anion Gap 8.4 (5.0-14.0) mmol/L BUN 41 H (7-18) mg/dL Creatinine 3.0 H (0.6-1.0) mg/dL Est Cr Clr Drug Dosing 24.50 mL/min Estimated GFR (MDRD) 19 L (>60) Glucose 74 (74-106) mg/dL POC Glucose 112 H (74-106) MG/DL Calcium 8.4 L (8.5-10.1) mg/dL 08/11/20 Range/Units 11:30 WBC (4.5-11.0) K/uL RBC (3.30-5.50) M/uL Hgb (12.0-15.0) g/dL Hct (36.0-48.0) % MCV (80-98) fL MCH (27-31) pg MCHC (32-36) % Plt Count (150-400) K/uL Sodium (140-148) mmol/L Potassium (3.6-5.2) mmol/L Chloride (100-108) mmol/L Carbon Dioxide (21-32) mmol/L Anion Gap (5.0-14.0) mmol/L BUN (7-18) mg/dL Creatinine (0.6-1.0) mg/dL Est Cr Clr Drug Dosing mL/min Estimated GFR (MDRD) (>60) Glucose (74-106) mg/dL POC Glucose 167 H (74-106) MG/DL Calcium (8.5-10.1) mg/dL Med Orders - Current: Current Medications Acetaminophen (Tylenol) 650 mg PO Q4H PRN PRN Reason: Pain (Mild 1-3)/fever Last Admin: 08/11/20 08:09 Dose: 650 mg Documented by: Albuterol (Proventil Neb Soln) 2.5 mg NEB Q4H PRN PRN Reason: Shortness Of Breath/wheezing Last Admin: 08/11/20 07:54 Dose: 2.5 mg Documented by: Amlodipine Besylate (Norvasc) 10 mg PO DAILY [facility] Last Admin: 08/11/20 09:51 Dose: 10 mg Documented by: Bumetanide (Bumex) 2 mg IVPUSH Q24H [facility] Last Admin: 08/11/20 09:53 Dose: 2 mg Documented by: Cholecalciferol (Vitamin D3) 50,000 unit PO MoWeFr@0900 [facility] Last Admin: 08/10/20 11:34 Dose: 50,000 unit Documented by: Gabapentin (Neurontin) 200 mg PO TID [facility] Last Admin: 08/11/20 14:18 Dose: 200 mg Documented by: Insulin Glargine (Lantus Solostar) 25 units SUBCUT DAILY [facility] Last Admin: 08/11/20 09:59 Dose: 25 units Documented by: Insulin Human Lispro (Humalog) 0 unit SUBCUT TIDMEALS [facility] Last Admin: 08/11/20 14:19 Dose: 2 units Documented by: Insulin Human Lispro (Humalog) 0 unit SUBCUT QIDACANDBED [facility]; Protocol Last Admin: 08/11/20 13:00 Dose: 1 units Documented by: Lorazepam (Ativan) 0.5 mg PO Q4H PRN PRN Reason: Anxiety Last Admin: 08/11/20 14:17 Dose: 0.5 mg Documented by: Magnesium Hydroxide (Milk Of Magnesia) 30 ml PO Q12H PRN PRN Reason: Constipation Mometasone Furoate/Formoterol Fumar (Dulera 200-5 Mcg) 2 puff IH BIDRT [facility] Last Admin: 08/11/20 07:06 Dose: 2 puff Documented by: Montelukast Sodium (Singulair) 10 mg PO BEDTIME [facility] Last Admin: 08/10/20 21:33 Dose: 10 mg Documented by: Ondansetron HCl (Zofran) 4 mg IV Q6H PRN PRN Reason: Nausea/Vomiting Last Admin: 08/07/20 14:04 Dose: 4 mg Documented by: Ondansetron HCl (Zofran Odt) 4 mg PO Q6H PRN PRN Reason: Nausea able to take PO Last Admin: 08/09/20 19:56 Dose: 4 mg Documented by: Oxycodone HCl (Oxycodone) 5 - 10 mg PO Q4H PRN PRN Reason: Pain Last Admin: 08/11/20 14:17 Dose: 10 mg Documented by: Polyethylene Glycol (Miralax) 17 gm PO DAILY PRN PRN Reason: Constipation Senna/Docusate Sodium (Senna Plus) 1 tab PO BID [facility] Last Admin: 08/11/20 09:51 Dose: 1 tab Documented by: Senna/Docusate Sodium (Senna Plus) 1 tab PO BID PRN PRN Reason: Constipation Sertraline HCl (Zoloft) 100 mg PO DAILY [facility] Last Admin: 08/11/20 09:50 Dose: 100 mg Documented by: Sodium Chloride (Saline Flush) 10 ml FLUSH ASDIRECTED PRN PRN Reason: Keep Vein Open Last Admin: 08/05/20 02:08 Dose: 10 ml Documented by: Trazodone HCl (Trazodone) 50 mg PO BEDTIME PRN PRN Reason: Sleep Discontinued Medications Acetaminophen (Tylenol Extra Strength) 1,000 mg PO ONETIME ONE Stop: 08/05/20 03:08 Last Admin: 08/05/20 03:13 Dose: 1,000 mg Documented by: Bumetanide (Bumex) 2 mg IVPUSH ONETIME ONE Stop: 08/05/20 16:01 Last Admin: 08/05/20 15:06 Dose: 2 mg Documented by: Bumetanide (Bumex) 1 mg IVPUSH ONETIME ONE Stop: 08/09/20 12:36 Last Admin: 08/09/20 13:28 Dose: 1 mg Documented by: Bumetanide (Bumex) 2 mg IVPUSH ONETIME ONE Stop: 08/10/20 09:01 Last Admin: 08/10/20 08:36 Dose: 2 mg Documented by: [facility] Admin: 08/08/20 18:06 Dose: 25 mg Documented by: Dextrose/Water (Dextrose 50% In Water) 25 ml IVPUSH ONETIME ONE Stop: 08/05/20 22:31 Last Admin: 08/05/20 22:23 Dose: 25 ml Documented by: Diclofenac Sodium (Voltaren 1% Gel) 0 gm TOP QID [facility] Last Admin: 08/05/20 09:42 Dose: Not Given Documented by: Diclofenac Sodium (Voltaren 1% Gel) 0 gm TOP QID PRN PRN Reason: Pain Furosemide (Lasix) 40 mg IVPUSH NOW ONE Stop: 08/05/20 04:15 Last Admin: 08/05/20 04:48 Dose: 40 mg Documented by: Gabapentin (Neurontin) 600 mg PO TID [facility] Last Admin: 08/08/20 15:04 Dose: 600 mg Documented by: Lactated Ringer's (Ringers, Lactated) 1,000 mls @ 500 mls/hr IV ASDIRECTED [facility] Last Admin: 08/05/20 03:13 Dose: 500 mls/hr Documented by: Sodium Chloride (Normal Saline) 100 mls @ 3 mls/sec IV ASDIRECTED [facility] Last Admin: 08/05/20 02:36 Dose: 3 mls/sec Documented by: Influenza Virus Vaccine (Fluzone Quad [id number] Syringe) 60 mcg IM .ONCE ONE Stop: 08/05/20 09:01 Last Admin: 08/05/20 16:24 Dose: 60 mcg Documented by: Insulin Glargine (Lantus Solostar) 30 units SUBCUT DAILY [facility] Last Admin: 08/10/20 08:55 Dose: 30 units Documented by: Iopamidol (Isovue-370 (76%)) 100 ml IV . DIRECTED [facility] Last Admin: 08/05/20 02:36 Dose: 100 ml Documented by: Lorazepam (Ativan) 0.5 mg IVPUSH Q4H PRN PRN Reason: Nausea/Vomiting Last Admin: 08/07/20 21:16 Dose: 0.5 mg Documented by: Potassium Chloride (Klor-Con M20) 40 meq PO ONETIME ONE Stop: 08/05/20 04:53 Last Admin: 08/05/20 05:14 Dose: 40 meq Documented by: Sodium Chloride (Saline Flush) 10 ml FLUSH ONETIME ONE Stop: 08/05/20 02:10 Last Admin: 08/05/20 02:36 Dose: 10 ml Documented by: Sodium Polystyrene Sulfonate (Kayexalate) 30 gm PO ONETIME ONE Stop: 08/10/20 09:01 Last Admin: 08/10/20 08:45 Dose: 30 gm Documented by: - Exam Quality Assessment: Supplemental Oxygen General: Alert, Oriented, Cooperative, No Acute Distress Neck: JVD Lungs: Clear to Auscultation, Normal Respiratory Effort Cardiovascular: Regular Rate, Regular Rhythm GI/Abdominal Exam: Soft, No Distention Extremities: Pedal Edema (Trace bilateral ankle edema). No: Increased Warmth Skin: Warm, Dry Psy/Mental Status: Alert, Normal Affect Sepsis Event Note - Evaluation Sepsis Screening Result: No Definite Risk - Focused Exam Vital Signs: Vital Signs Temp Temp Pulse Resp BP BP Pulse Ox 08/11/20 14:12 35.7 C L 102 H 18 126/83 98 08/11/20 12:11 36.0 C L 98 16 137/81 97 08/11/20 09:54 36.9 C 102 H 18 123/77 99 08/11/20 09:51 123/77 08/11/20 08:15 08/11/20 08:09 97 C H 08/11/20 08:01 36.1 C 99 18 133/82 99 08/11/20 07:00 36.4 C 98 18 125/74 96 08/11/20 05:45 98 Pulse Ox 08/11/20 14:12 08/11/20 12:11 08/11/20 09:54 08/11/20 09:51 08/11/20 08:15 97 08/11/20 08:09 08/11/20 08:01 08/11/20 07:00 08/11/20 05:45 - Problem List & Annotations (1) (HFpEF) heart failure with preserved ejection fraction SNOMED Code(s): 766420250 Code(s): I50.30 - UNSPECIFIED DIASTOLIC (CONGESTIVE) HEART FAILURE Status: Acute Current Visit: Yes Qualifiers: Heart failure chronicity: acute Qualified Code(s): I50.31 - Acute diastolic (congestive) heart failure (2) Acute respiratory failure with hypoxia SNOMED Code(s): 79942251, 935723198 Code(s): J96.01 - ACUTE RESPIRATORY FAILURE WITH HYPOXIA Status: Acute Current Visit: No (3) Acute kidney injury superimposed on chronic kidney disease SNOMED Code(s): 57006177 Code(s): N17.9 - ACUTE KIDNEY FAILURE, UNSPECIFIED; N18.9 - CHRONIC KIDNEY DISEASE, UNSPECIFIED Status: Acute Current Visit: Yes (4) Liver mass SNOMED Code(s): 383494594 Code(s): R16.0 - HEPATOMEGALY, NOT ELSEWHERE CLASSIFIED Status: Acute Current Visit: Yes (5) Type 1 diabetes mellitus SNOMED Code(s): 58204647 Code(s): E10.9 - TYPE 1 DIABETES MELLITUS WITHOUT COMPLICATIONS Status: Chronic Current Visit: No Qualifiers: Diabetes mellitus complication status: with neurologic complications Diabetes mellitus complication detail: with polyneuropathy Qualified Code(s): E10.42 - Type 1 diabetes mellitus with diabetic polyneuropathy - Problem List Review Problem List Initiated/Reviewed/Updated: Yes - My Orders Last 24 Hours: My Active Orders 08/10/20 Dinner Regular Diet [DIET] 08/11/20 09:00 Bumetanide [Bumex] 2 mg IVPUSH Q24H Insulin Glarg,Human.Rec.Analog [LantUS Solostar] 25 units SUBCUT DAILY 08/11/20 16:30 GLUCOSE POC LAB TO COLLECT JPM [POC] QIDACANDBED 08/12/20 05:00 BASIC METABOLIC PANEL,BMP [CHEM] Timed HGB [HEMOGLOBIN] [HEME] Timed 08/12/20 07:30 GLUCOSE POC LAB TO COLLECT JPM [POC] QIDACANDBED 08/12/20 11:30 GLUCOSE POC LAB TO COLLECT JPM [POC] QIDACANDBED 08/12/20 16:30 GLUCOSE POC LAB TO COLLECT JPM [POC] QIDACANDBED 08/12/20 21:00 GLUCOSE POC LAB TO COLLECT JPM [POC] QIDACANDBED 08/13/20 07:30 GLUCOSE POC LAB TO COLLECT JPM [POC] QIDACANDBED 08/13/20 11:30 GLUCOSE POC LAB TO COLLECT JPM [POC] QIDACANDBED 08/13/20 16:30 GLUCOSE POC LAB TO COLLECT JPM [POC] QIDACANDBED 08/13/20 21:00 GLUCOSE POC LAB TO COLLECT JPM [POC] QIDACANDBED 08/14/20 07:30 GLUCOSE POC LAB TO COLLECT JPM [POC] QIDACANDBED 08/14/20 11:30 GLUCOSE POC LAB TO COLLECT JPM [POC] QIDACANDBED 08/14/20 16:30 GLUCOSE POC LAB TO COLLECT JPM [POC] QIDACANDBED 08/14/20 21:00 GLUCOSE POC LAB TO COLLECT JPM [POC] QIDACANDBED 08/15/20 07:30 GLUCOSE POC LAB TO COLLECT JPM [POC] QIDACANDBED 08/15/20 11:30 GLUCOSE POC LAB TO COLLECT JPM [POC] QIDACANDBED 08/15/20 16:30 GLUCOSE POC LAB TO COLLECT JPM [POC] QIDACANDBED 08/15/20 21:00 GLUCOSE POC LAB TO COLLECT JPM [POC] QIDACANDBED 08/16/20 07:30 GLUCOSE POC LAB TO COLLECT JPM [POC] QIDACANDBED 08/16/20 11:30 GLUCOSE POC LAB TO COLLECT JPM [POC] QIDACANDBED 08/16/20 16:30 GLUCOSE POC LAB TO COLLECT JPM [POC] QIDACANDBED 08/16/20 21:00 GLUCOSE POC LAB TO COLLECT JPM [POC] QIDACANDBED - Plan Plan:: ASSESSMENT AND PLAN - Heart failure with preserved ejection fraction-complicated by acute respiratory failure with hypoxia. Tolerating diuresis with good response yesterday. Is a little better. Shortness of breath is better. -Bumetanide 2 mg this morning and reassess volume status daily -Hold Coreg because of progressive renal insufficiency -Supplement oxygen as needed Hyperkalemia-improved with Kayexalate yesterday. -Recheck in the morning Liver mass, left lobe-noted on several recent imaging studies. Outpatient MRI was recommended. Ultrasound done in [place] thought maybe this was a hemangioma. Insulin-dependent diabetes mellitus-sugar was slightly low again last night. First dose of the reduced dose of Lantus will start today. -Lantus 25 units in the morning -Mealtime insulin -Low-dose sliding scale insulin Acute kidney injury superimposed on stage IIIb chronic kidney disease-creatinine is slightly better again today. Suspect contrast-induced nephropathy. -Hold Coreg -Closely monitor urine output and renal function -Reassess renal function in a.m. Anxiety-longstanding history currently on Zoloft 100 mg daily -Lorazepam 0.5 mg p.o. every 4 hours as needed Maintenance issues - - DVT prophylaxis -mechanical - GI prophylaxis -not indicated - Nutrition -regular diet Disposition -I would anticipate discharge home after the hospital stay Oscar Calderon MD
[2020-08-11] MEDS: Montelukast 10 MG Tab PO SCH (20:17)
[2020-08-12] MEDS: oxyCODONE 5 MG Tab PO PRN ×5 (04:09→20:55)
[2020-08-12] MEDS: LORazepam 0.5 MG Tab PO PRN ×5 (04:10→23:17)
[2020-08-12] MEDS: Formoterol/Mometasone 200-5 MCG 8.8 GM Inhaler IH SCH ×2 (07:31→20:38)
[2020-08-12] MEDS: Magnesium Hydroxide 400 MG/5 ML Susp 30 ML Cup PO PRN (08:08)
[2020-08-12] MEDS: Gabapentin 100 MG Cap PO SCH ×3 (08:12→20:39)
[2020-08-12] MEDS: Cholecalciferol (Vitamin D3) 50,000 Unit Cap PO SCH (08:12)
[2020-08-12] MEDS: Sertraline 50 MG Tab PO SCH (08:12)
[2020-08-12] MEDS: amLODIPine 5 MG Tab PO SCH (08:12)
[2020-08-12] MEDS: Bumetanide 2.5 MG/10 ML MDV IVPUSH SCH (08:13)
[2020-08-12] MEDS: Insulin Lispro 100 Unit/ML 3 ML KwikPen SUBCUT SCH ×4 (08:21→17:39)
--- NOTE | 2020-08-12 09:38 | PCM.PN ---
- General Info Date of Service: 08/12/20 Subjective Update: No acute events overnight. Oxygen saturations are adequate on room air but she feels more comfortable with oxygen on. Still feels short of breath but thinks this is better. Still has some lower extremity edema but overall this seems to be improving. Appetite has not been great. She did have 1 low blood sugar last night. Creatinine is better again today. Vital signs have been stable. - Review of Systems General: Denies: Fever Pulmonary: Reports: Shortness of Breath Cardiovascular: Reports: Edema - Patient Data Vitals - Most Recent: Last Vital Signs Temp 36.1 C 08/12/20 07:34 Pulse 96 08/12/20 07:34 Resp 16 08/12/20 07:34 BP 130/80 08/12/20 08:12 Pulse Ox 99 08/12/20 07:34 Weight - Most Recent: 77.111 kg I&O - Last 24 Hours: Intake & Output 08/11/20 08/12/20 08/12/20 22:59 06:59 14:59 Intake Total 400 Output Total 400 350 Balance -400 50 Lab Results Last 24 Hours: Laboratory Results - last 24 hr 08/11/20 08/11/20 08/11/20 Range/Units 11:30 16:57 21:02 Hgb (12.0-15.0) g/dL Sodium (140-148) mmol/L Potassium (3.6-5.2) mmol/L Chloride (100-108) mmol/L Carbon Dioxide (21-32) mmol/L Anion Gap (5.0-14.0) mmol/L BUN (7-18) mg/dL Creatinine (0.6-1.0) mg/dL Est Cr Clr Drug Dosing mL/min Estimated GFR (MDRD) (>60) Glucose (74-106) mg/dL POC Glucose 167 H 156 H 96 (74-106) MG/DL Calcium (8.5-10.1) mg/dL 08/11/20 08/11/20 08/12/20 Range/Units 22:58 23:45 00:36 Hgb (12.0-15.0) g/dL Sodium (140-148) mmol/L Potassium (3.6-5.2) mmol/L Chloride (100-108) mmol/L Carbon Dioxide (21-32) mmol/L Anion Gap (5.0-14.0) mmol/L BUN (7-18) mg/dL Creatinine (0.6-1.0) mg/dL Est Cr Clr Drug Dosing mL/min Estimated GFR (MDRD) (>60) Glucose (74-106) mg/dL POC Glucose 50 L 82 74 (74-106) MG/DL Calcium (8.5-10.1) mg/dL 08/12/20 08/12/20 08/12/20 Range/Units 05:50 05:50 07:30 Hgb 8.1 L (12.0-15.0) g/dL Sodium 140 (140-148) mmol/L Potassium 4.9 (3.6-5.2) mmol/L Chloride 106 (100-108) mmol/L Carbon Dioxide 25 (21-32) mmol/L Anion Gap 8.6 (5.0-14.0) mmol/L BUN 41 H (7-18) mg/dL Creatinine 2.8 H (0.6-1.0) mg/dL Est Cr Clr Drug Dosing 26.25 mL/min Estimated GFR (MDRD) 20 L (>60) Glucose 172 H (74-106) mg/dL POC Glucose 137 H (74-106) MG/DL Calcium 8.7 (8.5-10.1) mg/dL Med Orders - Current: Current Medications Acetaminophen (Tylenol) 650 mg PO Q4H PRN PRN Reason: Pain (Mild 1-3)/fever Last Admin: 08/11/20 17:22 Dose: 650 mg Documented by: Albuterol (Proventil Neb Soln) 2.5 mg NEB Q4H PRN PRN Reason: Shortness Of Breath/wheezing Last Admin: 08/11/20 07:54 Dose: 2.5 mg Documented by: Amlodipine Besylate (Norvasc) 10 mg PO DAILY [facility] Last Admin: 08/12/20 08:12 Dose: 10 mg Documented by: Bumetanide (Bumex) 2 mg IVPUSH Q24H [facility] Last Admin: 08/12/20 08:13 Dose: 2 mg Documented by: Cholecalciferol (Vitamin D3) 50,000 unit PO MoWeFr@0900 [facility] Last Admin: 08/12/20 08:12 Dose: 50,000 unit Documented by: Gabapentin (Neurontin) 200 mg PO TID [facility] Last Admin: 08/12/20 08:12 Dose: 200 mg Documented by: Insulin Glargine (Lantus Solostar) 25 units SUBCUT DAILY [facility] Last Admin: 08/11/20 09:59 Dose: 25 units Documented by: Insulin Human Lispro (Humalog) 0 unit SUBCUT TIDMEALS [facility] Last Admin: 08/12/20 08:33 Dose: Not Given Documented by: Lorazepam (Ativan) 0.5 mg PO Q4H PRN PRN Reason: Anxiety Last Admin: 08/12/20 08:08 Dose: 0.5 mg Documented by: Magnesium Hydroxide (Milk Of Magnesia) 30 ml PO Q12H PRN PRN Reason: Constipation Last Admin: 08/12/20 08:08 Dose: 30 ml Documented by: Mometasone Furoate/Formoterol Fumar (Dulera 200-5 Mcg) 2 puff IH BIDRT [facility] Last Admin: 08/12/20 07:31 Dose: 2 puff Documented by: Montelukast Sodium (Singulair) 10 mg PO BEDTIME [facility] Last Admin: 08/11/20 20:17 Dose: 10 mg Documented by: Ondansetron HCl (Zofran) 4 mg IV Q6H PRN PRN Reason: Nausea/Vomiting Last Admin: 08/07/20 14:04 Dose: 4 mg Documented by: Ondansetron HCl (Zofran Odt) 4 mg PO Q6H PRN PRN Reason: Nausea able to take PO Last Admin: 08/09/20 19:56 Dose: 4 mg Documented by: Oxycodone HCl (Oxycodone) 5 - 10 mg PO Q4H PRN PRN Reason: Pain Last Admin: 08/12/20 08:07 Dose: 10 mg Documented by: Polyethylene Glycol (Miralax) 17 gm PO DAILY PRN PRN Reason: Constipation Last Admin: 08/12/20 08:08 Dose: 17 gm Documented by: Senna/Docusate Sodium (Senna Plus) 1 tab PO BID [facility] Last Admin: 08/12/20 08:12 Dose: 1 tab Documented by: Senna/Docusate Sodium (Senna Plus) 1 tab PO BID PRN PRN Reason: Constipation Sertraline HCl (Zoloft) 100 mg PO DAILY [facility] Last Admin: 08/12/20 08:12 Dose: 100 mg Documented by: Sodium Chloride (Saline Flush) 10 ml FLUSH ASDIRECTED PRN PRN Reason: Keep Vein Open Last Admin: 08/05/20 02:08 Dose: 10 ml Documented by: Trazodone HCl (Trazodone) 50 mg PO BEDTIME PRN PRN Reason: Sleep Discontinued Medications Acetaminophen (Tylenol Extra Strength) 1,000 mg PO ONETIME ONE Stop: 08/05/20 03:08 Last Admin: 08/05/20 03:13 Dose: 1,000 mg Documented by: Bumetanide (Bumex) 2 mg IVPUSH ONETIME ONE Stop: 08/05/20 16:01 Last Admin: 08/05/20 15:06 Dose: 2 mg Documented by: Bumetanide (Bumex) 1 mg IVPUSH ONETIME ONE Stop: 08/09/20 12:36 Last Admin: 08/09/20 13:28 Dose: 1 mg Documented by: Bumetanide (Bumex) 2 mg IVPUSH ONETIME ONE Stop: 08/10/20 09:01 Last Admin: 08/10/20 08:36 Dose: 2 mg Documented by: Carvedilol (Coreg) 25 mg PO BIDMEALS [facility] Last Admin: 08/08/20 18:06 Dose: 25 mg Documented by: Dextrose/Water (Dextrose 50% In Water) 25 ml IVPUSH ONETIME ONE Stop: 08/05/20 22:31 Last Admin: 08/05/20 22:23 Dose: 25 ml Documented by: Diclofenac Sodium (Voltaren 1% Gel) 0 gm TOP QID [facility] Last Admin: 08/05/20 09:42 Dose: Not Given Documented by: Diclofenac Sodium (Voltaren 1% Gel) 0 gm TOP QID PRN PRN Reason: Pain Furosemide (Lasix) 40 mg IVPUSH NOW ONE Stop: 08/05/20 04:15 Last Admin: 08/05/20 04:48 Dose: 40 mg Documented by: Gabapentin (Neurontin) 600 mg PO TID [facility] Last Admin: 08/08/20 15:04 Dose: 600 mg Documented by: Lactated Ringer's (Ringers, Lactated) 1,000 mls @ 500 mls/hr IV ASDIRECTED [facility] Last Admin: 08/05/20 03:13 Dose: 500 mls/hr Documented by: Sodium Chloride (Normal Saline) 100 mls @ 3 mls/sec IV ASDIRECTED [facility] Last Admin: 08/05/20 02:36 Dose: 3 mls/sec Documented by: Influenza Virus Vaccine (Fluzone Quad Syringe) 60 mcg IM .ONCE ONE Stop: 08/05/20 09:01 Last Admin: 08/05/20 16:24 Dose: 60 mcg Documented by: Insulin Glargine (Lantus Solostar) 30 units SUBCUT DAILY [facility] Last Admin: 08/10/20 08:55 Dose: 30 units Documented by: Insulin Human Lispro (Humalog) 0 unit SUBCUT QIDACANDBED [facility]; Protocol Last Admin: 08/12/20 08:21 Dose: Not Given Documented by: Iopamidol (Isovue-370 (76%)) 100 ml IV . DIRECTED [facility] Last Admin: 08/05/20 02:36 Dose: 100 ml Documented by: Lorazepam (Ativan) 0.5 mg IVPUSH Q4H PRN PRN Reason: Nausea/Vomiting Last Admin: 08/07/20 21:16 Dose: 0.5 mg Documented by: Potassium Chloride (Klor-Con M20) 40 meq PO ONETIME ONE Stop: 08/05/20 04:53 Last Admin: 08/05/20 05:14 Dose: 40 meq Documented by: Sodium Chloride (Saline Flush) 10 ml FLUSH ONETIME ONE Stop: 08/05/20 02:10 Last Admin: 08/05/20 02:36 Dose: 10 ml Documented by: Sodium Polystyrene Sulfonate (Kayexalate) 30 gm PO ONETIME ONE Stop: 08/10/20 09:01 Last Admin: 08/10/20 08:45 Dose: 30 gm Documented by: - Exam Quality Assessment: Supplemental Oxygen General: Alert, Oriented, Cooperative, No Acute Distress Lungs: Normal Respiratory Effort, Crackles (few left lung base) Cardiovascular: Regular Rate, Regular Rhythm GI/Abdominal Exam: Soft, No Distention Extremities: Pedal Edema. No: Increased Warmth Skin: Warm, Dry Psy/Mental Status: Alert, Normal Affect Sepsis Event Note - Evaluation Sepsis Screening Result: No Definite Risk - Focused Exam Vital Signs: Vital Signs Temp Pulse Resp BP BP Pulse Ox 08/12/20 08:12 130/80 08/12/20 07:34 36.1 C 96 16 130/80 99 08/12/20 02:24 95 08/12/20 02:22 37.5 C 90 18 118/74 97 08/11/20 22:56 95 08/11/20 22:51 35.2 C L 89 16 110/60 97 - Problem List & Annotations (1) (HFpEF) heart failure with preserved ejection fraction SNOMED Code(s): 163796639 Code(s): I50.30 - UNSPECIFIED DIASTOLIC (CONGESTIVE) HEART FAILURE Status: Acute Current Visit: Yes Qualifiers: Heart failure chronicity: acute Qualified Code(s): I50.31 - Acute diastolic (congestive) heart failure (2) Acute respiratory failure with hypoxia SNOMED Code(s): 94412883, 952651281 Code(s): J96.01 - ACUTE RESPIRATORY FAILURE WITH HYPOXIA Status: Acute Current Visit: No (3) Acute kidney injury superimposed on chronic kidney disease SNOMED Code(s): 33557409 Code(s): N17.9 - ACUTE KIDNEY FAILURE, UNSPECIFIED; N18.9 - CHRONIC KIDNEY DISEASE, UNSPECIFIED Status: Acute Current Visit: Yes (4) Liver mass SNOMED Code(s): 835628513 Code(s): R16.0 - HEPATOMEGALY, NOT ELSEWHERE CLASSIFIED Status: Acute Current Visit: Yes (5) Type 1 diabetes mellitus SNOMED Code(s): 06073720 Code(s): E10.9 - TYPE 1 DIABETES MELLITUS WITHOUT COMPLICATIONS Status: Chronic Current Visit: No Qualifiers: Diabetes mellitus complication status: with neurologic complications Diabetes mellitus complication detail: with polyneuropathy Qualified Code(s): E10.42 - Type 1 diabetes mellitus with diabetic polyneuropathy - Problem List Review Problem List Initiated/Reviewed/Updated: Yes - My Orders Last 24 Hours: My Active Orders 08/11/20 09:00 Bumetanide [Bumex] 2 mg IVPUSH Q24H Insulin Glarg,Human.Rec.Analog [LantUS Solostar] 25 units SUBCUT DAILY 08/12/20 11:30 GLUCOSE POC LAB TO COLLECT JPM [POC] QIDACANDBED 08/12/20 16:00 Bumetanide [Bumex] 2 mg IVPUSH ONETIME ONE 08/12/20 16:30 GLUCOSE POC LAB TO COLLECT JPM [POC] QIDACANDBED 08/12/20 21:00 GLUCOSE POC LAB TO COLLECT JPM [POC] QIDACANDBED 08/13/20 05:00 BASIC METABOLIC PANEL,BMP [CHEM] Timed 08/13/20 07:30 GLUCOSE POC LAB TO COLLECT JPM [POC] QIDACANDBED 08/13/20 11:30 GLUCOSE POC LAB TO COLLECT JPM [POC] QIDACANDBED 08/13/20 16:30 GLUCOSE POC LAB TO COLLECT JPM [POC] QIDACANDBED 08/13/20 21:00 GLUCOSE POC LAB TO COLLECT JPM [POC] QIDACANDBED 08/14/20 07:30 GLUCOSE POC LAB TO COLLECT JPM [POC] QIDACANDBED 08/14/20 11:30 GLUCOSE POC LAB TO COLLECT JPM [POC] QIDACANDBED 08/14/20 16:30 GLUCOSE POC LAB TO COLLECT JPM [POC] QIDACANDBED 08/14/20 21:00 GLUCOSE POC LAB TO COLLECT JPM [POC] QIDACANDBED 08/15/20 07:30 GLUCOSE POC LAB TO COLLECT JPM [POC] QIDACANDBED 08/15/20 11:30 GLUCOSE POC LAB TO COLLECT JPM [POC] QIDACANDBED 08/15/20 16:30 GLUCOSE POC LAB TO COLLECT JPM [POC] QIDACANDBED 08/15/20 21:00 GLUCOSE POC LAB TO COLLECT JPM [POC] QIDACANDBED 08/16/20 07:30 GLUCOSE POC LAB TO COLLECT JPM [POC] QIDACANDBED 08/16/20 11:30 GLUCOSE POC LAB TO COLLECT JPM [POC] QIDACANDBED 08/16/20 16:30 GLUCOSE POC LAB TO COLLECT JPM [POC] QIDACANDBED 08/16/20 21:00 GLUCOSE POC LAB TO COLLECT JPM [POC] QIDACANDBED - Plan Plan:: ASSESSMENT AND PLAN - Heart failure with preserved ejection fraction-complicated by acute respiratory failure with hypoxia. Tolerating diuresis and is responding well to bumetanide. Borderline hypoxia but in general off oxygen. Edema improving but persists. -Bumetanide 2 mg twice today -Hold Coreg because of progressive renal insufficiency -Supplement oxygen as needed Hyperkalemia-improved. -Recheck in the morning Liver mass, left lobe-noted on several recent imaging studies. Outpatient MRI was recommended. Ultrasound done in [place] thought maybe this was a hemangioma. Insulin-dependent diabetes mellitus-sugar was slightly low again last night. -Lantus 25 units in the morning -Mealtime insulin -Discontinue sliding scale Acute kidney injury superimposed on stage IIIb chronic kidney disease-creatinine has continued to trend down but remains elevated from baseline. -Hold Coreg -Closely monitor urine output and renal function -Reassess renal function in a.m. Anxiety-longstanding history currently on Zoloft 100 mg daily -Lorazepam 0.5 mg p.o. every 4 hours as needed Maintenance issues - - DVT prophylaxis -mechanical - GI prophylaxis -not indicated - Nutrition -regular diet Disposition -I would anticipate discharge home after the hospital stay Oscar Calderon MD
[2020-08-12] MEDS: Insulin Glargine,Human Rec. Analog 100 Units/ML 3 ML Pen SUBCUT SCH (09:41)
[2020-08-12] MEDS ORDERED: Bumetanide 1 MG/4 ML MDV IVPUSH ONE (16:00)
[2020-08-12] MEDS: Ondansetron 4 MG Tab.DIS PO PRN (16:52)
[2020-08-12] MEDS: Montelukast 10 MG Tab PO SCH (20:39)
[2020-08-13] MEDS: oxyCODONE 5 MG Tab PO PRN ×3 (01:08→09:12)
[2020-08-13] MEDS: LORazepam 0.5 MG Tab PO PRN ×4 (03:24→17:04)
[2020-08-13] MEDS: Formoterol/Mometasone 200-5 MCG 8.8 GM Inhaler IH SCH ×2 (07:26→20:04)
[2020-08-13] MEDS: Sertraline 50 MG Tab PO SCH (08:30)
[2020-08-13] MEDS: Bumetanide 2.5 MG/10 ML MDV IVPUSH SCH (08:30)
[2020-08-13] MEDS: Gabapentin 100 MG Cap PO SCH (08:30)
[2020-08-13] MEDS: amLODIPine 5 MG Tab PO SCH (08:30)
[2020-08-13] MEDS ORDERED: Insulin Glargine,Human Rec. Analog 100 Units/ML 3 ML Pen SUBCUT SCH (09:15)
[2020-08-13] MEDS: Insulin Lispro 100 Unit/ML 3 ML KwikPen SUBCUT SCH ×3 (10:23→17:24)
[2020-08-13] MEDS: Insulin Glargine,Human Rec. Analog 100 Units/ML 3 ML Pen SUBCUT SCH (10:44)
[2020-08-13] MEDS ORDERED: HYDROmorphone 0.5 MG/0.5 ML Syringe IVPUSH PRN (11:16)
--- NOTE | 2020-08-13 11:19 | PCM.PN ---
- General Info Date of Service: 08/13/20 Subjective Update: No acute events overnight. Patient reports that she is struggling with pain in the deep tissues and muscles of both of her legs up into the hip area. This has slowly been worsening during the course of the hospital stay. Pain has been keeping her from sleeping. No reports of cramping. It is a deep achy pain. She has not had any fevers. Respiratory status continues to improve. Excellent response to diuresis yesterday. Kidney function better again today. Functional Status: Denies: Pain Controlled - Review of Systems General: Denies: Fever Musculoskeletal: Reports: Leg Pain (muscle ) - Patient Data Vitals - Most Recent: Last Vital Signs Temp 36.1 C 08/13/20 11:00 Pulse 93 08/13/20 11:00 Resp 20 08/13/20 11:00 BP 134/82 08/13/20 11:00 Pulse Ox 100 08/13/20 11:00 Weight - Most Recent: 76.839 kg I&O - Last 24 Hours: Intake & Output 08/12/20 08/13/20 08/13/20 22:59 06:59 14:59 Intake Total 700 250 Output Total 1800 300 Balance -1800 400 250 Lab Results Last 24 Hours: Laboratory Results - last 24 hr 08/12/20 08/12/20 08/12/20 Range/Units 11:30 16:30 20:56 Sodium (140-148) mmol/L Potassium (3.6-5.2) mmol/L Chloride (100-108) mmol/L Carbon Dioxide (21-32) mmol/L Anion Gap (5.0-14.0) mmol/L BUN (7-18) mg/dL Creatinine (0.6-1.0) mg/dL Est Cr Clr Drug Dosing mL/min Estimated GFR (MDRD) (>60) Glucose (74-106) mg/dL POC Glucose 167 H 102 100 (74-106) MG/DL Calcium (8.5-10.1) mg/dL 08/13/20 08/13/20 Range/Units 05:45 07:30 Sodium 140 (140-148) mmol/L Potassium 4.9 (3.6-5.2) mmol/L Chloride 105 (100-108) mmol/L Carbon Dioxide 28 (21-32) mmol/L Anion Gap 7.3 (5.0-14.0) mmol/L BUN 39 H (7-18) mg/dL Creatinine 2.6 H (0.6-1.0) mg/dL Est Cr Clr Drug Dosing 28.27 mL/min Estimated GFR (MDRD) 22 L (>60) Glucose 128 H (74-106) mg/dL POC Glucose 75 (74-106) MG/DL Calcium 9.0 (8.5-10.1) mg/dL Med Orders - Current: Current Medications Acetaminophen (Tylenol) 650 mg PO Q4H PRN PRN Reason: Pain (Mild 1-3)/fever Last Admin: 08/11/20 17:22 Dose: 650 mg Documented by: Albuterol (Proventil Neb Soln) 2.5 mg NEB Q4H PRN PRN Reason: Shortness Of Breath/wheezing Last Admin: 08/11/20 07:54 Dose: 2.5 mg Documented by: Amlodipine Besylate (Norvasc) 10 mg PO DAILY [facility] Last Admin: 08/13/20 08:30 Dose: 10 mg Documented by: Bumetanide (Bumex) 2 mg IVPUSH Q24H [facility] Last Admin: 08/13/20 08:30 Dose: 2 mg Documented by: Cholecalciferol (Vitamin D3) 50,000 unit PO MoWeFr@0900 [facility] Last Admin: 08/12/20 08:12 Dose: 50,000 unit Documented by: Gabapentin (Neurontin) 300 mg PO TID [facility] Hydromorphone HCl (Dilaudid) 0.5 mg IVPUSH Q4H PRN PRN Reason: Pain (severe 7-10) Hydromorphone HCl (Dilaudid) 2 - 4 mg PO Q4H PRN PRN Reason: Pain Insulin Glargine (Lantus Solostar) 22 units SUBCUT DAILY [facility] Last Admin: 08/13/20 10:22 Dose: 22 units Documented by: Insulin Human Lispro (Humalog) 0 unit SUBCUT TIDMEALS [facility] Last Admin: 08/13/20 10:23 Dose: Not Given Documented by: Lorazepam (Ativan) 0.5 mg PO Q4H PRN PRN Reason: Anxiety Last Admin: 08/13/20 08:38 Dose: 0.5 mg Documented by: Magnesium Hydroxide (Milk Of Magnesia) 30 ml PO Q12H PRN PRN Reason: Constipation Last Admin: 08/12/20 08:08 Dose: 30 ml Documented by: Mometasone Furoate/Formoterol Fumar (Dulera 200-5 Mcg) 2 puff IH BIDRT [facility] Last Admin: 08/13/20 07:26 Dose: 2 puff Documented by: Montelukast Sodium (Singulair) 10 mg PO BEDTIME [facility] Last Admin: 08/12/20 20:39 Dose: 10 mg Documented by: Ondansetron HCl (Zofran) 4 mg IV Q6H PRN PRN Reason: Nausea/Vomiting Last Admin: 08/07/20 14:04 Dose: 4 mg Documented by: Ondansetron HCl (Zofran Odt) 4 mg PO Q6H PRN PRN Reason: Nausea able to take PO Last Admin: 08/12/20 16:52 Dose: 4 mg Documented by: Polyethylene Glycol (Miralax) 17 gm PO DAILY PRN PRN Reason: Constipation Last Admin: 08/12/20 08:08 Dose: 17 gm Documented by: Senna/Docusate Sodium (Senna Plus) 1 tab PO BID [facility] Last Admin: 08/13/20 08:30 Dose: 1 tab Documented by: Senna/Docusate Sodium (Senna Plus) 1 tab PO BID PRN PRN Reason: Constipation Sertraline HCl (Zoloft) 100 mg PO DAILY [facility] Last Admin: 08/13/20 08:30 Dose: 100 mg Documented by: Sodium Chloride (Saline Flush) 10 ml FLUSH ASDIRECTED PRN PRN Reason: Keep Vein Open Last Admin: 08/05/20 02:08 Dose: 10 ml Documented by: Trazodone HCl (Trazodone) 50 mg PO BEDTIME PRN PRN Reason: Sleep Discontinued Medications Acetaminophen (Tylenol Extra Strength) 1,000 mg PO ONETIME ONE Stop: 08/05/20 03:08 Last Admin: 08/05/20 03:13 Dose: 1,000 mg Documented by: Bumetanide (Bumex) 2 mg IVPUSH ONETIME ONE Stop: 08/05/20 16:01 Last Admin: 08/05/20 15:06 Dose: 2 mg Documented by: Bumetanide (Bumex) 1 mg IVPUSH ONETIME ONE Stop: 08/09/20 12:36 Last Admin: 08/09/20 13:28 Dose: 1 mg Documented by: Bumetanide (Bumex) 2 mg IVPUSH ONETIME ONE Stop: 08/10/20 09:01 Last Admin: 08/10/20 08:36 Dose: 2 mg Documented by: Bumetanide (Bumex) 2 mg IVPUSH ONETIME ONE Stop: 08/12/20 16:01 Last Admin: 08/12/20 15:21 Dose: 2 mg Documented by: Carvedilol (Coreg) 25 mg PO BIDMEALS [facility] Last Admin: 08/08/20 18:06 Dose: 25 mg Documented by: Dextrose/Water (Dextrose 50% In Water) 25 ml IVPUSH ONETIME ONE Stop: 08/05/20 22:31 Last Admin: 08/05/20 22:23 Dose: 25 ml Documented by: Diclofenac Sodium (Voltaren 1% Gel) 0 gm TOP QID [facility] Last Admin: 08/05/20 09:42 Dose: Not Given Documented by: Diclofenac Sodium (Voltaren 1% Gel) 0 gm TOP QID PRN PRN Reason: Pain Furosemide (Lasix) 40 mg IVPUSH NOW ONE Stop: 08/05/20 04:15 Last Admin: 08/05/20 04:48 Dose: 40 mg Documented by: Gabapentin (Neurontin) 600 mg PO TID [facility] Last Admin: 08/08/20 15:04 Dose: 600 mg Documented by: Gabapentin (Neurontin) 200 mg PO TID [facility] Last Admin: 08/13/20 08:30 Dose: 200 mg Documented by: Lactated Ringer's (Ringers, Lactated) 1,000 mls @ 500 mls/hr IV ASDIRECTED [facility] Last Admin: 08/05/20 03:13 Dose: 500 mls/hr Documented by: Sodium Chloride (Normal Saline) 100 mls @ 3 mls/sec IV ASDIRECTED [facility] Last Admin: 08/05/20 02:36 Dose: 3 mls/sec Documented by: Influenza Virus Vaccine (Fluzone Quad [id number] Syringe) 60 mcg IM .ONCE ONE Stop: 08/05/20 09:01 Last Admin: 08/05/20 16:24 Dose: 60 mcg Documented by: Insulin Glargine (Lantus Solostar) 30 units SUBCUT DAILY [facility] Last Admin: 08/10/20 08:55 Dose: 30 units Documented by: Insulin Glargine (Lantus Solostar) 25 units SUBCUT DAILY [facility] Last Admin: 08/13/20 10:44 Dose: Not Given Documented by: Insulin Human Lispro (Humalog) 0 unit SUBCUT QIDACANDBED [facility]; Protocol Last Admin: 08/12/20 08:21 Dose: Not Given Documented by: Iopamidol (Isovue-370 (76%)) 100 ml IV . DIRECTED [facility] Last Admin: 08/05/20 02:36 Dose: 100 ml Documented by: Lorazepam (Ativan) 0.5 mg IVPUSH Q4H PRN PRN Reason: Nausea/Vomiting Last Admin: 08/07/20 21:16 Dose: 0.5 mg Documented by: Oxycodone HCl (Oxycodone) 5 - 10 mg PO Q4H PRN PRN Reason: Pain Last Admin: 08/13/20 09:12 Dose: 10 mg Documented by: Potassium Chloride (Klor-Con M20) 40 meq PO ONETIME ONE Stop: 08/05/20 04:53 Last Admin: 08/05/20 05:14 Dose: 40 meq Documented by: Sodium Chloride (Saline Flush) 10 ml FLUSH ONETIME ONE Stop: 08/05/20 02:10 Last Admin: 08/05/20 02:36 Dose: 10 ml Documented by: Sodium Polystyrene Sulfonate (Kayexalate) 30 gm PO ONETIME ONE Stop: 08/10/20 09:01 Last Admin: 08/10/20 08:45 Dose: 30 gm Documented by: - Exam Quality Assessment: Supplemental Oxygen General: Alert, Oriented, Cooperative, Mild Distress Lungs: Normal Respiratory Effort. No: Wheezing Cardiovascular: Regular Rate, Regular Rhythm GI/Abdominal Exam: Soft, No Distention Extremities: No Pedal Edema, Other (tenderness with palpation of calf muscles and thigh muscles ). No: Increased Warmth Skin: Warm, Dry Psy/Mental Status: Alert, Normal Affect Sepsis Event Note - Evaluation Sepsis Screening Result: No Definite Risk - Focused Exam Vital Signs: Vital Signs Temp Pulse Resp BP BP Pulse Ox 08/13/20 11:00 36.1 C 93 20 134/82 100 01/02/21 08:30 118/82 08/13/20 07:00 35.0 C L 89 20 118/82 96 08/13/20 03:23 35.6 C L 93 20 133/85 94 L - Problem List & Annotations (1) (HFpEF) heart failure with preserved ejection fraction SNOMED Code(s): 976229642 Code(s): I50.30 - UNSPECIFIED DIASTOLIC (CONGESTIVE) HEART FAILURE Status: Acute Current Visit: Yes Qualifiers: Heart failure chronicity: acute Qualified Code(s): I50.31 - Acute diastolic (congestive) heart failure (2) Acute respiratory failure with hypoxia SNOMED Code(s): 52859633, 255966955 Code(s): J96.01 - ACUTE RESPIRATORY FAILURE WITH HYPOXIA Status: Acute Current Visit: No (3) Acute kidney injury superimposed on chronic kidney disease SNOMED Code(s): 09385809 Code(s): N17.9 - ACUTE KIDNEY FAILURE, UNSPECIFIED; N18.9 - CHRONIC KIDNEY DISEASE, UNSPECIFIED Status: Acute Current Visit: Yes (4) Liver mass SNOMED Code(s): 875065640 Code(s): R16.0 - HEPATOMEGALY, NOT ELSEWHERE CLASSIFIED Status: Acute Cu rrent Visit: Yes (5) Type 1 diabetes mellitus SNOMED Code(s): 20661822 Code(s): E10.9 - TYPE 1 DIABETES MELLITUS WITHOUT COMPLICATIONS Status: Chronic Current Visit: No Qualifiers: Diabetes mellitus complication status: with neurologic complications Diabetes mellitus complication detail: with polyneuropathy Qualified Code(s): E10.42 - Type 1 diabetes mellitus with diabetic polyneuropathy - Problem List Review Problem List Initiated/Reviewed/Updated: Yes - My Orders Last 24 Hours: My Active Orders 08/13/20 09:15 Insulin Glarg,Human.Rec.Analog [LantUS Solostar] 22 units SUBCUT DAILY 08/13/20 11:15 C-REACTIVE PROTEIN [CHEM] Routine CREATINE KINASE,CK [CHEM] Routine 08/13/20 11:16 HYDROmorphone [Dilaudid] 0.5 mg IVPUSH Q4H PRN HYDROmorphone [Dilaudid] 2 - 4 mg PO Q4H PRN 08/13/20 11:30 GLUCOSE POC LAB TO COLLECT JPM [POC] QIDACANDBED 08/13/20 14:00 Gabapentin [Neurontin] 300 mg PO TID 08/13/20 16:30 GLUCOSE POC LAB TO COLLECT JPM [POC] QIDACANDBED 08/13/20 21:00 GLUCOSE POC LAB TO COLLECT JPM [POC] QIDACANDBED 08/14/20 05:00 BASIC METABOLIC PANEL,BMP [CHEM] Timed CBC W/O DIFF,HEMOGRAM [HEME] Timed (1) 08/14/20 07:30 GLUCOSE POC LAB TO COLLECT JPM [POC] QIDACANDBED 08/14/20 11:30 GLUCOSE POC LAB TO COLLECT JPM [POC] QIDACANDBED 08/14/20 16:30 GLUCOSE POC LAB TO COLLECT JPM [POC] QIDACANDBED 08/14/20 21:00 GLUCOSE POC LAB TO COLLECT JPM [POC] QIDACANDBED 08/15/20 07:30 GLUCOSE POC LAB TO COLLECT JPM [POC] QIDACANDBED 08/15/20 11:30 GLUCOSE POC LAB TO COLLECT JPM [POC] QIDACANDBED 08/15/20 16:30 GLUCOSE POC LAB TO COLLECT JPM [POC] QIDACANDBED 08/15/20 21:00 GLUCOSE POC LAB TO COLLECT JPM [POC] QIDACANDBED 08/16/20 07:30 GLUCOSE POC LAB TO COLLECT JPM [POC] QIDACANDBED 08/16/20 11:30 GLUCOSE POC LAB TO COLLECT JPM [POC] QIDACANDBED 08/16/20 16:30 GLUCOSE POC LAB TO COLLECT JPM [POC] QIDACANDBED 08/16/20 21:00 GLUCOSE POC LAB TO COLLECT JPM [POC] QIDACANDBED - Plan Plan:: ASSESSMENT AND PLAN - Heart failure with preserved ejection fraction-complicated by acute respiratory failure with hypoxia. Slowly getting better with diuresis. I think we may be nearing the end of our diuresis. Vital signs have all been stable. -Bumetanide 2 mg once today -Hold Coreg because of progressive renal insufficiency -Supplement oxygen as needed Bilateral lower extremity pain-sounds like muscular pain more than neuropathic pain. CK level was normal. CRP is only mildly elevated. She was started on vitamin D supplementation for a very low vitamin D level just a few days ago. This may be because we reduced her gabapentin dose with her prior renal function decline. Exam is benign. -Increase gabapentin to 300 mg 3 times a day -Change pain medication to hydromorphone -Consider one-time dose of steroids Hyperkalemia-improved. -Recheck in the morning Liver mass, left lobe-noted on several recent imaging studies. Outpatient MRI was recommended. Ultrasound done in [place] thought maybe this was a hemangioma. Insulin-dependent diabetes mellitus-sugar was slightly low again this morning. -Lantus 22 units in the morning (dose decreased further) -Mealtime insulin Acute kidney injury superimposed on stage IIIb chronic kidney disease-creatinine has continued to improve but remains elevated at 2.6. -Hold Coreg -Closely monitor urine output and renal function -Reassess renal function in a.m. Anxiety-longstanding history currently on Zoloft 100 mg daily -Lorazepam 0.5 mg p.o. every 4 hours as needed Maintenance issues - - DVT prophylaxis -mechanical - GI prophylaxis -not indicated - Nutrition -regular diet Disposition -I would anticipate discharge home after the hospital stay Oscar Calderon MD
[2020-08-13] MEDS: HYDROmorphone 2 MG Tab PO PRN ×3 (11:44→20:04)
[2020-08-13] MEDS: Gabapentin 300 MG Cap PO SCH ×2 (14:51→20:05)
[2020-08-13] MEDS: Acetaminophen 325 MG Tab PO PRN (15:45)
[2020-08-13] MEDS: Magnesium Hydroxide 400 MG/5 ML Susp 30 ML Cup PO PRN (20:04)
[2020-08-13] MEDS: Montelukast 10 MG Tab PO SCH (20:05)
[2020-08-14] MEDS: HYDROmorphone 2 MG Tab PO PRN ×5 (00:05→23:29)
[2020-08-14] MEDS: LORazepam 0.5 MG Tab PO PRN ×4 (00:05→23:29)
[2020-08-14] MEDS: Albuterol 0.083% 2.5 MG/3 ML Neb Soln NEB PRN ×2 (06:42→15:35)
[2020-08-14] MEDS: Formoterol/Mometasone 200-5 MCG 8.8 GM Inhaler IH SCH ×2 (06:42→21:40)
[2020-08-14] MEDS: Bumetanide 2.5 MG/10 ML MDV IVPUSH SCH ×2 (06:49→08:52)
[2020-08-14] MEDS ORDERED: Sodium Polystyrene Sulfonate 15 GM/60 ML Susp 60 ML Bot PO STA (06:52)
[2020-08-14] MEDS: Ondansetron 4 MG/2 ML SDV IV PRN (06:59)
[2020-08-14] MEDS: Insulin Lispro 100 Unit/ML 3 ML KwikPen SUBCUT SCH ×3 (09:11→17:00)
[2020-08-14] MEDS: Insulin Glargine,Human Rec. Analog 100 Units/ML 3 ML Pen SUBCUT SCH (09:15)
--- NOTE | 2020-08-14 10:47 | PCM.PN ---
- General Info Date of Service: 08/14/20 Subjective Update: Overnight the patient had increasing difficulty with shortness of breath and she was noted to be hypoxic so her supplemental oxygen requirement was increased. She has developed a mild tachycardia. She continues to have significant pain involving her lower back and both of her legs. Blood sugar was low overnight but is moderately elevated today. Potassium this morning was noted to be 6.4 and she was given a dose of Kayexalate at that time. Kidney function is slightly worse today with a bump up to 2.8. Functional Status: Denies: Pain Controlled, Tolerating Diet - Review of Systems General: Reports: Weakness. Denies: Fever Pulmonary: Reports: Shortness of Breath Gastrointestinal: Reports: Abdominal Pain, Vomiting Musculoskeletal: Reports: Back Pain, Leg Pain - Patient Data Vitals - Most Recent: Last Vital Signs Temp 35.4 C L 08/14/20 07:59 Pulse 108 H 08/14/20 08:47 Resp 20 08/14/20 07:59 BP 129/71 08/14/20 07:59 Pulse Ox 94 L 08/14/20 08:47 Weight - Most Recent: 75.931 kg I&O - Last 24 Hours: Intake & Output 08/13/20 08/14/20 08/14/20 22:59 06:59 14:59 Intake Total 540 Output Total 700 800 900 Balance -160 -800 -900 Lab Results Last 24 Hours: Laboratory Results - last 24 hr 08/13/20 08/13/20 08/13/20 Range/Units 11:15 11:30 16:30 WBC (4.5-11.0) K/uL RBC (3.30-5.50) M/uL Hgb (12.0-15.0) g/dL Hct (36.0-48.0) % MCV (80-98) fL MCH (27-31) pg MCHC (32-36) % Plt Count (150-400) K/uL Sodium (140-148) mmol/L Potassium (3.6-5.2) mmol/L Chloride (100-108) mmol/L Carbon Dioxide (21-32) mmol/L Anion Gap (5.0-14.0) mmol/L BUN (7-18) mg/dL Creatinine (0.6-1.0) mg/dL Est Cr Clr Drug Dosing mL/min Estimated GFR (MDRD) (>60) Glucose (74-106) mg/dL POC Glucose 137 H 155 H (74-106) MG/DL Calcium (8.5-10.1) mg/dL Creatine Kinase 69 (26-192) U/L C-Reactive Protein 0.50 H (0.0-0.3) mg/dL 08/13/20 08/13/20 08/13/20 Range/Units 21:04 21:36 23:36 WBC (4.5-11.0) K/uL RBC (3.30-5.50) M/uL Hgb (12.0-15.0) g/dL Hct (36.0-48.0) % MCV (80-98) fL MCH (27-31) pg MCHC (32-36) % Plt Count (150-400) K/uL Sodium (140-148) mmol/L Potassium (3.6-5.2) mmol/L Chloride (100-108) mmol/L Carbon Dioxide (21-32) mmol/L Anion Gap (5.0-14.0) mmol/L BUN (7-18) mg/dL Creatinine (0.6-1.0) mg/dL Est Cr Clr Drug Dosing mL/min Estimated GFR (MDRD) (>60) Glucose (74-106) mg/dL POC Glucose 38 L* 99 50 L (74-106) MG/DL Calcium (8.5-10.1) mg/dL Creatine Kinase (26-192) U/L C-Reactive Protein (0.0-0.3) mg/dL 08/14/20 08/14/20 08/14/20 Range/Units 00:22 05:30 05:30 WBC 5.7 (4.5-11.0) K/uL RBC 3.10 L (3.30-5.50) M/uL Hgb 8.1 L (12.0-15.0) g/dL Hct 28.0 L (36.0-48.0) % MCV 90 (80-98) fL MCH 26 L (27-31) pg MCHC 29 L (32-36) % Plt Count 352 (150-400) K/uL Sodium 139 L (140-148) mmol/L Potassium 6.4 H* (3.6-5.2) mmol/L Chloride 104 (100-108) mmol/L Carbon Dioxide 29 (21-32) mmol/L Anion Gap 12.4 (5.0-14.0) mmol/L BUN 44 H (7-18) mg/dL Creatinine 2.8 H (0.6-1.0) mg/dL Est Cr Clr Drug Dosing 26.25 mL/min Estimated GFR (MDRD) 20 L (>60) Glucose 186 H (74-106) mg/dL POC Glucose 74 (74-106) MG/DL Calcium 9.0 (8.5-10.1) mg/dL Creatine Kinase (26-192) U/L C-Reactive Protein (0.0-0.3) mg/dL 08/14/20 Range/Units 07:30 WBC (4.5-11.0) K/uL RBC (3.30-5.50) M/uL Hgb (12.0-15.0) g/dL Hct (36.0-48.0) % MCV (80-98) fL MCH (27-31) pg MCHC (32-36) % Plt Count (150-400) K/uL Sodium (140-148) mmol/L Potassium (3.6-5.2) mmol/L Chloride (100-108) mmol/L Carbon Dioxide (21-32) mmol/L Anion Gap (5.0-14.0) mmol/L BUN (7-18) mg/dL Creatinine (0.6-1.0) mg/dL Est Cr Clr Drug Dosing mL/min Estimated GFR (MDRD) (>60) Glucose (74-106) mg/dL POC Glucose 267 H (74-106) MG/DL Calcium (8.5-10.1) mg/dL Creatine Kinase (26-192) U/L C-Reactive Protein (0.0-0.3) mg/dL Med Orders - Current: Current Medications Acetaminophen (Tylenol) 650 mg PO Q4H PRN PRN Reason: Pain (Mild 1-3)/fever Last Admin: 08/13/20 15:45 Dose: 650 mg Documented by: Albuterol (Proventil Neb Soln) 2.5 mg NEB Q4H PRN PRN Reason: Shortness Of Breath/wheezing Last Admin: 08/14/20 06:42 Dose: 2.5 mg Documented by: Amlodipine Besylate (Norvasc) 10 mg PO DAILY [facility] Last Admin: 08/13/20 08:30 Dose: 10 mg Documented by: Cholecalciferol (Vitamin D3) 50,000 unit PO MoWeFr@0900 [facility] Last Admin: 08/12/20 08:12 Dose: 50,000 unit Documented by: Gabapentin (Neurontin) 300 mg PO TID [facility] Last Admin: 08/13/20 20:05 Dose: 300 mg Documented by: Hydromorphone HCl (Dilaudid) 2 - 4 mg PO Q4H PRN PRN Reason: Pain Last Admin: 08/14/20 04:52 Dose: 4 mg Documented by: Hydromorphone HCl (Dilaudid) 0.5 mg IVPUSH Q2H PRN PRN Reason: Pain (severe 7-10) Insulin Glargine (Lantus Solostar) 18 units SUBCUT DAILY [facility] Last Admin: 08/14/20 09:15 Dose: 18 units Documented by: Insulin Human Lispro (Humalog) 0 unit SUBCUT TIDMEALS [facility] Last Admin: 08/14/20 09:11 Dose: Not Given Documented by: Lorazepam (Ativan) 0.5 mg PO Q4H PRN PRN Reason: Anxiety Last Admin: 08/14/20 06:00 Dose: 0.5 mg Documented by: Lorazepam (Ativan) 0.5 mg IVPUSH Q4H PRN PRN Reason: Anxiety or Nausea Magnesium Hydroxide (Milk Of Magnesia) 30 ml PO Q12H PRN PRN Reason: Constipation Last Admin: 08/13/20 20:04 Dose: 30 ml Documented by: Mometasone Furoate/Formoterol Fumar (Dulera 200-5 Mcg) 2 puff IH BIDRT [facility] Last Admin: 08/14/20 06:42 Dose: 2 puff Documented by: Montelukast Sodium (Singulair) 10 mg PO BEDTIME [facility] Last Admin: 08/13/20 20:05 Dose: 10 mg Documented by: Ondansetron HCl (Zofran) 4 mg IV Q6H PRN PRN Reason: Nausea/Vomiting Last Admin: 08/14/20 06:59 Dose: 4 mg Documented by: Ondansetron HCl (Zofran Odt) 4 mg PO Q6H PRN PRN Reason: Nausea able to take PO Last Admin: 08/12/20 16:52 Dose: 4 mg Documented by: Polyethylene Glycol (Miralax) 17 gm PO DAILY PRN PRN Reason: Constipation Last Admin: 08/12/20 08:08 Dose: 17 gm Documented by: Senna/Docusate Sodium (Senna Plus) 1 tab PO BID [facility] Last Admin: 08/13/20 20:05 Dose: 1 tab Documented by: Senna/Docusate Sodium (Senna Plus) 1 tab PO BID PRN PRN Reason: Constipation Last Admin: 08/13/20 15:45 Dose: 1 tab Documented by: Sertraline HCl (Zoloft) 100 mg PO DAILY [facility] Last Admin: 08/13/20 08:30 Dose: 100 mg Documented by: Sodium Chloride (Saline Flush) 10 ml FLUSH ASDIRECTED PRN PRN Reason: Keep Vein Open Last Admin: 08/05/20 02:08 Dose: 10 ml Documented by: Trazodone HCl (Trazodone) 50 mg PO BEDTIME PRN PRN Reason: Sleep Discontinued Medications Acetaminophen (Tylenol Extra Strength) 1,000 mg PO ONETIME ONE Stop: 08/05/20 03:08 Last Admin: 08/05/20 03:13 Dose: 1,000 mg Documented by: Bumetanide (Bumex) 2 mg IVPUSH ONETIME ONE Stop: 08/05/20 16:01 Last Admin: 08/05/20 15:06 Dose: 2 mg Documented by: Bumetanide (Bumex) 1 mg IVPUSH ONETIME ONE Stop: 08/09/20 12:36 Last Admin: 08/09/20 13:28 Dose: 1 mg Documented by: Bumetanide (Bumex) 2 mg IVPUSH ONETIME ONE Stop: 08/10/20 09:01 Last Admin: 08/10/20 08:36 Dose: 2 mg Documented by: Bumetanide (Bumex) 2 mg IVPUSH Q24H [facility] Last Admin: 08/14/20 08:52 Dose: Not Given Documented by: Bumetanide (Bumex) 2 mg IVPUSH ONETIME ONE Stop: 08/12/20 16:01 Last Admin: 08/12/20 15:21 Dose: 2 mg Documented by: Carvedilol (Coreg) 25 mg PO BIDMEALS [facility] Last Admin: 08/08/20 18:06 Dose: 25 mg Documented by: Dextrose/Water (Dextrose 50% In Water) 25 ml IVPUSH ONETIME ONE Stop: 08/05/20 22:31 Last Admin: 08/05/20 22:23 Dose: 25 ml Documented by: Diclofenac Sodium (Voltaren 1% Gel) 0 gm TOP QID [facility] Last Admin: 08/05/20 09:42 Dose: Not Given Documented by: Diclofenac Sodium (Voltaren 1% Gel) 0 gm TOP QID PRN PRN Reason: Pain Furosemide (Lasix) 40 mg IVPUSH NOW ONE Stop: 08/05/20 04:15 Last Admin: 08/05/20 04:48 Dose: 40 mg Documented by: Gabapentin (Neurontin) 600 mg PO TID [facility] Last Admin: 08/08/20 15:04 Dose: 600 mg Documented by: Gabapentin (Neurontin) 200 mg PO TID [facility] Last Admin: 08/13/20 08:30 Dose: 200 mg Documented by: Hydromorphone HCl (Dilaudid) 0.5 mg IVPUSH Q4H PRN PRN Reason: Pain (severe 7-10) Last Admin: 08/14/20 07:56 Dose: 0.5 mg Documented by: Lactated Ringer's (Ringers, Lactated) 1,000 mls @ 500 mls/hr IV ASDIRECTED [facility] Last Admin: 08/05/20 03:13 Dose: 500 mls/hr Documented by: Sodium Chloride (Normal Saline) 100 mls @ 3 mls/sec IV ASDIRECTED [facility] Last Admin: 08/05/20 02:36 Dose: 3 mls/sec Documented by: Influenza Virus Vaccine (Fluzone Quad [id number] Syringe) 60 mcg IM .ONCE ONE Stop: 08/05/20 09:01 Last Admin: 08/05/20 16:24 Dose: 60 mcg Documented by: Insulin Glargine (Lantus Solostar) 30 units SUBCUT DAILY [facility] Last Admin: 08/10/20 08:55 Dose: 30 units Documented by: Insulin Glargine (Lantus Solostar) 25 units SUBCUT DAILY [facility] Last Admin: 08/13/20 10:44 Dose: Not Given Documented by: Insulin Glargine (Lantus Solostar) 22 units SUBCUT DAILY [facility] Last Admin: 08/13/20 10:22 Dose: 22 units Documented by: Insulin Human Lispro (Humalog) 0 unit SUBCUT QIDACANDBED [facility]; Protocol Last Admin: 08/12/20 08:21 Dose: Not Given Documented by: Iopamidol (Isovue-370 (76%)) 100 ml IV . DIRECTED [facility] Last Admin: 08/05/20 02:36 Dose: 100 ml Documented by: Lorazepam (Ativan) 0.5 mg IVPUSH Q4H PRN PRN Reason: Nausea/Vomiting Last Admin: 08/07/20 21:16 Dose: 0.5 mg Documented by: Oxycodone HCl (Oxycodone) 5 - 10 mg PO Q4H PRN PRN Reason: Pain Last Admin: 08/13/20 09:12 Dose: 10 mg Documented by: Potassium Chloride (Klor-Con M20) 40 meq PO ONETIME ONE Stop: 08/05/20 04:53 Last Admin: 08/05/20 05:14 Dose: 40 meq Documented by: Sodium Chloride (Saline Flush) 10 ml FLUSH ONETIME ONE Stop: 08/05/20 02:10 Last Admin: 08/05/20 02:36 Dose: 10 ml Documented by: Sodium Polystyrene Sulfonate (Kayexalate) 30 gm PO ONETIME ONE Stop: 08/10/20 09:01 Last Admin: 08/10/20 08:45 Dose: 30 gm Documented by: Sodium Polystyrene Sulfonate (Kayexalate) 30 gm PO ONETIME STA Stop: 08/14/20 06:53 Last Admin: 08/14/20 07:11 Dose: 30 gm Documented by: - Exam Quality Assessment: Supplemental Oxygen General: Alert, Oriented, Cooperative, No Acute Distress Lungs: Normal Respiratory Effort, Crackles (few both bases) Cardiovascular: Regular Rhythm, Tachycardia GI/Abdominal Exam: Soft, No Distention, Tender Extremities: Pedal Edema (mild bilateral ankle edema ). No: Increased Warmth Skin: Warm, Dry Psy/Mental Status: Alert, Anxious Sepsis Event Note - Evaluation Sepsis Screening Result: Sepsis Risk - Focused Exam Vital Signs: Vital Signs Temp Pulse Resp BP Pulse Ox 08/14/20 08:47 108 H 94 L 08/14/20 07:59 35.4 C L 109 H 20 129/71 89 L 08/14/20 07:00 87 L 08/13/20 23:22 36.1 C 91 16 119/67 98 - Problem List & Annotations (1) (HFpEF) heart failure with preserved ejection fraction SNOMED Code(s): 410299918 Code(s): I50.30 - UNSPECIFIED DIASTOLIC (CONGESTIVE) HEART FAILURE Status: Acute Current Visit: Yes Qualifiers: Heart failure chronicity: acute Qualified Code(s): I50.31 - Acute diastolic (congestive) heart failure (2) Acute respiratory failure with hypoxia SNOMED Code(s): 87371540, 121694917 Code(s): J96.01 - ACUTE RESPIRATORY FAILURE WITH HYPOXIA Status: Acute Current Visit: No (3) Acute kidney injury superimposed on chronic kidney disease SNOMED Code(s): 39563106 Code(s): N17.9 - ACUTE KIDNEY FAILURE, UNSPECIFIED; N18.9 - CHRONIC KIDNEY DISEASE, UNSPECIFIED Status: Acute Current Visit: Yes (4) Liver mass SNOMED Code(s): 171761796 Code(s): R16.0 - HEPATOMEGALY, NOT ELSEWHERE CLASSIFIED Status: Acute Current Visit: Yes (5) Type 1 diabetes mellitus SNOMED Code(s): 47367283 Code(s): E10.9 - TYPE 1 DIABETES MELLITUS WITHOUT COMPLICATIONS Status: Chronic Current Visit: No Qualifiers: Diabetes mellitus complication status: with neurologic complications Diabetes mellitus complication detail: with polyneuropathy Qualified Code(s): E10.42 - Type 1 diabetes mellitus with diabetic polyneuropathy - Problem List Review Problem List Initiated/Reviewed/Updated: Yes - My Orders Last 24 Hours: My Active Orders 08/13/20 11:16 HYDROmorphone [Dilaudid] 2 - 4 mg PO Q4H PRN 08/13/20 14:00 Gabapentin [Neurontin] 300 mg PO TID 08/14/20 06:54 Chest 2V [CR] Stat 08/14/20 09:00 Insulin Glarg,Human.Rec.Analog [LantUS Solostar] 18 units SUBCUT DAILY 08/14/20 10:44 LORazepam [Ativan] 0.5 mg IVPUSH Q4H PRN 08/14/20 10:45 COVID-19/FLU A+B/RSV [MOLEC] Urgent 08/14/20 11:00 HYDROmorphone [Dilaudid] 0.5 mg IVPUSH Q2H PRN 08/14/20 11:30 GLUCOSE POC LAB TO COLLECT JPM [POC] QIDACANDBED 08/14/20 16:30 GLUCOSE POC LAB TO COLLECT JPM [POC] QIDACANDBED 08/14/20 21:00 GLUCOSE POC LAB TO COLLECT JPM [POC] QIDACANDBED 08/15/20 07:30 GLUCOSE POC LAB TO COLLECT JPM [POC] QIDACANDBED 08/15/20 11:30 GLUCOSE POC LAB TO COLLECT JPM [POC] QIDACANDBED 08/15/20 16:30 GLUCOSE POC LAB TO COLLECT JPM [POC] QIDACANDBED 08/15/20 21:00 GLUCOSE POC LAB TO COLLECT JPM [POC] QIDACANDBED 08/16/20 07:30 GLUCOSE POC LAB TO COLLECT JPM [POC] QIDACANDBED 08/16/20 11:30 GLUCOSE POC LAB TO COLLECT JPM [POC] QIDACANDBED 08/16/20 16:30 GLUCOSE POC LAB TO COLLECT JPM [POC] QIDACANDBED 08/16/20 21:00 GLUCOSE POC LAB TO COLLECT JPM [POC] QIDACANDBED - Plan Plan:: ASSESSMENT AND PLAN - Heart failure with preserved ejection fraction-complicated by acute respiratory failure with hypoxia. Slowly getting better with diuresis. Edema is better but she still has bilateral effusions. -Bumetanide 2 mg once today, reassess tomorrow morning -Hold Coreg because of progressive renal insufficiency -Supplement oxygen as needed Possible left lung pneumonia-subtle infiltrate noted on CT scan. She is not having fevers and her white count is normal but she does have an increase in her supplemental oxygen requirement. This may be related to pulmonary edema but I cannot rule out infection. -Start ceftriaxone and azithromycin Bilateral lower extremity pain-sounds like muscular pain more than neuropathic pain. CK level was normal. CRP is only mildly elevated. She was started on vitamin D supplementation for a very low vitamin D level just a few days ago. Pain persists. Exam benign. No obvious lumbar spine issues on the CT of the abdomen and pelvis. -Increase gabapentin to 300 mg 3 times a day -Change pain medication to hydromorphone -Consider one-time dose of steroids Hyperkalemia-recurrent hyperkalemia this morning. -Kayexalate given this morning -Recheck this afternoon, treat as indicated -Recheck in the morning Liver mass, left lobe-noted on several recent imaging studies. Outpatient MRI was recommended. Ultrasound done in [place] thought maybe this was a hemangioma. Insulin-dependent diabetes mellitus-sugar was slightly low again last night. -Lantus 18 units in the morning (dose decreased further) -Mealtime insulin Acute kidney injury superimposed on stage IIIb chronic kidney disease-creatinine has increased slightly overnight. -Hold Coreg -Closely monitor urine output and renal function -Reassess renal function in a.m. Anxiety-longstanding history currently on Zoloft 100 mg daily -Lorazepam 0.5 mg p.o. every 4 hours as needed Maintenance issues - - DVT prophylaxis -mechanical - GI prophylaxis -not indicated - Nutrition -regular diet Disposition -I would anticipate discharge home after the hospital stay Oscar Calderon MD
[2020-08-14] MEDS: Gabapentin 300 MG Cap PO SCH ×3 (10:49→21:41)
[2020-08-14] MEDS: amLODIPine 5 MG Tab PO SCH (10:49)
[2020-08-14] MEDS: Sertraline 50 MG Tab PO SCH (10:50)
[2020-08-14] MEDS: LORazepam 2 MG/ML SDV IVPUSH PRN ×2 (11:15→19:32)
[2020-08-14] MEDS: HYDROmorphone 0.5 MG/0.5 ML Syringe IVPUSH PRN ×2 (11:21→13:19)
[2020-08-14 11:38] LABS: CORONAVIRUS COVID-19 NAA NEGATIVE (NEGATIVE)
--- NOTE | 2020-08-14 14:00 | CRLCT ---
INDICATION: Left upper quadrant abdominal pain. Vomiting. TECHNIQUE: CT of the abdomen and pelvis performed without oral or IV contrast. COMPARISON: CT 06/09/2020. FINDINGS: Moderate subcutaneous edema in the abdomen and pelvic wall new and greatest in the back. Small nodule in the right lower anterior abdominal wall subcutaneous tissues new and should be benign. Small bilateral pleural effusions are larger and have over doubled in size compared to the prior exam. Patchy ground-glass and nodular infiltrates in both mid and lower lungs have changed variably with previously existing dense lower lobe infiltrates largely resolving. Dense infiltrate in the left lower lobe medially which is likely new. Ground-glass and nodular infiltrates today are more diffuse. Moderate interlobular septal thickening in the lower lungs. The pleural fluid and interlobular septal thickening would suggest a component of pulmonary edema/CHF however the infiltrates which are more dense and nodular would suggest a superimposed infectious etiology such as a pneumonia especially in the left lower lobe. Clinical and laboratory correlation recommended as well as followup imaging to reassess for resolution. Solid low-density lesion in the right hepatic lobe is stable in size measuring 1.4 cm on image 61 but cannot be further characterized today without IV contrast. This is the lesion that was noted to be enhancing peripheral low density prior CT. Follow-up CT or MRI of the liver with liver mass protocol could further characterize this lesion. Small pericardial effusion. Increased number of reactive appearing bilateral inguinal lymph nodes. Cystic lesion or follicle in the right ovary larger than the right ovarian cystic lesion seen previously. This right ovarian cystic lesion today measures 3.2 cm. Small to moderate amounts of stool in the colon. Remainder negative. IMPRESSION: 1. No acute disease in abdomen or pelvis. 2. Small bilateral pleural effusions are larger than on May 2020 with nodular, ground-glass, and dense infiltrates in the mid and lower lungs which have changed variably since the prior exam. Moderate interlobular septal thickening in the lungs. Findings should be in part related to CHF/pulmonary edema however the more dense infiltrate in the left lower lobe and the nodular areas of infiltrate in both lungs would suggest a superimposed infectious etiology such as pneumonia. Clinical and laboratory correlation as well as follow-up imaging recommended. 3. New moderate subcutaneous edema in the abdomen and pelvis. 4. Small pericardial effusion. 5. 1.4 cm solid indeterminate lesion in the right hepatic lobe is unchanged in size and is the enhancing lesion that was described on previous CT. This lesion could be further characterized by a followup CT or MRI using liver mass protocol. 6. 3.2 cm physiologic cyst or follicle right ovary. 7. Moderate amount stool in the colon. Please note that all CT scans at this facility use dose modulation, iterative reconstruction, and/or weight-based dosing when appropriate to reduce radiation dose to as low as reasonably achievable. Dictated by Neftali Austin MD @ Aug 14 2020 1:54PM Signed by Dr. Neftali Austin @ Aug 14 2020 1:58PM
[2020-08-14] MEDS: cefTRIAXone 1 GM in Sodium Chloride 0.9% 50 ML IV SCH (14:55)
[2020-08-14] MEDS: Ondansetron 4 MG Tab.DIS PO PRN (15:21)
[2020-08-14] MEDS: Azithromycin 500 MG in Sodium Chloride 0.9% 250 ML IV SCH (15:36)
[2020-08-14] MEDS: hydrOXYzine HCL 100 MG/2 ML SDV IM PRN (16:55)
[2020-08-14] MEDS: Montelukast 10 MG Tab PO SCH (21:42)
[2020-08-14] MEDS: Lactobacillus Rhamnosus GG (Probiotic) Cap PO SCH (21:43)
[2020-08-15] MEDS: Acetaminophen 325 MG Tab PO PRN (00:21)
[2020-08-15] MEDS: hydrOXYzine HCL 100 MG/2 ML SDV IM PRN ×2 (00:21→09:39)
[2020-08-15] MEDS: Formoterol/Mometasone 200-5 MCG 8.8 GM Inhaler IH SCH (07:14)
[2020-08-15] MEDS: LORazepam 2 MG/ML SDV IVPUSH PRN ×2 (07:32→12:53)
[2020-08-15] MEDS: HYDROmorphone 2 MG Tab PO PRN (07:33)
[2020-08-15] MEDS: Lactobacillus Rhamnosus GG (Probiotic) Cap PO SCH (08:37)
[2020-08-15] MEDS: Gabapentin 300 MG Cap PO SCH ×2 (08:38→13:32)
[2020-08-15] MEDS: Sertraline 50 MG Tab PO SCH (08:38)
[2020-08-15] MEDS: amLODIPine 5 MG Tab PO SCH (08:38)
[2020-08-15] MEDS: Insulin Lispro 100 Unit/ML 3 ML KwikPen SUBCUT SCH ×2 (08:53→12:54)
[2020-08-15] MEDS: Insulin Glargine,Human Rec. Analog 100 Units/ML 3 ML Pen SUBCUT SCH (09:20)
[2020-08-15] MEDS: Ondansetron 4 MG Tab.DIS PO PRN (09:27)
[2020-08-15] MEDS: Cholecalciferol (Vitamin D3) 50,000 Unit Cap PO SCH (11:37)
[2020-08-15] MEDS: HYDROmorphone 0.5 MG/0.5 ML Syringe IVPUSH PRN ×2 (12:07→14:55)
--- NOTE | 2020-08-15 12:07 | US ---
VL Duplex Lwr Ext Veins Comp HISTORY: Bilateral leg edema FINDINGS: The deep veins of the both lower extremities demonstrate normal augmentation and compressibility. No evidence for deep venous thrombosis. IMPRESSION: Normal bilateral lower extremity venous Doppler study.
[2020-08-15] MEDS ORDERED: Bumetanide 1 MG/4 ML MDV IVPUSH ONE (12:31)
--- NOTE | 2020-08-15 13:28 | CR ---
CHEST: 2 view CLINICAL HISTORY:Hypoxia COMPARISON:CT 08/05/2020 FINDINGS: Patient has persistent diffuse bilateral pulmonary infiltrates and groundglass opacifications. These have increased slightly since 08/05/2020 there are no effusions. IMPRESSION: There has been a slight increase in density of bilateral infiltrates and groundglass opacities
--- NOTE | 2020-08-15 13:29 | PCM.DCSUM1 ---
Discharge Summary - Hospital Course Brief History: Ms. Goss is a 25-year-old woman who was admitted through the emergency department with ongoing shortness of breath and hypoxia, secondary to pulmonary infiltrates and pulmonary edema. - Discharge Data Discharge Date: 08/15/20 Discharge Disposition: Home, Self-Care 01 Condition: Stable - Referral to Home Health Primary Care Physician: PCP None - Discharge Diagnosis/Problem(s) (1) Hyperkalemia SNOMED Code(s): 11804087 ICD Code: E87.5 - HYPERKALEMIA Status: Acute Current Visit: Yes (2) Anemia SNOMED Code(s): 186626986 ICD Code: D64.9 - ANEMIA, UNSPECIFIED Status: Acute Current Visit: Yes Qualifiers: Anemia type: unspecified type Qualified Code(s): D64.9 - Anemia, unspecified (3) Pulmonary edema SNOMED Code(s): 89794753 ICD Code: J81.1 - CHRONIC PULMONARY EDEMA Status: Acute Current Visit: Yes Qualifiers: Chronicity: acute Qualified Code(s): J81.0 - Acute pulmonary edema (4) Hypoxia SNOMED Code(s): 568372756 ICD Code: R09.02 - HYPOXEMIA Status: Acute Current Visit: Yes (5) Liver mass SNOMED Code(s): 200381424 ICD Code: R16.0 - HEPATOMEGALY, NOT ELSEWHERE CLASSIFIED Status: Acute Current Visit: Yes (6) Acute kidney injury superimposed on chronic kidney disease SNOMED Code(s): 37832734 ICD Code: N17.9 - ACUTE KIDNEY FAILURE, UNSPECIFIED; N18.9 - CHRONIC KIDNEY DISEASE, UNSPECIFIED Status: Acute Current Visit: Yes (7) Pneumonia SNOMED Code(s): 252401338 ICD Code: J18.9 - PNEUMONIA, UNSPECIFIED ORGANISM Status: Acute Current Visit: No Qualifiers: Pneumonia type: due to unspecified organism Laterality: left Lung location: lower lobe of lung Qualified Code(s): J18.9 - Pneumonia, unspecified organism (8) Type 1 diabetes mellitus SNOMED Code(s): 19171246 ICD Code: E10.9 - TYPE 1 DIABETES MELLITUS WITHOUT COMPLICATIONS Status: Chronic Current Visit: No Qualifiers: Diabetes mellitus complication status: with neurologic complications Diab etes mellitus complication detail: with polyneuropathy Qualified Code(s): E10.42 - Type 1 diabetes mellitus with diabetic polyneuropathy (9) IRIS (generalized anxiety disorder) SNOMED Code(s): 55316048 ICD Code: F41.1 - GENERALIZED ANXIETY DISORDER Status: Chronic Current Visit: No - Patient Summary/Data Consults: Consultations 08/05/20 04:52 PT Evaluation and Treatment [CONS] Routine Please Evaluate and Treat. PT Reason for Consult: Strengthening This query below is only for informational purposes and is not editable. Hospital Course: Ms. Goss presented to the emergency room with progressive shortness of breath. She was recently admitted to [facility] for management of bilateral pneumonia complicated by respiratory failure. She had a PEA arrest while she was in the hospital. She was discharged 4 days ago and initially thought she was starting to improve but then has since gone downhill. She has noticed progressive dyspnea especially with any activity. She is short of breath after climbing only 5 stairs and has to stop to rest. She has had orthopnea for the past 2 nights. She has noticed increasing swelling in her hands and her lower legs. She does continue to have some chest discomfort that has been present since she had CPR but this is steadily getting better. Work-up in the emergency room revealed bilateral pleural effusions and pulmonary edema on CT scan of the chest, there was no evidence of pulmonary emboli.. She is hypoxic and requires supplemental oxygen. Creatinine is 2.3 which is close to her recent baseline. As of evidence of fluid overload she was given diuretic therapy in the first day of hospitalization but had only minimal diuresis. Over the first several days of hospitalization her creatinine slowly increased and maxed at 3.6. Because of worsening creatinine renal ultrasound was obtained and showed no evidence of obstruction or hydronephrosis. Urinalysis was repeated and showed no evidence of underlying infection or active sediment. Diuresis was held because of progressive increase in creatinine. She remained hypoxic and continued to require 4 L of oxygen via nasal cannula to maintain adequate oxygenation. Creatinine did start to slowly improve and attempts at diuresis were restarted. She had relatively good urine output and resolution of her peripheral edema. Unfortunately on 14 August she noted a downturn in respiratory status and required higher levels of supplementary oxygen again, back to 4 L/min via nasal cannula. She also began to experience symptoms of lo wer extremity pain and lower back pain. CK level was obtained and found to be within normal range. Venous Doppler studies were obtained of both lower extremities and showed no evidence of deep vein thrombosis. CT scan of the abdomen and pelvis was obtained it did confirm area of possible mass in the right lobe of the liver which will need to be followed up with CT scan or MRI with mass protocol. It also showed new infiltrate in the left lower lobe and increase in bilateral pleural effusions. Started on antibiotic therapy to cover for possible bacterial pneumonia. Renal function had improved steadily but seemed to stall with creatinine in the range of 2.6-2.8 over the past few days. She had 2 episodes of hyperkalemia and was treated with Kayexalate. On the day of discharge hemoglobin had dropped below 7 so she was transfused 1 unit of red blood cells. Because of her multiple abnormalities and lack of significant improvement over the past several days of hospitalization, she will be transferred to a tertiary care center at [facility] in [facility] for further subspecialty evaluation and management. I reviewed this with both the patient and her father was present and they are in agreement with the transfer. She has been accepted in transfer by Dr. Shiv Lopez at [facility] in [facility]. - Patient Instructions Diet: Low Sodium, Diabetic Diet Activity: As Tolerated Other/Special Instructions: Patient will be transferred via [facility] ambulance to [facility] in [facility], for further subspecialty evaluation and management. - Discharge Plan *PRESCRIPTION DRUG MONITORING PROGRAM REVIEWED*: Not Applicable *COPY OF PRESCRIPTION DRUG MONITORING REPORT IN PATIENT HANY: Not Applicable Home Medications: Home Meds Albuterol Sulfate [Proair Hfa] 2 puff INH ASDIRECTED 06/09/20 [History] Insulin Aspart [NovoLOG] 0 unit SUBCUT ASDIRECTED 06/09/20 [History] Multivitamin [Multivitamins] 1 cap PO DAILY 06/09/20 [History] SUMAtriptan [Imitrex] 25 mg PO ASDIRECTED 06/09/20 [History] Sertraline [Zoloft] 100 mg PO DAILY 06/09/20 [History] ondansetron HCL [Zofran] 4 mg PO Q8H PRN 06/09/20 [History] traZODone HCl [Trazodone HCl] 50 - 100 mg PO BEDTIME PRN 06/09/20 [History] Fluticasone Propion/Salmeterol [Wixela 250-50 Inhub] 1 puff IH BID 08/05/20 [History] Iron Polysaccharide Complex [Poly-Iron] 150 mg PO DAILY 08/05/20 [History] Montelukast Sodium [Singulair] 10 mg PO BEDTIME 08/05/20 [History] Sennosides/Docusate Sodium [Stimulant Laxative Plus Tablet] 1 each PO BID 08/05/20 [History] amLODIPine Besylate [Amlodipine Besylate] 10 mg PO DAILY 08/05/20 [History] Azithromycin [Zithromax] 500 mg IV Q24H vial 08/15/20 [Rx] Insulin Glargine,Hum.Rec.Anlog [Lantus Solostar] 17 units SUBCUT DAILY #0 08/15/20 [Rx] Lactobacillus Rhamnosus GG [Culturelle] 1 cap PO BID cap 08/15/20 [Rx] cefTRIAXone [Rocephin] 1 gm IV Q24H vial 08/15/20 [Rx] - Discharge Summary/Plan Comment DC Time >30 min.: No - Patient Data Vitals - Most Recent: Last Vital Signs Temp 96.5 F L 08/15/20 12:09 Pulse 92 08/15/20 12:09 Resp 18 08/15/20 12:09 BP 118/84 08/15/20 12:09 Pulse Ox 97 08/15/20 09:00 Weight - Most Recent: 164 lb 3.2 oz I&O - Last 24 hours: Intake & Output 08/14/20 08/15/20 08/15/20 22:59 06:59 14:59 Intake Total 1200 620 461 Output Total 700 400 Balance 500 620 61 Lab Results - Last 24 hrs: Laboratory Results - last 24 hr 08/14/20 08/14/20 08/14/20 Range/Units 15:09 16:54 21:00 Hgb (12.0-15.0) g/dL Sodium (140-148) mmol/L Potassium 5.6 H (3.6-5.2) mmol/L Chloride (100-108) mmol/L Carbon Dioxide (21-32) mmol/L Anion Gap (5.0-14.0) mmol/L BUN (7-18) mg/dL Creatinine (0.6-1.0) mg/dL Est Cr Clr Drug Dosing mL/min Estimated GFR (MDRD) (>60) Glucose (74-106) mg/dL POC Glucose 190 H 144 H (74-106) MG/DL Calcium (8.5-10.1) mg/dL Total Bilirubin (0.2-1.0) mg/dL AST (15-37) U/L ALT (12-78) U/L Alkaline Phosphatase (46-116) U/L Total Protein (6.4-8.2) g/dL Albumin (3.4-5.0) g/dL Globulin (2.3-3.5) g/dL Albumin/Globulin Ratio (1.2-2.2) Blood Type Gel Antibody Screen Crossmatch 08/15/20 08/15/20 08/15/20 Range/Units 05:37 05:37 05:37 Hgb 6.9 L* (12.0-15.0) g/dL Sodium 143 (140-148) mmol/L Potassium 4.8 (3.6-5.2) mmol/L Chloride 105 (100-108) mmol/L Carbon Dioxide 32 (21-32) mmol/L Anion Gap 6.3 (5.0-14.0) mmol/L BUN 47 H (7-18) mg/dL Creatinine 2.7 H (0.6-1.0) mg/dL Est Cr Clr Drug Dosing 27.22 mL/min Estimated GFR (MDRD) 21 L (>60) Glucose 130 H (74-106) mg/dL POC Glucose (74-106) MG/DL Calcium 8.8 (8.5-10.1) mg/dL Total Bilirubin 0.3 (0.2-1.0) mg/dL AST 14 L (15-37) U/L ALT 20 (12-78) U/L Alkaline Phosphatase 100 (46-116) U/L Total Protein 5.7 L (6.4-8.2) g/dL Albumin 2.7 L (3.4-5.0) g/dL Globulin 3.0 (2.3-3.5) g/dL Albumin/Globulin Ratio 0.9 L (1.2-2.2) Blood Type O NEGATIVE Gel Antibody Screen Negative Crossmatch See Detail 08/15/20 08/15/20 Range/Units 07:30 11:30 Hgb (12.0-15.0) g/dL Sodium (140-148) mmol/L Potassium (3.6-5.2) mmol/L Chloride (100-108) mmol/L Carbon Dioxide (21-32) mmol/L Anion Gap (5.0-14.0) mmol/L BUN (7-18) mg/dL Creatinine (0.6-1.0) mg/dL Est Cr Clr Drug Dosing mL/min Estimated GFR (MDRD) (>60) Glucose (74-106) mg/dL POC Glucose 113 H 133 H (74-106) MG/DL Calcium (8.5-10.1) mg/dL Total Bilirubin (0.2-1.0) mg/dL AST (15-37) U/L ALT (12-78) U/L Alkaline Phosphatase (46-116) U/L Total Protein (6.4-8.2) g/dL Albumin (3.4-5.0) g/dL Globulin (2.3-3.5) g/dL Albumin/Globulin Ratio (1.2-2.2) Blood Type Gel Antibody Screen Crossmatch Med Orders - Current: Current Medications Acetaminophen (Tylenol) 650 mg PO Q4H PRN PRN Reason: Pain (Mild 1-3)/fever Last Admin: 08/15/20 00:21 Dose: 650 mg Documented by: Albuterol (Proventil Neb Soln) 2.5 mg NEB Q4H PRN PRN Reason: Shortness Of Breath/wheezing Last Admin: 08/14/20 15:35 Dose: 2.5 mg Documented by: Amlodipine Besylate (Norvasc) 10 mg PO DAILY [facility] Last Admin: 08/15/20 08:38 Dose: 10 mg Documented by: Cholecalciferol (Vitamin D3) 50,000 unit PO MoWeFr@0900 [facility] Last Admin: 08/15/20 11:37 Dose: 50,000 unit Documented by: Gabapentin (Neurontin) 300 mg PO TID [facility] Last Admin: 08/15/20 08:38 Dose: 300 mg Documented by: Hydromorphone HCl (Dilaudid) 2 - 4 mg PO Q4H PRN PRN Reason: Pain Last Admin: 08/15/20 07:33 Dose: 4 mg Documented by: Hydromorphone HCl (Dilaudid) 0.5 mg IVPUSH Q2H PRN PRN Reason: Pain (severe 7-10) Last Admin: 08/15/20 12:07 Dose: 0.5 mg Documented by: Hydroxyzine HCl (Vistaril) 75 mg IM Q6H PRN PRN Reason: Pain (moderate 4-6) Last Admin: 08/15/20 09:39 Dose: 75 mg Documented by: Azithromycin 500 mg/ Sodium (Chloride) 250 mls @ 250 mls/hr IV Q24H [facility] Last Admin: 08/14/20 15:36 Dose: 250 mls/hr Documented by: Ceftriaxone Sodium 1 gm/ (Sodium Chloride) 50 mls @ 100 mls/hr IV Q24H [facility] Last Admin: 08/14/20 14:55 Dose: 100 mls/hr Documented by: Insulin Glargine (Lantus Solostar) 18 units SUBCUT DAILY [facility] Last Admin: 08/15/20 09:20 Dose: 18 units Documented by: Insulin Human Lispro (Humalog) 0 unit SUBCUT TIDMEALS [facility] Last Admin: 08/15/20 12:54 Dose: Not Given Documented by: Lactobacillus Rhamnosus (Culturelle) 1 cap PO BID [facility] Last Admin: 08/15/20 08:37 Dose: 1 cap Documented by: Lorazepam (Ativan) 0.5 mg PO Q4H PRN PRN Reason: Anxiety Last Admin: 08/14/20 23:29 Dose: 0.5 mg Documented by: Lorazepam (Ativan) 0.5 mg IVPUSH Q4H PRN PRN Reason: Anxiety or Nausea Last Admin: 08/15/20 12:53 Dose: 0.5 mg Documented by: Magnesium Hydroxide (Milk Of Magnesia) 30 ml PO Q12H PRN PRN Reason: Constipation Last Admin: 08/13/20 20:04 Dose: 30 ml Documented by: Mometasone Furoate/Formoterol Fumar (Dulera 200-5 Mcg) 2 puff IH BIDRT [facility] Last Admin: 08/15/20 07:14 Dose: 2 puff Documented by: Montelukast Sodium (Singulair) 10 mg PO BEDTIME [facility] Last Admin: 08/14/20 21:42 Dose: 10 mg Documented by: Ondansetron HCl (Zofran) 4 mg IV Q6H PRN PRN Reason: Nausea/Vomiting Last Admin: 08/14/20 06:59 Dose: 4 mg Documented by: Ondansetron HCl (Zofran Odt) 4 mg PO Q6H PRN PRN Reason: Nausea able to take PO Last Admin: 08/15/20 09:27 Dose: 4 mg Documented by: Polyethylene Glycol (Miralax) 17 gm PO DAILY PRN PRN Reason: Constipation Last Admin: 08/12/20 08:08 Dose: 17 gm Documented by: Senna/Docusate Sodium (Senna Plus) 1 tab PO BID [facility] Last Admin: 08/15/20 08:38 Dose: 1 tab Documented by: Senna/Docusate Sodium (Senna Plus) 1 tab PO BID PRN PRN Reason: Constipation Last Admin: 08/13/20 15:45 Dose: 1 tab Documented by: Sertraline HCl (Zoloft) 100 mg PO DAILY [facility] Last Admin: 08/15/20 08:38 Dose: 100 mg Documented by: Sodium Chloride (Saline Flush) 10 ml FLUSH ASDIRECTED PRN PRN Reason: Keep Vein Open Last Admin: 08/05/20 02:08 Dose: 10 ml Documented by: Trazodone HCl (Trazodone) 50 mg PO BEDTIME PRN PRN Reason: Sleep Last Admin: 08/15/20 00:21 Dose: 50 mg Documented by: Discontinued Medications Acetaminophen (Tylenol Extra Strength) 1,000 mg PO ONETIME ONE Stop: 08/05/20 03:08 Last Admin: 08/05/20 03:13 Dose: 1,000 mg Documented by: Bumetanide (Bumex) 2 mg IVPUSH ONETIME ONE Stop: 08/05/20 16:01 Last Admin: 08/05/20 15:06 Dose: 2 mg Documented by: Bumetanide (Bumex) 1 mg IVPUSH ONETIME ONE Stop: 08/09/20 12:36 Last Admin: 08/09/20 13:28 Dose: 1 mg Documented by: Bumetanide (Bumex) 2 mg IVPUSH ONETIME ONE Stop: 08/10/20 09:01 Last Admin: 08/10/20 08:36 Dose: 2 mg Documented by: Bumetanide (Bumex) 2 mg IVPUSH Q24H [facility] Last Admin: 08/14/20 08:52 Dose: Not Given Documented by: Bumetanide (Bumex) 2 mg IVPUSH ONETIME ONE Stop: 08/12/20 16:01 Last Admin: 08/12/20 15:21 Dose: 2 mg Documented by: Bumetanide (Bumex) 2 mg IVPUSH ONETIME ONE Stop: 08/15/20 12:32 Last Admin: 08/15/20 12:53 Dose: 2 mg Documented by: Carvedilol (Coreg) 25 mg PO BIDMEALS [facility] Last Admin: 08/08/20 18:06 Dose: 25 mg Documented by: Dextrose/Water (Dextrose 50% In Water) 25 ml IVPUSH ONETIME ONE Stop: 08/05/20 22:31 Last Admin: 08/05/20 22:23 Dose: 25 ml Documented by: Diclofenac Sodium (Voltaren 1% Gel) 0 gm TOP QID [facility] Last Admin: 08/05/20 09:42 Dose: Not Given Documented by: Diclofenac Sodium (Voltaren 1% Gel) 0 gm TOP QID PRN PRN Reason: Pain Furosemide (Lasix) 40 mg IVPUSH NOW ONE Stop: 08/05/20 04:15 Last Admin: 08/05/20 04:48 Dose: 40 mg Documented by: Gabapentin (Neurontin) 600 mg PO TID [facility] Last Admin: 08/08/20 15:04 Dose: 600 mg Documented by: Gabapentin (Neurontin) 200 mg PO TID [facility] Last Admin: 08/13/20 08:30 Dose: 200 mg Documented by: Hydromorphone HCl (Dilaudid) 0.5 mg IVPUSH Q4H PRN PRN Reason: Pain (severe 7-10) Last Admin: 08/14/20 07:56 Dose: 0.5 mg Documented by: Lactated Ringer's (Ringers, Lactated) 1,000 mls @ 500 mls/hr IV ASDIRECTED [facility] Last Admin: 08/05/20 03:13 Dose: 500 mls/hr Documented by: Sodium Chloride (Normal Saline) 100 mls @ 3 mls/sec IV ASDIRECTED [facility] Last Admin: 08/05/20 02:36 Dose: 3 mls/sec Documented by: Influenza Virus Vaccine (Fluzone Quad Syringe) 60 mcg IM .ONCE ONE Stop: 08/05/20 09:01 Last Admin: 08/05/20 16:24 Dose: 60 mcg Documented by: Insulin Glargine (Lantus Solostar) 30 units SUBCUT DAILY [facility] Last Admin: 08/10/20 08:55 Dose: 30 units Documented by: Insulin Glargine (Lantus Solostar) 25 units SUBCUT DAILY [facility] Last Admin: 08/13/20 10:44 Dose: Not Given Documented by: Insulin Glargine (Lantus Solostar) 22 units SUBCUT DAILY [facility] Last Admin: 08/13/20 10:22 Dose: 22 units Documented by: Insulin Human Lispro (Humalog) 0 unit SUBCUT QIDACANDBED [facility]; Protocol Last Admin: 08/12/20 08:21 Dose: Not Given Documented by: Iopamidol (Isovue-370 (76%)) 100 ml IV . DIRECTED [facility] Last Admin: 08/05/20 02:36 Dose: 100 ml Documented by: Lorazepam (Ativan) 0.5 mg IVPUSH Q4H PRN PRN Reason: Nausea/Vomiting Last Admin: 08/07/20 21:16 Dose: 0.5 mg Documented by: Oxycodone HCl (Oxycodone) 5 - 10 mg PO Q4H PRN PRN Reason: Pain Last Admin: 08/13/20 09:12 Dose: 10 mg Documented by: Potassium Chloride (Klor-Con M20) 40 meq PO ONETIME ONE Stop: 08/05/20 04:53 Last Admin: 08/05/20 05:14 Dose: 40 meq Documented by: Sodium Chloride (Saline Flush) 10 ml FLUSH ONETIME ONE Stop: 08/05/20 02:10 Last Admin: 08/05/20 02:36 Dose: 10 ml Documented by: Sodium Polystyrene Sulfonate (Kayexalate) 30 gm PO ONETIME ONE Stop: 08/10/20 09:01 Last Admin: 08/10/20 08:45 Dose: 30 gm Documented by: Sodium Polystyrene Sulfonate (Kayexalate) 30 gm PO ONETIME STA Stop: 08/14/20 06:53 Last Admin: 08/14/20 07:11 Dose: 30 gm Documented by: - Exam Quality Assessment: Reports: Supplemental Oxygen, DVT Prophylaxis General: Reports: Alert, Oriented, Cooperative, Moderate Distress Lungs: Reports: Normal Respiratory Effort, Rales Cardiovascular: Reports: Regular Rate, Regular Rhythm, No Murmurs GI/Abdominal Exam: Soft, Non-Tender, No Organomegaly, No Distention Extremities: No Pedal Edema
[2020-08-15] MEDS: cefTRIAXone 1 GM in Sodium Chloride 0.9% 50 ML IV SCH (14:17)
[2020-08-15] MEDS: Azithromycin 500 MG in Sodium Chloride 0.9% 250 ML IV SCH (15:35)
== END 2020-08-15 15:35 | DRG 291 ==
LOC: JP.ED 23:43 → JP.MS 08-05 04:15
PROVIDERS: ADMIT Internal Medicine; ATTEND Hospitalist
DX: I13.0 Hypertensive heart and chronic kidney disease with heart failure and stage 1 through stage 4 chronic kidney disease, or unspecified chronic kidney disease (principal); J18.9 Pneumonia, unspecified organism; J96.01 Acute respiratory failure with hypoxia; I50.31 Acute diastolic (congestive) heart failure; N17.9 Acute kidney failure, unspecified; Z94.0 Kidney transplant status; D64.9 Anemia, unspecified; E87.5 Hyperkalemia; R16.0 Hepatomegaly, not elsewhere classified; E10.42 Type 1 diabetes mellitus with diabetic polyneuropathy; F41.1 Generalized anxiety disorder; J45.909 Unspecified asthma, uncomplicated; I10 Essential (primary) hypertension; F32.9 Major depressive disorder, single episode, unspecified; Z90.89 Acquired absence of other organs; Z90.49 Acquired absence of other specified parts of digestive tract; E10.22 Type 1 diabetes mellitus with diabetic chronic kidney disease; Z79.4 Long term (current) use of insulin; N18.32 Chronic kidney disease, stage 3b; Z20.822 Contact with and (suspected) exposure to COVID-19
CPT/HCPCS: 0241U; 36415; 36430; 51798; 71046; 71046-26; 71275; 74176; 76770; 76770-26; 80048; 80053; 81001; 82306; 82550; 82570; 82962; 83735; 84132; 84156; 84484; 85018; 85025; 85027; 85379; 86140; 86850; 86900; 86901; 86920; 86922; 90686; 93970; 93970-26; 94640; 94762; 96374; 97161-GP; 99222-AI; 99232; 99238; 99283; 99285-25; A9270-GY; G0008; J0456; J0696; J1170; J1815; J1815-GY; J1940; J2060; J2405; J3410; J3490; J7050; J7120; P9016; Q9967

== ENCOUNTER 2020-08-28 09:18 | Emergency (ER) | payer MEDICAID ==
[2020-08-28] MEDS ORDERED: Sodium Chloride 0.9% 10 ML Syringe FLUSH PRN (09:21)
[2020-08-28] MEDS ORDERED: Lactated Ringers 500 ML IV ONE (09:21)
--- NOTE | 2020-08-28 09:42 | EDM.PDOC ---
ED HPI GENERAL MEDICAL PROBLEM - General Stated Complaint: MEDICAL [facility]IA [facility] Time Seen by Provider: 08/28/20 09:20 Source of Information: Reports: Patient, EMS, Old Records, RN Notes Reviewed History Limitations: Reports: No Limitations - History of Present Illness INITIAL COMMENTS - FREE TEXT/NARRATIVE: 25-year-old female presents emergency department day via EMS services for hypoglycemic event. She was found unresponsive by family members to have a blood sugar of 22 she was given 35 g of D50 and was able to eat some food at the scene she did start to respond but then became sluggish and unresponsive again. EMS then transported here for further evaluation by the time she arrives here [id number] glucose reveals 160 she does respond to commands appropriately opens eyes spontaneously denies any pain states she has been feverish over the last couple days. Recently discharged from [facility] August 15 at which time she had an event of respiratory failure requiring intubation with community-acquired pneumonia. Review of discharge note reveals that she has had over 35 hospital admissions for DKA Lower Leg Pain Score (Numeric/FACES): 6 - Related Data Allergies Allergy/AdvReac Type Severity Reaction Status Date / Time ciprofloxacin Allergy Hives Verified 08/05/20 00:07 Latex, Natural Rubber Allergy Itching Verified 08/05/20 00:07 morphine Allergy Hives Verified 08/05/20 00:07 Home Meds: Home Meds Albuterol Sulfate [Proair Hfa] 2 puff INH ASDIRECTED 06/09/20 [History] Insulin Aspart [NovoLOG] 0 unit SUBCUT ASDIRECTED 06/09/20 [History] Multivitamin [Multivitamins] 1 cap PO DAILY 06/09/20 [History] SUMAtriptan [Imitrex] 25 mg PO ASDIRECTED PRN 06/09/20 [History] Sertraline [Zoloft] 100 mg PO DAILY 06/09/20 [History] ondansetron HCL [Zofran] 4 mg PO Q8H PRN 06/09/20 [History] traZODone HCl [Trazodone HCl] 50 - 100 mg PO BEDTIME PRN 06/09/20 [History] Fluticasone Propion/Salmeterol [Wixela 250-50 Inhub] 1 puff IH BID 08/05/20 [History] Iron Polysaccharide Complex [Poly-Iron] 150 mg PO DAILY 08/05/20 [History] Montelukast Sodium [Singulair] 10 mg PO BEDTIME 08/05/20 [History] Sennosides/Docusate Sodium [Stimulant Laxative Plus Tablet] 1 each PO BID PRN 08/05/20 [History] amLODIPine Besylate [Amlodipine Besylate] 10 mg PO DAILY 08/05/20 [History] Fluticasone Propionate [Flonase Allergy Relief] 1 spray TOP DAILY 08/28/20 [History] Gabapentin [Neurontin] 300 mg PO TID 08/28/20 [History] Insulin Glargine,Hum.Rec.Anlog [Lantus Solostar] 18 units SUBCUT DAILY 08/28/20 [History] Past Medical History HEENT History: Reports: Impaired Vision, Other (See Below) Other HEENT History: retinopathy Cardiovascular History: Reports: Heart Murmur, Hypertension, Other (See Below) Other Cardiovascular History: CPR Respiratory History: Reports: Asthma, Intubation, Previous, Pneumonia, Recurrent Gastrointestinal History: Reports: Other (See Below) Other Gastrointestinal History: 2 benign masses on the liver. 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 Musculoskeletal History: Reports: Fracture Neurological History: Reports: Neuropathy, Diabetic, Seizure Psychiatric History: Reports: Anxiety, Depression, Panic Attack Endocrine/Metabolic History: Reports: Diabetes, Type I Hematologic History: Reports: Anemia Oncologic (Cancer) History: Reports: Other (See Below) Other Oncologic History: carcinomic tumor of appendix at 8 years old. - Infectious Disease History Infectious Disease History: Reports: Chicken Pox - Past Surgical History Head Surgeries/Procedures: Reports: None HEENT Surgical History: Reports: Adenoidectomy, Tonsillectomy Cardiovascular Surgical History: Reports: None Respiratory Surgical History: Reports: None GI Surgical History: Reports: Appendectomy, Colonoscopy Female Surgical History: Reports: None Endocrine Surgical History: Reports: None Neurological Surgical History: Reports: None Musculoskeletal Surgical History: Reports: None Oncologic Surgical History: Reports: None Dermatological Surgical History: Reports: None Social & Family History - Family History Family Medical History: No Pertinent Family History - Caffeine Use Caffeine Use: Reports: Coffee, Soda Other Caffeine Use: on occasion Caffeine Use Comment: occasionaly ED ROS GENERAL - Review of Systems Review Of Systems: See Below Constitutional: Reports: Fever, Chills HEENT: Reports: No Symptoms Respiratory: Reports: No Symptoms Cardiovascular: Reports: No Symptoms Endocrine: Reports: Low Glucose GI/Abdominal: Reports: No Symptoms : Reports: No Symptoms ED EXAM, GENERAL - Physical Exam Exam: See Below Exam Limited By: No Limitations General Appearance: Alert, No Apparent Distress, Lethargic, Other (GCS 14) Respiratory/Chest: No Respiratory Distress, Lungs Clear, Normal Breath Sounds, No Accessory Muscle Use, Chest Non-Tender Cardiovascular: Regular Rate, Rhythm, No Murmur GI/Abdominal: Soft, Non-Tender Extremities: No Pedal Edema, Other (Pedal pulses +2) Skin Exam: Warm, Dry Course - Vital Signs Last Recorded V/S: Last Vital Signs Temp 95 F L 08/28/20 09:25 Pulse 87 08/28/20 09:25 Resp 16 08/28/20 09:25 BP 177/109 H 08/28/20 09:25 Pulse Ox 95 08/28/20 09:25 - Orders/Labs/Meds Orders: Active Orders 24 hr Category Date Time Status EKG Documentation Completion [RC] ASDIRECTED Care 08/28/20 09:22 Active Peripheral IV Care [RC] . DIRECTED Care 08/28/20 09:21 Active Chest 1V Frontal [CR] Urgent Exams 08/28/20 09:21 Taken UA W/MICROSCOPIC [URIN] Urgent Lab 08/28/20 09:21 Ordered Sodium Chloride 0.9% [Saline Flush] Med 08/28/20 09:21 Active 10 ml FLUSH ASDIRECTED PRN Peripheral IV Insertion Adult [OM.PC] Stat Oth 08/28/20 09:21 Ordered EKG 12 Lead [EK] Urgent Ther 08/28/20 09:21 Ordered Medication Orders Sodium Chloride (Saline Flush) 10 ml FLUSH ASDIRECTED PRN PRN Reason: Keep Vein Open Labs: Laboratory Tests 08/28/20 08/28/20 08/28/20 Range/Units 09:21 09:21 09:21 WBC 5.5 (4.5-11.0) K/uL RBC 4.22 (3.30-5.50) M/uL Hgb 11.5 L D (12.0-15.0) g/dL Hct 36.1 (36.0-48.0) % MCV 86 (80-98) fL MCH 27 (27-31) pg MCHC 32 (32-36) % Plt Count 336 (150-400) K/uL Neut % (Auto) 65 (36-66) % Lymph % (Auto) 24 (24-44) % Petroleum % (Auto) 6 (2-6) % Eos % (Auto) 4 (2-4) % Baso % (Auto) 1 (0-1) % Sodium 142 (140-148) mmol/L Potassium 3.6 (3.6-5.2) mmol/L Chloride 104 (100-108) mmol/L Carbon Dioxide 25 (21-32) mmol/L Anion Gap 12.7 (5.0-14.0) mmol/L BUN 33 H (7-18) mg/dL Creatinine 2.2 H (0.6-1.0) mg/dL Est Cr Clr Drug Dosing 31.77 mL/min Estimated GFR (MDRD) 27 L (>60) Glucose 129 H (74-106) mg/dL POC Glucose (74-106) MG/DL Lactic Acid 0.6 (0.4-2.0) mmol/L Calcium 9.1 (8.5-10.1) mg/dL Total Bilirubin 0.3 (0.2-1.0) mg/dL AST 20 (15-37) U/L ALT 22 (12-78) U/L Alkaline Phosphatase 92 (46-116) U/L Troponin I < 0.017 (0.000-0.056) ng/mL Total Protein 6.9 (6.4-8.2) g/dL Albumin 3.4 (3.4-5.0) g/dL Globulin 3.5 (2.3-3.5) g/dL Albumin/Globulin Ratio 1.0 L (1.2-2.2) Lipase 63 L (73-393) U/L Salicylates (2.0-20.0) mg/dL Acetaminophen 0.0 L (10.0-30.0) ug/mL Ethyl Alcohol mg/dL Ketones (NEGATIVE) 08/28/20 08/28/20 08/28/20 Range/Units 09:21 09:21 09:22 WBC (4.5-11.0) K/uL RBC (3.30-5.50) M/uL Hgb (12.0-15.0) g/dL Hct (36.0-48.0) % MCV (80-98) fL MCH (27-31) pg MCHC (32-36) % Plt Count (150-400) K/uL Neut % (Auto) (36-66) % Lymph % (Auto) (24-44) % Pet[place] % (Auto) (2-6) % Eos % (Auto) (2-4) % Baso % (Auto) (0-1) % Sodium (140-148) mmol/L Potassium (3.6-5.2) mmol/L Chloride (100-108) mmol/L Carbon Dioxide (21-32) mmol/L Anion Gap (5.0-14.0) mmol/L BUN (7-18) mg/dL Creatinine (0.6-1.0) mg/dL Est Cr Clr Drug Dosing mL/min Estimated GFR (MDRD) (>60) Glucose (74-106) mg/dL POC Glucose (74-106) MG/DL Lactic Acid (0.4-2.0) mmol/L Calcium (8.5-10.1) mg/dL Total Bilirubin (0.2-1.0) mg/dL AST (15-37) U/L ALT (12-78) U/L Alkaline Phosphatase (46-116) U/L Troponin I (0.000-0.056) ng/mL Total Protein (6.4-8.2) g/dL Albumin (3.4-5.0) g/dL Globulin (2.3-3.5) g/dL Albumin/Globulin Ratio (1.2-2.2) Lipase (73-393) U/L Salicylates 0.3 L (2.0-20.0) mg/dL Acetaminophen (10.0-30.0) ug/mL Ethyl Alcohol < 3 mg/dL Ketones Negative (NEGATIVE) 08/28/20 Range/Units 09:37 WBC (4.5-11.0) K/uL RBC (3.30-5.50) M/uL Hgb (12.0-15.0) g/dL Hct (36.0-48.0) % MCV (80-98) fL MCH (27-31) pg MCHC (32-36) % Plt Count (150-400) K/uL Neut % (Auto) (36-66) % Lymph % (Auto) (24-44) % Petroleum % (Auto) (2-6) % Eos % (Auto) (2-4) % Baso % (Auto) (0-1) % Sodium (140-148) mmol/L Potassium (3.6-5.2) mmol/L Chloride (100-108) mmol/L Carbon Dioxide (21-32) mmol/L Anion Gap (5.0-14.0) mmol/L BUN (7-18) mg/dL Creatinine (0.6-1.0) mg/dL Est Cr Clr Drug Dosing mL/min Estimated GFR (MDRD) (>60) Glucose (74-106) mg/dL POC Glucose 152 H (74-106) MG/DL Lactic Acid (0.4-2.0) mmol/L Calcium (8.5-10.1) mg/dL Total Bilirubin (0.2-1.0) mg/dL AST (15-37) U/L ALT (12-78) U/L Alkaline Phosphatase (46-116) U/L Troponin I (0.000-0.056) ng/mL Total Protein (6.4-8.2) g/dL Albumin (3.4-5.0) g/dL Globulin (2.3-3.5) g/dL Albumin/Globulin Ratio (1.2-2.2) Lipase (73-393) U/L Salicylates (2.0-20.0) mg/dL Acetaminophen (10.0-30.0) ug/mL Ethyl Alcohol mg/dL Ketones (NEGATIVE) Meds: Medications Generic Name Dose Route Start Last Admin Trade Name Freq PRN Reason Stop Dose Admin Sodium Chloride 10 ml 08/28/20 09:21 Saline Flush FLUSH ASDIRECTED PRN Keep Vein Open Discontinued Medications Generic Name Dose Route Start Last Admin Trade Name Freq PRN Reason Stop Dose Admin Lactated Ringer's 500 mls @ 999 mls/hr 08/28/20 09:21 08/28/20 09:49 Ringers, Lactated IV 08/28/20 09:51 999 mls/hr .BOLUS ONE Administration Departure - Departure Time of Disposition: 10:44 Disposition: Home, Self-Care 01 Condition: Fair Clinical Impression: Hypoglycemia - Discharge Information Instructions: Hypoglycemia Referrals: PCP,Eyad [Primary Care Provider] - Additional Instructions: Continue with your regular medications, keep your follow-up appointment with your primary care on Saturday of this week, call return to the emergency department worsening of symptoms Sepsis Event Note (ED) - Focused Exam Vital Signs: Vital Signs Temp Pulse Resp BP Pulse Ox 08/28/20 09:25 95 F L 87 16 177/109 H 95 - My Orders Last 24 Hours: My Active Orders 08/28/20 09:21 Peripheral IV Care [RC] . DIRECTED Chest 1V Frontal [CR] Urgent UA W/MICROSCOPIC [URIN] Urgent Sodium Chloride 0.9% [Saline Flush] 10 ml FLUSH ASDIRECTED PRN Peripheral IV Insertion Adult [OM.PC] Stat EKG 12 Lead [EK] Urgent 08/28/20 09:22 EKG Documentation Completion [RC] ASDIRECTED - Assessment/Plan Last 24 Hours: My Active Orders 08/28/20 09:21 Peripheral IV Care [RC] . DIRECTED Chest 1V Frontal [CR] Urgent UA W/MICROSCOPIC [URIN] Urgent Sodium Chloride 0.9% [Saline Flush] 10 ml FLUSH ASDIRECTED PRN Peripheral IV Insertion Adult [OM.PC] Stat EKG 12 Lead [EK] Urgent 08/28/20 09:22 EKG Documentation Completion [RC] ASDIRECTED Plan: Assessment Acuity = acute Site and laterality = hypoglycemia complicated patient with known history of diabetes mellitus type 1 Etiology = suspicious for insulin related event Manifestations = none Location of injury = Home Lab values = CBC CMP unremarkable chest x-ray shows no acute process Plan She had good improvement after tolerating a meal in the emergency department she states her primary care team has been changing her insulin regimen around she does have a known history of hypoglycemic events at night they have been trying to adjust the medication she does have follow-up with her primary care on Saturday of this week This note was dictated using [employer] voice recognition software please call with any questions on syntax or grammar.
--- NOTE | 2020-08-29 09:56 | CR ---
CHEST: Portable 08/28/2020 at 10:18 AM CLINICAL HISTORY:Unresponsive COMPARISON:08/14/2020 FINDINGS: Diffuse bilateral pulmonary infiltrates seen on prior study have resolved. Heart and pulmonary vascularity are normal. There is a rounded metallic appearing foreign body overlying the left upper quadrant. This may be intra-abdominal or superficial. IMPRESSION: PREVIOUS BILATERAL PULMONARY INFILTRATES HAVE RESOLVED 1 CM ROUNDED METALLIC APPEARING RADIOPACITY IN THE LEFT UPPER QUADRANT OF UNCERTAIN ETIOLOGY. CLINICAL CORRELATION NECESSARY
== END 2020-08-28 11:11 | disposition home or self-care (01) ==
LOC: JP.ED 09:18
DX: E10.649 Type 1 diabetes mellitus with hypoglycemia without coma (principal); I10 Essential (primary) hypertension; E10.40 Type 1 diabetes mellitus with diabetic neuropathy, unspecified; J45.909 Unspecified asthma, uncomplicated; Z79.899 Other long term (current) drug therapy; Z91.040 Latex allergy status; Z88.5 Allergy status to narcotic agent; Z88.1 Allergy status to other antibiotic agents
CPT/HCPCS: 36415; 71045; 80053; 80143; 80179; 80307; 82009; 82962; 83605; 83690; 84484; 85025; 93005; 93010; 99285; J7120; 99283

== ENCOUNTER 2020-09-06 11:11 | Emergency (ER) | payer MEDICAID ==
[2020-09-06] MEDS ORDERED: Sodium Chloride 0.9% 1,000 ML IV ONE (11:51)
--- NOTE | 2020-09-06 12:22 | EDM.PDOC ---
ED HPI GENERAL MEDICAL PROBLEM - General Chief Complaint: Lower Extremity Injury/Pain Stated Complaint: BACK AND LEG PAIN, NAUSEA Time Seen by Provider: 09/06/20 11:55 Source of Information: Reports: Patient History Limitations: Reports: No Limitations - History of Present Illness INITIAL COMMENTS - FREE TEXT/NARRATIVE: 25-year-old type 1 insulin-dependent diabetic with frequent episodes of DKA presents with muscle spasm and pain in her legs and back, discomfort, and intermittent shortness of breath. She appears to be panting but it looks more emotional or reactive than true hypoxia or DKA. No injury, no fever, no abdominal pain. Onset: Gradual Duration: Day(s): (Over the last 2 days) Location: Reports: Other (Generalized muscle pain, especially lower extremities and back) Associated Symptoms: Reports: Malaise, Weakness. Denies: Chest Pain, Cough, Nausea/Vomiting, Shortness of Breath - Related Data Allergies Allergy/AdvReac Type Severity Reaction Status Date / Time ciprofloxacin Allergy Hives Verified 09/06/20 11:49 Latex, Natural Rubber Allergy Itching Verified 09/06/20 11:49 Home Meds: Home Meds Albuterol Sulfate [Proair Hfa] 2 puff INH ASDIRECTED 06/09/20 [History] Insulin Aspart [NovoLOG] 0 unit SUBCUT ASDIRECTED 06/09/20 [History] Multivitamin [Multivitamins] 1 cap PO DAILY 06/09/20 [History] SUMAtriptan [Imitrex] 25 mg PO ASDIRECTED PRN 06/09/20 [History] Sertraline [Zoloft] 100 mg PO DAILY 06/09/20 [History] ondansetron HCL [Zofran] 4 mg PO Q8H PRN 06/09/20 [History] traZODone HCl [Trazodone HCl] 50 - 100 mg PO BEDTIME PRN 06/09/20 [History] Fluticasone Propion/Salmeterol [Wixela 250-50 Inhub] 1 puff IH BID 08/05/20 [History] Iron Polysaccharide Complex [Poly-Iron] 150 mg PO DAILY 08/05/20 [History] Montelukast Sodium [Singulair] 10 mg PO BEDTIME 08/05/20 [History] amLODIPine Besylate [Amlodipine Besylate] 10 mg PO DAILY 08/05/20 [History] Fluticasone Propionate [Flonase Allergy Relief] 1 spray TOP DAILY 08/28/20 [History] Gabapentin [Neurontin] 300 mg PO TID 08/28/20 [History] Insulin Glargine,Hum.Rec.Anlog [Lantus Solostar] 18 units SUBCUT DAILY 08/28/20 [History] Past Medical History HEENT History: Reports: Impaired Vision, Other (See Below) Other HEENT History: retinopathy Cardiovascular History: Reports: Heart Murmur, Hypertension, Other (See Below) Other Cardiovascular History: CPR Respiratory History: Reports: Asthma, Intubation, Previous, Pneumonia, Recurrent Gastrointestinal History: Reports: Other (See Below) Other Gastrointestinal History: 2 benign masses on the liver. 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 Musculoskeletal History: Reports: Fracture Neurological History: Reports: Neuropathy, Diabetic, Seizure Psychiatric History: Reports: Anxiety, Depression, Panic Attack Endocrine/Metabolic History: Reports: Diabetes, Type I Hematologic History: Reports: Anemia Oncologic (Cancer) History: Reports: Other (See Below) Other Oncologic History: carcinomic tumor of appendix at 8 years old. - Infectious Disease History Infectious Disease History: Reports: Chicken Pox - Past Surgical History Head Surgeries/Procedures: Reports: None HEENT Surgical History: Reports: Adenoidectomy, Tonsillectomy Cardiovascular Surgical History: Reports: None Respiratory Surgical History: Reports: None GI Surgical History: Reports: Appendectomy, Colonoscopy Female Surgical History: Reports: None Endocrine Surgical History: Reports: None Neurological Surgical History: Reports: None Musculoskeletal Surgical History: Reports: None Oncologic Surgical History: Reports: None Dermatological Surgical History: Reports: None Social & Family History - Family History Family Medical History: No Pertinent Family History - Caffeine Use Caffeine Use: Reports: Coffee Other Caffeine Use: on occasion Caffeine Use Comment: occasionaly Review of Systems - Review of Systems Review Of Systems: See Below Constitutional: Denies: Fever Eyes: Denies: Tunnel Vision Ears: Reports: No Symptoms Mouth/Throat: Reports: No Symptoms Respiratory: Reports: Shortness of Breath, Pleuritic Chest Pain GI/Abdominal: Reports: Nausea. Denies: Vomiting Genitourinary: Reports: No Symptoms Musculoskeletal: Reports: Back Pain, Leg Pain, Other (Generalized muscle pain) Skin: Reports: No Symptoms Neurological: Reports: Dizziness, Headache Psychiatric: Reports: Anxiety ED EXAM, GENERAL - Physical Exam Exam: See Below Exam Limited By: No Limitations General Appearance: Alert, Moderate Distress, Other (Patient is breathing rapidly but not consistent like hyperventilation, more behavioral) Eye Exam: Bilateral Eye: Normal Inspection Head: Atraumatic Neck: Supple, Non-Tender Respiratory/Chest: Lungs Clear Cardiovascular: Regular Rate, Rhythm. No: Tachycardia GI/Abdominal: Soft, Non-Tender Extremities: Other (Any palpation of the legs or lower back causes her to wince in pain) Neurological: Alert, Oriented, No Motor/Sensory Deficits Psychiatric: Anxious Skin Exam: Warm, Dry Course - Vital Signs Last Recorded V/S: Last Vital Signs Temp 97.1 F 09/06/20 11:52 Pulse 96 09/06/20 11:52 Resp 24 H 09/06/20 11:52 BP 183/101 H 09/06/20 11:52 Pulse Ox 99 09/06/20 11:52 - Orders/Labs/Meds Labs: Laboratory Tests 09/06/20 09/06/20 09/06/20 Range/Units 11:50 12:13 12:13 WBC 6.3 (4.5-11.0) K/uL RBC 3.68 (3.30-5.50) M/uL Hgb 10.0 L (12.0-15.0) g/dL Hct 30.9 L (36.0-48.0) % MCV 84 (80-98) fL MCH 27 (27-31) pg MCHC 32 (32-36) % Plt Count 324 (150-400) K/uL Neut % (Auto) 64 (36-66) % Lymph % (Auto) 26 (24-44) % [place] % (Auto) 7 H (2-6) % Eos % (Auto) 2 (2-4) % Baso % (Auto) 1 (0-1) % Puncture Site Rt radial ABG pH 7.389 (7.350-7.450) ABG pCO2 33.7 L (35.0-42.0) mmHg ABG pO2 103.0 H (75.0-100.0) mmHg ABG HCO3 19.9 L (22.0-26.0) mmol/L ABG Total CO2 18.6 L (21.0-25.0) mmol/L ABG O2 Saturation 98.4 H (95.0-98.0) % ABG O2 Content 13.0 L (15.0-23.0) %vol ABG Base Excess -3.9 mm/L ABG Hemoglobin 9.7 L (12.0-16.0) g/dL ABG Oxyhemoglobin 94.5 % ABG Carboxyhemoglobin 3.0 H (0.0-1.6) % ABG Methemoglobin 1.0 % Rodrigo Test Passed O2 Delivery Device Room air Sodium 134 L (140-148) mmol/L Potassium 5.3 H (3.6-5.2) mmol/L Chloride 99 L (100-108) mmol/L Carbon Dioxide 21 (21-32) mmol/L Anion Gap 19.3 H (5.0-14.0) mmol/L BUN 41 H (7-18) mg/dL Creatinine 2.5 H (0.6-1.0) mg/dL Est Cr Clr Drug Dosing 27.96 mL/min Estimated GFR (MDRD) 23 L (>60) Glucose 460 H* (74-106) mg/dL Calcium 9.2 (8.5-10.1) mg/dL Total Bilirubin 0.4 (0.2-1.0) mg/dL AST 10 L (15-37) U/L ALT 14 (12-78) U/L Alkaline Phosphatase 95 (46-116) U/L Creatine Kinase 72 (26-192) U/L Total Protein 7.0 (6.4-8.2) g/dL Albumin 3.2 L (3.4-5.0) g/dL Globulin 3.8 H (2.3-3.5) g/dL Albumin/Globulin Ratio 0.8 L (1.2-2.2) Ketones (NEGATIVE) 09/06/20 Range/Units 12:13 WBC (4.5-11.0) K/uL RBC (3.30-5.50) M/uL Hgb (12.0-15.0) g/dL Hct (36.0-48.0) % MCV (80-98) fL MCH (27-31) pg MCHC (32-36) % Plt Count (150-400) K/uL Neut % (Auto) (36-66) % Lymph % (Auto) (24-44) % [place] % (Auto) (2-6) % Eos % (Auto) (2-4) % Baso % (Auto) (0-1) % Puncture Site ABG pH (7.350-7.450) ABG pCO2 (35.0-42.0) mmHg ABG pO2 (75.0-100.0) mmHg ABG HCO3 (22.0-26.0) mmol/L ABG Total CO2 (21.0-25.0) mmol/L ABG O2 Saturation (95.0-98.0) % ABG O2 Content (15.0-23.0) %vol ABG Base Excess mm/L ABG Hemoglobin (12.0-16.0) g/dL ABG Oxyhemoglobin % ABG Carboxyhemoglobin (0.0-1.6) % ABG Methemoglobin % Rodrigo Test O2 Delivery Device Sodium (140-148) mmol/L Potassium (3.6-5.2) mmol/L Chloride (100-108) mmol/L Carbon Dioxide (21-32) mmol/L Anion Gap (5.0-14.0) mmol/L BUN (7-18) mg/dL Creatinine (0.6-1.0) mg/dL Est Cr Clr Drug Dosing mL/min Estimated GFR (MDRD) (>60) Glucose (74-106) mg/dL Calcium (8.5-10.1) mg/dL Total Bilirubin (0.2-1.0) mg/dL AST (15-37) U/L ALT (12-78) U/L Alkaline Phosphatase (46-116) U/L Creatine Kinase (26-192) U/L Total Protein (6.4-8.2) g/dL Albumin (3.4-5.0) g/dL Globulin (2.3-3.5) g/dL Albumin/Globulin Ratio (1.2-2.2) Ketones Small H (NEGATIVE) Meds: Medications Discontinued Medications Generic Name Dose Route Start Last Admin Trade Name Freq PRN Reason Stop Dose Admin Sodium Chloride 1,000 mls @ 999 mls/hr 09/06/20 11:51 09/06/20 12:10 Normal Saline IV 09/06/20 12:51 999 mls/hr ONETIME ONE Administration Insulin Human Regular 8 unit 09/06/20 12:33 09/06/20 12:44 Humulin R IVPUSH 09/06/20 12:34 8 units ONETIME ONE Administration Lorazepam 0.5 mg 09/06/20 12:38 09/06/20 12:45 Ativan IVPUSH 09/06/20 12:39 0.5 mg ONETIME ONE Administration - Re-Assessments/Exams Free Text/Narrative Re-Assessment/Exam: 09/06/20 12:39 ABGs are basically normal which is some slightly decreased CO2 but normal pH. CK is normal. Renal function is at her usual baseline. White count is normal. Patient kept asking for something for anxiety and pain, I did give her 0.5 mg of IV Ativan and 8 units of regular insulin as her glucose was 460. She was recently seen in the emergency room in [place] for the same thing, those records were asked for and are pending. Records from [place] indicated the same type of presentation, more of an anxiety reaction and hyperglycemia than true disease. I did give her 0.5 mg of Ativan but no further medications. Departure - Departure Time of Disposition: 13:49 Disposition: Home, Self-Care 01 Clinical Impression: Anxiety, Myalgia, Hyperglycemia - Discharge Information Instructions: Musculoskeletal Pain Referrals: PCP,None [Primary Care Provider] - Forms: ED Department Discharge Care Plan Goals: Continue your current medications as prescribed, stay hydrated and return in 2 to 3 days if not improving satisfactorily. Sepsis Event Note (ED) - Evaluation Sepsis Screening Result: No Definite Risk - Focused Exam Vital Signs: Vital Signs Temp Pulse Resp BP Pulse Ox 09/06/20 11:52 97.1 F 96 24 H 183/101 H 99 09/06/20 11:27 97.1 F 96 24 H 183/101 H 99
[2020-09-06] MEDS ORDERED: Insulin Regular, Human 100 Units/ML 3 ML Vial IVPUSH ONE (12:33)
[2020-09-06] MEDS ORDERED: LORazepam 2 MG/ML SDV IVPUSH ONE (12:38)
== END 2020-09-06 13:49 | disposition home or self-care (01) ==
LOC: JP.ED 11:11
DX: F41.9 Anxiety disorder, unspecified (principal); E10.65 Type 1 diabetes mellitus with hyperglycemia; M79.10 Myalgia, unspecified site; I10 Essential (primary) hypertension; J45.909 Unspecified asthma, uncomplicated; E10.40 Type 1 diabetes mellitus with diabetic neuropathy, unspecified; E10.319 Type 1 diabetes mellitus with unspecified diabetic retinopathy without macular edema; Z91.040 Latex allergy status; Z88.1 Allergy status to other antibiotic agents; Z79.899 Other long term (current) drug therapy
CPT/HCPCS: 36415; 36600; 80053; 82009; 82550; 82803; 85025; 96374; 99284; J2060; J7030; J1815-GY